=== PATIENT | male | born 1960 | race Caucasian/White ===

== ENCOUNTER 2016-12-12 16:56 | Emergency (ER) | payer MEDICARE, MEDICAID ==
[2016-12-12 17:11] VITALS: BP 134/86
--- NOTE | 2016-12-12 17:19 | UC ---
Skin Complaint HPI - History of Current Complaint Chief Complaint: UCSkin Time Seen by Provider: 12/12/16 17:11 Stated Complaint: SCRATCH ON HEAD Hx Obtained From: Family/Paint Formulator Onset/Duration: Sudden Onset - sometime today out on a group outing. Did not have a scratch on the head this morning, but seen this evening., Still Present Skin Exposure Onset/Duration: Days Ago - during the day. Timing: Constant Onset Severity: Mild Current Severity: Mild Location: Discrete - right side of the scalp. Character: Redness Aggravating: Nothing Alleviating: Nothing Associated Signs & Symptoms: Positive: Negative Related History: Trauma - unknown, none observed. - Allergy/Home Medications Allergies/Adverse Reactions: Allergies Allergy/AdvReac Type Severity Reaction Status Date / Time Clindamycin Allergy Severe Hives Verified 12/12/16 17:10 Erythromycin Allergy Severe Hives Verified 12/12/16 17:10 Adhesive Tape Allergy Unknown Verified 12/12/16 17:10 Reaction Details Review of Systems Skin: Other - abrasion on the right side of the head. All Other Systems Reviewed And Are Negative: Yes PMH/Surg Hx/FS Hx/Imm Hx Cardiovascular History Of: Reports: Cardiac Disorders - hx pericarditis - Surgical History Surgical History: Yes Surgery Procedure, Year, and Place: herniorrhaphy x2, dental extractions - Family History Known Family History: Positive: Unknown, Other - PT RESIDENT OF [facility], MENTALLY HANDICAPPED,UNABLE TO PROVIDE HX - Social History Occupation: Disabled Lives: Long-Term Alcohol Use: None Substance Use Type: None Smoking Status (MU): Never Smoked Tobacco Have You Smoked in the Last Year: No Physical Exam Triage Information Reviewed: Yes Completion Of Physical Exam Limited Due To: Patient is uncooperative with exam Vital Signs: Initial Vital Signs Temp 98.1 F 12/12/16 17:02 Pulse 97 12/12/16 17:02 Resp 16 12/12/16 17:02 BP 134/86 12/12/16 17:02 Pulse Ox 100 12/12/16 17:02 Vital Signs Reviewed: Yes Eyes: Positive: Conjunctiva Clear, Other: - right eye exotropia Neck exam: Normal Neck: Positive: Supple Respiratory Exam: Normal Cardiovascular Exam: Normal Musculoskeletal Exam: Normal Neurological: Positive: Alert, Other: - somewhat combative hitting himself. Psychological: Positive: Other: - non-verbal Skin: Positive: Other - abrasion over the right scalp. Abrasion on the right hand. Small forehead abrasion. Course/Dx - Differential Diagnoses - Skin Complaint Differential Diagnoses: Cellulitis, Lymphadenitis - Diagnoses Provider Diagnoses: Abrasion right scalp. Discharge - Discharge Plan Condition: Stable Disposition: HOME Patient Education Materials: Abrasion (ED)
== END 2016-12-12 17:45 | disposition home or self-care (01) ==
LOC: UCCORT 16:56
DX: S00.01XA Abrasion of scalp, initial encounter (principal); X58.XXXA Exposure to other specified factors, initial encounter; Y93.9 Activity, unspecified; Y92.9 Unspecified place or not applicable; Z88.1 Allergy status to other antibiotic agents
CPT/HCPCS: 99211; G0463

== ENCOUNTER 2017-01-07 13:10 | Emergency (ER) | payer MEDICARE, MEDICAID ==
[2017-01-07 15:35] VITALS: BP 147/80
--- NOTE | 2017-01-07 16:05 | UC ---
Hand/Wrist HPI - HPI Summary HPI Summary: Pt is cognitively impaired, nonverbal. Frequently "fist-bumps" other residents frequently, was doing so a lot this morning. Staff noticed that his knuckles were red, they are fine now. - History Of Current Complaint Chief Complaint: UC Stated Complaint: LEFT HAND INJURY Time Seen by Provider: 01/07/17 15:20 Hx Obtained From: Patient ?: No Onset/Duration: Gradual Onset, Lasting Hours Severity Initially: Mild Severity Currently: None Character Of Pain: Unable To Describe Alleviating: Nothing Associated Signs And Symptoms: Positive: Redness - Allergies/Home Medications Allergies/Adverse Reactions: Allergies Allergy/AdvReac Type Severity Reaction Status Date / Time Clindamycin Allergy Severe Hives Verified 01/07/17 15:21 Erythromycin Allergy Severe Hives Verified 01/07/17 15:21 Adhesive Tape Allergy Unknown Verified 01/07/17 15:21 Reaction Details PMH/Surg Hx/FS Hx/Imm Hx Cardiovascular History Of: Reports: Cardiac Disorders - hx pericarditis - Surgical History Surgical History: Yes Surgery Procedure, Year, and Place: herniorrhaphy x2, dental extractions - Family History Known Family History: Positive: Unknown, Other - PT RESIDENT OF PRISON, MENTALLY HANDICAPPED,UNABLE TO PROVIDE HX - Social History Occupation: Disabled Lives: Alf Alcohol Use: None Substance Use Type: None Smoking Status (MU): Never Smoked Tobacco Have You Smoked in the Last Year: No Review of Systems Constitutional: Negative Skin: Other - redness Eyes: Negative ENT: Negative Respiratory: Negative Cardiovascular: Negative Gastrointestinal: Negative Genitourinary: Negative Motor: Negative Neurovascular: Negative Musculoskeletal: Negative Neurological: Negative Psychological: Negative All Other Systems Reviewed And Are Negative: Yes Physical Exam Triage Information Reviewed: Yes Appearance: Well-Appearing, No Pain Distress, Well-Nourished Vital Signs: Initial Vital Signs Temp 98.5 F 01/07/17 15:26 Pulse 67 01/07/17 15:26 Resp 20 01/07/17 15:26 BP 147/80 01/07/17 15:26 Pulse Ox 98 01/07/17 15:26 Vital Signs Reviewed: Yes Eye Exam: Normal Eyes: Positive: Conjunctiva Clear ENT Exam: Normal ENT: Positive: Normal ENT inspection, Hearing grossly normal, Pharynx normal, TMs normal Dental Exam: Other - edentulous Neck exam: Normal Respiratory Exam: Normal Respiratory: Positive: Chest non-tender, Lungs clear, Normal breath sounds, No respiratory distress, No accessory muscle use Cardiovascular Exam: Normal Cardiovascular: Positive: RRR, No Murmur Musculoskeletal Exam: Normal, Other - no tenderness, using L hand fully Musculoskeletal: Positive: Strength Intact, ROM Intact Neurological Exam: Normal Psychological Exam: Normal Skin Exam: Normal Hand/Wrist Course/Dx - Differential Dx/Diagnosis Provider Diagnoses: Mild contusion to L hand Discharge - Discharge Plan Condition: Stable Disposition: HOME Patient Education Materials: Contusion in Adults (ED) Referrals: Mary Jennings MD [Primary Care Provider] - Additional Instructions: Boris's exam was normal here, x-ray snowed no injury. No change to normal care or activity level.
--- NOTE | 2017-01-07 16:06 | RAD ---
INDICATION: Left hand pain COMPARISON: None TECHNIQUE: AP and lateral views were obtained. FINDINGS: The bony structures, joint spaces, and soft tissues are normal for age. IMPRESSION: NEGATIVE EXAMINATION.
== END 2017-01-07 16:08 | disposition home or self-care (01) ==
LOC: UCCORT 13:10
DX: S60.222A Contusion of left hand, initial encounter (principal); W51.XXXA Accidental striking against or bumped into by another person, initial encounter; I31.9 Disease of pericardium, unspecified; Z88.1 Allergy status to other antibiotic agents; Z91.048 Other nonmedicinal substance allergy status; Z55.8 Other problems related to education and literacy
CPT/HCPCS: 99211; G0463

== ENCOUNTER 2017-02-24 10:59 | Emergency (ER) | payer MEDICARE, MEDICAID ==
[2017-02-24 12:05] VITALS: BP 141/87
--- NOTE | 2017-02-24 12:37 | UC ---
Head Injury HPI - HPI Summary HPI Summary: 56 yo Pt with hx MR, resident of a [facility] who is deaf and nonverbal, was in a transport van today, and per staff report pt saw the business administration program chair with a cup of coffee and wanted the cup of coffee and when he couldn't have it, pt banged his head inside the van, then outside the van on the van, and then on a metal pole as he was walking into the [facility]. This was witnessed and staff were with pt throughout the morning. Occurred approx 0930am. Pt was given one dose of APAP 650mg at 10:30am. No vomiting. No LOC. Pt is acting his usual self per staff with pt at this time, Antonia Comer. Per staff pt had preexisting abrasion on his right forehead. Pt is not on ASA or any anticoagulants. - History Of Current Complaint Chief Complaint: UCHeadInjury Stated Complaint: BANGED HEAD 3 TIMES Time Seen by Provider: 02/24/17 12:23 Hx Obtained From: Family/Director Vaccine - Antonia Comer;, Medical Records - Pt's consult sheet and "red book" Hx From Patient Unobtainable Due To: Other - level 5 caveat: Pt nonverbal, deaf , and MR Mechanism Of Injury: struck his head 3 times on van and metal pole as per HPI Onset/Duration: Sudden Onset, Lasting Hours, Resolved Severity Currently: Mild Severity Initially: Mild Pain Intensity: 0 Pain Scale Used: Adult Non Verbal Character: Other - unable to describe; level 5 caveat Aggravating Factor(s): Other - level 5 caveat Alleviating Factor(s): Other - level 5 caveat Associated Signs And Symptoms: Negative: LOC (Time In Secs./Mins/Hrs), LOC Duration Unknown, Confusion, Seizure, Epistaxis, Neck Pain, Vomiting - Risk Factors SDH Risk Factor: Male, Recent Trauma - Allergies/Home Medications Allergies/Adverse Reactions: Allergies Allergy/AdvReac Type Severity Reaction Status Date / Time Clindamycin Allergy Severe Hives Verified 02/24/17 12:06 Erythromycin Allergy Severe Hives Verified 02/24/17 12:06 Adhesive Tape Allergy Unknown Verified 02/24/17 12:06 Reaction Details PMH/Surg Hx/FS Hx/Imm Hx Previously Healthy: No - MR Cardiovascular History Of: Reports: Cardiac Disorders - hx pericarditis - Surgical History Surgical History: Yes Surgery Procedure, Year, and Place: Herniorrhaphies, Dental Extractions, Colonoscopy - Family History Known Family History: Positive: Unknown, Other - Level 5 caveat: MENTALLY HANDICAPPED,Deaf,UNABLE TO PROVIDE HX; - Social History Occupation: Disabled Lives: Snf Alcohol Use: None Substance Use Type: None Smoking Status (MU): Never Smoked Tobacco Have You Smoked in the Last Year: No - Immunization History Most Recent Influenza Vaccination: 09/07/16 Most Recent Tetanus Shot: 01/01/10 TD Most Recent Pneumonia Vaccination: 10/26/88 Review of Systems Constitutional: Other - level 5 caveat Skin: Other - abrasions forehead Eyes: Other - level 5 caeat ENT: Other - level 5 caveat Respiratory: Other - level 5 caveat Cardiovascular: Other - level 5 caveat Gastrointestinal: Other - level 5 caveat Genitourinary: Other - level 5 caveat Motor: Negative Neurovascular: Negative Musculoskeletal: Other: - level 5 caveat Neurological: Negative, Other - level 5 caveat Psychological: Negative All Other Systems Reviewed And Are Negative: Yes Physical Exam Triage Information Reviewed: Yes Appearance: Well-Appearing, No Pain Distress, Well-Nourished, Signs of Trauma - abrasions and swelling to mid forehead Vital Signs: Initial Vital Signs Temp 98.5 F 02/24/17 11:49 Pulse 82 02/24/17 11:49 Resp 18 02/24/17 11:49 BP 141/87 02/24/17 11:49 Pulse Ox 94 02/24/17 11:49 elevated BP noted Vital Signs Reviewed: Yes Eyes: Positive: Conjunctiva Clear, Other: - PERRL EOMI, No Camejo's signs, no step off of orbital rims, no indication of pain on palpation ENT: Positive: Pharynx normal, TMs normal - no hemotympanum, Other: - nonverbal. Negative: Hearing grossly normal Dental Exam: Other - edentulous, no sign of trauma Neck: Positive: Supple, Nontender, No Lymphadenopathy Respiratory: Positive: Chest non-tender, Lungs clear, Normal breath sounds, No respiratory distress Cardiovascular: Positive: RRR, No Murmur, Pulses Normal, Brisk Capillary Refill Abdomen Description: Positive: Nontender, Soft. Negative: Distended, Guarding Musculoskeletal: Positive: Strength Intact, ROM Intact Neurological: Positive: Alert, Muscle Tone Normal, Other: - Moves all extrem well, normal gait. Nonfocal Psychological: Positive: Other: - normal response to caregiver Skin: Positive: Other - abrasion mid forehead, pre-existing abrasion right forehead. Head Injury Course/Dx - Course Course Of Treatment: Non focal neuro exam, acting his usual self, no seizure activity, no LOC reported, no vomiting, no Camejo's signs or hemotympanum and pt is not on anticoagulants, so do not feel CT is indicated at this time. Have not diagnosed concussion. Advise q 4 hrs vital signs x 24 hrs and APAP 650mg q 4 hrs prn. - Differential Dx/Diagnosis Differential Diagnosis/HQI/PQRI: Concussion Without LOC, Contusion, Hematoma, Intracranial Bleed, Skull Fracture Provider Diagnoses: head injury with abrasions. elevated BP without dx of HTN Discharge - Discharge Plan Condition: Stable Disposition: HOME Patient Education Materials: Head Injury (ED) Referrals: Mary Jennings MD [Primary Care Provider] - Additional Instructions: Consult form was completed. Please follow those recommendations. His BP is elevated today 141/87 and needs follow up with Dr. Jennings within one month. Pt should be transported to the nearest emergency room if any new or worsening symptoms.
== END 2017-02-24 12:56 | disposition home or self-care (01) ==
LOC: UCCORT 10:59
DX: S00.81XA Abrasion of other part of head, initial encounter (principal); W22.8XXA Striking against or struck by other objects, initial encounter; Y93.9 Activity, unspecified; Y92.811 Bus as the place of occurrence of the external cause; R03.0 Elevated blood-pressure reading, without diagnosis of hypertension; F79 Unspecified intellectual disabilities; H91.90 Unspecified hearing loss, unspecified ear; Z88.1 Allergy status to other antibiotic agents
CPT/HCPCS: 99212; G0463

== ENCOUNTER 2017-03-22 08:28 | Emergency (ER) | payer MEDICARE, MEDICAID ==
[2017-03-22 08:42] VITALS: BP 138/78
--- NOTE | 2017-03-22 09:23 | UC ---
Head Injury HPI - HPI Summary HPI Summary: HEAD INJURY X 1 DAY SMASHED HIS HEAD ON THE BUS WINDOW THIS MORNING , BROKE THE WINDOW, MILD ABRASION ON THE SCALP NO LOC, HAS BEEN ACTING NORMAL - History Of Current Complaint Chief Complaint: UCHeadInjury Stated Complaint: HEAD INJURY Time Seen by Provider: 03/22/17 08:44 Hx Obtained From: Family/County Coroner Hx From Patient Unobtainable Due To: Other - MR Onset/Duration: Sudden Onset, Lasting Days - 1, Still Present Severity Currently: None Severity Initially: Mild Pain Intensity: 0 Pain Scale Used: Adult Non Verbal Associated Signs And Symptoms: Negative: LOC (Time In Secs./Mins/Hrs), LOC Duration Unknown, Confusion, Memory Loss, Seizure, Epistaxis, Dental Malocclusion, Neck Pain, Nausea, Vomiting - Allergies/Home Medications Allergies/Adverse Reactions: Allergies Allergy/AdvReac Type Severity Reaction Status Date / Time Clindamycin Allergy Severe Hives Verified 03/22/17 08:41 Erythromycin Allergy Severe Hives Verified 03/22/17 08:41 Adhesive Tape Allergy Unknown Verified 03/22/17 08:41 Reaction Details PMH/Surg Hx/FS Hx/Imm Hx Cardiovascular History Of: Reports: Cardiac Disorders - hx pericarditis - Surgical History Surgical History: Yes Surgery Procedure, Year, and Place: Herniorrhaphies, Dental Extractions, Colonoscopy - Family History Known Family History: Positive: Unknown, Other - Level 5 caveat: MENTALLY HANDICAPPED,Deaf,UNABLE TO PROVIDE HX; - Social History Alcohol Use: None Substance Use Type: None Smoking Status (MU): Never Smoked Tobacco Have You Smoked in the Last Year: No - Immunization History Most Recent Influenza Vaccination: 09/07/16 Most Recent Tetanus Shot: 01/01/10 TD Most Recent Pneumonia Vaccination: 10/26/88 Review of Systems Constitutional: Negative All Other Systems Reviewed And Are Negative: Yes Physical Exam Triage Information Reviewed: Yes Appearance: No Pain Distress, Well-Nourished Vital Signs: Initial Vital Signs Temp 97.8 F 03/22/17 08:34 Pulse 87 03/22/17 08:34 Resp 17 03/22/17 08:34 BP 138/78 03/22/17 08:34 Pulse Ox 98 03/22/17 08:34 Vital Signs Reviewed: Yes Eye Exam: Normal Eyes: Positive: Conjunctiva Clear ENT: Positive: Normal ENT inspection, Hearing grossly normal, Pharynx normal Neck: Positive: Supple, Nontender, No Lymphadenopathy Respiratory: Positive: Chest non-tender, Lungs clear, Normal breath sounds Cardiovascular: Positive: RRR, No Murmur, Pulses Normal Musculoskeletal Exam: Normal Skin: Positive: Other - MILD ABRASION TOP OF THE SCALP UC Physical Exam Vital Signs On Initial Exam: Initial Vitals Temp Pulse Resp BP Pulse Ox 97.8 F 87 17 138/78 98 03/22/17 08:34 03/22/17 08:34 03/22/17 08:34 03/22/17 08:34 03/22/17 08:34 - Neurological Exam Neurological: Sensory/Motor Intact, CN Intact II-III, Reflexes Intact, Normal Gait Head Injury Course/Dx - Differential Dx/Diagnosis Provider Diagnoses: CONTUSION HEAD. ABRASION SCALP Discharge - Discharge Plan Condition: Stable Disposition: HOME Patient Education Materials: Head Injury (ED) Referrals: Mary Jennings MD [Primary Care Provider] - If Needed
== END 2017-03-22 08:58 | disposition home or self-care (01) ==
LOC: UCCORT 08:28
DX: S00.03XA Contusion of scalp, initial encounter (principal); S00.01XA Abrasion of scalp, initial encounter; W22.8XXA Striking against or struck by other objects, initial encounter; Y93.89 Activity, other specified; Y92.811 Bus as the place of occurrence of the external cause; Z88.1 Allergy status to other antibiotic agents
CPT/HCPCS: 99212; G0463

== ENCOUNTER 2017-03-24 15:45 | Emergency (ER) | payer MEDICARE, MEDICAID ==
--- NOTE | 2017-03-24 16:47 | UC ---
Head Injury HPI - HPI Summary HPI Summary: The patient comes in today for: 1. Head injury: Onset: 2 days ago. Palliative/Provocative: He does not do well with change and he will act out when he does not get his way. Quality: Unable to determine the character Region: Head Severity: Unable to determine Time: Comes and goes. Associated symptoms: Event: He was in the bathroom at workshop and banking his head against the mirror. He has a history of hitting his head against things--part of his behavior. He has not done this in a long time. He will act out by hitting his head against the wall when he does not get his way. He has been hitting his head over the last few days. The life educator is not able to get me this history as she only has been working in the custodial for the last two days. However, the nurse who took his triage states that he was seen a couple days ago for the same thing. IN a way, his hitting his head is new as he has not done this for "a long time." However, it is also not new as he has done this in the past. He has a history of impulse control disorder. * - History Of Current Complaint Chief Complaint: UCHeadInjury Stated Complaint: HEAD INJURY Time Seen by Provider: 03/24/17 16:21 Hx Obtained From: Patient, Family/Patternmaker Plaster - Allergies/Home Medications Allergies/Adverse Reactions: Allergies Allergy/AdvReac Type Severity Reaction Status Date / Time Clindamycin Allergy Severe Hives Verified 03/24/17 16:15 Erythromycin Allergy Severe Hives Verified 03/24/17 16:15 Adhesive Tape Allergy Unknown Verified 03/24/17 16:15 Reaction Details PMH/Surg Hx/FS Hx/Imm Hx Previously Healthy: No - Moderate MR, Cerebral palsy, Seizures, hearing loss, Self-injurious behavio Endocrine History Of: Denies: Diabetes, Thyroid Disease, Hyperthyroidism, Hypothyroidism, Dyslipidemia Cardiovascular History Of: Reports: Cardiac Disorders - hx pericarditis Denies: Hypertension, Pacemaker/ICD, Myocardial Infarction, Congestive Heart Failure, Atrial Fibrillation, Deep Vein Thrombosis, Bleeding Disorders Respiratory History Of: Denies: COPD, Asthma, Bronchitis, Pneumonia, Pulmonary Embolism GI/ History Of: Denies: Gastroesophageal Reflux, Ulcer, Gastrointestinal Bleed, Gall Bladder Disease, Kidney Stones, Diverticulitis, Renal Disease, Urosepsis Neurological History Of: Reports: Seizures Psychological History Of: Denies: Anxiety, Depression, Bipolar Disorder, Schizophrenia, Post Traumatic Stress Disorder Cancer History Of: Denies: Lung Cancer, Colorectal Cancer, Breast Cancer, Prostate Cancer, Cervical Cancer Other History Of: Negative For: HIV, Hepatitis B, Hepatitis C, Anticoagulant Therapy - Surgical History Surgical History: Yes Surgery Procedure, Year, and Place: Herniorrhaphies, Dental Extractions, Colonoscopy - Family History Known Family History: Positive: Unknown - The patient is nonverbal. No fm hx in chart., Other - Level 5 caveat: MENTALLY HANDICAPPED,Deaf,UNABLE TO PROVIDE HX; - Social History Alcohol Use: None Substance Use Type: None Smoking Status (MU): Never Smoked Tobacco Have You Smoked in the Last Year: No - Immunization History Most Recent Influenza Vaccination: 09/07/16 Most Recent Tetanus Shot: 01/01/10 TD Most Recent Pneumonia Vaccination: 10/26/88 Review of Systems Constitutional: Negative Skin: Negative Eyes: Negative ENT: Negative Respiratory: Negative Cardiovascular: Negative Gastrointestinal: Negative Genitourinary: Negative All Other Systems Reviewed And Are Negative: Yes Physical Exam Triage Information Reviewed: Yes Completion Of Physical Exam Limited Due To: Altered Mental Status Appearance: Well-Appearing, No Pain Distress, Well-Nourished Vital Signs: Initial Vital Signs Temp 98.1 F 03/24/17 16:15 Pulse 90 03/24/17 16:15 Resp 20 03/24/17 16:15 Pulse Ox 97 03/24/17 16:15 Vital Signs Reviewed: Yes Eyes: Positive: Conjunctiva Clear. Negative: Discharge - Ears: TM not seen, but no canal erythema or edema or discharge. He would not open his mouth for me to evaluation. No swollen lips or swollen tongue. He is deaf. Neck: Positive: Supple, Nontender, No Lymphadenopathy, Other: - No masses Respiratory: Positive: Chest non-tender, Lungs clear, No respiratory distress, No accessory muscle use. Negative: Rhonchi, Wheezing Cardiovascular: Positive: RRR, No Murmur Abdomen Description: Positive: Nontender, No Organomegaly, Soft. Negative: Distended, Guarding Musculoskeletal: Positive: Strength Intact, ROM Intact, No Edema Neurological: Positive: Alert, Muscle Tone Normal Psychological: Positive: Age Appropriate Behavior, Consolable Skin: Positive: Other - 1 cm scab over the upper/posterior head.. Negative: rashes, breakdown Head Injury Course/Dx - Course Course Of Treatment: Patternmaker Plaster and [facility] home health were told that his behavior change may be caused from a medical condition and that we are not able to do even more basic testing (CBC, metabolic profile) or imaging (he will sit still) . To get more testing done than what we can do here, he would need to go to the ER and they agreed. The patient's health care proxy was called, but no answer and no way to leave message. - Differential Dx/Diagnosis Provider Diagnoses: Behavior change. - Physician Notification/Consults Discussed Patient Care With: Dr. Arrington Time Discussed With Above Provider: 17:33 Discharge - Discharge Plan Condition: Stable Disposition: [facility] Additional Instructions: Patient is going to ER at [place] via ambulance.
== END 2017-03-24 17:55 | disposition short-term general hospital (02) ==
LOC: UCCORT 15:45
DX: S09.90XA Unspecified injury of head, initial encounter (principal); W22.09XA Striking against other stationary object, initial encounter; Y93.9 Activity, unspecified; Y92.192 Bathroom in other specified residential institution as the place of occurrence of the external cause; F63.9 Impulse disorder, unspecified; Z88.1 Allergy status to other antibiotic agents; F71 Moderate intellectual disabilities; G80.9 Cerebral palsy, unspecified; H91.90 Unspecified hearing loss, unspecified ear
CPT/HCPCS: 99213; G0463

== ENCOUNTER 2017-07-05 10:11 | Emergency (ER) | payer MEDICARE, MEDICAID ==
--- NOTE | 2017-07-05 10:35 | UC ---
General HPI - HPI Summary HPI Summary: 56 yo male with MR/deafness and non verbal bumped into another client and fell on right side using right arm normal gait is unchanged no grimacing or acting in pain - History of Current Complaint Chief Complaint: UCGeneralIllness Stated Complaint: RIGHT HIP & ARM PAIN-FALL Time Seen by Provider: 07/05/17 10:23 Hx Obtained From: Patient Onset/Duration: Sudden Onset, Lasting Hours Timing: Constant Onset Severity: Mild Current Severity: None Pain Intensity: 0 - Allergy/Home Medications Allergies/Adverse Reactions: Allergies Allergy/AdvReac Type Severity Reaction Status Date / Time Clindamycin Allergy Severe Hives Verified 07/05/17 10:15 Erythromycin Allergy Severe Hives Verified 07/05/17 10:15 Adhesive Tape Allergy Unknown Verified 07/05/17 10:15 Reaction Details Home Medications: Home Medications Cyanocobalamin TAB* [Vitamin B12 TAB*] 1,000 mcg PO DAILY 07/05/17 [History Confirmed 07/05/17] Sodium Chloride TAB* 1 gm PO BID 07/05/17 [History Confirmed 07/05/17] PMH/Surg Hx/FS Hx/Imm Hx Previously Healthy: Yes - MR/deaf/behavioral issues Other History Of: Negative For: HIV, Hepatitis B, Hepatitis C, Anticoagulant Therapy - Surgical History Surgical History: Yes Surgery Procedure, Year, and Place: Herniorrhaphies, Dental Extractions, Colonoscopy - Family History Known Family History: Positive: Unknown - The patient is nonverbal. No fm hx in chart., Other - Level 5 caveat: MENTALLY HANDICAPPED,Deaf,UNABLE TO PROVIDE HX; - Social History Alcohol Use: None Substance Use Type: None Smoking Status (MU): Never Smoked Tobacco Have You Smoked in the Last Year: No - Immunization History Most Recent Influenza Vaccination: 09/07/16 Most Recent Tetanus Shot: 01/01/10 TD Most Recent Pneumonia Vaccination: 10/26/88 Review of Systems Constitutional: Negative Skin: Negative Eyes: Negative ENT: Negative Respiratory: Negative Cardiovascular: Negative Gastrointestinal: Negative Genitourinary: Negative Motor: Negative Neurovascular: Negative Musculoskeletal: Negative Neurological: Negative Psychological: Negative All Other Systems Reviewed And Are Negative: Yes Physical Exam Triage Information Reviewed: Yes Appearance: Well-Appearing, No Pain Distress, Well-Nourished Vital Signs: Initial Vital Signs Temp 98.0 F 07/05/17 10:16 Pulse 75 07/05/17 10:16 Resp 18 07/05/17 10:16 BP 150/96 07/05/17 10:16 Pulse Ox 100 07/05/17 10:16 Vital Signs Reviewed: Yes Eyes: Positive: Conjunctiva Clear ENT: Negative: Hearing grossly normal, Nasal congestion, Nasal drainage, Trismus , Muffled/hoarse voice Neck: Positive: Supple, Nontender Respiratory: Positive: Lungs clear, Normal breath sounds, No respiratory distress, No accessory muscle use Cardiovascular: Positive: RRR, No Murmur Musculoskeletal: Positive: Strength Intact, ROM Intact, No Edema Neurological: Positive: Alert Skin Exam: Normal Course/Dx - Differential Dx - Multi-Symptom Provider Diagnoses: fall. no indication of serious injury. mild contusions Discharge - Discharge Plan Condition: Stable Disposition: HOME Patient Education Materials: Contusion in Adults (ED) Referrals: Mary Jennings MD [Primary Care Provider] - If Needed Additional Instructions: recheck for any concerns
[2017-07-05 10:36] VITALS: BP 150/96
== END 2017-07-05 10:38 | disposition home or self-care (01) ==
LOC: UCCORT 10:11
DX: T14.8 Other injury of unspecified body region (principal); W19.XXXA Unspecified fall, initial encounter
CPT/HCPCS: 99212; G0463

== ENCOUNTER 2017-12-14 08:44 | Emergency (ER) | payer MEDICARE, MEDICAID ==
[2017-12-14 09:32] VITALS: BP 00/00
--- NOTE | 2017-12-14 09:50 | UC ---
General HPI - HPI Summary HPI Summary: Witnessed fall where he stumbled and he was caught and was lowered to his knees. No head trauma. he has been fine since and has been walking without limping or complaint. - History of Current Complaint Chief Complaint: UCGeneralIllness Stated Complaint: SP FALL,HEAD INJ Time Seen by Provider: 12/14/17 09:42 Hx Obtained From: Family/Auto Mechanic Apprentice Onset/Duration: Sudden Onset, Lasting Hours Pain Intensity: 0 Associated Signs & Symptoms: Positive: Other - no pain or limping. - Allergy/Home Medications Allergies/Adverse Reactions: Allergies Allergy/AdvReac Type Severity Reaction Status Date / Time Clindamycin Allergy Severe Hives Verified 12/14/17 09:32 Erythromycin Allergy Severe Hives Verified 12/14/17 09:32 Adhesive Tape Allergy Unknown Verified 12/14/17 09:32 Reaction Details PMH/Surg Hx/FS Hx/Imm Hx Previously Healthy: Yes Other History Of: Negative For: HIV, Hepatitis B, Hepatitis C, Anticoagulant Therapy - Surgical History Surgical History: Yes Surgery Procedure, Year, and Place: Herniorrhaphies, Dental Extractions, Colonoscopy - Family History Known Family History: Positive: Unknown - The patient is nonverbal. No fm hx in chart., Other - Level 5 caveat: MENTALLY HANDICAPPED,Deaf,UNABLE TO PROVIDE HX; - Social History Alcohol Use: None Substance Use Type: None Smoking Status (MU): Never Smoked Tobacco Have You Smoked in the Last Year: No - Immunization History Most Recent Influenza Vaccination: 09/07/16 Most Recent Tetanus Shot: 01/01/10 TD Most Recent Pneumonia Vaccination: 10/26/88 Review of Systems All Other Systems Reviewed And Are Negative: Yes Physical Exam Triage Information Reviewed: Yes Appearance: Well-Appearing, No Pain Distress, Well-Nourished Vital Signs: Initial Vital Signs Temp 98.3 F 12/14/17 09:25 Pulse 61 12/14/17 09:25 Resp 18 12/14/17 09:25 BP 00/00 12/14/17 09:25 Pulse Ox 96 12/14/17 09:25 Vital Signs Reviewed: Yes ENT: Positive: Normal ENT inspection Neck: Positive: Supple, Nontender, No Lymphadenopathy Respiratory: Positive: No accessory muscle use. Negative: Respiratory distress Cardiovascular: Positive: Brisk Capillary Refill Abdomen Description: Negative: Distended, Guarding Musculoskeletal: Positive: Strength Intact, ROM Intact, No Edema Neurological: Positive: Alert, Muscle Tone Normal. Negative: Fatigued Skin: Positive: Other - no bruising.. Negative: rashes Course/Dx - Differential Dx - Multi-Symptom Provider Diagnoses: fall. No apparant injury. Discharge - Discharge Plan Condition: Good Disposition: HOME Patient Education Materials: Fall Prevention (ED) Referrals: Bell Camarillo MD [Primary Care Provider] -
== END 2017-12-14 09:51 | disposition home or self-care (01) ==
LOC: UCCORT 08:44
DX: Z04.3 Encounter for examination and observation following other accident (principal); Z88.1 Allergy status to other antibiotic agents; Z91.048 Other nonmedicinal substance allergy status
CPT/HCPCS: 99211; G0463

== ENCOUNTER 2017-12-27 10:13 | Emergency (ER) | payer MEDICARE, MEDICAID | END 2017-12-27 13:28 | disposition left against medical advice (07) | LOC: UCCORT 10:13 | DX: S20.311A Abrasion of right front wall of thorax, initial encounter (principal); W19.XXXA Unspecified fall, initial encounter; Y93.9 Activity, unspecified; Y92.9 Unspecified place or not applicable; Z53.21 Procedure and treatment not carried out due to patient leaving prior to being seen by health care provider ==

== ENCOUNTER 2017-12-27 13:12 | Emergency (ER) | payer MEDICARE, MEDICAID ==
[2017-12-27 15:16] VITALS: BP 156/70
--- NOTE | 2017-12-27 15:36 | UC ---
Minor Trauma HPI - HPI Summary HPI Summary: Pt presents to with aid from skilled nursing. Pt had had a fall earlier today - lost balance as he shuffles feet. No strike head, no LOC. pt with wound to right ribs and right knee - pt here as required by center. Pt has been acting usual baseline since incident. No n/v/d No sob, cough. Pt has been eating and drinking No apparent pain. No analgesia given Pt's tdap 2009 Pt not on anticoagulation pt's medications reveiwed this visit - History of Current Complaint Chief Complaint: UCChestPain Stated Complaint: SP FALL-SCRATCH ON RT RIB AREA Time Seen by Provider: 12/27/17 15:31 Hx Obtained From: Family/Assembler Knife Hx From Patient Unobtainable Due To: Other - Pt with MR Onset/Duration: Sudden Onset Onset Of Pain: Post Accident Severity Initially: Mild Severity Currently: None Pain Intensity: 0 Mechanism Of Injury: Other - mechanical fall Aggravating Factor(s): Nothing Alleviating Factor(s): Nothing Associated Signs And Symptoms: Positive: Other: - abraison. Negative: Loss Of Consciousness, Ecchymosis, Swelling - Allergies/Home Medications Allergies/Adverse Reactions: Allergies Allergy/AdvReac Type Severity Reaction Status Date / Time MS Clindamycin [Clindamycin] Allergy Severe Hives Verified 12/27/17 14:59 MS Erythromycin Allergy Severe Hives Verified 12/27/17 14:59 [Erythromycin] Adhesive Tape Allergy Unknown Verified 12/27/17 14:59 Reaction Details PMH/Surg Hx/FS Hx/Imm Hx Previously Healthy: Yes Cardiovascular History: Hypertension Psychological History: Other Other Psychological History: MR Other History Of: Negative For: HIV, Hepatitis B, Hepatitis C, Anticoagulant Therapy - Surgical History Surgical History: Yes Surgery Procedure, Year, and Place: Herniorrhaphies, Dental Extractions, Colonoscopy - Family History Known Family History: Positive: Unknown - The patient is nonverbal. No fm hx in chart., Other - Level 5 caveat: MENTALLY HANDICAPPED,Deaf,UNABLE TO PROVIDE HX; - Social History Occupation: Disabled Lives: [employer] Alcohol Use: None Substance Use Type: None Smoking Status (MU): Never Smoked Tobacco Have You Smoked in the Last Year: No - Immunization History Most Recent Influenza Vaccination: 09/07/16 Most Recent Tetanus Shot: 01/01/10 TD Most Recent Pneumonia Vaccination: 10/26/88 Review of Systems Constitutional: Negative Skin: Other - abraison right knee, right rib Eyes: Negative ENT: Negative Respiratory: Negative Gastrointestinal: Other - no n/v Motor: Negative Neurovascular: Negative Musculoskeletal: Negative Neurological: Negative, Other - baseline per caregiver Psychological: Negative All Other Systems Reviewed And Are Negative: Yes Physical Exam Triage Information Reviewed: Yes Appearance: Well-Appearing, No Pain Distress, Well-Nourished, Other: - Pt non verbal cooperative walking around dept Vital Signs: Initial Vital Signs Temp 99.3 F 12/27/17 15:04 Pulse 85 12/27/17 15:04 Resp 18 12/27/17 15:04 BP 156/70 12/27/17 15:04 Pulse Ox 98 12/27/17 15:04 Vital Signs Reviewed: Yes Eye Exam: Normal Eyes: Positive: Conjunctiva Clear ENT Exam: Normal ENT: Positive: Normal ENT inspection, Other - NC/AT TM x2 clear - no hemotymp No septal hematoma b/l no blood oropharynx, no broken teeth Dental Exam: Normal Neck exam: Normal Neck: Positive: Supple, Nontender, No Lymphadenopathy Respiratory Exam: Normal Respiratory: Positive: Chest non-tender, Lungs clear, Normal breath sounds, No respiratory distress, No accessory muscle use, Other: - right midax/post ribs pt with 3cm superficial abraison no ecchymosis, no crepitus, no bleeding No discomfort with palp Cardiovascular Exam: Normal Cardiovascular: Positive: RRR, No Murmur, Pulses Normal Abdominal Exam: Normal Abdomen Description: Positive: Nontender, No Organomegaly, Soft, Other: - soft + BS no guarding, no rebound Bowel Sounds: Positive: Present Musculoskeletal Exam: Normal Musculoskeletal: Positive: Strength Intact, Other: - full AROM RLE without discomfort + ambulates without difficult Neurological: Positive: Alert, Muscle Tone Normal, Other: - baseline per caregiver cooperative non verbal Psychological: Positive: Normal Response To Family - per caregiver Skin: Positive: Other - see chest wall right bassam quarter size abraison with scab - does not appear acute no ecchymosis lle with bandage - did not unwrap per request of aide - pt chronically scratches wound - keeps chronically wrapped Minor Trauma Course/Dx - Course Course Of Treatment: pt with a mechanical fall - small non suturable abraison right ribs. VSS. no sob, + BS throughout. d/w caregiver -wound care to right knee - injury appears old. motrin/apap prn. s.s infection. forms for home complete - Differential Dx/Diagnosis Provider Diagnoses: abraison Discharge - Discharge Plan Condition: Stable Disposition: HOME Patient Education Materials: Abrasion (ED) Referrals: Bell Camarillo MD [Primary Care Provider] - Additional Instructions: - keep area clean and dry - okay to cover knee wound with thin layer of antibiotic ointment and bandage 2 times a day - okay to give tylenol or ibuprofen as needed - no need to continue head injury protocol - if he develops discomfort, changes in behavior, shortness of breath, or ANY concerns - take him to the emergency department for further evaluation
== END 2017-12-27 15:58 | disposition home or self-care (01) ==
LOC: UCCORT 13:12
DX: S20.311A Abrasion of right front wall of thorax, initial encounter (principal); W19.XXXA Unspecified fall, initial encounter; Y93.9 Activity, unspecified; Y92.9 Unspecified place or not applicable; H91.3 Deaf nonspeaking, not elsewhere classified; F79 Unspecified intellectual disabilities
CPT/HCPCS: 99211; G0463

== ENCOUNTER 2018-03-17 14:34 | Emergency (ER) | payer MEDICARE, MEDICAID ==
[2018-03-17 14:57] VITALS: BP 144/90
--- NOTE | 2018-04-10 11:07 | UC ---
Head Injury HPI - HPI Summary HPI Summary: Patient lives in a senior care-patient feel today and hasa small abrasion on his head seeking evaluation - History Of Current Complaint Chief Complaint: UCHeadInjury Stated Complaint: HEAD INJURY Time Seen by Provider: 03/17/18 15:19 Hx Obtained From: Patient, Family/Mud Analysis Well Logging Captain Hx From Patient Unobtainable Due To: Other - rn acute care reports patient is his usual self Mechanism Of Injury: fall fromstanding Onset/Duration: Sudden Onset Pain Intensity: 0 Pain Scale Used: 0-10 Numeric Aggravating Factor(s): Nothing Alleviating Factor(s): Nothing Associated Signs And Symptoms: Positive: Negative - Allergies/Home Medications Allergies/Adverse Reactions: Allergies Allergy/AdvReac Type Severity Reaction Status Date / Time Adhesive Tape Allergy Unknown Verified 03/20/18 16:44 Reaction Details clindamycin Allergy Hives Verified 03/20/18 16:44 erythromycin base Allergy Hives Verified 03/20/18 16:44 PMH/Surg Hx/FS Hx/Imm Hx Previously Healthy: No - development disabilities Neurological History: Seizures Psychological History: Anxiety Other History Of: Negative For: HIV, Hepatitis B, Hepatitis C, Anticoagulant Therapy - Surgical History Surgical History: Yes Surgery Procedure, Year, and Place: Herniorrhaphies, Dental Extractions, Colonoscopy - Family History Known Family History: Positive: Unknown - The patient is nonverbal. No fm hx in chart., Other - Level 5 caveat: MENTALLY HANDICAPPED,Deaf,UNABLE TO PROVIDE HX; - Social History Occupation: Disabled Lives: Assisted Living Alcohol Use: None Substance Use Type: None Smoking Status (MU): Never Smoked Tobacco Have You Smoked in the Last Year: No - Immunization History Most Recent Influenza Vaccination: 09/07/16 Most Recent Tetanus Shot: 01/01/10 TD Most Recent Pneumonia Vaccination: 10/26/88 Review of Systems Constitutional: Negative Skin: Other - abrasion on forehead Eyes: Negative ENT: Negative Respiratory: Negative Cardiovascular: Negative Gastrointestinal: Negative Genitourinary: Negative Motor: Negative Neurovascular: Negative Musculoskeletal: Negative Neurological: Negative Psychological: Negative Is Patient Immunocompromised?: No All Other Systems Reviewed And Are Negative: Yes Physical Exam Triage Information Reviewed: Yes Appearance: Well-Appearing - to his baseline, No Pain Distress, Well-Nourished Vital Signs: Initial Vital Signs Temp 98.2 F 04/27/18 14:44 Pulse 70 03/17/18 14:44 Resp 22 03/17/18 14:44 BP 144/90 03/17/18 14:44 Pulse Ox 100 03/17/18 14:44 Vital Signs Reviewed: Yes Eye Exam: Normal Eyes: Positive: Conjunctiva Clear ENT Exam: Normal ENT: Positive: Normal ENT inspection, Hearing grossly normal, TMs normal, Uvula midline. Negative: Nasal congestion, Trismus, Muffled voice, Hoarse voice, Sinus tenderness Dental Exam: Normal Neck exam: Normal Neck: Positive: Supple, Nontender Respiratory Exam: Normal Respiratory: Positive: Chest non-tender, Lungs clear, Normal breath sounds, No respiratory distress, No accessory muscle use Cardiovascular Exam: Normal Cardiovascular: Positive: RRR, No Murmur, Pulses Normal, Brisk Capillary Refill Musculoskeletal Exam: Normal Musculoskeletal: Positive: Strength Intact, ROM Intact, No Edema Neurological Exam: Normal Neurological: Positive: Alert, Muscle Tone Normal Psychological Exam: Normal, Other Psychological: Positive: Normal Response To Family - usual self Skin Exam: Other Skin: Positive: Other - abrasion on fh Head Injury Course/Dx - Course Course Of Treatment: d/c with caregiver, head injury observation and precautions , soap and water wash to abrasion, follow bp with pcp - Differential Dx/Diagnosis Provider Diagnoses: head injury, abrasion, elevated bp without dx of hypertension Discharge - Sign-Out/Discharge Documenting (check all that apply): Discharge/Admit/Transfer - Discharge Plan Condition: Stable Disposition: HOME Patient Education Materials: Head Injury (ED), Abrasion (ED), Hypertension (ED) Referrals: Bell Camarillo MD [Primary Care Provider] - 2 Weeks - Billing Disposition and Condition Condition: STABLE Disposition: HOME
== END 2018-03-17 15:56 | disposition home or self-care (01) ==
LOC: UCCORT 14:34
DX: S09.90XA Unspecified injury of head, initial encounter (principal); S00.81XA Abrasion of other part of head, initial encounter; W19.XXXA Unspecified fall, initial encounter; Y93.9 Activity, unspecified; Y92.198 Other place in other specified residential institution as the place of occurrence of the external cause; R03.0 Elevated blood-pressure reading, without diagnosis of hypertension; R62.50 Unspecified lack of expected normal physiological development in childhood; R56.9 Unspecified convulsions; F41.9 Anxiety disorder, unspecified; Z88.1 Allergy status to other antibiotic agents; Z91.048 Other nonmedicinal substance allergy status
CPT/HCPCS: 99212; G0463

== ENCOUNTER 2018-03-20 16:14 | Emergency (ER) | payer MEDICARE, MEDICAID ==
[2018-03-20 16:47] VITALS: BP 137/82
--- NOTE | 2018-03-20 17:05 | ED ---
Head Injury - HPI Summary HPI Summary: 57 yr old male with MR at baseline. He purposely was trying to hit his head today due to getting angry, and reopened an old wound on his forehead. no LOC. No vomiting. He is at his baseline per the senior case manager with him. TD is up to date. Patient on tegretol and phenobarb. - History Of Current Complaint Chief Complaint: UCHeadInjury Stated Complaint: HEAD INJURY Time Seen by Provider: 03/20/18 16:52 Pain Intensity: 0 - Allergies/Home Medications Allergies/Adverse Reactions: Allergies Allergy/AdvReac Type Severity Reaction Status Date / Time Adhesive Tape Allergy Unknown Verified 03/20/18 16:44 Reaction Details clindamycin Allergy Hives Verified 03/20/18 16:44 erythromycin base Allergy Hives Verified 03/20/18 16:44 PMH/Surg Hx/FS Hx/Imm Hx Endocrine/Hematology History: Denies: Hx Anticoagulant Therapy, Hx Diabetes, Hx Thyroid Disease Cardiovascular History: Denies: Hx Congestive Heart Failure, Hx Deep Vein Thrombosis, Hx Hypertension , Hx Myocardial Infarction, Hx Pacemaker/ICD Respiratory History: Denies: Hx Asthma, Hx Chronic Obstructive Pulmonary Disease (COPD), Hx Lung Cancer, Hx Pneumonia, Hx Pulmonary Embolism GI History: Denies: Hx Gall Bladder Disease, Hx Gastrointestinal Bleed, Hx Ulcer, Hx Urosepsis History: Denies: Hx Kidney Stones, Hx Renal Disease Neurological History: Reports: Hx Seizures Psychiatric History: Denies: Hx Anxiety, Hx Depression, Hx Schizophrenia, Hx Bipolar Disorder - Surgical History Surgery Procedure, Year, and Place: Herniorrhaphies, Dental Extractions, Colonoscopy Infectious Disease History: No Infectious Disease History: Reports: Hx of Known/Suspected MRSA Denies: Hx Clostridium Difficile, Hx Hepatitis, Hx Human Immunodeficiency Virus (HIV), Hx Shingles, Hx Tuberculosis, Hx Known/Suspected VRE, Hx Known/ Suspected VRSA, History Other Infectious Disease, Traveled Outside the [place] in Last 30 Days - Family History Known Family History: Positive: Unknown - The patient is nonverbal. No fm hx in chart., Other - Level 5 caveat: MENTALLY HANDICAPPED,Deaf,UNABLE TO PROVIDE HX; - Social History Occupation: Disabled Lives: Shelter Alcohol Use: None Substance Use Type: Reports: None Smoking Status (MU): Never Smoked Tobacco Have You Smoked in the Last Year: No Review of Systems Constitutional: Negative Neurological: Other - hit his forhead purposefully. Positive: Anxious All Other Systems Reviewed And Are Negative: Yes Physical Exam Triage Information Reviewed: Yes Vital Signs On Initial Exam: Initial Vitals Temp Pulse Resp BP Pulse Ox 98.7 F 87 24 137/82 98 03/20/18 16:40 03/20/18 16:40 03/20/18 16:40 03/20/18 16:40 03/20/18 16:40 Vital Signs Reviewed: Yes Appearance: Positive: No Pain Distress, Well-Nourished Skin: Positive: Other - the patient has a forehead laceration that is vertical. There is no active bleeding. Eyes: Positive: EOMI Neck: Positive: Supple, Nontender Respiratory/Lung Sounds: Positive: Other - normal effort Musculoskeletal: Positive: Strength/ROM Intact Neurological: Positive: Sensory/Motor Intact - at his baseline per the senior case manager, Alert, Oriented to Person Place, Time - at his baseline, CN Intact II- III, Other - pateint took his gauze dressing off forehead and stood up walked to he waste basket and threw it away. - Preeti Coma Scale Best Eye Response: 4 - Spontaneous - at baseln Best Motor Response: 6 - Obeys Commands - at baseline Best Verbal Response: 5 - Oriented - at baseline Coma Scale Total: 15 Diagnostics - Vital Signs Vital Signs Temp Pulse Resp BP Pulse Ox 03/20/18 16:40 98.7 F 87 24 137/82 98 - Laboratory Lab Statement: Any lab studies that have been ordered have been reviewed, and results considered in the medical decision making process. Head Injury Course/Dx Course Of Treatment: 57 yr old male with MR from [facility]. He has been upset today and hitting his head on purpose. He is on phenobard and tegretol. I recommend the senior case manager take patient to ER for further behavior evaluation and checking of his drug levels. His forehead laceration is old and has been reopended and this is not ammenable to primary closure given the length of time he has had the cut. local treatment with healing by [facility] is in order. No evidence of acute head injury. But recommend ER for behavior eval and drug levels and this was relayed to the senior case manager with the patient. - Diagnoses Provider Diagnoses: Head injury, Laceration Discharge - Sign-Out/Discharge Documenting (check all that apply): Discharge/Admit/Transfer - Discharge Plan Condition: Good Disposition: HOME Patient Education Materials: Head Injury (ED), Laceration Without Closure (ED) Referrals: Bell Camarillo MD [Primary Care Provider] - Additional Instructions: it is recommended you go to the ER for drug levels and for behavior evaluation due to patient agitation today and inflicting self injury. - Billing Disposition and Condition Condition: GOOD Disposition: HOME
== END 2018-03-20 17:16 | disposition home or self-care (01) ==
LOC: UCCORT 16:14
DX: S09.90XA Unspecified injury of head, initial encounter (principal); S01.81XA Laceration without foreign body of other part of head, initial encounter; Y33.XXXA Other specified events, undetermined intent, initial encounter; Y93.89 Activity, other specified; Y92.199 Unspecified place in other specified residential institution as the place of occurrence of the external cause; Z88.1 Allergy status to other antibiotic agents; Z91.048 Other nonmedicinal substance allergy status; F79 Unspecified intellectual disabilities; H91.90 Unspecified hearing loss, unspecified ear
CPT/HCPCS: 99212; G0463

== ENCOUNTER 2018-06-05 16:05 | Emergency (ER) | payer MEDICARE, MEDICAID ==
--- NOTE | 2018-06-05 17:11 | UC ---
Knee Pain HPI - HPI Summary HPI Summary: Pt is accompanied by [facility]-wayhome care associate. kennel helper states that pt was found today at ~1100 today sitting on floor and had fallen with no witness to fall. - History of Current Complaint Chief Complaint: UCLowerExtremity Stated Complaint: FELL/RT KNEE INJ Time Seen by Provider: 06/05/18 16:45 Hx Obtained From: Family/Golf Instructor Hx From Patient Unobtainable Due To: Other - pt has cognitive impairment and pt is deaf Onset/Duration: Sudden Onset Severity Initially: Mild Severity Currently: Mild Character: Unable to Describe Aggravating Factor(s): Nothing Associated Signs And Symptoms: Positive: Negative Able to Bear Weight: Yes - Risk Factors Septic Arthritis Risk Factor: Negative Gout Risk Factor: Male - Allergies/Home Medications Allergies/Adverse Reactions: Allergies Allergy/AdvReac Type Severity Reaction Status Date / Time Adhesive Tape Allergy Unknown Verified 06/05/18 16:43 Reaction Details clindamycin Allergy Hives Verified 06/05/18 16:43 erythromycin base Allergy Hives Verified 06/05/18 16:43 PMH/Surg Hx/FS Hx/Imm Hx Previously Healthy: Yes Psychological History: Other - cognitive delay Other Psychological History: cognitive delay Other History Of: Negative For: HIV, Hepatitis B, Hepatitis C, Anticoagulant Therapy - Surgical History Surgical History: Yes Surgery Procedure, Year, and Place: Herniorrhaphies, Dental Extractions, Colonoscopy - Family History Known Family History: Positive: Unknown - The patient is nonverbal. No fm hx in chart., Other - Level 5 caveat: MENTALLY HANDICAPPED,Deaf,UNABLE TO PROVIDE HX; - Social History Occupation: Disabled Lives: [employer] Alcohol Use: None Substance Use Type: None Smoking Status (MU): Never Smoked Tobacco Have You Smoked in the Last Year: No - Immunization History Most Recent Influenza Vaccination: 09/07/16 Most Recent Tetanus Shot: 01/01/10 TD Most Recent Pneumonia Vaccination: 10/26/88 Review of Systems Constitutional: Negative Skin: Negative - multiple self inflicted superficial wounds, on bilateral knees. 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", Other Eyes: Negative ENT: Negative Respiratory: Negative Cardiovascular: Negative Gastrointestinal: Negative Genitourinary: Negative Motor: Negative Neurovascular: Negative Musculoskeletal: Negative Neurological: Negative Psychological: Negative Is Patient Immunocompromised?: No All Other Systems Reviewed And Are Negative: Yes Physical Exam Triage Information Reviewed: Yes Appearance: Well-Appearing Vital Signs: Initial Vital Signs Temp 100.3 F 06/05/18 16:50 Pulse 97 06/05/18 16:50 Resp 22 06/05/18 16:50 Pulse Ox 99 06/05/18 16:50 Vital Signs Reviewed: Yes Eye Exam: Normal ENT Exam: Normal Respiratory: Positive: No respiratory distress Musculoskeletal Exam: Normal Musculoskeletal: Positive: ROM Intact Neurological Exam: Other Neurological: Positive: Other: - at baseline per caregiver Psychological Exam: Other Psychological: Positive: Other: - at baseline per caregiver Skin Exam: Other - multiple superficial scabs bilateral knees, Diagnostics - Radiology No standard instances Radiology Interpretation Completed By: Radiologist - IMPRESSION: NO ACUTE BONY FINDINGS Knee Pain Course/Dx - Differential Dx/Diagnosis Differential Diagnosis/HQI/PQRI: Contusion, Fracture (Closed), Sprain, Strain Provider Diagnoses: right knee contusion Discharge - Sign-Out/Discharge Documenting (check all that apply): Patient Departure - Discharge Plan Condition: Stable Disposition: HOME Patient Education Materials: Knee Pain (ED) Referrals: Bell Camarillo MD [Primary Care Provider] - If Needed - Billing Disposition and Condition Condition: STABLE Disposition: Home Attestation Statement User Type: Provider - I was available for consult. This patient was seen by the JAY. The patient was not presented to, seen by, or examined by me. -Luke
--- NOTE | 2018-06-05 17:49 | RAD ---
INDICATION: Right knee pain COMPARISON: None TECHNIQUE: AP and lateral views were obtained. FINDINGS: The bony structures, joint spaces, and soft tissues are normal for age. IMPRESSION: NO ACUTE BONY FINDINGS
== END 2018-06-05 18:03 | disposition home or self-care (01) ==
LOC: UCCORT 16:05
DX: S80.01XA Contusion of right knee, initial encounter (principal); G31.84 Mild cognitive impairment of uncertain or unknown etiology; W19.XXXA Unspecified fall, initial encounter; Y92.9 Unspecified place or not applicable; H91.3 Deaf nonspeaking, not elsewhere classified
CPT/HCPCS: 99211; G0463

== ENCOUNTER 2018-07-18 15:44 | Emergency (ER) | payer MEDICARE, MEDICAID ==
--- OUTSIDE RECORDS SUMMARY | 2018-07-18 16:09 | XMS REPORT ---
:1960 External Reference #:[id number] Author Organization [facility] 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 [employer] Unavailable Bell Camarillo MD Primary Care Physician Unavailable Payers Type Date Identification Numbers Payment Provider Subscriber Medicare Primary Policy Number: [id number] Medicare Boris Grubbs PayID: [id number] [address] [place] [address] Medicaid Policy Number: [id number] Medicaid Boris Grubbs PayID: [id number] [address] [place] [address] Problems Date Description Provider Status Onset: 03/30/2016 Anemia Samantha Ziegler DO Active Onset: 03/30/2016 Neutropenia Samantha Ziegler DO Active Onset: 08/25/2016 Iron deficiency Samantha Ziegler DO Active Onset: 09/29/2016 Hypo-osmolality and or hyponatremia Samantha Ziegler DO Active Onset: 12/02/2016 Generalized convulsive epilepsy Bell Camarillo MD Active Onset: 12/02/2016 Cerebral palsy Bell Camarillo MD Active Onset: 12/02/2016 Impulse control disorder Bell Camarillo MD Active Onset: 04/29/2017 Vitamin B deficiency Samantha Ziegler DO Active Onset: 01/19/2018 Hypothyroidism Bell Camarillo MD Active Onset: 01/19/2018 Unspecified open wound, unspecified Bell Camarillo MD Active lower leg, subs encntr Onset: 01/19/2018 Vitamin D deficiency Bell Camarillo MD Active Social History Type Date Description Comments Lives With Assisted Living Diet Healthy, Well Balanced Occupation works @[employer] ADL's/IADL's Dependent with bathing ADL's/IADL's Dependent with dressing ADL's/IADL's Dependent with feeding Cigarette Use Never Smoked Cigarettes ETOH Use Never used alcohol Daily Caffeine Does Not Consume Caffeine [employer] Name Both parents [employer] Name 1 brother Allergies, Adverse Reactions, Alerts Date Description Reaction Status Severity Comments 03/30/2016 Erythromycin active 03/30/2016 Clindamycin active 12/02/2016 adhesive tape active 03/24/2017 Erythromycin Pt does not know active 03/24/2017 Sulfamethoxazole Pt does not know active 03/24/2017 Trimethoprim Pt does not know active 03/24/2017 Adhesive itching active 03/24/2017 Azithromycin itching active Medications Medication Date Status Form Strength Qnty SIG Indications Ordering Provider Non-Stick 06/28 Active Pads 2"X3" 200un Apply to L97.211 Bell its sores on Rabia, lower legs 2-3x a day as needed. Mupirocin 06/07 Active Ointment 2% 66gm Apply To Bell Affected Rabia, Area 3 Times MD A Day To Open Wounds On Hands/Legs as Needed Until Healed Cover With Gauze Pad & Kerli Bactroban 01/26 Active Ointment 2% 60gm apply three Bell times a day Rabia, to open MD wound on hands and legs until healed as needed Levothyroxine 01/19 Active Tablets 50mcg 90tab 1 tab by Bell Sodium s mouth every Rabia, day Sodium Chloride 01/18 Active Tablets 1gm 90tab 1 tabl po Samantha s tid Boufal, DO Gauze Sponge 11/11 Active Pads 4"X4" 100un place on top Bell its of open Rabia, wounds of MD left leg, change daily Self Adherent 11/11 Active Misc 1unit wrap around Bell Wrap s left leg Rabia, after MD placing antibiotic ointment and gauze Polyethylene 09/18 Active Powder 3350NF 527un Mix 1 Capful Bell Glycol 335 its (17GM) In 8 Rabia, Oz Fluid & MD Drink Daily Reguloid 08/02 Active Powder 28.3% 540un 1 Bell its Tablespoonfu Rabia, l By Mouth MD Twice A Day Vaseline Pure 06/08 Active Gel 1Jar apply Bell generous Rabia, Whitepetroleum amount to Jelly both hands at night and put gloves on both hands Vitamin D3 05/12 Active Tablets 1000Unit 60tab Take 2 Bell s Tablets By Rabia, Mouth Daily Vitamin B-12 09/07 Active Tablets 1000mcg 30tab take 1 Samantha s tablet by Boufal, mouth every DO other day Glycolax Active Powder 17gm 3Mont 1 scoop by Bell hSupp mouth every Rabia, ly day with fluids Phenobarbital Active Tablets 32.4mg 2 by mouth Unknown /0000 every bid Oyster Shell Active Tablets 500-200mg 270ta 1 tab by Bell Calcium + D /0000 -Unit bs mouth three Rabia, times a day Thioridazine Active Tablets 50mg 1 by mouth Unknown HCL /0000 tid Buspirone HCL Active Tablets 10mg 1 tab by Unknown /0000 mouth tid Apap Active Tablets 325mg 2 tabs by Unknown /0000 mouth every 4 hours as needed Sudafed Active Tablets 30mg 2 tabs by Unknown /0000 mouth every 4 hours as needed nasal congestion Mylanta Active Suspension 1 tablespoon Unknown /0000 by mouth every 4 hours as needed Hydrocortisone Active Cream apply to Unknown /0000 irritated area tid, as needed Carbamazepine Active Tablets 200mg 3 PO q Am & Unknown /0000 hs 2 PO at 1500 Robitussin DM Active Syrup 100-10mg/ 2 teaspoons Unknown /0000 5ML by mouth every 4 hours as needed Ferrous Sulfate Active Tablets 325(65Fe) 90tab 1 by mouth Bell /0000 mg s every day MD Rabia Alendronate Active Tablets 70mg 4tabs Take 1 Bell Sodium /0000 Tablet By Rabia, Mouth Every MD Week On Tuesday With 8 Oz. Water *No Other Med Or Food For 30 Mins DO Not Lay Down For 30 Mins SM Triple 12/07 Hx Ointment 3.5-400-5 28.4u Apply To Bell Antibiotic 000 nits Affected Rabia, - Area Of Left 01/19 Leg Daily And Put Gauze On Wounds Keflex 11/11 Hx Capsules 500mg 28cap 1 tab by s mouth every Rabia, - 6 hours for 01/19 7 days for skin infection Triple 11/11 Hx Ointment 1% 1Tube discontinue Antibiotic ointment Rabia, Pain Relief - Maximum 01/19 Strength Reguloid 04/25 Hx Powder 28.3% 540un 1 tbsp by its mouth twice Rabia, a day Metamucil Free 03/30 Hx Powder 43% 1Bott 1 Tbsp mixed & le with 8 oz Rabia, - H20 bid 01/19 Reguloid 03/09 Hx Powder 28.3% 540gm 1 tbsp by mouth twice Rabia, a day Feso4 12/02 Hx Tablet 1 PO qd Rabia, Vaseline Pure 12/02 Hx Gel 1Jar apply generous Rabia, Whitepetroleum amount to Jelly both hands at night and put gloves on both hands Fiber Laxative Hx Powder 1tbsp 1bott 1 tbsp PO Unknown (Reguloid) /0000 le bid [place] Flavored - 03/09 Tegretol-XR Hx Tablets ER 200mg akes 2 tabs Unknown /0000 12HR po @ 3pm - 03/04 Peridex Hx Solution 0.12% rinse mouth Unknown /0000 twice a day - with 1 01/19 tablespoon Bactroban Hx Cream 2% 15gm apply three Bell / times a day Rabia, - to open 01/26 wound on hands and legs until healed as needed Iron Hx Tablets 325(65Fe) 1 by mouth Unknown /0000 mg every day - 08/25 Sodium Chloride Hx Tablets 1gm take one Unknown /0000 tablet by - mouth three 01/19 times a day /2018 Immunizations CPT Code Status Date Vaccine Lot # 16562 Given 09/07/2016 Influenza Virus Vaccine Split Virus Use For Individual 3Yr Older 61028 Given 01/01/2010 Tdap injection 31451 Given 10/26/1988 Pneumovax Injection Vital Signs Date Vital Result Comment 06/28/2018 BP Systolic 112 mmHg BP Diastolic 70 mmHg Body Temperature 97.1 F Heart Rate 60 /min Respiratory Rate 17 /min Height 65 inches 5'5" Weight 140.00 lb BMI (Body Mass Index) 23.3 kg/m2 BSA (Body Surface Area) 1.70 m2 [place] body weight in kilograms 62 O2 % BldC Oximetry 97 % 04/21/2018 BP Systolic 140 mmHg BP Diastolic 80 mmHg Body Temperature 98.2 F Heart Rate 82 /min Respiratory Rate 18 /min Height 65 inches 5'5" Weight 143.00 lb BMI (Body Mass Index) 23.8 kg/m2 BSA (Body Surface Area) 1.72 m2 [place] body weight in kilograms 62 O2 % BldC Oximetry 97 % 04/19/2018 BP Systolic 119 mmHg BP Diastolic 75 mmHg Body Temperature 97.3 F Heart Rate 97 /min Respiratory Rate 18 /min Height 65 inches 5'5" Weight 143.12 lb BMI (Body Mass Index) 23.8 kg/m2 BSA (Body Surface Area) 1.72 m2 [place] body weight in kilograms 62 O2 % BldC Oximetry 98 % On Room Air 03/22/2018 BP Systolic Sitting Right Arm 116 mmHg BP Diastolic Sitting Right Arm 71 mmHg Heart Rate 79 /min Respiratory Rate 16 /min Height 65 inches 5'5" Weight 144.00 lb BMI (Body Mass Index) 24.0 kg/m2 BSA (Body Surface Area) 1.72 m2 [place] body weight in kilograms 62 01/30/2018 BP Systolic 120 mmHg BP Diastolic 75 mmHg Body Temperature 96.2 F Heart Rate 60 /min Weight 147.00 lb O2 % BldC Oximetry 94 % 01/19/2018 BP Systolic Sitting Right Arm 151 mmHg BP Diastolic Sitting Right Arm 89 mmHg Heart Rate 72 /min Height 65 inches 5'5" Weight 146.00 lb BMI (Body Mass Index) 24.3 kg/m2 BSA (Body Surface Area) 1.73 m2 [place] body weight in kilograms 62 11/11/2017 BP Systolic Sitting Left Arm 116 mmHg BP Diastolic Sitting Left Arm 88 mmHg Body Temperature 96.7 F Heart Rate 64 /min Height 65 inches 5'5" Weight 149.00 lb BMI (Body Mass Index) 24.8 kg/m2 BSA (Body Surface Area) 1.75 m2 [place] body weight in kilograms 62 10/24/2017 BP Systolic 160 mmHg Manual BP Diastolic 90 mmHg Manual Body Temperature 96.7 F Heart Rate 68 /min Weight 150.00 lb O2 % BldC Oximetry 95 % 09/16/2017 BP Systolic 130 mmHg BP Diastolic 84 mmHg Heart Rate 87 /min Respiratory Rate 16 /min Weight 145.38 lb O2 % BldC Oximetry 98 % 07/19/2017 Body Temperature 97.2 F Weight 148.00 lb 06/08/2017 BP Systolic Sitting Right Arm 110 mmHg BP Diastolic Sitting Right Arm 76 mmHg Body Temperature 96.5 F Heart Rate 73 /min Respiratory Rate 20 /min Height 65 inches 5'5" Weight 140.00 lb BMI (Body Mass Index) 23.3 kg/m2 BSA (Body Surface Area) 1.70 m2 [place] body weight in kilograms 62 O2 % BldC Oximetry 97 % 04/29/2017 BP Systolic 158 mmHg BP Diastolic 80 mmHg Body Temperature 97.5 F Heart Rate 84 /min Weight 148.00 lb O2 % BldC Oximetry 96 % 03/30/2017 BP Systolic 136 mmHg BP Diastolic 76 mmHg Heart Rate 70 /min Height 65 inches 5'5" Weight 148.00 lb BMI (Body Mass Index) 24.6 kg/m2 BSA (Body Surface Area) 1.74 m2 [place] body weight in kilograms 62 03/04/2017 BP Systolic 120 mmHg BP Diastolic 74 mmHg Heart Rate 76 /min Height 65 inches 5'5" Weight 148.00 lb BMI (Body Mass Index) 24.6 kg/m2 BSA (Body Surface Area) 1.74 m2 [place] body weight in kilograms 62 01/26/2017 BP Systolic 151 mmHg BP Diastolic 94 mmHg Body Temperature 96.7 F Heart Rate 76 /min Weight 149.00 lb O2 % BldC Oximetry 98 % 12/03/2016 BP Systolic Sitting Right Arm 120 mmHg BP Diastolic Sitting Right Arm 68 mmHg Height 65 inches 5'5" Weight 151.12 lb BMI (Body Mass Index) 25.1 kg/m2 BSA (Body Surface Area) 1.76 m2 [place] body weight in kilograms 62 12/02/2016 Heart Rate 76 /min O2 % BldC Oximetry 97 % 11/08/2016 BP Systolic 165 mmHg BP Diastolic 100 mmHg Body Temperature 97.6 F Heart Rate 72 /min Respiratory Rate 20 /min Weight 151.50 lb O2 % BldC Oximetry 98 % 09/29/2016 BP Systolic 131 mmHg BP Diastolic 81 mmHg Body Temperature 96.9 F Heart Rate 75 /min Respiratory Rate 18 /min O2 % BldC Oximetry 98 % 08/25/2016 BP Systolic 113 mmHg BP Diastolic 77 mmHg Body Temperature 98.0 F Heart Rate 94 /min Respiratory Rate 20 /min Weight 149.00 lb O2 % BldC Oximetry 97 % 06/16/2016 BP Systolic 118 mmHg BP Diastolic 79 mmHg Body Temperature 97.2 F Heart Rate 66 /min Respiratory Rate 18 /min Weight 148.00 lb O2 % BldC Oximetry 97 % 04/13/2016 BP Systolic 127 mmHg BP Diastolic 97 mmHg Body Temperature 97.6 F Heart Rate 77 /min Respiratory Rate 16 /min Height 68 inches 5'8" Weight 151.00 lb BMI (Body Mass Index) 23.0 kg/m2 BSA (Body Surface Area) 1.81 m2 O2 % BldC Oximetry 99 % 03/30/2016 BP Systolic 126 mmHg BP Diastolic 83 mmHg Body Temperature 97.9 F Tympanic Heart Rate 82 /min Respiratory Rate 20 /min Height 66 inches 5'6" Weight 149.00 lb BMI (Body Mass Index) 24.0 kg/m2 BSA (Body Surface Area) 1.76 m2 O2 % BldC Oximetry 97 % 11/22/2007 Height 66 inches 5'6" Weight 162.00 lb Results Test Date Test Result H/L Range Note CBS W/Automated Diff 05/22/2018 White Blood Count 2.7 K/uL Low 3.4-10.5 1 Red Blood Count 4.07 M/uL Low 4.20-5.80 1 Hemoglobin 14.0 gm/dL 12.8-17.0 1 Hematocrit 38.4 % 38.0-48.0 1 Mean Cell Volume 94.3 fl 80.0-96.0 1 Mean Corpuscular HGB 34.4 pg High 27.0-33.0 1 Mean Corpuscular HGB Conc 36.5 g/dL High 31.7-36.0 1 Platelet Count 253 K/uL 155-360 1 Red Cell Distri Width SD 41.1 fl 36-51 1 Red Cell Distri Width %CV 12.0 % 11.6-15.8 1 Mean Platelet Volume 9.0 fL 6.6-10.6 1 Neut% 46.7 % 33.0-73.0 1 Lymph % 31.1 % 20.0-42.0 1 [place] % 17.8 % High 0.0-10.0 1 Eo% 3.7 % 0.0-6.6 1 Bas% 0.7 % 0.0-1.1 1 Neut# 1.26 K/uL Low 1.8-7.0 1 Lymph # 0.84 K/uL Low 1.0-4.0 1 [place] # 0.48 K/uL 0.0-0.8 1 Eos # 0.10 K/uL 0.0-0.5 1 Baso # 0.02 K/uL 0.0-0.1 1 Comprehensive Metabolic Panel 05/22/2018 Glucose 108 mg/dL High 74-106 1 BUN 13 mg/dL 7-18 1 Creatinine 0.6 mg/dL 0.6-1.3 1 Glom Filtration Rate, Estimate >60 mL/min >60 1 If >60 mL/min >60 1, 2 BUN/Creat 21.6 ratio 1 Sodium 128 mmol/L Low 136-145 1 Potassium 4.1 mmol/L 3.5-5.1 1 Chloride 94 mmol/L Low 98-107 1 Carbon Dioxide 25 mmol/L 21-32 1 Anion Gap 9 mEq/L 8-16 1 Calcium 8.3 mg/dL Low 8.5-10.1 1 Total Protein 7.6 g/dL 6.4-8.2 1 Albumin 3.9 g/dL 3.4-5.0 1 Globulin 3.7 g/dL 1.9-4.3 1 Alb/Glob 1.1 ratio 1 Bilirubin,Total 0.4 mg/dL 0.2-1.0 1 Sgot/Ast 21 U/L 15-37 1 SGPT/Alt 22 U/L 12-78 1 Alkaline Phosphatase 77 U/L 45-117 1 Iron-Tibc-%Sat 05/22/2018 Serum Iron 122 g/dL 65-175 1 Total Iron Binding Capacity 311 g/dL 250-450 1 Transferrin %Saturation 39 % 12-57 1 Laboratory test finding 05/22/2018 Ferritin 121 ng/mL 26-388 1 Vitamin B12 And Folate 05/22/2018 Vitamin B12 1139 pg/mL High 193-986 1 Folic Acid > 20.0 ng/mL High 3.1-17.5 1 Laboratory test finding 05/22/2018 Vitamin D,25-Hydroxy 41.7 ng/mL 30.0- 100.0 1, 3 Slide Review 05/22/2018 Slide Review (SEE NOTE) 1, 4 Laboratory test finding 05/22/2018 Path Review: <pending> 1 RBC Morphology Only 05/22/2018 Poikilocytosis 0-1+ 1 Anisocytosis 0-1+ 1 Macrocytosis 0-1+ 1 Elliptocytes 0-1+ 1 Xavi Cells 1+ 1 Comment . 1 Laboratory test finding 04/15/2018 Free T4 0.73 ng/dL Low 0.76-1.46 5 Thyroid Stim Hormone 0.54 uIU/mL 0.30-4.20 5 Vitamin D,25-Hydroxy 37.9 ng/mL 30.0-100.0 5, 6 LDL Cholesterol Profile 04/15/2018 Cholesterol 206 mg/dL High <200 5, 7 Triglycerides 85 mg/dL <150 5, 8 HDL Cholesterol 98 mg/dL >40 5, 9 LDL-Cholesterol 91 mg/dL < 100 5, 10 Comprehensive Metabolic Panel 04/15/2018 Glucose 87 mg/dL 74-106 5 BUN 11 mg/dL 7-18 5 Creatinine 0.6 mg/dL 0.6-1.3 5 Glom Filtration Rate, Estimate >60 mL/min >60 5 If >60 mL/min >60 5, 11 BUN/Creat 18.3 ratio 5 Sodium 130 mmol/L Low 136-145 5 Potassium 4.1 mmol/L 3.5-5.1 5 Chloride 94 mmol/L Low 98-107 5 Carbon Dioxide 28 mmol/L 21-32 5 Anion Gap 8 mEq/L 8-16 5 Calcium 8.4 mg/dL Low 8.5-10.1 5 Total Protein 7.8 g/dL 6.4-8.2 5 Albumin 4.0 g/dL 3.4-5.0 5 Globulin 3.8 g/dL 1.9-4.3 5 Alb/Glob 1.1 ratio 5 Bilirubin,Total 0.3 mg/dL 0.2-1.0 5 Sgot/Ast 22 U/L 15-37 5 SGPT/Alt 24 U/L 12-78 5 Alkaline Phosphatase 66 U/L 45-117 5 CBS W/Automated Diff 04/06/2018 White Blood Count 2.7 K/uL Low 3.4-10.5 12 Red Blood Count 4.18 M/uL Low 4.20-5.80 12 Hemoglobin 14.3 gm/dL 12.8-17.0 12 Hematocrit 40.1 % 38.0-48.0 12 Mean Cell Volume 95.9 fl 80.0-96.0 12 Mean Corpuscular HGB 34.2 pg High 27.0-33.0 12 Mean Corpuscular HGB Conc 35.7 g/dL 31.7-36.0 12 Platelet Count 250 K/uL 155-360 12 Red Cell Distri Width SD 43.4 fl 36-51 12 Red Cell Distri Width %CV 12.7 % 11.6-15.8 12 Mean Platelet Volume 9.6 fL 6.6-10.6 12 Neut% 48.8 % 33.0-73.0 12 Lymph % 32.7 % 20.0-42.0 12 [place] % 15.8 % High 0.0-10.0 12 Eo% 2.3 % 0.0-6.6 12 Bas% 0.4 % 0.0-1.1 12 Neut# 1.30 K/uL Low 1.8-7.0 12 Lymph # 0.87 K/uL Low 1.0-4.0 12 [place] # 0.42 K/uL 0.0-0.8 12 Eos # 0.06 K/uL 0.0-0.5 12 Baso # 0.01 K/uL 0.0-0.1 12 Comprehensive Metabolic Panel 04/06/2018 Glucose 74 mg/dL 74-106 12 BUN 12 mg/dL 7-18 12 Creatinine 0.7 mg/dL 0.6-1.3 12 Glom Filtration Rate, Estimate >60 mL/min >60 12 If >60 mL/min >60 12, 13 BUN/Creat 17.1 ratio 12 Sodium 128 mmol/L Low 136-145 12 Potassium 3.8 mmol/L 3.5-5.1 12 Chloride 93 mmol/L Low 98-107 12 Carbon Dioxide 27 mmol/L 21-32 12 Anion Gap 8 mEq/L 8-16 12 Calcium 8.5 mg/dL 8.5-10.1 12 Total Protein 7.6 g/dL 6.4-8.2 12 Albumin 4.0 g/dL 3.4-5.0 12 Globulin 3.6 g/dL 1.9-4.3 12 Alb/Glob 1.1 ratio 12 Bilirubin,Total 0.3 mg/dL 0.2-1.0 12 Sgot/Ast 20 U/L 15-37 12 SGPT/Alt 23 U/L 12-78 12 Alkaline Phosphatase 71 U/L 45-117 12 Iron-Tibc-%Sat 04/06/2018 Serum Iron 132 g/dL 65-175 12 Total Iron Binding Capacity 313 g/dL 250-450 12 Transferrin %Saturation 42 % 12-57 12 Laboratory test finding 04/06/2018 Ferritin 102 ng/mL 26-388 12 Vitamin B12 And Folate 04/06/2018 Vitamin B12 1243 pg/mL High 193-986 12 Folic Acid > 20.0 ng/mL High 3.1-17.5 12 Laboratory test 04/06/2018 Vitamin D,25-Hydroxy 37.2 ng/mL 30.0-100.0 12 , 14 finding Slide Review 04/06/2018 Slide Review (SEE NOTE) 12, 15 Path Review: 04/06/2018 Path Review: NI 12 Comp Metabolic 02/07/2018 Sodium 127 mmol/L Low 133-145 Panel Potassium 3.7 mmol/L 3.5-5.0 Chloride 91 mmol/L Low 101-111 Co2 Carbon Dioxide 29 mmol/L 22-32 Anion Gap 7 mmol/L 2-11 Glucose 150 mg/dL High 70-100 Blood Urea Nitrogen 12 mg/dL 6-24 Creatinine 0.84 mg/dL 0.67-1.17 BUN/Creatinine Ratio 14.3 8-20 Calcium 9.3 mg/dL 8.6-10.3 Total Protein 7.3 g/dL 6.4-8.9 Albumin 4.4 g/dL 3.2-5.2 Globulin 2.9 g/dL 2-4 Albumin/Globulin Ratio 1.5 1-3 Total Bilirubin 0.40 mg/dL 0.2-1.0 Alkaline Phosphatase 65 U/L 34-104 Alt 15 U/L 7-52 Ast 20 U/L 13-39 Egfr Non- 94.5 >60 Egfr 121.6 >60 16 Laboratory test finding 02/07/2018 Phenobarbital 10.6 g/mL Low 17-34 Carbamazepine 7.7 g/mL 4.0-12.0 CBC Auto Diff 02/07/2018 White Blood Count 2.4 10^3/uL Low 3.5-10.8 Red Blood Count 4.34 10^6/uL 4.0-5.4 Hemoglobin 14.4 g/dL 14.0-18.0 Hematocrit 42 % 42-52 Mean Corpuscular Volume 97 fL High 80-94 Mean Corpuscular Hemoglobin 33 pg High 27-31 Mean Corpuscular HGB Conc 34 g/dL 31-36 Red Cell Distribution Width 14 % 10.5-15 Platelet Count 264 10^3/uL 150-450 Mean Platelet Volume 7 um3 Low 7.4-10.4 Manual Differential 02/07/2018 Neutrophil % 52 % 38-83 Lymphocytes % 36 % 25-47 Monocytes % 7 % 0-7 Eosinophils % 3 % 0-6 Basophil % 2 % 0-2 Abs Neutrophils 1.2 10^3/uL Low 1.5-7.7 Abs Lymphocytes 0.9 10^3/uL Low 1.0-4.8 Abs Monocytes 0.2 10^3/uL 0-0.8 Abs Eosinophils 0.1 10^3/uL 0-0.6 Abs Basophils 0 10^3/uL 0-0.2 RBC Morphology Normal Normal Laboratory test finding 01/13/2018 Thyroid Stim Hormone 4.93 uIU/mL High 0.30-4.20 17 Free T4 0.65 ng/dL Low 0.76-1.46 17 Comprehensive Metabolic Panel 01/13/2018 Glucose 83 mg/dL 74-106 17 BUN 15 mg/dL 7-18 17 Creatinine 0.6 mg/dL 0.6-1.3 17 Glom Filtration Rate, Estimate >60 mL/min >60 17 If >60 mL/min >60 17, 18 BUN/Creat 25.0 ratio 17 Sodium 129 mmol/L Low 136-145 17 Potassium 4.0 mmol/L 3.5-5.1 17 Chloride 94 mmol/L Low 98-107 17 Carbon Dioxide 25 mmol/L 21-32 17 Anion Gap 10 mEq/L 8-16 17 Calcium 8.4 mg/dL Low 8.5-10.1 17 Total Protein 7.6 g/dL 6.4-8.2 17 Albumin 3.8 g/dL 3.4-5.0 17 Globulin 3.8 g/dL 1.9-4.3 17 Alb/Glob 1.0 ratio 17 Bilirubin,Total 0.3 mg/dL 0.2-1.0 17 Sgot/Ast 40 U/L High 15-37 17 SGPT/Alt 27 U/L 12-78 17 Alkaline Phosphatase 89 U/L 45-117 17 CBS W/Automated Diff 12/05/2017 White Blood Count 3.3 K/uL Low 3.4-10.5 19 Red Blood Count 4.03 M/uL Low 4.20-5.80 19 Hemoglobin 13.5 gm/dL 12.8-17.0 19 Hematocrit 38.1 % 38.0-48.0 19 Mean Cell Volume 94.5 fl 80.0-96.0 19 Mean Corpuscular HGB 33.5 pg High 27.0-33.0 19 Mean Corpuscular HGB Conc 35.4 g/dL 31.7-36.0 19 Platelet Count 277 K/uL 155-360 19 Red Cell Distri Width SD 41.8 fl 36-51 19 Red Cell Distri Width %CV 12.4 % 11.6-15.8 19 Mean Platelet Volume 10.0 fL 6.6-10.6 19 Neut% 44.9 % 33.0-73.0 19 Lymph % 39.1 % 20.0-42.0 19 [place] % 14.2 % High 0.0-10.0 19 Eo% 0.9 % 0.0-6.6 19 Bas% 0.9 % 0.0-1.1 19 Neut# 1.46 K/uL Low 1.8-7.0 19 Lymph # 1.27 K/uL 1.0-4.0 19 [place] # 0.46 K/uL 0.0-0.8 19 Eos # 0.03 K/uL 0.0-0.5 19 Baso # 0.03 K/uL 0.0-0.1 19 Comprehensive Metabolic Panel 12/05/2017 Glucose 80 mg/dL 74-106 19 BUN 17 mg/dL 7-18 19 Creatinine 0.7 mg/dL 0.6-1.3 19 Glom Filtration Rate, Estimate >60 mL/min >60 19 If >60 mL/min >60 19, 20 BUN/Creat 24.2 ratio 19 Sodium 132 mmol/L Low 136-145 19 Potassium 4.6 mmol/L 3.5-5.1 19 Chloride 96 mmol/L Low 98-107 19 Carbon Dioxide 31 mmol/L 21-32 19 Anion Gap 5 mEq/L Low 8-16 19 Calcium 8.5 mg/dL 8.5-10.1 19 Total Protein 7.7 g/dL 6.4-8.2 19 Albumin 3.7 g/dL 3.4-5.0 19 Globulin 4.0 g/dL 1.9-4.3 19 Alb/Glob 0.9 ratio 19 Bilirubin,Total 0.2 mg/dL 0.2-1.0 19 Sgot/Ast 23 U/L 15-37 19 SGPT/Alt 23 U/L 12-78 19 Alkaline Phosphatase 98 U/L 45-117 19 Iron-Tibc-%Sat 12/05/2017 Serum Iron 112 g/dL 65-175 19 Total Iron Binding Capacity 314 g/dL 250-450 19 Transferrin %Saturation 36 % 12-57 19 Laboratory test finding 12/05/2017 Ferritin 100 ng/mL 26-388 19 Vitamin B12 And Folate 12/05/2017 Vitamin B12 1392 pg/mL High 193-986 19 Folic Acid 14.6 ng/mL 3.1-17.5 19 Laboratory test 12/05/2017 Vitamin D,25-Hydroxy 49.3 ng/mL 30.0-100.0 19 , 21 finding Comprehensive 11/05/2017 Glucose 85 mg/dL 74-106 22 Metabolic Panel BUN 9 mg/dL 7-18 22 Creatinine 0.7 mg/dL 0.6-1.3 22 Glom Filtration Rate, Estimate >60 mL/min >60 22 If >60 mL/min >60 22, 23 BUN/Creat 12.8 ratio 22 Sodium 131 mmol/L Low 136-145 22 Potassium 4.1 mmol/L 3.5-5.1 22 Chloride 97 mmol/L Low 98-107 22 Carbon Dioxide 29 mmol/L 21-32 22 Anion Gap 5 mEq/L Low 8-16 22 Calcium 8.7 mg/dL 8.5-10.1 22 Total Protein 7.9 g/dL 6.4-8.2 22 Albumin 3.9 g/dL 3.4-5.0 22 Globulin 4.0 g/dL 1.9-4.3 22 Alb/Glob 1.0 ratio 22 Bilirubin,Total 0.4 mg/dL 0.2-1.0 22 Sgot/Ast 20 U/L 15-37 22 SGPT/Alt 24 U/L 12-78 22 Alkaline Phosphatase 100 U/L 45-117 22 CBS W/Automated Diff 11/05/2017 White Blood Count 4.1 K/uL 3.4-10.5 22 Red Blood Count 4.21 M/uL 4.20-5.80 22 Hemoglobin 13.9 gm/dL 12.8-17.0 22 Hematocrit 39.6 % 38.0-48.0 22 Mean Cell Volume 94.1 fl 80.0-96.0 22 Mean Corpuscular HGB 33.0 pg 27.0-33.0 22 Mean Corpuscular HGB Conc 35.1 g/dL 31.7-36.0 22 Platelet Count 265 K/uL 155-360 22 Red Cell Distri Width SD 42.1 fl 36-51 22 Red Cell Distri Width %CV 12.4 % 11.6-15.8 22 Mean Platelet Volume 9.3 fL 6.6-10.6 22 Neut% 64.3 % 33.0-73.0 22 Lymph % 17.6 % Low 20.0-42.0 22 [place] % 14.0 % High 0.0-10.0 22 Eo% 3.4 % 0.0-6.6 22 Bas% 0.7 % 0.0-1.1 22 Neut# 2.66 K/uL 1.8-7.0 22 Lymph # 0.73 K/uL Low 1.0-4.0 22 [place] # 0.58 K/uL 0.0-0.8 22 Eos # 0.14 K/uL 0.0-0.5 22 Baso # 0.03 K/uL 0.0-0.1 22 Laboratory test finding 11/05/2017 Thyroid Stim Hormone 4.72 uIU/mL High 0.30-4.20 22 Free T4 0.69 ng/dL Low 0.76-1.46 22 Vitamin D,25-Hydroxy 41.0 ng/mL 30.0-100.0 22, 24 Laboratory test 10/24/2017 Vitamin D,25-Hydroxy 47.8 ng/mL 30.0-100.0 25 , 26 finding Vitamin B12 And 10/24/2017 Vitamin B12 1416 pg/mL High 193-986 25 Folate Folic Acid 19.0 ng/mL High 3.1-17.5 25 Laboratory test finding 10/24/2017 Ferritin 98 ng/mL 26-388 25 Iron-Tibc-%Sat 10/24/2017 Serum Iron 80 g/dL 65-175 25 Total Iron Binding Capacity 351 g/dL 250-450 25 Transferrin %Saturation 23 % 12-57 25 Comprehensive Metabolic Panel 10/24/2017 Glucose 82 mg/dL 74-106 25 BUN 15 mg/dL 7-18 25 Creatinine 0.7 mg/dL 0.6-1.3 25 Glom Filtration Rate, Estimate >60 mL/min >60 25 If >60 mL/min >60 25, 27 BUN/Creat 21.4 ratio 25 Sodium 125 mmol/L Low 136-145 25 Potassium 3.9 mmol/L 3.5-5.1 25 Chloride 88 mmol/L Low 98-107 25 Carbon Dioxide 29 mmol/L 21-32 25 Anion Gap 8 mEq/L 8-16 25 Calcium 8.8 mg/dL 8.5-10.1 25 Total Protein 8.1 g/dL 6.4-8.2 25 Albumin 4.0 g/dL 3.4-5.0 25 Globulin 4.1 g/dL 1.9-4.3 25 Alb/Glob 1.0 ratio 25 Bilirubin,Total 0.4 mg/dL 0.2-1.0 25 Sgot/Ast 24 U/L 15-37 25 SGPT/Alt 26 U/L 12-78 25 Alkaline Phosphatase 94 U/L 45-117 25 CBS W/Automated Diff 10/24/2017 White Blood Count 6.4 K/uL 3.4-10.5 25 Red Blood Count 4.08 M/uL Low 4.20-5.80 25 Hemoglobin 13.5 gm/dL 12.8-17.0 25 Hematocrit 38.6 % 38.0-48.0 25 Mean Cell Volume 94.6 fl 80.0-96.0 25 Mean Corpuscular HGB 33.1 pg High 27.0-33.0 25 Mean Corpuscular HGB Conc 35.0 g/dL 31.7-36.0 25 Platelet Count 322 K/uL 155-360 25 Red Cell Distri Width SD 42.0 fl 36-51 25 Red Cell Distri Width %CV 12.4 % 11.6-15.8 25 Mean Platelet Volume 9.3 fL 6.6-10.6 25 Neut% 62.9 % 33.0-73.0 25 Lymph % 23.5 % 20.0-42.0 25 [place] % 11.4 % High 0.0-10.0 25 Eo% 1.9 % 0.0-6.6 25 Bas% 0.3 % 0.0-1.1 25 Neut# 4.01 K/uL 1.8-7.0 25 Lymph # 1.50 K/uL 1.0-4.0 25 [place] # 0.73 K/uL 0.0-0.8 25 Eos # 0.12 K/uL 0.0-0.5 25 Baso # 0.02 K/uL 0.0-0.1 25 CBS W/Automated Diff 09/10/2017 White Blood Count 3.2 K/uL Low 3.4-10.5 28 Red Blood Count 4.14 M/uL Low 4.20-5.80 28 Hemoglobin 13.8 gm/dL 12.8-17.0 28 Hematocrit 38.9 % 38.0-48.0 28 Mean Cell Volume 94.0 fl 80.0-96.0 28 Mean Corpuscular HGB 33.3 pg High 27.0-33.0 28 Mean Corpuscular HGB Conc 35.5 g/dL 31.7-36.0 28 Platelet Count 310 K/uL 150-400 28 Red Cell Distri Width SD 43.1 fl 36-51 28 Red Cell Distri Width %CV 12.8 % 11.6-15.8 28 Mean Platelet Volume 8.7 fL 6.6-10.6 28 Neut% 57.7 % 33.0-73.0 28 Lymph % 26.2 % 20.0-42.0 28 [place] % 12.1 % High 0.0-10.0 28 Eo% 3.4 % 0.0-6.6 28 Bas% 0.6 % 0.0-1.1 28 Neut# 1.85 K/uL 1.8-7.0 28 Lymph # 0.84 K/uL Low 1.0-4.0 28 [place] # 0.39 K/uL 0.0-0.8 28 Eos # 0.11 K/uL 0.0-0.5 28 Baso # 0.02 K/uL 0.0-0.1 28 Iron-Tibc-%Sat 09/10/2017 Serum Iron 113 g/dL 65-175 28 Total Iron Binding Capacity 334 g/dL 250-450 28 Transferrin %Saturation 34 % 12-57 28 Vitamin B12 And Folate 09/10/2017 Vitamin B12 1244 pg/mL High 193-986 28 Folic Acid 19.5 ng/mL High 3.1-17.5 28 Laboratory test finding 09/10/2017 Ferritin 90 ng/mL 26-388 28 Comprehensive Metabolic Panel 09/10/2017 Glucose 98 mg/dL 74-106 28 BUN 10 mg/dL 7-18 28 Creatinine 0.6 mg/dL 0.6-1.3 28 Glom Filtration Rate, Estimate >60 mL/min >60 28 If >60 mL/min >60 28, 29 BUN/Creat 16.6 ratio 28 Sodium 131 mmol/L Low 136-145 28 Potassium 4.1 mmol/L 3.5-5.1 28 Chloride 96 mmol/L Low 98-107 28 Carbon Dioxide 28 mmol/L 21-32 28 Anion Gap 7 mEq/L Low 8-16 28 Calcium 8.7 mg/dL 8.5-10.1 28 Total Protein 8.0 g/dL 6.4-8.2 28 Albumin 3.9 g/dL 3.4-5.0 28 Globulin 4.1 g/dL 1.9-4.3 28 Alb/Glob 1.0 ratio 28 Bilirubin,Total 0.3 mg/dL 0.2-1.0 28 Sgot/Ast 19 U/L 15-37 28 SGPT/Alt 22 U/L 12-78 28 Alkaline Phosphatase 96 U/L 45-117 28 Laboratory test 09/10/2017 Vitamin D,25-Hydroxy 41.1 ng/mL 30.0-100.0 28 , 30 finding Laboratory test 07/19/2017 Vitamin D,25-Hydroxy 43.3 ng/mL 30.0-100.0 31 , 32 finding CBS W/Automated Diff 07/19/2017 White Blood Count 3.4 K/uL 3.4-10.5 31 Red Blood Count 3.94 M/uL Low 4.20-5.80 31 Hemoglobin 13.1 gm/dL 12.8-17.0 31 Hematocrit 37.0 % Low 38.0-48.0 31 Mean Cell Volume 93.9 fl 80.0-96.0 31 Mean Corpuscular HGB 33.2 pg High 27.0-33.0 31 Mean Corpuscular HGB Conc 35.4 g/dL 31.7-36.0 31 Platelet Count 273 K/uL 150-400 31 Red Cell Distri Width SD 41.4 fl 36-51 31 Red Cell Distri Width %CV 12.4 % 11.6-15.8 31 Mean Platelet Volume 9.8 fL 6.6-10.6 31 Neut% 43.7 % 33.0-73.0 31 Lymph % 37.1 % 20.0-42.0 31 [place] % 16.5 % High 0.0-10.0 31 Eo% 2.4 % 0.0-6.6 31 Bas% 0.3 % 0.0-1.1 31 Neut# 1.49 K/uL Low 1.8-7.0 31 Lymph # 1.26 K/uL 1.0-4.0 31 [place] # 0.56 K/uL 0.0-0.8 31 Eos # 0.08 K/uL 0.0-0.5 31 Baso # 0.01 K/uL 0.0-0.1 31 Comprehensive Metabolic Panel 07/19/2017 Glucose 86 mg/dL 74-106 31 BUN 13 mg/dL 7-18 31 Creatinine 0.7 mg/dL 0.6-1.3 31 Glom Filtration Rate, Estimate >60 mL/min >60 31 If >60 mL/min >60 31, 33 BUN/Creat 18.5 ratio 31 Sodium 126 mmol/L Low 136-145 31 Potassium 4.2 mmol/L 3.5-5.1 31 Chloride 90 mmol/L Low 98-107 31 Carbon Dioxide 29 mmol/L 21-32 31 Anion Gap 7 mEq/L Low 8-16 31 Calcium 8.4 mg/dL Low 8.5-10.1 31 Total Protein 7.5 g/dL 6.4-8.2 31 Albumin 3.7 g/dL 3.4-5.0 31 Globulin 3.8 g/dL 1.9-4.3 31 Alb/Glob 1.0 ratio 31 Bilirubin,Total 0.3 mg/dL 0.2-1.0 31 Sgot/Ast 21 U/L 15-37 31 SGPT/Alt 22 U/L 12-78 31 Alkaline Phosphatase 81 U/L 45-117 31 Iron-Tibc-%Sat 07/19/2017 Serum Iron 82 g/dL 65-175 31 Total Iron Binding Capacity 321 g/dL 250-450 31 Transferrin %Saturation 26 % 12-57 31 Laboratory test finding 07/19/2017 Ferritin 95 ng/mL 26-388 31 Vitamin B12 And Folate 07/19/2017 Vitamin B12 940 pg/mL 193-986 31 Folic Acid 17.2 ng/mL 3.1-17.5 31 Comprehensive Metabolic Panel 04/22/2017 Glucose 53 mg/dL Low 74-106 34 BUN 10 mg/dL 7-18 34 Creatinine 0.7 mg/dL 0.6-1.3 34 Glom Filtration Rate, Estimate >60 mL/min >60 34 If >60 mL/min >60 34, 35 BUN/Creat 14.2 ratio 34 Sodium 130 mmol/L Low 136-145 34 Potassium 3.5 mmol/L 3.5-5.1 34 Chloride 94 mmol/L Low 98-107 34 Carbon Dioxide 28 mmol/L 21-32 34 Anion Gap 8 mEq/L 8-16 34 Calcium 8.4 mg/dL Low 8.5-10.1 34 Total Protein 7.9 g/dL 6.4-8.2 34 Albumin 4.0 g/dL 3.4-5.0 34 Globulin 3.9 g/dL 1.9-4.3 34 Alb/Glob 1.0 ratio 34 Bilirubin,Total 0.3 mg/dL 0.2-1.0 34 Sgot/Ast 25 U/L 15-37 34 SGPT/Alt 22 U/L 12-78 34 Alkaline Phosphatase 104 U/L 45-117 34 Iron-Tibc-%Sat 04/22/2017 Serum Iron 112 g/dL 65-175 34 Total Iron Binding Capacity 324 g/dL 250-450 34 Transferrin %Saturation 35 % 12-57 34 Laboratory test finding 04/22/2017 Ferritin 87 ng/mL 26-388 34 Vitamin B12 And Folate 04/22/2017 Vitamin B12 1518 pg/mL High 193-986 34 Folic Acid 24.7 ng/mL High 3.1-17.5 34 CBS W/Automated Diff 04/22/2017 White Blood Count 3.0 K/uL Low 3.4-10.5 34 Red Blood Count 4.23 M/uL 4.20-5.80 34 Hemoglobin 14.0 gm/dL 12.8-17.0 34 Hematocrit 40.2 % 38.0-48.0 34 Mean Cell Volume 95.0 fl 80.0-96.0 34 Mean Corpuscular HGB 33.1 pg High 27.0-33.0 34 Mean Corpuscular HGB Conc 34.8 g/dL 31.7-36.0 34 Platelet Count 323 K/uL 150-400 34 Red Cell Distri Width SD 43.0 fl 36-51 34 Red Cell Distri Width %CV 12.6 % 11.6-15.8 34 Mean Platelet Volume 9.7 fL 6.6-10.6 34 Neut% 49.5 % 33.0-73.0 34 Lymph % 31.2 % 20.0-42.0 34 [place] % 14.3 % High 0.0-10.0 34 Eo% 4.0 % 0.0-6.6 34 Bas% 1.0 % 0.0-1.1 34 Neut# 1.49 K/uL Low 1.8-7.0 34 Lymph # 0.94 K/uL Low 1.0-4.0 34 [place] # 0.43 K/uL 0.0-0.8 34 Eos # 0.12 K/uL 0.0-0.5 34 Baso # 0.03 K/uL 0.0-0.1 34 CBS W/Automated Diff 01/21/2017 White Blood Count 4.1 K/uL 3.4-10.5 34 Red Blood Count 4.02 M/uL Low 4.20-5.80 34 Hemoglobin 13.6 gm/dL 12.8-17.0 34 Hematocrit 38.0 % 38.0-48.0 34 Mean Cell Volume 94.5 fl 80.0-96.0 34 Mean Corpuscular HGB 33.8 pg High 27.0-33.0 34 Mean Corpuscular HGB Conc 35.8 g/dL 31.7-36.0 34 Platelet Count 264 K/uL 150-400 34 Red Cell Distri Width SD 42.5 fl 36-51 34 Red Cell Distri Width %CV 12.5 % 11.6-15.8 34 Mean Platelet Volume 9.1 fL 6.6-10.6 34 Neut% 53.5 % 33.0-73.0 34 Lymph % 31.7 % 20.0-42.0 34 [place] % 12.6 % High 0.0-10.0 34 Eo% 1.7 % 0.0-6.6 34 Bas% 0.5 % 0.0-1.1 34 Neut# 2.21 K/uL 1.8-7.0 34 Lymph # 1.31 K/uL 1.0-4.0 34 [place] # 0.52 K/uL 0.0-0.8 34 Eos # 0.07 K/uL 0.0-0.5 34 Baso # 0.02 K/uL 0.0-0.1 34 Comprehensive Metabolic Panel 01/21/2017 Glucose 117 mg/dL High 74-106 34 BUN 10 mg/dL 7-18 34 Creatinine 0.7 mg/dL 0.6-1.3 34 Glom Filtration Rate, Estimate >60 mL/min >60 34 If >60 mL/min >60 34, 36 BUN/Creat 14.2 ratio 34 Sodium 127 mmol/L Low 136-145 34 Potassium 4.5 mmol/L 3.5-5.1 34 Chloride 91 mmol/L Low 98-107 34 Carbon Dioxide 27 mmol/L 21-32 34 Anion Gap 9 mEq/L 8-16 34 Calcium 8.5 mg/dL 8.5-10.1 34 Total Protein 7.7 g/dL 6.4-8.2 34 Albumin 4.0 g/dL 3.4-5.0 34 Globulin 3.7 g/dL 1.9-4.3 34 Alb/Glob 1.1 ratio 34 Bilirubin,Total 0.3 mg/dL 0.2-1.0 34 Sgot/Ast 21 U/L 15-37 34 SGPT/Alt 23 U/L 12-78 34 Alkaline Phosphatase 85 U/L 45-117 34 Iron-Tibc-%Sat 01/21/2017 Serum Iron 79 g/dL 65-175 34 Total Iron Binding Capacity 333 g/dL 250-450 34 Transferrin %Saturation 24 % 12-57 34 Laboratory test finding 01/21/2017 Ferritin 82 ng/mL 26-388 34 Vitamin B12 And Folate 01/21/2017 Vitamin B12 1341 pg/mL High 193-986 34 Folic Acid 18.4 ng/mL High 3.1-17.5 34 Vitamin B12 And Folate 10/06/2016 Vitamin B12 820 pg/mL 193-986 34 Folic Acid 19.7 ng/mL High 3.1-17.5 34 Laboratory test finding 10/06/2016 Ferritin 48 ng/mL 26-388 34 Iron-Tibc-%Sat 10/06/2016 Serum Iron 86 g/dL 65-175 34 Total Iron Binding Capacity 350 g/dL 250-450 34 Transferrin %Saturation 25 % 12-57 34 Comprehensive Metabolic Panel 10/06/2016 Glucose 110 mg/dL High 74-106 34 BUN 12 mg/dL 7-18 34 Creatinine 0.7 mg/dL 0.6-1.3 34 Glom Filtration Rate, Estimate >60 mL/min >60 34 If >60 mL/min >60 34, 37 BUN/Creat 17.1 ratio 34 Sodium 128 mmol/L Low 136-145 34 Potassium 4.3 mmol/L 3.5-5.1 34 Chloride 94 mmol/L Low 98-107 34 Carbon Dioxide 26 mmol/L 21-32 34 Anion Gap 8 mEq/L 8-16 34 Calcium 8.0 mg/dL Low 8.5-10.1 34 Total Protein 7.3 g/dL 6.4-8.2 34 Albumin 3.7 g/dL 3.4-5.0 34 Globulin 3.6 g/dL 1.9-4.3 34 Alb/Glob 1.0 ratio 34 Bilirubin,Total 0.2 mg/dL 0.2-1.0 34 Sgot/Ast 21 U/L 15-37 34 SGPT/Alt 22 U/L 12-78 34 Alkaline Phosphatase 85 U/L 45-117 34 CBS W/Automated Diff 10/06/2016 White Blood Count 3.2 K/uL Low 3.4-10.5 34 Red Blood Count 3.77 M/uL Low 4.20-5.80 34 Hemoglobin 12.6 gm/dL Low 12.8-17.0 34 Hematocrit 35.9 % Low 38.0-48.0 34 Mean Cell Volume 95.2 fl 80.0-96.0 34 Mean Corpuscular HGB 33.4 pg High 27.0-33.0 34 Mean Corpuscular HGB Conc 35.1 g/dL 31.7-36.0 34 Platelet Count 257 K/uL 150-400 34 Red Cell Distri Width SD 43.7 fl 36-51 34 Red Cell Distri Width %CV 13.0 % 11.6-15.8 34 Mean Platelet Volume 10.3 fL 6.6-10.6 34 Neut% 55.2 % 33.0-73.0 34 Lymph % 29.4 % 17.0-56.0 34 [place] % 11.3 % High 0.0-10.0 34 Eo% 2.8 % 0.0-5.0 34 Bas% 1.3 % High 0.1-1.0 34 Neut# 1.77 K/uL Low 1.8-7.0 34 Lymph # 0.94 K/uL Low 1.8-7.0 34 [place] # 0.36 K/uL 0.0-0.8 34 Eos # 0.09 K/uL 0.0-0.5 34 Baso # 0.04 K/uL Low 0.1-0.2 34 Basic Metabolic Panel 09/29/2016 Glucose 157 mg/dL High 74-106 38 BUN 12 mg/dL 7-18 38 Creatinine 0.7 mg/dL 0.6-1.3 38 Glom Filtration Rate, Estimate >60 mL/min >60 38 If >60 mL/min >60 38, 39 BUN/Creat 17.1 ratio 38 Sodium 126 mmol/L Low 136-145 38 Potassium 3.8 mmol/L 3.5-5.1 38 Chloride 91 mmol/L Low 98-107 38 Carbon Dioxide 26 mmol/L 21-32 38 Anion Gap 9 mEq/L 8-16 38 Calcium 8.2 mg/dL Low 8.5-10.1 38 CBS W/Automated Diff 09/22/2016 White Blood Count 3.4 K/uL 3.4-10.5 40 Red Blood Count 3.97 M/uL Low 4.20-5.80 40 Hemoglobin 13.1 gm/dL 12.8-17.0 40 Hematocrit 37.7 % Low 38.0-48.0 40 Mean Cell Volume 95.0 fl 80.0-96.0 40 Mean Corpuscular HGB 33.0 pg 27.0-33.0 40 Mean Corpuscular HGB Conc 34.7 g/dL 31.7-36.0 40 Platelet Count 258 K/uL 150-400 40 Red Cell Distri Width SD 44.2 fl 36-51 40 Red Cell Distri Width %CV 13.0 % 11.6-15.8 40 Mean Platelet Volume 9.8 fL 6.6-10.6 40 Neut% 48.6 % 33.0-73.0 40 Lymph % 33.7 % 17.0-56.0 40 [place] % 14.8 % High 0.0-10.0 40 Eo% 2.3 % 0.0-5.0 40 Bas% 0.6 % 0.1-1.0 40 Neut# 1.67 K/uL Low 1.8-7.0 40 Lymph # 1.16 K/uL Low 1.8-7.0 40 [place] # 0.51 K/uL 0.0-0.8 40 Eos # 0.08 K/uL 0.0-0.5 40 Baso # 0.02 K/uL Low 0.1-0.2 40 Comprehensive Metabolic Panel 09/22/2016 Glucose 87 mg/dL 74-106 40 BUN 12 mg/dL 7-18 40 Creatinine 0.8 mg/dL 0.6-1.3 40 Glom Filtration Rate, Estimate >60 mL/min >60 40 If >60 mL/min >60 40, 41 BUN/Creat 15.0 ratio 40 Sodium 125 mmol/L Low 136-145 40 Potassium 3.9 mmol/L 3.5-5.1 40 Chloride 89 mmol/L Low 98-107 40 Carbon Dioxide 28 mmol/L 21-32 40 Anion Gap 8 mEq/L 8-16 40 Calcium 7.8 mg/dL Low 8.5-10.1 40 Total Protein 7.7 g/dL 6.4-8.2 40 Albumin 3.7 g/dL 3.4-5.0 40 Globulin 4.0 g/dL 1.9-4.3 40 Alb/Glob 0.9 ratio 40 Bilirubin,Total 0.3 mg/dL 0.2-1.0 40 Sgot/Ast 22 U/L 15-37 40 SGPT/Alt 19 U/L 12-78 40 Alkaline Phosphatase 93 U/L 45-117 40 Iron-Tibc-%Sat 09/22/2016 Serum Iron 102 g/dL 65-175 40 Total Iron Binding Capacity 351 g/dL 250-450 40 Transferrin %Saturation 29 % 12-57 40 Laboratory test finding 09/22/2016 Ferritin 57 ng/mL 26-388 40 Vitamin B12 And Folate 09/22/2016 Vitamin B12 623 pg/mL 193-986 40 Folic Acid 19.4 ng/mL High 3.1-17.5 40 CBC 08/24/2016 White Blood Count 5.5 K/uL 3.4-10.5 42 Red Blood Count 3.59 M/uL Low 4.20-5.80 42 Hemoglobin 11.9 gm/dL Low 12.8-17.0 42 Hematocrit 33.9 % Low 38.0-48.0 42 Mean Cell Volume 94.4 fl 80.0-96.0 42 Mean Corpuscular HGB 33.1 pg High 27.0-33.0 42 Mean Corpuscular HGB Conc 35.1 g/dL 31.7-36.0 42 Platelet Count 277 K/uL 150-400 42 Red Cell Distri Width %CV 13.0 % 11.6-15.8 42 Mean Platelet Volume 9.4 fL 6.6-10.6 42 Basic Metabolic Panel 08/24/2016 Glucose 88 mg/dL 74-106 42 BUN 6 mg/dL Low 7-18 42 Creatinine 0.5 mg/dL Low 0.6-1.3 42 Glom Filtration Rate, Estimate >60 mL/min >60 42 If >60 mL/min >60 42, 43 BUN/Creat 12.0 ratio 42 Sodium 130 mmol/L Low 136-145 42 Potassium 3.5 mmol/L 3.5-5.1 42 Chloride 96 mmol/L Low 98-107 42 Carbon Dioxide 25 mmol/L 21-32 42 Anion Gap 9 mEq/L 8-16 42 Calcium 8.0 mg/dL Low 8.5-10.1 42 Is Patient Fasting? Non-Fasting 42 CBC 08/23/2016 White Blood Count 4.6 K/uL 3.4-10.5 42 Red Blood Count 3.86 M/uL Low 4.20-5.80 42 Hemoglobin 12.7 gm/dL Low 12.8-17.0 42 Hematocrit 36.0 % Low 38.0-48.0 42 Mean Cell Volume 93.3 fl 80.0-96.0 42 Mean Corpuscular HGB 32.9 pg 27.0-33.0 42 Mean Corpuscular HGB Conc 35.3 g/dL 31.7-36.0 42 Platelet Count 277 K/uL 150-400 42 Red Cell Distri Width %CV 12.9 % 11.6-15.8 42 Mean Platelet Volume 9.1 fL 6.6-10.6 42 Basic Metabolic Panel 08/23/2016 Glucose 89 mg/dL 74-106 42 BUN 8 mg/dL 7-18 42 Creatinine 0.7 mg/dL 0.6-1.3 42 Glom Filtration Rate, Estimate >60 mL/min >60 42 If >60 mL/min >60 42, 44 BUN/Creat 11.4 ratio 42 Sodium 130 mmol/L Low 136-145 42 Potassium 3.6 mmol/L 3.5-5.1 42 Chloride 97 mmol/L Low 98-107 42 Carbon Dioxide 26 mmol/L 21-32 42 Anion Gap 7 mEq/L Low 8-16 42 Calcium 8.0 mg/dL Low 8.5-10.1 42 Is Patient Fasting? Non-Fasting 42 Ua RFX Microscopic & Cult If Inicated 08/23/2016 Urine Color YELLOW Yellow 42 Urine Clarity CLEAR Clear 42 Urine Glucose - Dipstick NEGATIVE mg/dL Negative 42 Urine Bilirubin - Dipstick NEGATIVE Negative 42 Urine Ketone NEGATIVE mg/dL Negative 42 Urine Specific [place] 1.010 1.010-1.030 42 Urine Blood NEGATIVE Negative 42 Urine PH 7.0 6.5-7.5 42 Urine Protein - Dipstick NEGATIVE mg/dL Negative 42 Urine Urobilinogen - Dipstick 0.2 E.U./dL 0.2-1.0 42 Urine Nitrite - Dipstick NEGATIVE Negative 42 Urine Leuk Esterase NEGATIVE Negative 42 Source: URINE, CLEAN CAT <SEE NOTE> 42, 45 Laboratory test 08/02/2016 Vitamin D,25-Hydroxy 38.7 ng/mL 30.0-100.0 46 , 47 finding Iron-Tibc-%Sat 08/02/2016 Serum Iron 47 g/dL Low 65-175 46 Total Iron Binding Capacity 303 g/dL 250-450 46 Transferrin %Saturation 16 % 12-57 46 Laboratory test finding 08/02/2016 Ferritin 84 ng/mL 26-388 46 CBC W/Automated Diff 08/02/2016 White Blood Count 4.7 K/uL 3.4-10.5 46 Red Blood Count 3.77 M/uL Low 4.20-5.80 46 Hemoglobin 12.2 gm/dL Low 12.8-17.0 46 Hematocrit 35.4 % Low 38.0-48.0 46 Mean Cell Volume 93.9 fl 80.0-96.0 46 Mean Corpuscular HGB 32.4 pg 27.0-33.0 46 Mean Corpuscular HGB Conc 34.5 g/dL 31.7-36.0 46 Platelet Count 278 K/uL 150-400 46 Red Cell Distri Width SD 43.7 fl 36-51 46 Red Cell Distri Width %CV 13.1 % 11.6-15.8 46 Mean Platelet Volume 9.9 fL 6.6-10.6 46 Neut% 47.8 % 33.0-73.0 46 Lymph % 25.4 % 17.0-56.0 46 [place] % 19.9 % High 0.0-10.0 46 Eo% 6.0 % High 0.0-5.0 46 Bas% 0.9 % 0.1-1.0 46 Neut# 2.24 K/uL 1.8-7.0 46 Lymph # 1.19 K/uL Low 1.8-7.0 46 [place] # 0.93 K/uL High 0.0-0.8 46 Eos # 0.28 K/uL 0.0-0.5 46 Baso # 0.04 K/uL Low 0.1-0.2 46 Comprehensive Metabolic Panel 08/02/2016 Glucose 76 mg/dL 74-106 46 BUN 12 mg/dL 7-18 46 Creatinine 0.6 mg/dL 0.6-1.3 46 Glom Filtration Rate, Estimate >60 mL/min >60 46 If >60 mL/min >60 46, 48 BUN/Creat 20.0 ratio 46 Sodium 126 mmol/L Low 136-145 46 Potassium 4.3 mmol/L 3.5-5.1 46 Chloride 92 mmol/L Low 98-107 46 Carbon Dioxide 28 mmol/L 21-32 46 Anion Gap 6 mEq/L Low 8-16 46 Calcium 8.0 mg/dL Low 8.5-10.1 46 Total Protein 7.2 g/dL 6.4-8.2 46 Albumin 3.6 g/dL 3.4-5.0 46 Globulin 3.6 g/dL 1.9-4.3 46 Alb/Glob 1.0 ratio 46 Bilirubin,Total 0.2 mg/dL 0.2-1.0 46 Sgot/Ast 19 U/L 15-37 46 SGPT/Alt 19 U/L 12-78 46 Alkaline Phosphatase 94 U/L 45-117 46 Vitamin B12 And Folate 08/02/2016 Vitamin B12 614 pg/mL 193-986 46 Folic Acid 18.8 ng/mL High 3.1-17.5 46 CBC W/Automated Diff 06/11/2016 White Blood Count 3.9 K/uL 3.4-10.5 Red Blood Count 3.72 M/uL Low 4.20-5.80 Hemoglobin 12.1 gm/dL Low 12.8-17.0 Hematocrit 34.5 % Low 38.0-48.0 Mean Cell Volume 92.7 fl 80.0-96.0 Mean Corpuscular HGB 32.5 pg 27.0-33.0 Mean Corpuscular HGB Conc 35.1 g/dL 31.7-36.0 Platelet Count 253 K/uL 150-400 Red Cell Distri Width SD 42.1 fl 36-51 Red Cell Distri Width %CV 12.8 % 11.6-15.8 Mean Platelet Volume 9.6 fL 6.6-10.6 Neut% 51.6 % 33.0-73.0 Lymph % 32.1 % 17.0-56.0 [place] % 11.2 % High 0.0-10.0 Eo% 4.3 % 0.0-5.0 Bas% 0.8 % 0.1-1.0 Neut# 2.02 K/uL 1.8-7.0 Lymph # 1.26 K/uL Low 1.8-7.0 [place] # 0.44 K/uL 0.0-0.8 Eos # 0.17 K/uL 0.0-0.5 Baso # 0.03 K/uL Low 0.1-0.2 Comprehensive Metabolic Panel 06/11/2016 Glucose 85 mg/dL 74-106 BUN 9 mg/dL 7-18 Creatinine 0.7 mg/dL 0.6-1.3 Glom Filtration Rate, Estimate >60 mL/min >60 If >60 mL/min >60 49 BUN/Creat 12.8 ratio Sodium 122 mmol/L Low 136-145 Potassium 3.9 mmol/L 3.5-5.1 Chloride 90 mmol/L Low 98-107 Carbon Dioxide 25 mmol/L 21-32 Anion Gap 7 mEq/L Low 8-16 Calcium 7.8 mg/dL Low 8.5-10.1 Total Protein 7.1 g/dL 6.4-8.2 Albumin 3.6 g/dL 3.4-5.0 Globulin 3.5 g/dL 1.9-4.3 Alb/Glob 1.0 ratio Bilirubin,Total 0.4 mg/dL 0.2-1.0 Sgot/Ast 19 U/L 15-37 SGPT/Alt 17 U/L 12-78 Alkaline Phosphatase 92 U/L 45-117 Vitamin B12 And Folate 06/11/2016 Vitamin B12 601 pg/mL 193-986 Folic Acid 18.0 ng/mL High 3.1-17.5 Laboratory test finding 06/11/2016 Vitamin D,25-Hydroxy 37.0 ng/mL 30.0- 100.0 50 Iron-Tibc-%Sat 06/11/2016 Serum Iron 119 g/dL 65-175 Total Iron Binding Capacity 303 g/dL 250-450 Transferrin %Saturation 39 % 12-57 Laboratory test finding 06/11/2016 Ferritin 67 ng/mL 26-388 Iron-Tibc-%Sat 04/06/2016 Serum Iron 81 g/dL 65-175 Total Iron Binding Capacity 360 g/dL 250-450 Transferrin %Saturation 23 % 12-57 CMP Panel (14 Test) 04/06/2016 Glucose 88 mg/dL 74-106 BUN 9 mg/dL 7-18 Creatinine 0.7 mg/dL 0.6-1.3 Glom Filtration Rate, Estimate >60 mL/min >60 If >60 mL/min >60 51 BUN/Creat 12.8 ratio Sodium 121 mmol/L Low 136-145 Potassium 4.1 mmol/L 3.5-5.1 Chloride 86 mmol/L Low 98-107 Carbon Dioxide 26 mmol/L 21-32 Anion Gap 9 mEq/L 8-16 Calcium 8.2 mg/dL Low 8.5-10.1 Total Protein 8.2 g/dL 6.4-8.2 Albumin 3.9 g/dL 3.4-5.0 Globulin 4.3 g/dL 1.9-4.3 Alb/Glob 0.9 ratio Bilirubin,Total 0.3 mg/dL 0.2-1.0 Sgot/Ast 21 U/L 15-37 SGPT/Alt 19 U/L 12-78 Alkaline Phosphatase 161 U/L High 45-117 Vitamin B12 And Folate Serum 04/06/2016 Vitamin B12 723 pg/mL 193-986 Folic Acid 19.0 ng/mL High 3.1-17.5 Laboratory test finding 04/06/2016 Ferritin 46 ng/mL 26-388 CBC W/Diff & PLT 04/06/2016 White Blood Count 4.4 K/uL 3.4-10.5 Red Blood Count 4.11 M/uL Low 4.20-5.80 Hemoglobin 13.3 gm/dL 12.8-17.0 Hematocrit 37.3 % Low 38.0-48.0 Mean Cell Volume 90.8 fl 80.0-96.0 Mean Corpuscular HGB 32.4 pg 27.0-33.0 Mean Corpuscular HGB Conc 35.7 g/dL 31.7-36.0 Platelet Count 340 K/uL 150-400 Red Cell Distri Width SD 41.5 fl 36-51 Red Cell Distri Width %CV 12.7 % 11.6-15.8 Mean Platelet Volume 8.8 fL 6.6-10.6 Neut% 52.9 % 33.0-73.0 Lymph % 27.6 % 17.0-56.0 [place] % 14.7 % High 0.0-10.0 Eo% 4.1 % 0.0-5.0 Bas% 0.7 % 0.1-1.0 Neut# 2.30 K/uL 1.8-7.0 Lymph # 1.20 K/uL Low 1.8-7.0 [place] # 0.64 K/uL 0.0-0.8 Eos # 0.18 K/uL 0.0-0.5 Baso # 0.03 K/uL Low 0.1-0.2 1 D64.9 E55.9 E61.1 E53.9 2 Note: Persistent reduction for 3 months or more in an eGFR <60 mL/min/1.73 m2 defines CKD. Patients with eGFR values >/=60 mL/min/1.73 m2 may also have CKD if evidence of persistent proteinuria is present. The original MDRD equation for estimated GFR is not valid for patients less than 18 years of age. Additional information may be found at www.kdoqi.org. 3 Vitamin D deficiency has been defined by the [place] [employer] and an Endocrine Society practice guideline as a level of serum 25-OH vitamin D less than 20 ng/mL (1,2). The Endocrine Society went on to further define vitamin D insufficiency as a level between 21 and 29 ng/mL (2). 1. IOM ([place] [employer]). 2010. Dietary reference intakes for calcium and D. [place]: The National Academies Press. 2. Stanton Alvarenga, Iram RICK et al. Evaluation, treatment, and prevention of vitamin D deficiency: an Endocrine Society clinical practice guideline. JCEM. 2010; 96(7):1911-30. Performed at: RN - [facility] [address] [id number] [employer]: Josie Browning MD, Phone: [phone] 4 Instrument flagged sample for slide review. Less than 10% Bands seen, no other immature WBC's seen. Platelet estimate=NORMAL 5 E03.9 E55.9 6 Vitamin D deficiency has been defined by the [place] [employer] and an Endocrine Society practice guideline as a level of serum 25-OH vitamin D less than 20 ng/mL (1,2). The Endocrine Society went on to further define vitamin D insufficiency as a level between 21 and 29 ng/mL (2). 1. IOM ([place] [employer]). 2010. Dietary reference intakes for calcium and D. [place]: The National Academies Press. 2. Thalia ISAACS, [place] AVILA, Iram RICK, et al. Evaluation, treatment, and prevention of vitamin D deficiency: an Endocrine Society clinical practice guideline. JCEM. 2010; 96(7):1911-30. Performed at: RN - [facility] [address] [id number] [employer]: Josie Browning MD, Phone: [phone] 7 Reference Guidelines*: Desirable: ........... < 200 mg/dL Borderline High: ..... 200-239 mg/dL High: ................ >=240 mg/dL * The National Cholesterol Education Program (NCEP) 8 Reference Guidelines*: Normal: ............. < 150 mg/dL Borderline High: .... 150-199 mg/dL High: ............... 200-499 mg/dL Very High: .......... > 500 mg/dL * Source: National Cholesterol Education Program (NCEP) 9 Reference Guidelines*: Low HDL: ..... < 40 mg/dL Normal: ..... 40-60 mg/dL Desirable: ... > 60 mg/dL *The National Cholesterol Education Program(NCEP) 10 Reference Guidelines*: Optimal:........... <100 mg/dL Near Optimal....... 100-129 mg/dL Borderline High.... 130-159 mg/dL High............... 160-189 mg/dL Very High.......... >=190 mg/dL * Source: National Cholesterol Education Program (NCEP) 11 Note: Persistent reduction for 3 months or more in an eGFR <60 mL/min/1.73 m2 defines CKD. Patients with eGFR values >/=60 mL/min/1.73 m2 may also have CKD if evidence of persistent proteinuria is present. The original MDRD equation for estimated GFR is not valid for patients less than 18 years of age. Additional information may be found at www.[email or web address]. 12 D64.9 E55.9 E61.1 E53.9 13 Note: Persistent reduction for 3 months or more in an eGFR <60 mL/min/1.73 m2 defines CKD. Patients with eGFR values >/=60 mL/min/1.73 m2 may also have CKD if evidence of persistent proteinuria is present. The original MDRD equation for estimated GFR is not valid for patients less than 18 years of age. Additional information may be found at www.[email or web address]. 14 Vitamin D deficiency has been defined by the [place] [employer] and an Endocrine Society practice guideline as a level of serum 25-OH vitamin D less than 20 ng/mL (1,2). The Endocrine Society went on to further define vitamin D insufficiency as a level between 21 and 29 ng/mL (2). 1. IOM ([place] [employer]). 2010. Dietary reference intakes for calcium and D. [place]: The National Academies Press. 2. Thalia MF, [place], Iram RICK, et al. Evaluation, treatment, and prevention of vitamin D deficiency: an Endocrine Society clinical practice guideline. JCEM. 2010; 96(7):1911-30. Performed at: RN - [facility] [address] [id number] [employer]: Josie Browning MD, Phone: [phone] 15 Instrument flagged sample for slide review. Less than 10% Bands seen, no other immature WBC's seen. RBC morphology essentially normal. Platelet estimate=NORMAL 16 Because ethnic data is not always readily available, this report includes an eGFR for both -Americans and non- Americans. The National Kidney Disease Education Program (NKDEP) does not endorse the use of the MDRD equation for patients that are not between the ages of 18 and 70, are , have extremes of body size, muscle mass, or nutritional status, or are non- or non-. According to the National Kidney Foundation, irrespective of diagnosis, the stage of the disease is based on the level of kidney function: Stage Description GFR(mL/min/1.73 m(2)) 1 Kidney damage with normal or decreased GFR 90 2 Kidney damage with mild decrease in GFR 60-89 3 Moderate decrease in GFR 30-59 4 Severe decrease in GFR 15-29 5 Kidney failure <15 (or dialysis) 17 G40.209 Z79.899 18 Note: Persistent reduction for 3 months or more in an eGFR <60 mL/min/1.73 m2 defines CKD. Patients with eGFR values >/=60 mL/min/1.73 m2 may also have CKD if evidence of persistent proteinuria is present. The original MDRD equation for estimated GFR is not valid for patients less than 18 years of age. Additional information may be found at www.[email or web address]. 19 D64.9 E55.9 E61.1 E53.9 20 Note: Persistent reduction for 3 months or more in an eGFR <60 mL/min/1.73 m2 defines CKD. Patients with eGFR values >/=60 mL/min/1.73 m2 may also have CKD if evidence of persistent proteinuria is present. The original MDRD equation for estimated GFR is not valid for patients less than 18 years of age. Additional information may be found at www.[email or web address]. 21 Vitamin D deficiency has been defined by the [place] [employer] and an Endocrine Society practice guideline as a level of serum 25-OH vitamin D less than 20 ng/mL (1,2). The Endocrine Society went on to further define vitamin D insufficiency as a level between 21 and 29 ng/mL (2). 1. IOM ([place] [employer]). 2010. Dietary reference intakes for calcium and D. [place]: The National Academies Press. 2. Stanton Alvarenga, Iram RCIK, et al. Evaluation, treatment, and prevention of vitamin D deficiency: an Endocrine Society clinical practice guideline. JCEM. 2010; 96(7):1911-30. Performed at: - [facility] [address] [id number] Sweet Pickle Maker: Josie Browning MD, Phone: [phone] 22 Y47.9 Z48.1 I26.9 23 Note: Persistent reduction for 3 months or more in an eGFR <60 mL/min/1.73 m2 defines CKD. Patients with eGFR values >/=60 mL/min/1.73 m2 may also have CKD if evidence of persistent proteinuria is present. The original MDRD equation for estimated GFR is not valid for patients less than 18 years of age. Additional information may be found at www.kdoqi.org. 24 Vitamin D deficiency has been defined by the [place] [employer] and an Endocrine Society practice guideline as a level of serum 25-OH vitamin D less than 20 ng/mL (1,2). The Endocrine Society went on to further define vitamin D insufficiency as a level between 21 and 29 ng/mL (2). 1. IOM ([place] [employer]). 2010. Dietary reference intakes for calcium and D. [place]: The National Academies Press. 2. Stanton Alvarenga, Iram RICK, et al. Evaluation, treatment, and prevention of vitamin D deficiency: an Endocrine Society clinical practice guideline. JCEM. 2010; 96(7):1911-30. Performed at: - [facility] [id number] Sweet Pickle Maker: Josie Browning MD, Phone: [phone] 25 D64.9,E55.9,E61.1,E53.9 26 Vitamin D deficiency has been defined by the [place] [employer] and an Endocrine Society practice guideline as a level of serum 25-OH vitamin D less than 20 ng/mL (1,2). The Endocrine Society went on to further define vitamin D insufficiency as a level between 21 and 29 ng/mL (2). 1. IOM ([place] [employer]). 2010. Dietary reference intakes for calcium and D. [place]: The National Academies Press. 2. Thalia ISAACS, Stanton AVILA, Iram RICK, et al. Evaluation, treatment, and prevention of vitamin D deficiency: an Endocrine Society clinical practice guideline. JCEM. 2010; 96(7):1911-30. Performed at: RN - [facility] [address] [id number] Sweet Pickle Maker: Josie Browning MD, Phone: [phone] Note: Persistent reduction for 3 months or more in an eGFR <60 mL/min/1.73 m2 defines CKD. Patients with eGFR values >/=60 mL/min/1.73 m2 may also have CKD if evidence of persistent proteinuria is present. The original MDRD equation for estimated GFR is not valid for patients less than 18 years of age. Additional information may be found at www.[email or web address]. 28 D64.9 29 Note: Persistent reduction for 3 months or more in an eGFR <60 mL/min/1.73 m2 defines CKD. Patients with eGFR values >/=60 mL/min/1.73 m2 may also have CKD if evidence of persistent proteinuria is present. The original MDRD equation for estimated GFR is not valid for patients less than 18 years of age. Additional information may be found at www.[email or web address]. 30 Vitamin D deficiency has been defined by the [place] [employer] and an Endocrine Society practice guideline as a level of serum 25-OH vitamin D less than 20 ng/mL (1,2). The Endocrine Society went on to further define vitamin D insufficiency as a level between 21 and 29 ng/mL (2). 1. IOM ([place] [employer]). 2010. Dietary reference intakes for calcium and D. [place]: The National Academies Press. 2. Stanton Alvarenga Bischoff-Ferrari HA, et al. Evaluation, treatment, and prevention of vitamin D deficiency: an Endocrine Society clinical practice guideline. JCEM. 2010; 96(7):1911-30. Performed at: RN - [facility] [address] [id number] Sweet Pickle Maker: Josie Browning MD, Phone: [phone] 31 D64.9 E55.9 G80.9 32 Vitamin D deficiency has been defined by the [place] [employer] [place] and an Endocrine Society practice guideline as a level of serum 25-OH vitamin D less than 20 ng/mL (1,2). The Endocrine Society went on to further define vitamin D insufficiency as a level between 21 and 29 ng/mL (2). 1. IOM ([place] [employer]). 2010. Dietary reference intakes for calcium and D. [place]: The National Academies Press. 2. Stanton Alvarenga Bischoff-Ferrari HA, et al. Evaluation, treatment, and prevention of vitamin D deficiency: an Endocrine Society clinical practice guideline. JCEM. 2010; 96(7):1911-30. Performed at: RN - [facility] [address] [id number] Sweet Pickle Maker: Josie Browning MD, Phone: [phone] 33 Note: Persistent reduction for 3 months or more in an eGFR <60 mL/min/1.73 m2 defines CKD. Patients with eGFR values >/=60 mL/min/1.73 m2 may also have CKD if evidence of persistent proteinuria is present. The original MDRD equation for estimated GFR is not valid for patients less than 18 years of age. Additional information may be found at www.[email or web address]. 34 D64.9 35 Note: Persistent reduction for 3 months or more in an eGFR <60 mL/min/1.73 m2 defines CKD. Patients with eGFR values >/=60 mL/min/1.73 m2 may also have CKD if evidence of persistent proteinuria is present. The original MDRD equation for estimated GFR is not valid for patients less than 18 years of age. Additional information may be found at www.[email or web address]. 36 Note: Persistent reduction for 3 months or more in an eGFR <60 mL/min/1.73 m2 defines CKD. Patients with eGFR values >/=60 mL/min/1.73 m2 may also have CKD if evidence of persistent proteinuria is present. The original MDRD equation for estimated GFR is not valid for patients less than 18 years of age. Additional information may be found at www.[email or web address]. 37 Note: Persistent reduction for 3 months or more in an eGFR <60 mL/min/1.73 m2 defines CKD. Patients with eGFR values >/=60 mL/min/1.73 m2 may also have CKD if evidence of persistent proteinuria is present. The original MDRD equation for estimated GFR is not valid for patients less than 18 years of age. Additional information may be found at www.[email or web address]. 38 D64.9 E61.1 39 Note: Persistent reduction for 3 months or more in an eGFR <60 mL/min/1.73 m2 defines CKD. Patients with eGFR values >/=60 mL/min/1.73 m2 may also have CKD if evidence of persistent proteinuria is present. The original MDRD equation for estimated GFR is not valid for patients less than 18 years of age. Additional information may be found at www.[email or web address]. 40 D64.9 41 Note: Persistent reduction for 3 months or more in an eGFR <60 mL/min/1.73 m2 defines CKD. Patients with eGFR values >/=60 mL/min/1.73 m2 may also have CKD if evidence of persistent proteinuria is present. The original MDRD equation for estimated GFR is not valid for patients less than 18 years of age. Additional information may be found at www.[email or web address]. 42 PNEUMONIA HYPONATREMIA 43 Note: Persistent reduction for 3 months or more in an eGFR <60 mL/min/1.73 m2 defines CKD. Patients with eGFR values >/=60 mL/min/1.73 m2 may also have CKD if evidence of persistent proteinuria is present. The original MDRD equation for estimated GFR is not valid for patients less than 18 years of age. Additional information may be found at www.[email or web address]. 44 Note: Persistent reduction for 3 months or more in an eGFR <60 mL/min/1.73 m2 defines CKD. Patients with eGFR values >/=60 mL/min/1.73 m2 may also have CKD if evidence of persistent proteinuria is present. The original MDRD equation for estimated GFR is not valid for patients less than 18 years of age. Additional information may be found at www.[email or web address]. 45 URINE, CLEAN CATCH 46 D64.9 D70.9 47 Vitamin D deficiency has been defined by the [place] [employer] [place] and an Endocrine Society practice guideline as a level of serum 25-OH vitamin D less than 20 ng/mL (1,2). The Endocrine Society went on to further define vitamin D insufficiency as a level between 21 and 29 ng/mL (2). 1. IOM ([place]). 2010. Dietary reference intakes for calcium and D. [place]: The National Academies Press. 2. Thalia ISAACS, Stanton AVILA, Iram RICK, et al. Evaluation, treatment, and prevention of vitamin D deficiency: an Endocrine Society clinical practice guideline. JCEM. 2010; 96(7):7651-30. Performed at: RN - [facility] [address] [id number] Sweet Pickle Maker: Josie Browning MD, Phone: [phone] 48 Note: Persistent reduction for 3 months or more in an eGFR <60 mL/min/1.73 m2 defines CKD. Patients with eGFR values >/=60 mL/min/1.73 m2 may also have CKD if evidence of persistent proteinuria is present. The original MDRD equation for estimated GFR is not valid for patients less than 18 years of age. Additional information may be found at www.[email or web address]. 49 Note: Persistent reduction for 3 months or more in an eGFR <60 mL/min/1.73 m2 defines CKD. Patients with eGFR values >/=60 mL/min/1.73 m2 may also have CKD if evidence of persistent proteinuria is present. The original MDRD equation for estimated GFR is not valid for patients less than 18 years of age. Additional information may be found at www.[email or web address]. 50 Vitamin D deficiency has been defined by the [place] and an Endocrine Society practice guideline as a level of serum 25-OH vitamin D less than 20 ng/mL (1,2). The Endocrine Society went on to further define vitamin D insufficiency as a level between 21 and 29 ng/mL (2). 1. IOM ([place]). 2010. Dietary reference intakes for calcium and D. [place]: The National Academies Press. 2. Thalia ISAACS, [place], Iram RICK, et al. Evaluation, treatment, and prevention of vitamin D deficiency: an Endocrine Society clinical practice guideline. JCEM. 2010; 96(7):1911-30. Performed at: RN - [facility] [address] [id number] Sweet Pickle Maker: Josie Browning MD, Phone: [phone] 51 Note: Persistent reduction for 3 months or more in an eGFR <60 mL/min/1.73 m2 defines CKD. Patients with eGFR values >/=60 mL/min/1.73 m2 may also have CKD if evidence of persistent proteinuria is present. The original MDRD equation for estimated GFR is not valid for patients less than 18 years of age. Additional information may be found at www.[email or web address]. Procedures Date CPT Code Description Status Comment 04/19/2018 34327 EKG-Tracing And Report Completed 06/09/2016 [id number] EKG Interpretation And Report Completed Only 11/21/2012 Colonoscopy Completed Document: 01/30/13 - Colonoscopy Procedure Encounters Type Date Location Provider CPT E/M Dx Office Visit 06/28/2018 Primary [facility] Office [facility] [address] L97.211 9:30a VIJAY De Leon L97.821 Office Visit 04/21/2018 3:20p [place] [address] E61.1 E87.1 E03.9 G80.9 F63.9 S81.809D W22.09xD Office Visit 04/19/2018 8:30a [place] [address] E61.1 E53.9 E55.9 E87.1 G80.9 Office Visit 03/22/2018 10:40a [place] [address] S01.81xD W22.09xD Office Visit 01/30/2018 8:35a [place] [address] D64.9 E61.1 E53.9 E55.9 E87.1 Office Visit 01/19/2018 3:20p [place] [address] E87.1 E03.9 E55.9 S81.809D X58.xxxD Office Visit 11/11/2017 3:20p [place] [address] S81.802A Office Visit 10/24/2017 3:00p [place] [address] D64.9 E87.1 Office Visit 07/19/2017 3:00p [place] [address] D64.9 E87.1 Office Visit 06/08/2017 1:00p [place] [address] E87.1 D64.9 E55.9 G80.9 R23.9 Office Visit 04/29/2017 2:30p [place] [address] E61.1 E53.9 D64.9 Office Visit 03/30/2017 2:40p [place] [address] S09.90xA Office Visit 03/04/2017 1:00p [place] [address] E87.1 G40.409 G80.9 D64.9 R23.9 Office Visit 01/26/2017 3:30p [place] [address] D64.9 E61.1 D70.9 E87.1 Office Visit 12/02/2016 2:40p [place] [address] D64.9 E87.1 G40.409 G80.9 F63.9 R23.9 Office Visit 11/08/2016 3:15p [place] [address] D64.9 E61.1 D70.9 Office Visit 09/29/2016 3:30p [place] [address] D64.9 E61.1 E87.1 Office Visit 08/25/2016 3:45p [place] [address] D64.9 E61.1 Office Visit 06/16/2016 2:20p [place] [address] D64.9 Office Visit 04/13/2016 3:40p [place] [address] D64.9 D70.9 Office Visit 03/30/2016 1:00p [place] [address] D64.9 D70.9 Plan of Care Future Appointment(s):08/03/2018 9:40 am - Bell Camarillo MD at Primary Care Tesiif5607/28/2018 8:30 am - Samantha Ziegler DO at Oncology Odqdqf9107/20/2018 8: 30 am - Oncology Nurse at Oncology Uyuddm5206/28/2018 - Maite Garduno, PAL97.211 Non-prs chronic ulcer of right calf limited to brkdwn skinNew Medication:Non-Stick 2" X3"Comments:15 x 30 mm sore to right lower leg. No evidence of infection.Change to a non-adherent pad with dressing changes.Encouraged staff to keep wounds open to the air 2x a day for a minimum of 30 minutes.Callfor enlarging wound, fever, significant redness surrounding area.Follow up:Follow-up as llqeboL84.821 Non-prs chr ulcer oth prt l low leg limited to brkdwn skinComments:2 small ulcerations to left lower leg.No evidence of infection.Continue dressings daily- change fromregular gauze to a non-adherent pad.Follow up:Follow-up as needed
[2018-07-18] MEDS ORDERED: Sulfamethox/Trimethoprim DS 800/160* TAB PO ONE (16:29)
--- NOTE | 2018-07-18 16:29 | UC ---
Skin Complaint HPI - HPI Summary HPI Summary: Etl Tester noted the area behind patient's right knee to be irritated today. She states that he did spend yesterday in a wheelchair at the [facility] and then was seated today at a desk all day. 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 She states that he does pick at things chronically so she had a dressing on the area but removed it for his exam here. - History of Current Complaint Chief Complaint: UCSkin Time Seen by Provider: 07/18/18 16:21 Stated Complaint: SKIN COMPLAINT Hx Obtained From: Family/Etl Tester Onset/Duration: Gradual Onset Timing: Constant Pain Intensity: 0 Aggravating Factor(s): Other - heat and being seated with the knee bent Alleviating Factor(s): Nothing Associated Signs & Symptoms: Positive: Rash. Negative: Fever - Allergy/Home Medications Allergies/Adverse Reactions: Allergies Allergy/AdvReac Type Severity Reaction Status Date / Time Adhesive Tape Allergy Unknown Verified 06/05/18 16:43 Reaction Details clindamycin Allergy Hives Verified 06/05/18 16:43 erythromycin base Allergy Hives Verified 06/05/18 16:43 Review of Systems Constitutional: Negative Skin: Rash - behind R knee Eyes: Negative ENT: Negative Respiratory: Negative Cardiovascular: Negative Gastrointestinal: Negative Genitourinary: Negative Motor: Negative Neurovascular: Negative Musculoskeletal: Negative Neurological: Negative Psychological: Negative Is Patient Immunocompromised?: No All Other Systems Reviewed And Are Negative: Yes - Comments Additional Review of Systems Comments: 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 day Lives: Nursing Home Alcohol Use: None Substance Use Type: None Smoking Status (MU): Never Smoked Tobacco Have You Smoked in the Last Year: No - Immunization History Most Recent Influenza Vaccination: 09/07/16 Most Recent Tetanus Shot: 01/01/10 TD Most Recent Pneumonia Vaccination: 10/26/88 Vaccination Up to Date: Yes Physical Exam Triage Information Reviewed: Yes Appearance: Well-Appearing Vital Signs: Initial Vital Signs Temp 99.7 F 07/18/18 16:11 Pulse 88 07/18/18 16:11 Resp 25 07/18/18 16:11 Pulse Ox 96 07/18/18 16:11 Vital Signs Reviewed: Yes Eyes: Positive: Conjunctiva Clear ENT: Positive: Pharynx normal, TMs normal. Negative: Nasal drainage Neck: Positive: Supple, Nontender Respiratory: Positive: Lungs clear, Normal breath sounds Cardiovascular: Positive: RRR, No Murmur Abdomen Description: Positive: Nontender, No Organomegaly, Soft Bowel Sounds: Positive: Present Musculoskeletal: Positive: ROM Intact, No Edema Neurological: Positive: Alert - per home care specialist at his baseline Psychological: Positive: Age Appropriate Behavior - per his baseline Skin Exam: Normal, Other - Area behind the right knee has mild erythema, weeping and warmth. There is no streaking or swelling in the joint is nontender. Patient demonstrates active range of motion without evidence of any discomfort and he walks with a normal steady gait. Course/Dx - Course Course Of Treatment: I think the breakdown in skin behind the patient's right knee is combination of having been seated in a wheelchair in hot weather at the [facility] yesterday followed by sitting in a chair all day today. The patient is nontoxic. If no concern for abscess. I'm going to treat him for skin infection. Going to use Bactroban topically and Bactrim by mouth. 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 - Diagnoses Provider Diagnoses: Skin abraded over back of right knee. Skin infection back of right knee Discharge - Sign-Out/Discharge Documenting (check all that apply): Patient Departure All imaging exams completed and their final reports reviewed: No Studies - Discharge Plan Condition: Stable Disposition: HOME Prescriptions: Mupirocin 2% OINT* [Bactroban 2 % Oint*] 1 applic TOPICAL BID 7 Days #1 tube Sulfamethox/Trimethoprim DS* [Bactrim DS 800/160 TAB*] 1 tab PO BID 7 Days #14 tab Patient Education Materials: Cellulitis (ED) Referrals: Bell Camarillo MD [Primary Care Provider] - 2 Days - Billing Disposition and Condition Condition: STABLE Disposition: Home
== END 2018-07-18 16:48 | disposition home or self-care (01) ==
LOC: UCCORT 15:44
DX: S80.211A Abrasion, right knee, initial encounter (principal); Z91.09 Other allergy status, other than to drugs and biological substances; Z88.1 Allergy status to other antibiotic agents; L08.9 Local infection of the skin and subcutaneous tissue, unspecified; X58.XXXA Exposure to other specified factors, initial encounter; Y92.9 Unspecified place or not applicable
CPT/HCPCS: 99212; A9270-GY; G0463

== ENCOUNTER 2018-09-22 16:27 | Emergency (ER) | payer MEDICARE, MEDICAID ==
--- OUTSIDE RECORDS SUMMARY | 2018-09-22 18:50 | XMS REPORT ---
:1960 External Reference #:[id number] Author Organization [facility] Address [address], [address] [place] [address] Phone [phone] Care Team Providers Name Role Phone Bell Camarillo MD Care Team Information Personal Banker Unavailable Bell Camarillo MD Primary Care Physician Unavailable Payers Type Date Identification Numbers Payment Provider Subscriber Medicare Primary Policy Number: [id number] Medicare Boris Grubbs PayID: [id number] [address] [place] [address] Medicaid Policy Number: [id number] Medicaid Boris Grubbs PayID: [id number] [address] [place] [address] Problems Date Description Provider Status Onset: 03/30/2016 [...] Vitamin D deficiency Bell Camarillo MD Active Onset: 08/03/2018 Repetitive self-excoriation Bell Camarillo MD Active Social History Type Date Description Comments Lives With Assisted Living Diet Healthy, Well Balanced Occupation works @[employer] ADL's/IADL's Dependent with bathing ADL's/IADL's Dependent with dressing ADL's/IADL's Dependent with feeding Cigarette Use Never Smoked Cigarettes ETOH Use Never used alcohol Daily Caffeine Does Not Consume Caffeine Brand Protection Manager Name Both parents Brand Protection Manager Name 1 brother Allergies, Adverse Reactions, Alerts Date Description Reaction Status Severity Comments 03/30/2016 Erythromycin active 03/30/2016 Clindamycin active 03/24/2017 Erythromycin Pt does not know active 03/24/2017 Sulfamethoxazole Pt does not know active 03/24/2017 Trimethoprim Pt does not know active 03/24/2017 Adhesive itching active 03/24/2017 Azithromycin itching active Medications Medication Date Status Form Strength Qnty SIG Indications Ordering Provider Levothyroxine 08/05 Active Tablets 75mcg 90tab 1 by mouth Rabia, s every day MD Bell Non-Stick 06/28 Active Pads 2"X3" 200un Apply to L97.211 Rabia its sores on MD Bell lower legs 2-3x a day as needed. Mupirocin 06/07 Active Ointment 2% 66uni Apply To Rabia ts Affected MD Bell Area 3 Times A Day To Open Wounds On Hands/Legs as Needed Until Healed Cover With Gauze Pad & Kerli Sodium Chloride 01/18 Active Tablets 1gm 90tab 1 tabl po Boufal, s tid Samantha, DO Gauze Sponge 11/11 Active Pads 4"X4" 100un place on top Rabia its of open MD Bell wounds of left leg, change daily Self Adherent 11/11 Active Misc 1unit wrap around Rabia, Wrap s left leg MD Bell after placing antibiotic ointment and gauze Reguloid 08/02 Active Powder 28.3% 540un 1 its Tablespoonfu MD Bell l By Mouth Twice A Day Vaseline Pure 06/08 Active Gel 1Jar apply Rabia, generous MD Bell Whitepetroleum amount to Jelly both hands at night and put gloves on both hands Vitamin D3 05/12 Active Tablets 1000Unit 60tab Take 2 Rabia, s Tablets By MD Bell Mouth Daily Vitamin B-12 09/07 Active Tablets 1000mcg 30tab take 1 Boufal, s tablet by Samantha, mouth every DO other day Glycolax Active Powder 17gm 3Mont 1 scoop by Rabia, hSupp mouth every MD Bell day with fluids Phenobarbital Active Tablets 32.4mg 2 by mouth Unknown every bid Oyster Shell Active Tablets 500-200mg 270ta 1 tab by Rabia, Calcium + D -Unit bs mouth three MD Bell times a day Thioridazine Active Tablets 50mg 1 by mouth Unknown HCL /0000 tid Buspirone HCL Active Tablets 15mg 1 tab by Unknown /0000 mouth tid Apap Active Tablets 325mg 2 tabs by Unknown /0000 mouth every 4 hours as needed Sudafed Active Tablets 30mg 2 tabs by Unknown /0000 mouth every 4 hours as needed nasal congestion Mylanta Active Suspension 1 tablespoon Unknown /0000 by mouth every 4 hours as needed Carbamazepine Active Tablets 200mg 3 PO q Am & Unknown /0000 hs 2 PO at 1500 Robitussin DM Active Syrup 100-10mg/ 2 teaspoons Unknown /0000 5ML by mouth every 4 hours as needed Ferrous Sulfate Active Tablets 325(65Fe) 90tab 1 by mouth Rabia , / mg s every day MD Bell Sertraline HCL Active Tablets 25mg 1 by mouth Unknown every day Alendronate Active Tablets 70mg 4tabs Take 1 Rabia, Sodium / Tablet By MD Bell Mouth Every Week On Tuesday With 8 Oz. Water *No Other Med Or Food For 30 Mins DO Not Lay Down For 30 Mins Bactroban 01/26 Hx Ointment 2% 60gm apply three Rabia, times a day MD Bell - to open 08/03 wound on hands and legs until healed as needed Levothyroxine 01/19 Hx Tablets 50mcg 90tab 1 tab by Rabia Sodium s mouth every MD Bell - day 08/05 SM Triple 12/07 Hx Ointment 3.5-400-5 28.4u Apply To Rabia, Antibiotic 000 nits Affected MD Bell - Area Of Left 01/19 Leg Daily And Put Gauze On Wounds Keflex 11/11 Hx Capsules 500mg 28cap 1 tab by Rabia, s mouth every MD Bell - 6 hours for 01/19 7 days for skin infection Triple 11/11 Hx Ointment 1% 1Tube discontinue Rabia, Antibiotic ointment MD Bell Pain Relief - Maximum 01/19 Strength Polyethylene 09/18 Hx Powder [id number] 527un Mix 1 Capful Rabia, Glycol 335 its (17GM) In 8 MD Bell - Oz Fluid & 08/03 Drink Daily Reguloid 04/25 Hx Powder 28.3% 540un 1 tbsp by Rabia, its mouth twice MD Bell a day Metamucil Free 03/30 Hx Powder 43% 1Bott 1 Tbsp mixed Rabia, & le with 8 oz MD Bell - H20 bid 01/19 Reguloid 03/09 Hx Powder 28.3% 540gm 1 tbsp by Rabia, mouth twice MD Bell a day Feso4 12/02 Hx Tablet 1 PO qd Rabia, MD Bell Vaseline Pure 12/02 Hx Gel 1Jar apply Rabia, generous MD Bell [employer]ep[employer] amount to Jelly both hands at night and put gloves on both hands Fiber Laxative Hx Powder 1tbsp 1bott 1 tbsp PO Unknown (Reguloid) / le bid [place] Flavored - 03/09 Tegretol-XR Hx Tablets ER 200mg akes 2 tabs Unknown / 12HR po @ 3pm - 03/04 Peridex Hx Solution 0.12% rinse mouth Unknown twice a day - with 1 01/19 tablespoon Bactroban Hx Cream 2% 15gm apply three Rabia, /0000 times a day MD Bell - to open 01/26 wound on hands and legs until healed as needed Hydrocortisone Hx Cream apply to Unknown /0000 irritated - area tid, as 08/03 needed Iron Hx Tablets 325(65Fe) 1 by mouth Unknown /0000 mg every day - 08/25 Sodium Chloride Hx Tablets 1gm take one Unknown /0000 tablet by - mouth three 01/19 times a day /2018 Immunizations CPT Code Status Date Vaccine Lot # [id number] Given 08/03/2018 Influenza Virus Vaccine, Quadrivalent, 36 Mos+, [id number] Given 09/07/2016 Influenza Virus Vaccine Split Virus Use For Individual 3Yr Older [id number] Given 01/01/2010 Tdap injection 25090 Given 10/26/1988 Pneumovax Injection Vital Signs Date Vital Result Comment 09/04/2018 BP Systolic 141 mmHg BP Diastolic 92 mmHg Body Temperature 96.9 F Heart Rate 79 /min Weight 144.38 lb O2 % BldC Oximetry 98 % Pain Level 0 08/03/2018 BP Systolic Sitting Right Arm 138 mmHg BP Diastolic Sitting Right Arm 80 mmHg Body Temperature 97.4 F Heart Rate 84 /min Respiratory Rate 20 /min Height 65 inches 5'5" Weight 142.00 lb BMI (Body Mass Index) 23.6 kg/m2 BSA (Body Surface Area) 1.71 m2 [place] body weight in kilograms 62 O2 % BldC Oximetry 97 % 07/19/2018 BP Systolic Sitting Left Arm 124 mmHg BP Diastolic Sitting Left Arm 60 mmHg Body Temperature 98.5 F Heart Rate 92 /min Respiratory Rate 18 /min Height 65 inches 5'5" Weight 142.00 lb BMI (Body Mass Index) 23.6 kg/m2 BSA (Body Surface Area) 1.71 m2 [place] body weight in kilograms 62 06/28/2018 BP Systolic 112 mmHg BP Diastolic 70 mmHg Body Temperature 97.1 F Heart Rate 60 /min Respiratory Rate 17 /min Height 65 inches 5'5" Weight 140.00 lb BMI (Body Mass Index) 23.3 kg/m2 BSA (Body Surface Area) 1.70 m2 [place] body weight in kilograms 62 O2 % BldC Oximetry 97 % 04/21/2018 BP Systolic 140 mmHg BP Diastolic 80 mmHg Body Temperature 98.2 F Heart Rate 82 /min Respiratory Rate 18 /min Height 65 inches 5'5" Weight 143.00 lb BMI (Body Mass Index) 23.8 kg/m2 BSA (Body Surface Area) 1.72 m2 [place] body weight in kilograms 62 O2 % BldC Oximetry 97 % 04/19/2018 BP Systolic 119 mmHg BP Diastolic 75 mmHg Body Temperature 97.3 F Heart Rate 97 /min Respiratory Rate 18 /min Height 65 inches 5'5" Weight 143.12 lb BMI (Body Mass Index) 23.8 kg/m2 BSA (Body Surface Area) 1.72 m2 [place] body weight in kilograms 62 O2 % BldC Oximetry 98 % On Room Air 03/22/2018 BP Systolic Sitting Right Arm 116 mmHg BP Diastolic Sitting Right Arm 71 mmHg Heart Rate 79 /min Respiratory Rate 16 /min Height 65 inches 5'5" Weight 144.00 lb BMI (Body Mass Index) 24.0 kg/m2 BSA (Body Surface Area) 1.72 m2 [place] body weight in kilograms 62 01/30/2018 BP [...] kg/m2 BSA (Body Surface Area) 1.73 m2 [place] body weight in kilograms 62 11/11/2017 BP Systolic Sitting Left Arm 116 mmHg BP Diastolic Sitting Left Arm 88 mmHg Body Temperature 96.7 F Heart Rate 64 /min Height 65 inches 5'5" Weight 149.00 lb BMI (Body Mass Index) 24.8 kg/m2 BSA (Body Surface Area) 1.75 m2 [place] body weight in kilograms 62 10/24/2017 BP [...] kg/m2 BSA (Body Surface Area) 1.70 m2 [place] body weight in kilograms 62 O2 % [...] kg/m2 BSA (Body Surface Area) 1.74 m2 [place] body weight in kilograms 62 03/04/2017 BP Systolic 120 mmHg BP Diastolic 74 mmHg Heart Rate 76 /min Height 65 inches 5'5" Weight 148.00 lb BMI (Body Mass Index) 24.6 kg/m2 BSA (Body Surface Area) 1.74 m2 [place] body weight in kilograms 62 01/26/2017 BP [...] kg/m2 BSA (Body Surface Area) 1.76 m2 [place] body weight in kilograms 62 12/02/2016 Heart [...] Test Date Test Result H/L Range Note Laboratory test finding 08/03/2018 Thyroid Stim 5.69 uIU/mL High 0.30- 4.20 1 Hormone Free T4 0.62 ng/dL Low 0.76-1.46 1 Thyroid Antibodies 08/03/2018 Thyroglobulin Antibody < 1.0 IU/mL 0.0-0.9 1, 2 Thyroid Peroxidase Antibodies 242 IU/mL High 0-34 1, 3 Laboratory test finding 07/20/2018 Thyroid Stim Hormone <pending> Free T4 <pending> CBS W/Automated Diff 07/20/2018 White Blood Count 4.5 K/uL 3.4-10.5 4 Red Blood Count 4.01 M/uL Low 4.20-5.80 4 Hemoglobin 13.5 gm/dL 12.8-17.0 4 Hematocrit 37.7 % Low 38.0-48.0 4 Mean Cell Volume 94.0 fl 80.0-96.0 4 Mean Corpuscular HGB 33.7 pg High 27.0-33.0 4 Mean Corpuscular HGB Conc 35.8 g/dL 31.7-36.0 4 Platelet Count 286 K/uL 155-360 4 Red Cell Distri Width SD 41.8 fl 36-51 4 Red Cell Distri Width %CV 12.4 % 11.6-15.8 4 Mean Platelet Volume 9.6 fL 6.6-10.6 4 Neut% 68.1 % 33.0-73.0 4 Lymph % 14.2 % Low 20.0-42.0 4 Greenlee % 13.3 % High 0.0-10.0 4 Eo% 4.0 % 0.0-6.6 4 Bas% 0.4 % 0.0-1.1 4 Neut# 3.06 K/uL 1.8-7.0 4 Lymph # 0.64 K/uL Low 1.0-4.0 4 Greenlee # 0.60 K/uL 0.0-0.8 4 Eos # 0.18 K/uL 0.0-0.5 4 Baso # 0.02 K/uL 0.0-0.1 4 Comprehensive Metabolic Panel 07/20/2018 Glucose 79 mg/dL 74-106 4 BUN 13 mg/dL 7-18 4 Creatinine 0.7 mg/dL 0.6-1.3 4 Glom Filtration Rate, Estimate >60 mL/min >60 4 If >60 mL/min >60 4, 5 BUN/Creat 18.5 ratio 4 Sodium 128 mmol/L Low 136-145 4 Potassium 4.2 mmol/L 3.5-5.1 4 Chloride 94 mmol/L Low 98-107 4 Carbon Dioxide 26 mmol/L 21-32 4 Anion Gap 8 mEq/L 8-16 4 Calcium 8.6 mg/dL 8.5-10.1 4 Total Protein 7.7 g/dL 6.4-8.2 4 Albumin 4.0 g/dL 3.4-5.0 4 Globulin 3.7 g/dL 1.9-4.3 4 Alb/Glob 1.1 ratio 4 Bilirubin,Total 0.3 mg/dL 0.2-1.0 4 Sgot/Ast 24 U/L 15-37 4 SGPT/Alt 25 U/L 12-78 4 Alkaline Phosphatase 83 U/L 45-117 4 Iron-Tibc-%Sat 07/20/2018 Serum Iron 93 g/dL 65-175 4 Total Iron Binding Capacity 325 g/dL 250-450 4 Transferrin %Saturation 29 % 12-57 4 Laboratory test finding 07/20/2018 Ferritin 108 ng/mL 26-388 4 Vitamin B12 And Folate 07/20/2018 Vitamin B12 827 pg/mL 193-986 4 Folic Acid > 20.0 ng/mL High 3.1-17.5 4 Laboratory test finding 07/20/2018 Vitamin D,25-Hydroxy 35.6 ng/mL 30.0- 100.0 4, 6 Thyroid Stim Hormone 0.18 uIU/mL Low 0.30-4.20 4 Free T4 0.64 ng/dL Low 0.76-1.46 4 RBC Morphology Only 05/22/2018 Poikilocytosis 0-1+ 7 Anisocytosis 0-1+ 7 Macrocytosis 0-1+ 7 Elliptocytes 0-1+ 7 [place] Cells 1+ 7 Comment . 7 Laboratory test 05/22/2018 Path Review: <pending> 7 finding Slide Review 05/22/2018 Slide Review (SEE NOTE) 7, 8 Laboratory test 05/22/2018 Vitamin 41.7 ng/mL 30.0-100.0 7, 9 finding D,25-Hydroxy Vitamin B12 And Folate 05/22/2018 Vitamin B12 1139 pg/mL High 193-986 7 Folic Acid > 20.0 ng/mL High 3.1-17.5 7 Laboratory test finding 05/22/2018 Ferritin 121 ng/mL 26-388 7 Iron-Tibc-%Sat 05/22/2018 Serum Iron 122 g/dL 65-175 7 Total Iron Binding Capacity 311 g/dL 250-450 7 Transferrin %Saturation 39 % 12-57 7 Comprehensive Metabolic Panel 05/22/2018 Glucose 108 mg/dL High 74-106 7 BUN 13 mg/dL 7-18 7 Creatinine 0.6 mg/dL 0.6-1.3 7 Glom Filtration Rate, Estimate >60 mL/min >60 7 If >60 mL/min >60 7, 10 BUN/Creat 21.6 ratio 7 Sodium 128 mmol/L Low 136-145 7 Potassium 4.1 mmol/L 3.5-5.1 7 Chloride 94 mmol/L Low 98-107 7 Carbon Dioxide 25 mmol/L 21-32 7 Anion Gap 9 mEq/L 8-16 7 Calcium 8.3 mg/dL Low 8.5-10.1 7 Total Protein 7.6 g/dL 6.4-8.2 7 Albumin 3.9 g/dL 3.4-5.0 7 Globulin 3.7 g/dL 1.9-4.3 7 Alb/Glob 1.1 ratio 7 Bilirubin,Total 0.4 mg/dL 0.2-1.0 7 Sgot/Ast 21 U/L 15-37 7 SGPT/Alt 22 U/L 12-78 7 Alkaline Phosphatase 77 U/L 45-117 7 CBS W/Automated Diff 05/22/2018 White Blood Count 2.7 K/uL Low 3.4-10.5 7 Red Blood Count 4.07 M/uL Low 4.20-5.80 7 Hemoglobin 14.0 gm/dL 12.8-17.0 7 Hematocrit 38.4 % 38.0-48.0 7 Mean Cell Volume 94.3 fl 80.0-96.0 7 Mean Corpuscular HGB 34.4 pg High 27.0-33.0 7 Mean Corpuscular HGB Conc 36.5 g/dL High 31.7-36.0 7 Platelet Count 253 K/uL 155-360 7 Red Cell Distri Width SD 41.1 fl 36-51 7 Red Cell Distri Width %CV 12.0 % 11.6-15.8 7 Mean Platelet Volume 9.0 fL 6.6-10.6 7 Neut% 46.7 % 33.0-73.0 7 Lymph % 31.1 % 20.0-42.0 7 Greenlee % 17.8 % High 0.0-10.0 7 Eo% 3.7 % 0.0-6.6 7 Bas% 0.7 % 0.0-1.1 7 Neut# 1.26 K/uL Low 1.8-7.0 7 Lymph # 0.84 K/uL Low 1.0-4.0 7 Greenlee # 0.48 K/uL 0.0-0.8 7 Eos # 0.10 K/uL 0.0-0.5 7 Baso # 0.02 K/uL 0.0-0.1 7 Comprehensive Metabolic Panel 04/15/2018 Glucose 87 mg/dL 74-106 11 BUN 11 mg/dL 7-18 11 Creatinine 0.6 mg/dL 0.6-1.3 11 Glom Filtration Rate, Estimate >60 mL/min >60 11 If >60 mL/min >60 11, 12 BUN/Creat 18.3 ratio 11 Sodium 130 mmol/L Low 136-145 11 Potassium 4.1 mmol/L 3.5-5.1 11 Chloride 94 mmol/L Low 98-107 11 Carbon Dioxide 28 mmol/L 21-32 11 Anion Gap 8 mEq/L 8-16 11 Calcium 8.4 mg/dL Low 8.5-10.1 11 Total Protein 7.8 g/dL 6.4-8.2 11 Albumin 4.0 g/dL 3.4-5.0 11 Globulin 3.8 g/dL 1.9-4.3 11 Alb/Glob 1.1 ratio 11 Bilirubin,Total 0.3 mg/dL 0.2-1.0 11 Sgot/Ast 22 U/L 15-37 11 SGPT/Alt 24 U/L 12-78 11 Alkaline Phosphatase 66 U/L 45-117 11 LDL Cholesterol Profile 04/15/2018 Cholesterol 206 mg/dL High <200 11, 13 Triglycerides 85 mg/dL <150 11, 14 HDL Cholesterol 98 mg/dL >40 11, 15 LDL-Cholesterol 91 mg/dL < 100 11, 16 Laboratory test finding 04/15/2018 Free T4 0.73 ng/dL Low 0.76-1.46 11 Thyroid Stim Hormone 0.54 uIU/mL 0.30-4.20 11 Vitamin D,25-Hydroxy 37.9 ng/mL 30.0-100.0 11, 17 Path Review: 04/06/2018 Path Review: NI 18 Slide Review 04/06/2018 Slide Review (SEE NOTE) 18, 19 Laboratory test 04/06/2018 Vitamin 37.2 ng/mL 30.0-100.0 18, 20 finding D,25-Hydroxy Vitamin B12 And 04/06/2018 Vitamin B12 1243 pg/mL High 193-986 18 Folate Folic Acid > 20.0 ng/mL High 3.1-17.5 18 Laboratory test finding 04/06/2018 Ferritin 102 ng/mL 26-388 18 Iron-Tibc-%Sat 04/06/2018 Serum Iron 132 g/dL 65-175 18 Total Iron Binding Capacity 313 g/dL 250-450 18 Transferrin %Saturation 42 % 12-57 18 Comprehensive Metabolic Panel 04/06/2018 Glucose 74 mg/dL 74-106 18 BUN 12 mg/dL 7-18 18 Creatinine 0.7 mg/dL 0.6-1.3 18 Glom Filtration Rate, Estimate >60 mL/min >60 18 If >60 mL/min >60 18, 21 BUN/Creat 17.1 ratio 18 Sodium 128 mmol/L Low 136-145 18 Potassium 3.8 mmol/L 3.5-5.1 18 Chloride 93 mmol/L Low 98-107 18 Carbon Dioxide 27 mmol/L 21-32 18 Anion Gap 8 mEq/L 8-16 18 Calcium 8.5 mg/dL 8.5-10.1 18 Total Protein 7.6 g/dL 6.4-8.2 18 Albumin 4.0 g/dL 3.4-5.0 18 Globulin 3.6 g/dL 1.9-4.3 18 Alb/Glob 1.1 ratio 18 Bilirubin,Total 0.3 mg/dL 0.2-1.0 18 Sgot/Ast 20 U/L 15-37 18 SGPT/Alt 23 U/L 12-78 18 Alkaline Phosphatase 71 U/L 45-117 18 CBS W/Automated Diff 04/06/2018 White Blood Count 2.7 K/uL Low 3.4-10.5 18 Red Blood Count 4.18 M/uL Low 4.20-5.80 18 Hemoglobin 14.3 gm/dL 12.8-17.0 18 Hematocrit 40.1 % 38.0-48.0 18 Mean Cell Volume 95.9 fl 80.0-96.0 18 Mean Corpuscular HGB 34.2 pg High 27.0-33.0 18 Mean Corpuscular HGB Conc 35.7 g/dL 31.7-36.0 18 Platelet Count 250 K/uL 155-360 18 Red Cell Distri Width SD 43.4 fl 36-51 18 Red Cell Distri Width %CV 12.7 % 11.6-15.8 18 Mean Platelet Volume 9.6 fL 6.6-10.6 18 Neut% 48.8 % 33.0-73.0 18 Lymph % 32.7 % 20.0-42.0 18 [place] % 15.8 % High 0.0-10.0 18 Eo% 2.3 % 0.0-6.6 18 Bas% 0.4 % 0.0-1.1 18 Neut# 1.30 K/uL Low 1.8-7.0 18 Lymph # 0.87 K/uL Low 1.0-4.0 18 Greenlee # 0.42 K/uL 0.0-0.8 18 Eos # 0.06 K/uL 0.0-0.5 18 Baso # 0.01 K/uL 0.0-0.1 18 Comp Metabolic Panel 02/07/2018 Sodium 127 mmol/L Low 133-145 Potassium 3.7 mmol/L 3.5-5.0 Chloride 91 mmol/L [...] Egfr Non- 94.5 >60 Egfr 121.6 >60 22 Laboratory test finding 02/07/2018 Phenobarbital 10.6 g/mL [...] Thyroid Stim Hormone 4.93 uIU/mL High 0.30-4.20 23 Free T4 0.65 ng/dL Low 0.76-1.46 23 Comprehensive Metabolic Panel 01/13/2018 Glucose 83 mg/dL 74-106 23 BUN 15 mg/dL 7-18 23 Creatinine 0.6 mg/dL 0.6-1.3 23 Glom Filtration Rate, Estimate >60 mL/min >60 23 If >60 mL/min >60 23, 24 BUN/Creat 25.0 ratio 23 Sodium 129 mmol/L Low 136-145 23 Potassium 4.0 mmol/L 3.5-5.1 23 Chloride 94 mmol/L Low 98-107 23 Carbon Dioxide 25 mmol/L 21-32 23 Anion Gap 10 mEq/L 8-16 23 Calcium 8.4 mg/dL Low 8.5-10.1 23 Total Protein 7.6 g/dL 6.4-8.2 23 Albumin 3.8 g/dL 3.4-5.0 23 Globulin 3.8 g/dL 1.9-4.3 23 Alb/Glob 1.0 ratio 23 Bilirubin,Total 0.3 mg/dL 0.2-1.0 23 Sgot/Ast 40 U/L High 15-37 23 SGPT/Alt 27 U/L 12-78 23 Alkaline Phosphatase 89 U/L 45-117 23 Laboratory test 12/05/2017 Vitamin D,25-Hydroxy 49.3 ng/mL 30.0-100.0 25 , 26 finding Vitamin B12 And 12/05/2017 Vitamin B12 1392 pg/mL High 193-986 25 Folate Folic Acid 14.6 ng/mL 3.1-17.5 25 Laboratory test finding 12/05/2017 Ferritin 100 ng/mL 26-388 25 Iron-Tibc-%Sat 12/05/2017 Serum Iron 112 g/dL 65-175 25 Total Iron Binding Capacity 314 g/dL 250-450 25 Transferrin %Saturation 36 % 12-57 25 Comprehensive Metabolic Panel 12/05/2017 Glucose 80 mg/dL 74-106 25 BUN 17 mg/dL 7-18 25 Creatinine 0.7 mg/dL 0.6-1.3 25 Glom Filtration Rate, Estimate >60 mL/min >60 25 If >60 mL/min >60 25, 27 BUN/Creat 24.2 ratio 25 Sodium 132 mmol/L Low 136-145 25 Potassium 4.6 mmol/L 3.5-5.1 25 Chloride 96 mmol/L Low 98-107 25 Carbon Dioxide 31 mmol/L 21-32 25 Anion Gap 5 mEq/L Low 8-16 25 Calcium 8.5 mg/dL 8.5-10.1 25 Total Protein 7.7 g/dL 6.4-8.2 25 Albumin 3.7 g/dL 3.4-5.0 25 Globulin 4.0 g/dL 1.9-4.3 25 Alb/Glob 0.9 ratio 25 Bilirubin,Total 0.2 mg/dL 0.2-1.0 25 Sgot/Ast 23 U/L 15-37 25 SGPT/Alt 23 U/L 12-78 25 Alkaline Phosphatase 98 U/L 45-117 25 CBS W/Automated Diff 12/05/2017 White Blood Count 3.3 K/uL Low 3.4-10.5 25 Red Blood Count 4.03 M/uL Low 4.20-5.80 25 Hemoglobin 13.5 gm/dL 12.8-17.0 25 Hematocrit 38.1 % 38.0-48.0 25 Mean Cell Volume 94.5 fl 80.0-96.0 25 Mean Corpuscular HGB 33.5 pg High 27.0-33.0 25 Mean Corpuscular HGB Conc 35.4 g/dL 31.7-36.0 25 Platelet Count 277 K/uL 155-360 25 Red Cell Distri Width SD 41.8 fl 36-51 25 Red Cell Distri Width %CV 12.4 % 11.6-15.8 25 Mean Platelet Volume 10.0 fL 6.6-10.6 25 Neut% 44.9 % 33.0-73.0 25 Lymph % 39.1 % 20.0-42.0 25 [place] % 14.2 % High 0.0-10.0 25 Eo% 0.9 % 0.0-6.6 25 Bas% 0.9 % 0.0-1.1 25 Neut# 1.46 K/uL Low 1.8-7.0 25 Lymph # 1.27 K/uL 1.0-4.0 25 [place]lee # 0.46 K/uL 0.0-0.8 25 Eos # 0.03 K/uL 0.0-0.5 25 Baso # 0.03 K/uL 0.0-0.1 25 Comprehensive Metabolic Panel 11/05/2017 Glucose 85 mg/dL 74-106 28 BUN 9 mg/dL 7-18 28 Creatinine 0.7 mg/dL 0.6-1.3 28 Glom Filtration Rate, Estimate >60 mL/min >60 28 If >60 mL/min >60 28, 29 BUN/Creat 12.8 ratio 28 Sodium 131 mmol/L Low 136-145 28 Potassium 4.1 mmol/L 3.5-5.1 28 Chloride 97 mmol/L Low 98-107 28 Carbon Dioxide 29 mmol/L 21-32 28 Anion Gap 5 mEq/L Low 8-16 28 Calcium 8.7 mg/dL 8.5-10.1 28 Total Protein 7.9 g/dL 6.4-8.2 28 Albumin 3.9 g/dL 3.4-5.0 28 Globulin 4.0 g/dL 1.9-4.3 28 Alb/Glob 1.0 ratio 28 Bilirubin,Total 0.4 mg/dL 0.2-1.0 28 Sgot/Ast 20 U/L 15-37 28 SGPT/Alt 24 U/L 12-78 28 Alkaline Phosphatase 100 U/L 45-117 28 CBS W/Automated Diff 11/05/2017 White Blood Count 4.1 K/uL 3.4-10.5 28 Red Blood Count 4.21 M/uL 4.20-5.80 28 Hemoglobin 13.9 gm/dL 12.8-17.0 28 Hematocrit 39.6 % 38.0-48.0 28 Mean Cell Volume 94.1 fl 80.0-96.0 28 Mean Corpuscular HGB 33.0 pg 27.0-33.0 28 Mean Corpuscular HGB Conc 35.1 g/dL 31.7-36.0 28 Platelet Count 265 K/uL 155-360 28 Red Cell Distri Width SD 42.1 fl 36-51 28 Red Cell Distri Width %CV 12.4 % 11.6-15.8 28 Mean Platelet Volume 9.3 fL 6.6-10.6 28 Neut% 64.3 % 33.0-73.0 28 Lymph % 17.6 % Low 20.0-42.0 28 [place] % 14.0 % High 0.0-10.0 28 Eo% 3.4 % 0.0-6.6 28 Bas% 0.7 % 0.0-1.1 28 Neut# 2.66 K/uL 1.8-7.0 28 Lymph # 0.73 K/uL Low 1.0-4.0 28 [place] # 0.58 K/uL 0.0-0.8 28 Eos # 0.14 K/uL 0.0-0.5 28 Baso # 0.03 K/uL 0.0-0.1 28 Laboratory test finding 11/05/2017 Thyroid Stim Hormone 4.72 uIU/mL High 0.30-4.20 28 Free T4 0.69 ng/dL Low 0.76-1.46 28 Vitamin D,25-Hydroxy 41.0 ng/mL 30.0-100.0 28, 30 CBS W/Automated Diff 10/24/2017 White Blood Count 6.4 K/uL 3.4-10.5 31 Red Blood Count 4.08 M/uL Low 4.20-5.80 31 Hemoglobin 13.5 gm/dL 12.8-17.0 31 Hematocrit 38.6 % 38.0-48.0 31 Mean Cell Volume 94.6 fl 80.0-96.0 31 Mean Corpuscular HGB 33.1 pg High 27.0-33.0 31 Mean Corpuscular HGB Conc 35.0 g/dL 31.7-36.0 31 Platelet Count 322 K/uL 155-360 31 Red Cell Distri Width SD 42.0 fl 36-51 31 Red Cell Distri Width %CV 12.4 % 11.6-15.8 31 Mean Platelet Volume 9.3 fL 6.6-10.6 31 Neut% 62.9 % 33.0-73.0 31 Lymph % 23.5 % 20.0-42.0 31 [place] % 11.4 % High 0.0-10.0 31 Eo% 1.9 % 0.0-6.6 31 Bas% 0.3 % 0.0-1.1 31 Neut# 4.01 K/uL 1.8-7.0 31 Lymph # 1.50 K/uL 1.0-4.0 31 [place] # 0.73 K/uL 0.0-0.8 31 Eos # 0.12 K/uL 0.0-0.5 31 Baso # 0.02 K/uL 0.0-0.1 31 Comprehensive Metabolic Panel 10/24/2017 Glucose 82 mg/dL 74-106 31 BUN 15 mg/dL 7-18 31 Creatinine 0.7 mg/dL 0.6-1.3 31 Glom Filtration Rate, Estimate >60 mL/min >60 31 If >60 mL/min >60 31, 32 BUN/Creat 21.4 ratio 31 Sodium 125 mmol/L Low 136-145 31 Potassium 3.9 mmol/L 3.5-5.1 31 Chloride 88 mmol/L Low 98-107 31 Carbon Dioxide 29 mmol/L 21-32 31 Anion Gap 8 mEq/L 8-16 31 Calcium 8.8 mg/dL 8.5-10.1 31 Total Protein 8.1 g/dL 6.4-8.2 31 Albumin 4.0 g/dL 3.4-5.0 31 Globulin 4.1 g/dL 1.9-4.3 31 Alb/Glob 1.0 ratio 31 Bilirubin,Total 0.4 mg/dL 0.2-1.0 31 Sgot/Ast 24 U/L 15-37 31 SGPT/Alt 26 U/L 12-78 31 Alkaline Phosphatase 94 U/L 45-117 31 Iron-Tibc-%Sat 10/24/2017 Serum Iron 80 g/dL 65-175 31 Total Iron Binding Capacity 351 g/dL 250-450 31 Transferrin %Saturation 23 % 12-57 31 Laboratory test finding 10/24/2017 Ferritin 98 ng/mL 26-388 31 Vitamin B12 And Folate 10/24/2017 Vitamin B12 1416 pg/mL High 193-986 31 Folic Acid 19.0 ng/mL High 3.1-17.5 31 Laboratory test 10/24/2017 Vitamin D,25-Hydroxy 47.8 ng/mL 30.0-100.0 31 , 33 finding Laboratory test 09/10/2017 Vitamin D,25-Hydroxy 41.1 ng/mL 30.0-100.0 34 , 35 finding Comprehensive 09/10/2017 Glucose 98 mg/dL 74-106 34 Metabolic Panel BUN 10 mg/dL 7-18 34 Creatinine 0.6 mg/dL 0.6-1.3 34 Glom Filtration Rate, Estimate >60 mL/min >60 34 If >60 mL/min >60 34, 36 BUN/Creat 16.6 ratio 34 Sodium 131 mmol/L Low 136-145 34 Potassium 4.1 mmol/L 3.5-5.1 34 Chloride 96 mmol/L Low 98-107 34 Carbon Dioxide 28 mmol/L 21-32 34 Anion Gap 7 mEq/L Low 8-16 34 Calcium 8.7 mg/dL 8.5-10.1 34 Total Protein 8.0 g/dL 6.4-8.2 34 Albumin 3.9 g/dL 3.4-5.0 34 Globulin 4.1 g/dL 1.9-4.3 34 Alb/Glob 1.0 ratio 34 Bilirubin,Total 0.3 mg/dL 0.2-1.0 34 Sgot/Ast 19 U/L 15-37 34 SGPT/Alt 22 U/L 12-78 34 Alkaline Phosphatase 96 U/L 45-117 34 Laboratory test finding 09/10/2017 Ferritin 90 ng/mL 26-388 34 Vitamin B12 And Folate 09/10/2017 Vitamin B12 1244 pg/mL High 193-986 34 Folic Acid 19.5 ng/mL High 3.1-17.5 34 Iron-Tibc-%Sat 09/10/2017 Serum Iron 113 g/dL 65-175 34 Total Iron Binding Capacity 334 g/dL 250-450 34 Transferrin %Saturation 34 % 12-57 34 CBS W/Automated Diff 09/10/2017 White Blood Count 3.2 K/uL Low 3.4-10.5 34 Red Blood Count 4.14 M/uL Low 4.20-5.80 34 Hemoglobin 13.8 gm/dL 12.8-17.0 34 Hematocrit 38.9 % 38.0-48.0 34 Mean Cell Volume 94.0 fl 80.0-96.0 34 Mean Corpuscular HGB 33.3 pg High 27.0-33.0 34 Mean Corpuscular HGB Conc 35.5 g/dL 31.7-36.0 34 Platelet Count 310 K/uL 150-400 34 Red Cell Distri Width SD 43.1 fl 36-51 34 Red Cell Distri Width %CV 12.8 % 11.6-15.8 34 Mean Platelet Volume 8.7 fL 6.6-10.6 34 Neut% 57.7 % 33.0-73.0 34 Lymph % 26.2 % 20.0-42.0 34 [place] % 12.1 % High 0.0-10.0 34 Eo% 3.4 % 0.0-6.6 34 Bas% 0.6 % 0.0-1.1 34 Neut# 1.85 K/uL 1.8-7.0 34 Lymph # 0.84 K/uL Low 1.0-4.0 34 Greenlee # 0.39 K/uL 0.0-0.8 34 Eos # 0.11 K/uL 0.0-0.5 34 Baso # 0.02 K/uL 0.0-0.1 34 Laboratory test 07/19/2017 Vitamin D,25-Hydroxy 43.3 ng/mL 30.0-100.0 37 , 38 finding Vitamin B12 And Folate 07/19/2017 Vitamin B12 940 pg/mL 193-986 37 Folic Acid 17.2 ng/mL 3.1-17.5 37 Laboratory test finding 07/19/2017 Ferritin 95 ng/mL 26-388 37 Iron-Tibc-%Sat 07/19/2017 Serum Iron 82 g/dL 65-175 37 Total Iron Binding Capacity 321 g/dL 250-450 37 Transferrin %Saturation 26 % 12-57 37 Comprehensive Metabolic Panel 07/19/2017 Glucose 86 mg/dL 74-106 37 BUN 13 mg/dL 7-18 37 Creatinine 0.7 mg/dL 0.6-1.3 37 Glom Filtration Rate, Estimate >60 mL/min >60 37 If >60 mL/min >60 37, 39 BUN/Creat 18.5 ratio 37 Sodium 126 mmol/L Low 136-145 37 Potassium 4.2 mmol/L 3.5-5.1 37 Chloride 90 mmol/L Low 98-107 37 Carbon Dioxide 29 mmol/L 21-32 37 Anion Gap 7 mEq/L Low 8-16 37 Calcium 8.4 mg/dL Low 8.5-10.1 37 Total Protein 7.5 g/dL 6.4-8.2 37 Albumin 3.7 g/dL 3.4-5.0 37 Globulin 3.8 g/dL 1.9-4.3 37 Alb/Glob 1.0 ratio 37 Bilirubin,Total 0.3 mg/dL 0.2-1.0 37 Sgot/Ast 21 U/L 15-37 37 SGPT/Alt 22 U/L 12-78 37 Alkaline Phosphatase 81 U/L 45-117 37 CBS W/Automated Diff 07/19/2017 White Blood Count 3.4 K/uL 3.4-10.5 37 Red Blood Count 3.94 M/uL Low 4.20-5.80 37 Hemoglobin 13.1 gm/dL 12.8-17.0 37 Hematocrit 37.0 % Low 38.0-48.0 37 Mean Cell Volume 93.9 fl 80.0-96.0 37 Mean Corpuscular HGB 33.2 pg High 27.0-33.0 37 Mean Corpuscular HGB Conc 35.4 g/dL 31.7-36.0 37 Platelet Count 273 K/uL 150-400 37 Red Cell Distri Width SD 41.4 fl 36-51 37 Red Cell Distri Width %CV 12.4 % 11.6-15.8 37 Mean Platelet Volume 9.8 fL 6.6-10.6 37 Neut% 43.7 % 33.0-73.0 37 Lymph % 37.1 % 20.0-42.0 37 [place] % 16.5 % High 0.0-10.0 37 Eo% 2.4 % 0.0-6.6 37 Bas% 0.3 % 0.0-1.1 37 Neut# 1.49 K/uL Low 1.8-7.0 37 Lymph # 1.26 K/uL 1.0-4.0 37 [place] # 0.56 K/uL 0.0-0.8 37 Eos # 0.08 K/uL 0.0-0.5 37 Baso # 0.01 K/uL 0.0-0.1 37 [facility] W/Automated Diff 04/22/2017 White Blood Count 3.0 K/uL Low 3.4-10.5 40 Red Blood Count 4.23 M/uL 4.20-5.80 40 Hemoglobin 14.0 gm/dL 12.8-17.0 40 Hematocrit 40.2 % 38.0-48.0 40 Mean Cell Volume 95.0 fl 80.0-96.0 40 Mean Corpuscular HGB 33.1 pg High 27.0-33.0 40 Mean Corpuscular HGB Conc 34.8 g/dL 31.7-36.0 40 Platelet Count 323 K/uL 150-400 40 Red Cell Distri Width SD 43.0 fl 36-51 40 Red Cell Distri Width %CV 12.6 % 11.6-15.8 40 Mean Platelet Volume 9.7 fL 6.6-10.6 40 Neut% 49.5 % 33.0-73.0 40 Lymph % 31.2 % 20.0-42.0 40 [place] % 14.3 % High 0.0-10.0 40 Eo% 4.0 % 0.0-6.6 40 Bas% 1.0 % 0.0-1.1 40 Neut# 1.49 K/uL Low 1.8-7.0 40 Lymph # 0.94 K/uL Low 1.0-4.0 40 [place]lee # 0.43 K/uL 0.0-0.8 40 Eos # 0.12 K/uL 0.0-0.5 40 Baso # 0.03 K/uL 0.0-0.1 40 Comprehensive Metabolic Panel 04/22/2017 Glucose 53 mg/dL Low 74-106 40 BUN 10 mg/dL 7-18 40 Creatinine 0.7 mg/dL 0.6-1.3 40 Glom Filtration Rate, Estimate >60 mL/min >60 40 If >60 mL/min >60 40, 41 BUN/Creat 14.2 ratio 40 Sodium 130 mmol/L Low 136-145 40 Potassium 3.5 mmol/L 3.5-5.1 40 Chloride 94 mmol/L Low 98-107 40 Carbon Dioxide 28 mmol/L 21-32 40 Anion Gap 8 mEq/L 8-16 40 Calcium 8.4 mg/dL Low 8.5-10.1 40 Total Protein 7.9 g/dL 6.4-8.2 40 Albumin 4.0 g/dL 3.4-5.0 40 Globulin 3.9 g/dL 1.9-4.3 40 Alb/Glob 1.0 ratio 40 Bilirubin,Total 0.3 mg/dL 0.2-1.0 40 Sgot/Ast 25 U/L 15-37 40 SGPT/Alt 22 U/L 12-78 40 Alkaline Phosphatase 104 U/L 45-117 40 Iron-Tibc-%Sat 04/22/2017 Serum Iron 112 g/dL 65-175 40 Total Iron Binding Capacity 324 g/dL 250-450 40 Transferrin %Saturation 35 % 12-57 40 Laboratory test finding 04/22/2017 Ferritin 87 ng/mL 26-388 40 Vitamin B12 And Folate 04/22/2017 Vitamin B12 1518 pg/mL High 193-986 40 Folic Acid 24.7 ng/mL High 3.1-17.5 40 Vitamin B12 And Folate 01/21/2017 Vitamin B12 1341 pg/mL High 193-986 40 Folic Acid 18.4 ng/mL High 3.1-17.5 40 Laboratory test finding 01/21/2017 Ferritin 82 ng/mL 26-388 40 Iron-Tibc-%Sat 01/21/2017 Serum Iron 79 g/dL 65-175 40 Total Iron Binding Capacity 333 g/dL 250-450 40 Transferrin %Saturation 24 % 12-57 40 Comprehensive Metabolic Panel 01/21/2017 Glucose 117 mg/dL High 74-106 40 BUN 10 mg/dL 7-18 40 Creatinine 0.7 mg/dL 0.6-1.3 40 Glom Filtration Rate, Estimate >60 mL/min >60 40 If >60 mL/min >60 40, 42 BUN/Creat 14.2 ratio 40 Sodium 127 mmol/L Low 136-145 40 Potassium 4.5 mmol/L 3.5-5.1 40 Chloride 91 mmol/L Low 98-107 40 Carbon Dioxide 27 mmol/L 21-32 40 Anion Gap 9 mEq/L 8-16 40 Calcium 8.5 mg/dL 8.5-10.1 40 Total Protein 7.7 g/dL 6.4-8.2 40 Albumin 4.0 g/dL 3.4-5.0 40 Globulin 3.7 g/dL 1.9-4.3 40 Alb/Glob 1.1 ratio 40 Bilirubin,Total 0.3 mg/dL 0.2-1.0 40 Sgot/Ast 21 U/L 15-37 40 SGPT/Alt 23 U/L 12-78 40 Alkaline Phosphatase 85 U/L 45-117 40 CBS W/Automated Diff 01/21/2017 White Blood Count 4.1 K/uL 3.4-10.5 40 Red Blood Count 4.02 M/uL Low 4.20-5.80 40 Hemoglobin 13.6 gm/dL 12.8-17.0 40 Hematocrit 38.0 % 38.0-48.0 40 Mean Cell Volume 94.5 fl 80.0-96.0 40 Mean Corpuscular HGB 33.8 pg High 27.0-33.0 40 Mean Corpuscular HGB Conc 35.8 g/dL 31.7-36.0 40 Platelet Count 264 K/uL 150-400 40 Red Cell Distri Width SD 42.5 fl 36-51 40 Red Cell Distri Width %CV 12.5 % 11.6-15.8 40 Mean Platelet Volume 9.1 fL 6.6-10.6 40 Neut% 53.5 % 33.0-73.0 40 Lymph % 31.7 % 20.0-42.0 40 [place] % 12.6 % High 0.0-10.0 40 Eo% 1.7 % 0.0-6.6 40 Bas% 0.5 % 0.0-1.1 40 Neut# 2.21 K/uL 1.8-7.0 40 Lymph # 1.31 K/uL 1.0-4.0 40 [place]lee # 0.52 K/uL 0.0-0.8 40 Eos # 0.07 K/uL 0.0-0.5 40 Baso # 0.02 K/uL 0.0-0.1 40 CBS W/Automated Diff 10/06/2016 White Blood Count 3.2 K/uL Low 3.4-10.5 40 Red Blood Count 3.77 M/uL Low 4.20-5.80 40 Hemoglobin 12.6 gm/dL Low 12.8-17.0 40 Hematocrit 35.9 % Low 38.0-48.0 40 Mean Cell Volume 95.2 fl 80.0-96.0 40 Mean Corpuscular HGB 33.4 pg High 27.0-33.0 40 Mean Corpuscular HGB Conc 35.1 g/dL 31.7-36.0 40 Platelet Count 257 K/uL 150-400 40 Red Cell Distri Width SD 43.7 fl 36-51 40 Red Cell Distri Width %CV 13.0 % 11.6-15.8 40 Mean Platelet Volume 10.3 fL 6.6-10.6 40 Neut% 55.2 % 33.0-73.0 40 Lymph % 29.4 % 17.0-56.0 40 [place]lee % 11.3 % High 0.0-10.0 40 Eo% 2.8 % 0.0-5.0 40 Bas% 1.3 % High 0.1-1.0 40 Neut# 1.77 K/uL Low 1.8-7.0 40 Lymph # 0.94 K/uL Low 1.8-7.0 40 Greenlee # 0.36 K/uL 0.0-0.8 40 Eos # 0.09 K/uL 0.0-0.5 40 Baso # 0.04 K/uL Low 0.1-0.2 40 Comprehensive Metabolic Panel 10/06/2016 Glucose 110 mg/dL High 74-106 40 BUN 12 mg/dL 7-18 40 Creatinine 0.7 mg/dL 0.6-1.3 40 Glom Filtration Rate, Estimate >60 mL/min >60 40 If >60 mL/min >60 40, 43 BUN/Creat 17.1 ratio 40 Sodium 128 mmol/L Low 136-145 40 Potassium 4.3 mmol/L 3.5-5.1 40 Chloride 94 mmol/L Low 98-107 40 Carbon Dioxide 26 mmol/L 21-32 40 Anion Gap 8 mEq/L 8-16 40 Calcium 8.0 mg/dL Low 8.5-10.1 40 Total Protein 7.3 g/dL 6.4-8.2 40 Albumin 3.7 g/dL 3.4-5.0 40 Globulin 3.6 g/dL 1.9-4.3 40 Alb/Glob 1.0 ratio 40 Bilirubin,Total 0.2 mg/dL 0.2-1.0 40 Sgot/Ast 21 U/L 15-37 40 SGPT/Alt 22 U/L 12-78 40 Alkaline Phosphatase 85 U/L 45-117 40 Iron-Tibc-%Sat 10/06/2016 Serum Iron 86 g/dL 65-175 40 Total Iron Binding Capacity 350 g/dL 250-450 40 Transferrin %Saturation 25 % 12-57 40 Laboratory test finding 10/06/2016 Ferritin 48 ng/mL 26-388 40 Vitamin B12 And Folate 10/06/2016 Vitamin B12 820 pg/mL 193-986 40 Folic Acid 19.7 ng/mL High 3.1-17.5 40 Basic Metabolic Panel 09/29/2016 Glucose 157 mg/dL High 74-106 44 BUN 12 mg/dL 7-18 44 Creatinine 0.7 mg/dL 0.6-1.3 44 Glom Filtration Rate, Estimate >60 mL/min >60 44 If >60 mL/min >60 44, 45 BUN/Creat 17.1 ratio 44 Sodium 126 mmol/L Low 136-145 44 Potassium 3.8 mmol/L 3.5-5.1 44 Chloride 91 mmol/L Low 98-107 44 Carbon Dioxide 26 mmol/L 21-32 44 Anion Gap 9 mEq/L 8-16 44 Calcium 8.2 mg/dL Low 8.5-10.1 44 Vitamin B12 And Folate 09/22/2016 Vitamin B12 623 pg/mL 193-986 46 Folic Acid 19.4 ng/mL High 3.1-17.5 46 Laboratory test finding 09/22/2016 Ferritin 57 ng/mL 26-388 46 Iron-Tibc-%Sat 09/22/2016 Serum Iron 102 g/dL 65-175 46 Total Iron Binding Capacity 351 g/dL 250-450 46 Transferrin %Saturation 29 % 12-57 46 Comprehensive Metabolic Panel 09/22/2016 Glucose 87 mg/dL 74-106 46 BUN 12 mg/dL 7-18 46 Creatinine 0.8 mg/dL 0.6-1.3 46 Glom Filtration Rate, Estimate >60 mL/min >60 46 If >60 mL/min >60 46, 47 BUN/Creat 15.0 ratio 46 Sodium 125 mmol/L Low 136-145 46 Potassium 3.9 mmol/L 3.5-5.1 46 Chloride 89 mmol/L Low 98-107 46 Carbon Dioxide 28 mmol/L 21-32 46 Anion Gap 8 mEq/L 8-16 46 Calcium 7.8 mg/dL Low 8.5-10.1 46 Total Protein 7.7 g/dL 6.4-8.2 46 Albumin 3.7 g/dL 3.4-5.0 46 Globulin 4.0 g/dL 1.9-4.3 46 Alb/Glob 0.9 ratio 46 Bilirubin,Total 0.3 mg/dL 0.2-1.0 46 Sgot/Ast 22 U/L 15-37 46 SGPT/Alt 19 U/L 12-78 46 Alkaline Phosphatase 93 U/L 45-117 46 CBS W/Automated Diff 09/22/2016 White Blood Count 3.4 K/uL 3.4-10.5 46 Red Blood Count 3.97 M/uL Low 4.20-5.80 46 Hemoglobin 13.1 gm/dL 12.8-17.0 46 Hematocrit 37.7 % Low 38.0-48.0 46 Mean Cell Volume 95.0 fl 80.0-96.0 46 Mean Corpuscular HGB 33.0 pg 27.0-33.0 46 Mean Corpuscular HGB Conc 34.7 g/dL 31.7-36.0 46 Platelet Count 258 K/uL 150-400 46 Red Cell Distri Width SD 44.2 fl 36-51 46 Red Cell Distri Width %CV 13.0 % 11.6-15.8 46 Mean Platelet Volume 9.8 fL 6.6-10.6 46 Neut% 48.6 % 33.0-73.0 46 Lymph % 33.7 % 17.0-56.0 46 [place] % 14.8 % High 0.0-10.0 46 Eo% 2.3 % 0.0-5.0 46 Bas% 0.6 % 0.1-1.0 46 Neut# 1.67 K/uL Low 1.8-7.0 46 Lymph # 1.16 K/uL Low 1.8-7.0 46 [place]lee # 0.51 K/uL 0.0-0.8 46 Eos # 0.08 K/uL 0.0-0.5 46 Baso # 0.02 K/uL Low 0.1-0.2 46 CBC 08/24/2016 White Blood Count 5.5 K/uL 3.4-10.5 48 Red Blood Count 3.59 M/uL Low 4.20-5.80 48 Hemoglobin 11.9 gm/dL Low 12.8-17.0 48 Hematocrit 33.9 % Low 38.0-48.0 48 Mean Cell Volume 94.4 fl 80.0-96.0 48 Mean Corpuscular HGB 33.1 pg High 27.0-33.0 48 Mean Corpuscular HGB Conc 35.1 g/dL 31.7-36.0 48 Platelet Count 277 K/uL 150-400 48 Red Cell Distri Width %CV 13.0 % 11.6-15.8 48 Mean Platelet Volume 9.4 fL 6.6-10.6 48 Basic Metabolic Panel 08/24/2016 Glucose 88 mg/dL 74-106 48 BUN 6 mg/dL Low 7-18 48 Creatinine 0.5 mg/dL Low 0.6-1.3 48 Glom Filtration Rate, Estimate >60 mL/min >60 48 If >60 mL/min >60 48, 49 BUN/Creat 12.0 ratio 48 Sodium 130 mmol/L Low 136-145 48 Potassium 3.5 mmol/L 3.5-5.1 48 Chloride 96 mmol/L Low 98-107 48 Carbon Dioxide 25 mmol/L 21-32 48 Anion Gap 9 mEq/L 8-16 48 Calcium 8.0 mg/dL Low 8.5-10.1 48 Is Patient Fasting? Non-Fasting 48 CBC 08/23/2016 White Blood Count 4.6 K/uL 3.4-10.5 48 Red Blood Count 3.86 M/uL Low 4.20-5.80 48 Hemoglobin 12.7 gm/dL Low 12.8-17.0 48 Hematocrit 36.0 % Low 38.0-48.0 48 Mean Cell Volume 93.3 fl 80.0-96.0 48 Mean Corpuscular HGB 32.9 pg 27.0-33.0 48 Mean Corpuscular HGB Conc 35.3 g/dL 31.7-36.0 48 Platelet Count 277 K/uL 150-400 48 Red Cell Distri Width %CV 12.9 % 11.6-15.8 48 Mean Platelet Volume 9.1 fL 6.6-10.6 48 Basic Metabolic Panel 08/23/2016 Glucose 89 mg/dL 74-106 48 BUN 8 mg/dL 7-18 48 Creatinine 0.7 mg/dL 0.6-1.3 48 Glom Filtration Rate, Estimate >60 mL/min >60 48 If >60 mL/min >60 48, 50 BUN/Creat 11.4 ratio 48 Sodium 130 mmol/L Low 136-145 48 Potassium 3.6 mmol/L 3.5-5.1 48 Chloride 97 mmol/L Low 98-107 48 Carbon Dioxide 26 mmol/L 21-32 48 Anion Gap 7 mEq/L Low 8-16 48 Calcium 8.0 mg/dL Low 8.5-10.1 48 Is Patient Fasting? Non-Fasting 48 Ua RFX Microscopic & Cult If Inicated 08/23/2016 Urine Color YELLOW Yellow 48 Urine Clarity CLEAR Clear 48 Urine Glucose - Dipstick NEGATIVE mg/dL Negative 48 Urine Bilirubin - Dipstick NEGATIVE Negative 48 Urine Ketone NEGATIVE mg/dL Negative 48 Urine Specific [place] 1.010 1.010-1.030 48 Urine Blood NEGATIVE Negative 48 Urine PH 7.0 6.5-7.5 48 Urine Protein - Dipstick NEGATIVE mg/dL Negative 48 Urine Urobilinogen - Dipstick 0.2 E.U./dL 0.2-1.0 48 Urine Nitrite - Dipstick NEGATIVE Negative 48 Urine Leuk Esterase NEGATIVE Negative 48 Source: URINE, CLEAN CAT <SEE NOTE> 48, 51 Laboratory test finding 08/02/2016 Ferritin 84 ng/mL 26-388 52 Iron-Tibc-%Sat 08/02/2016 Serum Iron 47 g/dL Low 65-175 52 Total Iron Binding Capacity 303 g/dL 250-450 52 Transferrin %Saturation 16 % 12-57 52 Laboratory test 08/02/2016 Vitamin D,25-Hydroxy 38.7 ng/mL 30.0-100.0 52 , 53 finding Vitamin B12 And Folate 08/02/2016 Vitamin B12 614 pg/mL 193-986 52 Folic Acid 18.8 ng/mL High 3.1-17.5 52 Comprehensive Metabolic Panel 08/02/2016 Glucose 76 mg/dL 74-106 52 BUN 12 mg/dL 7-18 52 Creatinine 0.6 mg/dL 0.6-1.3 52 Glom Filtration Rate, Estimate >60 mL/min >60 52 If >60 mL/min >60 52, 54 BUN/Creat 20.0 ratio 52 Sodium 126 mmol/L Low 136-145 52 Potassium 4.3 mmol/L 3.5-5.1 52 Chloride 92 mmol/L Low 98-107 52 Carbon Dioxide 28 mmol/L 21-32 52 Anion Gap 6 mEq/L Low 8-16 52 Calcium 8.0 mg/dL Low 8.5-10.1 52 Total Protein 7.2 g/dL 6.4-8.2 52 Albumin 3.6 g/dL 3.4-5.0 52 Globulin 3.6 g/dL 1.9-4.3 52 Alb/Glob 1.0 ratio 52 Bilirubin,Total 0.2 mg/dL 0.2-1.0 52 Sgot/Ast 19 U/L 15-37 52 SGPT/Alt 19 U/L 12-78 52 Alkaline Phosphatase 94 U/L 45-117 52 CBC W/Automated Diff 08/02/2016 White Blood Count 4.7 K/uL 3.4-10.5 52 Red Blood Count 3.77 M/uL Low 4.20-5.80 52 Hemoglobin 12.2 gm/dL Low 12.8-17.0 52 Hematocrit 35.4 % Low 38.0-48.0 52 Mean Cell Volume 93.9 fl 80.0-96.0 52 Mean Corpuscular HGB 32.4 pg 27.0-33.0 52 Mean Corpuscular HGB Conc 34.5 g/dL 31.7-36.0 52 Platelet Count 278 K/uL 150-400 52 Red Cell Distri Width SD 43.7 fl 36-51 52 Red Cell Distri Width %CV 13.1 % 11.6-15.8 52 Mean Platelet Volume 9.9 fL 6.6-10.6 52 Neut% 47.8 % 33.0-73.0 52 Lymph % 25.4 % 17.0-56.0 52 [place]lee % 19.9 % High 0.0-10.0 52 Eo% 6.0 % High 0.0-5.0 52 Bas% 0.9 % 0.1-1.0 52 Neut# 2.24 K/uL 1.8-7.0 52 Lymph # 1.19 K/uL Low 1.8-7.0 52 [place]lee # 0.93 K/uL High 0.0-0.8 52 Eos # 0.28 K/uL 0.0-0.5 52 Baso # 0.04 K/uL Low 0.1-0.2 52 Laboratory test finding 06/11/2016 Ferritin 67 ng/mL 26-388 Iron-Tibc-%Sat 06/11/2016 Serum Iron 119 g/dL 65-175 Total Iron Binding Capacity 303 g/dL 250-450 Transferrin %Saturation 39 % 12-57 Laboratory test finding 06/11/2016 Vitamin D,25-Hydroxy 37.0 ng/mL 30.0- 100.0 55 Vitamin B12 And Folate 06/11/2016 Vitamin B12 601 pg/mL 193-986 Folic Acid 18.0 ng/mL High 3.1-17.5 Comprehensive Metabolic Panel 06/11/2016 Glucose 85 mg/dL 74-106 BUN 9 mg/dL 7-18 Creatinine 0.7 mg/dL 0.6-1.3 Glom Filtration Rate, Estimate >60 mL/min >60 If >60 mL/min >60 56 BUN/Creat 12.8 ratio Sodium 122 mmol/L Low [...] U/L 12-78 Alkaline Phosphatase 92 U/L 45-117 CBC W/Automated Diff 06/11/2016 White Blood Count [...] % 33.0-73.0 Lymph % 32.1 % 17.0-56.0 Greenlee % 11.2 % High 0.0-10.0 Eo% 4.3 % 0.0-5.0 Bas% 0.8 % 0.1-1.0 Neut# 2.02 K/uL 1.8-7.0 Lymph # 1.26 K/uL Low 1.8-7.0 [place]lee # 0.44 K/uL 0.0-0.8 Eos # 0.17 K/uL 0.0-0.5 Baso # 0.03 K/uL Low 0.1-0.2 CBC W/Diff & PLT 04/06/2016 White Blood [...] % 33.0-73.0 Lymph % 27.6 % 17.0-56.0 Greenlee % 14.7 % High 0.0-10.0 Eo% 4.1 % 0.0-5.0 Bas% 0.7 % 0.1-1.0 Neut# 2.30 K/uL 1.8-7.0 Lymph # 1.20 K/uL Low 1.8-7.0 Greenlee # 0.64 K/uL 0.0-0.8 Eos # 0.18 K/uL 0.0-0.5 Baso # 0.03 K/uL Low 0.1-0.2 Laboratory test finding 04/06/2016 Ferritin 46 ng/mL 26-388 Vitamin B12 And Folate Serum 04/06/2016 Vitamin B12 723 pg/mL 193-986 Folic Acid 19.0 ng/mL High 3.1-17.5 CMP Panel (14 Test) 04/06/2016 Glucose 88 mg/dL 74-106 BUN 9 mg/dL 7-18 Creatinine 0.7 mg/dL 0.6-1.3 Glom Filtration Rate, Estimate >60 mL/min >60 If >60 mL/min >60 57 BUN/Creat 12.8 ratio Sodium 121 mmol/L Low [...] 12-78 Alkaline Phosphatase 161 U/L High 45-117 Iron-Tibc-%Sat 04/06/2016 Serum Iron 81 g/dL 65-175 Total Iron Binding Capacity 360 g/dL 250-450 Transferrin %Saturation 23 % 12-57 1 E03.9 2 Thyroglobulin Antibody measured by [employer] 3 Performed at: - [facility] [address] [id number] Director Presales: Josie Browning MD, Phone: [phone] E55.9 E61.1 D64.9 E53.9 5 Note: Persistent reduction for 3 months or more in an eGFR <60 mL/min/1.73 m2 defines CKD. Patients with eGFR values >/=60 mL/min/1.73 m2 may also have CKD if evidence of persistent proteinuria is present. The original MDRD equation for estimated GFR is not valid for patients less than 18 years of age. Additional information may be found at www.kdoqi.org. 6 Vitamin D deficiency has been defined by the [place] [employer] and an Endocrine Society practice guideline as a level of serum 25-OH vitamin D less than 20 ng/mL (1,2). The Endocrine Society went on to further define vitamin D insufficiency as a level between 21 and 29 ng/mL (2). 1. IOM ([place] [employer]). 2010. Dietary reference intakes for calcium and D. [place]: The National Academies Press. 2. Thalia MF, Stanton [place], Jimy-Rohan RICK, et al. Evaluation, treatment, and prevention of vitamin D deficiency: an Endocrine Society clinical practice guideline. JCEM. 2010; 96(7):1911-30. Performed at: - [facility] [address] [id number] Director Presales: Josie Browning MD, Phone: [phone] 7 D64.9 E55.9 E61.1 E53.9 8 Instrument flagged sample for slide review. Less than 10% Bands seen, no other immature WBC's seen. Platelet estimate=NORMAL 9 Vitamin D deficiency has been defined by the [place] [employer] and an Endocrine Society practice guideline as a level of serum 25-OH vitamin D less than 20 ng/mL (1,2). The Endocrine Society went on to further define vitamin D insufficiency as a level between 21 and 29 ng/mL (2). 1. IOM ([place] [employer]). 2010. Dietary reference intakes for calcium and D. [place]: The National Academies Press. 2. Thalia MF, Stanton AVILA, Iram RICK, et al. Evaluation, treatment, and prevention of vitamin D deficiency: an Endocrine Society clinical practice guideline. JCEM. 2010; 96(7):1911-30. Performed at: RN - [facility] [address] [id number] Director Presales: Josie Browning MD, Phone: [phone] Note: Persistent reduction for 3 months or more in an eGFR <60 mL/min/1.73 m2 defines CKD. Patients with eGFR values >/=60 mL/min/1.73 m2 may also have CKD if evidence of persistent proteinuria is present. The original MDRD equation for estimated GFR is not valid for patients less than 18 years of age. Additional information may be found at www.kdoqi.org. 11 E03.9 E55.9 12 Note: Persistent reduction for 3 months or more in an eGFR <60 mL/min/1.73 m2 defines CKD. Patients with eGFR values >/=60 mL/min/1.73 m2 may also have CKD if evidence of persistent proteinuria is present. The original MDRD equation for estimated GFR is not valid for patients less than 18 years of age. Additional information may be found at www.kdoqi.org. 13 Reference Guidelines*: Desirable: ........... < 200 mg/dL Borderline High: ..... 200-239 mg/dL High: ................ >=240 mg/dL * The National Cholesterol Education Program (NCEP) 14 Reference Guidelines*: Normal: ............. < 150 mg/dL Borderline High: .... 150-199 mg/dL High: ............... 200-499 mg/dL Very High: .......... > 500 mg/dL * Source: National Cholesterol Education Program (NCEP) 15 Reference Guidelines*: Low HDL: ..... < 40 mg/dL Normal: ..... 40-60 mg/dL Desirable: ... > 60 mg/dL *The National Cholesterol Education Program(NCEP) 16 Reference Guidelines*: Optimal:........... <100 mg/dL Near Optimal....... 100-129 mg/dL Borderline High.... 130-159 mg/dL High............... 160-189 mg/dL Very High.......... >=190 mg/dL * Source: National Cholesterol Education Program (NCEP) 17 Vitamin D deficiency has been defined by the [place] [employer] and an Endocrine Society practice guideline as a level of serum 25-OH vitamin D less than 20 ng/mL (1,2). The Endocrine Society went on to further define vitamin D insufficiency as a level between 21 and 29 ng/mL (2). 1. IOM ([place] [employer]). 2010. Dietary reference intakes for calcium and D. [place]: The National Academies Press. 2. Thalia MF, [place], Iram RICK, et al. Evaluation, treatment, and prevention of vitamin D deficiency: an Endocrine Society clinical practice guideline. JCEM. 2010; 96(7):1911-30. Performed at: RN - [facility] [address] [id number] Director Presales: Josie Browning MD, Phone: [phone] 18 D64.9 E55.9 E61.1 E53.9 19 Instrument flagged sample for slide review. Less than 10% Bands seen, no other immature WBC's seen. RBC morphology essentially normal. Platelet estimate=NORMAL 20 Vitamin D deficiency has been defined by the [place] [employer] and an Endocrine Society practice guideline as a level of serum 25-OH vitamin D less than 20 ng/mL (1,2). The Endocrine Society went on to further define vitamin D insufficiency as a level between 21 and 29 ng/mL (2). 1. IOM ([place] [employer]). 2010. Dietary reference intakes for calcium and D. [place]: The National Academies Press. 2. Thalia MF, Stanton AVILA, Iram RICK, et al. Evaluation, treatment, and prevention of vitamin D deficiency: an Endocrine Society clinical practice guideline. JCEM. 2010; 96(7):1911-30. Performed at: RN - [facility] [address] [id number] Director Presales: Josie Browning MD, Phone: [phone] 21 Note: Persistent reduction for 3 months or more in an eGFR <60 mL/min/1.73 m2 defines CKD. Patients with eGFR values >/=60 mL/min/1.73 m2 may also have CKD if evidence of persistent proteinuria is present. The original MDRD equation for estimated GFR is not valid for patients less than 18 years of age. Additional information may be found at www.kdoqi.org. 22 Because ethnic data is not always readily [...] 15-29 5 Kidney failure <15 (or dialysis) 23 G40.209 Z79.899 24 Note: Persistent reduction for 3 months or more in an eGFR <60 mL/min/1.73 m2 defines CKD. Patients with eGFR values >/=60 mL/min/1.73 m2 may also have CKD if evidence of persistent proteinuria is present. The original MDRD equation for estimated GFR is not valid for patients less than 18 years of age. Additional information may be found at [email or web address]. 25 D64.9 E55.9 E61.1 E53.9 26 Vitamin D deficiency has been defined by the [place] [employer] and an Endocrine Society practice guideline as a level of serum 25-OH vitamin D less than 20 ng/mL (1,2). The Endocrine Society went on to further define vitamin D insufficiency as a level between 21 and 29 ng/mL (2). 1. IOM ([place] [employer]). 2010. Dietary reference intakes for calcium and D. [place]: [employer]. 2. Thalia MF, Stanton [place], Iram RICK, et al. Evaluation, treatment, and prevention of vitamin D deficiency: an Endocrine Society clinical practice guideline. JCEM. 2010; 96(7):1911-30. Performed at: RN - [facility] [address] [id number] Director Presales: Josie Browning MD, Phone: [phone] Note: Persistent reduction for 3 months or more in an eGFR <60 mL/min/1.73 m2 defines CKD. Patients with eGFR values >/=60 mL/min/1.73 m2 may also have CKD if evidence of persistent proteinuria is present. The original MDRD equation for estimated GFR is not valid for patients less than 18 years of age. Additional information may be found at [email or web address]. 28 D64.9 E87.1 E55.9 29 Note: Persistent reduction for 3 months [...] D deficiency has been defined by the [place] [employer] and an Endocrine Society practice guideline as a level of serum 25-OH vitamin D less than 20 ng/mL (1,2). The Endocrine Society went on to further define vitamin D insufficiency as a level between 21 and 29 ng/mL (2). 1. IOM ([employer]). 2010. Dietary reference intakes for calcium and D. [place]: The [employer]. 2. Stanton Alvarenga, Iram RICK, et al. Evaluation, treatment, and prevention of vitamin D deficiency: an Endocrine Society clinical practice guideline. JCEM. 2010; 96(7):1911-30. Performed at: - [facility] [address] [id number] Director Presales: Josie Browning MD, Phone: [phone] 31 D64.9,E55.9,E61.1,E53.9 32 Note: Persistent reduction for 3 months or more in an eGFR <60 mL/min/1.73 m2 defines CKD. Patients with eGFR values >/=60 mL/min/1.73 m2 may also have CKD if evidence of persistent proteinuria is present. The original MDRD equation for estimated GFR is not valid for patients less than 18 years of age. Additional information may be found at [email or web address]. 33 Vitamin D deficiency has been defined by the [place] [employer] and an Endocrine Society practice guideline as a level of serum 25-OH vitamin D less than 20 ng/mL (1,2). The Endocrine Society went on to further define vitamin D insufficiency as a level between 21 and 29 ng/mL (2). 1. IOM ([employer]). 2010. Dietary reference intakes for calcium and D. [place]: The National Academies Press. 2. Thalia ISAACS, Stanton AVILA, Iram RICK, et al. Evaluation, treatment, and prevention of vitamin D deficiency: an Endocrine Society clinical practice guideline. JCEM. 2010; 96(7):1911-30. Performed at: - [facility] [address] [id number] Director Presales: Josie Browning MD, Phone: [phone] A85.9 35 Vitamin D deficiency has been defined by the [employer] and an Endocrine Society practice guideline as a level of serum 25-OH vitamin D less than 20 ng/mL (1,2). The Endocrine Society went on to further define vitamin D insufficiency as a level between 21 and 29 ng/mL (2). 1. IOM ([employer]). 2010. Dietary reference intakes for calcium and D. [place]: The National Academies Press. 2. Stanton Alvarenga, Iram RICK, et al. Evaluation, treatment, and prevention of vitamin D deficiency: an Endocrine Society clinical practice guideline. JCEM. 2010; 96(7):1911-. Performed at: [facility] [email or web address] [id number] Director Presales: Josie Browning MD, Phone: [phone] Note: Persistent reduction for 3 months or more in an eGFR <60 mL/min/1.73 m2 defines CKD. Patients with eGFR values >/=60 mL/min/1.73 m2 may also have CKD if evidence of persistent proteinuria is present. The original MDRD equation for estimated GFR is not valid for patients less than 18 years of age. Additional information may be found at [email or web address]. 37 D64.9 E55.9 G80.9 38 Vitamin D deficiency has been defined by the [employer] and an Endocrine Society practice guideline as a level of serum 25-OH vitamin D less than 20 ng/mL (1,2). The Endocrine Society went on to further define vitamin D insufficiency as a level between 21 and 29 ng/mL (2). 1. IOM ([employer]). 2010. Dietary reference intakes for calcium and D. [place]: The National Academies Press. 2. Thalia ISAACS, Stanton AVILA, Iram RICK, et al. Evaluation, treatment, and prevention of vitamin D deficiency: an Endocrine Society clinical practice guideline. JCEM. 2010; 96(7):1911-30. Performed at: [facility] [id number] Director Presales: Josie Browning MD, Phone: [phone] Note: Persistent reduction for 3 months [...] information may be found at [email or web address]. 42 Note: Persistent reduction for 3 months or more in an eGFR <60 mL/min/1.73 m2 defines CKD. Patients with eGFR values >/=60 mL/min/1.73 m2 may also have CKD if evidence of persistent proteinuria is present. The original MDRD equation for estimated GFR is not valid for patients less than 18 years of age. Additional information may be found at [email or web address]. 43 Note: Persistent reduction for 3 months or more in an eGFR <60 mL/min/1.73 m2 defines CKD. Patients with eGFR values >/=60 mL/min/1.73 m2 may also have CKD if evidence of persistent proteinuria is present. The original MDRD equation for estimated GFR is not valid for patients less than 18 years of age. Additional information may be found at [email or web address]. 44 D64.9 E61.1 45 Note: Persistent reduction for 3 months or more in an eGFR <60 mL/min/1.73 m2 defines CKD. Patients with eGFR values >/=60 mL/min/1.73 m2 may also have CKD if evidence of persistent proteinuria is present. The original MDRD equation for estimated GFR is not valid for patients less than 18 years of age. Additional information may be found at [email or web address]. 46 D64.9 47 Note: Persistent reduction for 3 months or more in an eGFR <60 mL/min/1.73 m2 defines CKD. Patients with eGFR values >/=60 mL/min/1.73 m2 may also have CKD if evidence of persistent proteinuria is present. The original MDRD equation for estimated GFR is not valid for patients less than 18 years of age. Additional information may be found at [email or web address]. 48 PNEUMONIA HYPONATREMIA 49 Note: Persistent reduction for 3 months or more in an eGFR <60 mL/min/1.73 m2 defines CKD. Patients with eGFR values >/=60 mL/min/1.73 m2 may also have CKD if evidence of persistent proteinuria is present. The original MDRD equation for estimated GFR is not valid for patients less than 18 years of age. Additional information may be found at [email or web address]. 50 Note: Persistent reduction for 3 months or more in an eGFR <60 mL/min/1.73 m2 defines CKD. Patients with eGFR values >/=60 mL/min/1.73 m2 may also have CKD if evidence of persistent proteinuria is present. The original MDRD equation for estimated GFR is not valid for patients less than 18 years of age. Additional information may be found at [email or web address]. 51 URINE, CLEAN CATCH 52 D64.9 D70.9 53 Vitamin D deficiency has been defined by the [employer] and an Endocrine Society practice guideline as a level of serum 25-OH vitamin D less than 20 ng/mL (1,2). The Endocrine Society went on to further define vitamin D insufficiency as a level between 21 and 29 ng/mL (2). 1. IOM ([employer]). 2010. Dietary reference intakes for calcium and D. [place]: The National Academies Press. 2. Thalia MF, Stanton AVILA, Iram RICK, et al. Evaluation, treatment, and prevention of vitamin D deficiency: an Endocrine Society clinical practice guideline. JCEM. 2010; 96(7):1911-30. Performed at: RN - [facility] [address] [id number] Director Presales: Josie Browning MD, Phone: [phone] Note: Persistent reduction for 3 months or more in an eGFR <60 mL/min/1.73 m2 defines CKD. Patients with eGFR values >/=60 mL/min/1.73 m2 may also have CKD if evidence of persistent proteinuria is present. The original MDRD equation for estimated GFR is not valid for patients less than 18 years of age. Additional information may be found at www.[email or web address]. 55 Vitamin D deficiency has been defined by the [employer] and an Endocrine Society practice guideline as a level of serum 25-OH vitamin D less than 20 ng/mL (1,2). The Endocrine Society went on to further define vitamin D insufficiency as a level between 21 and 29 ng/mL (2). 1. IOM ([employer]). 2010. Dietary reference intakes for calcium and D. [place]: The National Academies Press. 2. Thalia MF, Stanton [place], Iram RICK, et al. Evaluation, treatment, and prevention of vitamin D deficiency: an Endocrine Society clinical practice guideline. JCEM. 2010; 96(7):1911-30. Performed at: RN - [facility] [address] [id number] Director Presales: Josie Browning MD, Phone: [phone] 56 Note: Persistent reduction for 3 months or more in an eGFR <60 mL/min/1.73 m2 defines CKD. Patients with eGFR values >/=60 mL/min/1.73 m2 may also have CKD if evidence of persistent proteinuria is present. The original MDRD equation for estimated GFR is not valid for patients less than 18 years of age. Additional information may be found at [email or web address]. 57 Note: Persistent reduction for 3 months or [...] Date CPT Code Description Status Comment 04/19/2018 76249 EKG-Tracing And Report Completed 06/09/2016 77519 EKG Interpretation And Report Completed Only 11/21/2012 Colonoscopy Completed Document: 01/30/13 - Colonoscopy Procedure due in 2022 Encounters Type Date Location Provider CPT E/M Dx Office Visit 08/03/2018 9:40a Primary Care Office Bell Camarillo MD G0439 Z00.01 F42.4 D64.9 E03.9 G80.9 F63.9 Z23 Office Visit 07/19/2018 3:00p [place], [address] R21 CURRY EASTMAN F42.4 Office Visit 06/28/2018 9:30a Primary Care Office [place], [address] L97.211 PA L97.821 Office Visit 04/21/2018 3:20p [place] [address] E61.1 E87.1 E03.9 G80.9 F63.9 S81.809D W22.09xD Office Visit 04/19/2018 8:30a [place] [address] E61.1 E53.9 E55.9 E87.1 G80.9 Office Visit 03/22/2018 10:40a [place] [address] S01.81xD W22.09xD Office Visit 01/30/2018 8:35a [place] [address] D64.9 E61.1 E53.9 E55.9 E87.1 Office Visit 01/19/2018 3:20p [place] [address] E87.1 E03.9 E55.9 S81.809D X58.xxxD Office Visit 11/11/2017 3:20p [place] [address] S81.802A Office Visit 10/24/2017 3:00p Oncology Office Samantha Ziegler, [address] D64.9 DO E87.1 Office Visit 07/19/2017 3:00p [place] [address] D64.9 E87.1 Office Visit 06/08/2017 1:00p [place] [address] E87.1 D64.9 E55.9 G80.9 R23.9 Office Visit 04/29/2017 2:30p [place] [address] E61.1 E53.9 D64.9 Office Visit 03/30/2017 2:40p [place] [address] S09.90xA Office Visit 03/04/2017 1:00p [place] [address] E87.1 G40.409 G80.9 D64.9 R23.9 Office Visit 01/26/2017 3:30p [place] [address] D64.9 E61.1 D70.9 E87.1 Office Visit 12/02/2016 2:40p [place] [address] D64.9 E87.1 G40.409 G80.9 F63.9 R23.9 Office Visit 11/08/2016 3:15p [place] [address] D64.9 E61.1 D70.9 Office Visit 09/29/2016 3:30p [place] [address] D64.9 E61.1 E87.1 Office Visit 08/25/2016 3:45p [place] [address] D64.9 E61.1 Office Visit 06/16/2016 2:20p [place] [address] D64.9 Office Visit 04/13/2016 3:40p [place] [address] D64.9 D70.9 Office Visit 03/30/2016 1:00p [place] [address] D64.9 D70.9 Plan of Care Future Appointment(s):12/12/2018 3:00 pm - Samantha Ziegler DO at Oncology Hobcrl0212/05/2018 3:00 pm - Oncology Nurse at Oncology Uyfynb8011/06/2018 8:30 am - Child Support Investigator at Primary Care Epuzez9210/31/2018 3:00 pm - Bell Camarillo MD at Primary Care Office
--- NOTE | 2018-09-22 19:19 | UC ---
General HPI - HPI Summary HPI Summary: PT TRIPPED ON A CURB AND FELL ON BOTH HANDS PLUS GOT AN ABRASION TO HIS R KNEE. STAFF DENIES HEAD INJURY. HOUSE NURSE NOTIFIED AND SHE REQUEST PT BE EVALUATED. 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 Onset/Duration: Sudden Onset Pain Intensity: 2 - Allergy/Home Medications Allergies/Adverse Reactions: Allergies Allergy/AdvReac Type Severity Reaction Status Date / Time Adhesive Tape Allergy Unknown Verified 09/22/18 19:02 Reaction Details clindamycin Allergy Hives Verified 09/22/18 19:02 erythromycin base Allergy Hives Verified 09/22/18 19:02 Home Medications: Home Medications Levothyroxine TAB* [Synthroid TAB*] 75 mcg PO 0800 09/22/18 [History Confirmed 09/22/18] Psyllium Husk [Reguloid] 0.4 gm PO BID 09/22/18 [History Confirmed 09/22/18] Sertraline* [Zoloft*] 25 mg PO DAILY 09/22/18 [History Confirmed 09/22/18] Thioridazine TAB* [Mellaril*] 50 mg PO BID 09/22/18 [History Confirmed 09/22/18] carBAMazepine TAB(*) [TEGretol TAB(*)] 400 mg PO 1500 09/22/18 [History Confirmed 09/22/18] PMH/Surg Hx/FS Hx/Imm Hx - Additional Past Medical History Additional PMH: MR, CEREBRAL PALSY, SZ'S, DEAF. Other History Of: Negative For: HIV, Hepatitis B, Hepatitis C, Anticoagulant Therapy - Surgical History Surgical History: Yes Surgery Procedure, Year, and Place: Herniorrhaphies, Dental Extractions, Colonoscopy - Family History Known Family History: Positive: Unknown - The patient is nonverbal. No fm hx in chart., Other - Level 5 caveat: MENTALLY HANDICAPPED,Deaf,UNABLE TO PROVIDE HX; - Social History Occupation: Disabled Lives: [employer] Alcohol Use: None Substance Use Type: None Smoking Status (MU): Never Smoked Tobacco Have You Smoked in the Last Year: No - Immunization History Most Recent Influenza Vaccination: 09/07/16 Most Recent Tetanus Shot: 01/01/10 TD Most Recent Pneumonia Vaccination: 10/26/88 Vaccination Up to Date: Yes Review of Systems Skin: Other - ABRASION R KNEE Is Patient Immunocompromised?: No All Other Systems Reviewed And Are Negative: No - Comments Additional Review of Systems Comments: PT NON VERBAL/ HX MR Physical Exam Triage Information Reviewed: Yes Appearance: Well-Appearing Vital Signs: Initial Vital Signs Temp 99.2 F 09/22/18 18:54 Pulse 98 09/22/18 18:54 Resp 19 09/22/18 18:54 Pulse Ox 100 09/22/18 18:54 Vital Signs Reviewed: Yes Eyes: Positive: Conjunctiva Clear ENT: Negative: Nasal congestion, Nasal drainage Neck: Positive: Supple, Nontender, No Lymphadenopathy, Other: - C-SPINE NON TENDER Respiratory: Positive: Lungs clear, Normal breath sounds Cardiovascular: Positive: RRR, No Murmur Abdomen Description: Positive: Nontender, No Organomegaly, Soft Bowel Sounds: Positive: Present Musculoskeletal: Positive: Other: - HEAD IS ATRAUMATIC. BUE'S: SLIGHT SWELLING AND BRUISING DORSAL WRISTS NO OTHER DEFORMITY OR DISCOLRATION NOTED. NO OVERT TENDERNESS. BLE'S: MINOR ABRASION R KNEE. NO SWELLING OR BRUISING. NON TENDER TO PALAPTION. STEADY GAIT. Neurological: Positive: Alert - PER HIS BASELINE PER ASSISTANT PROSECUTING ATTORNEY Psychological: Positive: Age Appropriate Behavior - PER HIS BASELINE Skin Exam: Normal Course/Dx - Course Course Of Treatment: NO FX'S SEEN ON XRAY. - Differential Dx - Multi-Symptom Provider Diagnoses: BILATERAL WRIST STRAIN. ABRASION R KNEE Discharge - Sign-Out/Discharge Documenting (check all that apply): Patient Departure All imaging exams completed and their final reports reviewed: No - Discharge Plan Condition: Stable Disposition: HOME Patient Education Materials: Abrasion (ED), Wrist Injury (ED) Referrals: Bell Camarillo MD [Primary Care Provider] - 7 Days Additional Instructions: DIAGNOSIS: ABRASION R KNEE. STRAIN BOTH WRISTS. - Billing Disposition and Condition Condition: STABLE Disposition: Home
--- NOTE | 2018-09-23 08:49 | RAD ---
INDICATION: Bilateral wrist pain after a fall COMPARISON: None. TECHNIQUE: 2 views of each wrist. REPORT: Bilaterally the bones are adequately corticated and appropriately aligned. There is no radiographically apparent fracture or dislocation identified. Mild degenerative changes include narrowing of the radiocarpal joints with mild sclerotic change of the distal radius. There is narrowing and mild sclerotic change of the intercarpal and carpometacarpal joints. At the proximal pole of the left index finger metacarpal there is a well-circumscribed subcentimeter subchondral lucency. Overall the appearance is worse at the left wrist than the right. IMPRESSION: 1. No radiographically apparent fracture or dislocation in the bilateral wrists. 2. 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 If the patient's symptoms persist, follow-up imaging is recommended. R0
== END 2018-09-22 20:10 | disposition home or self-care (01) ==
LOC: UCCORT 16:27
DX: S63.502A Unspecified sprain of left wrist, initial encounter (principal); S66.911A Strain of unspecified muscle, fascia and tendon at wrist and hand level, right hand, initial encounter; S80.211A Abrasion, right knee, initial encounter; F79 Unspecified intellectual disabilities; G80.9 Cerebral palsy, unspecified; Z88.1 Allergy status to other antibiotic agents; Z91.048 Other nonmedicinal substance allergy status; W01.198A Fall on same level from slipping, tripping and stumbling with subsequent striking against other object, initial encounter; Y92.9 Unspecified place or not applicable
CPT/HCPCS: 99211; G0463

== ENCOUNTER 2018-10-20 16:13 | Emergency (ER) | payer MEDICARE, MEDICAID ==
--- OUTSIDE RECORDS SUMMARY | 2018-10-20 17:18 | XMS REPORT ---
:1960 External Reference #:[id number] Author Organization [facility] 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 Bell Camarillo MD Primary Care Physician Unavailable Payers Type Date Identification Numbers Payment Provider Subscriber Medicare Primary Policy Number: [id number] Medicare Boris Grubbs PayID: [id number] [address] [place] [address] Medicaid Policy Number: [id number] Medicaid Boris Grubbs PayID: [id number] [address] [place] [address] Problems Date Description Provider Status Onset: 03/30/2016 [...] Living Diet Healthy, Well Balanced Occupation works @[email or web address] ADL's/IADL's Dependent with bathing ADL's/IADL's Dependent with dressing ADL's/IADL's Dependent with feeding Cigarette Use Never Smoked Cigarettes ETOH Use Never used alcohol Daily Caffeine Does Not Consume Caffeine 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 brother Allergies, Adverse Reactions, Alerts Date Description Reaction Status Severity Comments 03/30/2016 Erythromycin active 03/30/2016 Clindamycin active 03/24/2017 Erythromycin Pt does not know active 03/24/2017 Sulfamethoxazole Pt does not know active 03/24/2017 Trimethoprim Pt does not know active 03/24/2017 Adhesive itching active 03/24/2017 Azithromycin itching active Medications Medication Date Status Form Strength Qnty SIG Indications Ordering Provider Vitamin D3 09/27 Active Tablets 2000Unit take one Rabia, Super Strength tablets by MD Bell mouth every day Apap 09/13 Active Tablets 325mg 240ta 2 tabs every Rabia, bs 6 hours as MD Bell needed Robitussin 09/13 Active Liquid 12.5-30mg 2 teaspoons Rabia, Nighttime Cough /2017 /10ML by mouth MD Bell DM every 4 hours as needed Robitussin Peak 09/13 Active Liquid 10-100mg/ 237ml 5ml by Rabia, Cold Cough+ 5ML mouth every MD Bell Chest 4 hours as Congestion DM needed Mylanta 09/13 Active Suspension 200-200-2 355ml 5 ml by Rabia 0mg/5ML mouth every MD Bell 4 hours as needed Levothyroxine 08/05 Active Tablets 75mcg 90tab 1 by mouth Rabia, Sodium s every day MD Bell Non-Stick 06/28 Active Pads 2"X3" 200un Apply to L97.211 Rabia, its sores on MD Bell lower legs 2-3x a day as needed. Mupirocin 06/07 Active Ointment 2% 66uni Apply To Rabia ts Affected MD Bell Area 3 Times A Day To Open Wounds On Hands/Legs as Needed Until Healed Cover With Gauze Pad & Kerli Sodium Chloride 01/18 Active Tablets 1gm 90tab 1 tabl po Boufal s tid Samantha, DO Gauze Sponge 11/11 Active Pads 4"X4" 100un place on top Rabia its of open MD Bell wounds of affected leg, change daily as needed Self Adherent 11/11 Active Misc 1unit wrap around Rabia, Wrap s leg after MD Bell placing antibiotic ointment and gauze as needed Reguloid 08/02 Active Powder 28.3% 540un 1 its Tablespoonfu MD Bell l By Mouth Twice A Day Vaseline Pure 06/08 Active Gel 1Jar apply Rabia, generous MD Bell Whitepetroleum amount to Jelly both hands at night and put gloves on both hands prn dry, cracking skin Vitamin B-12 09/07 Active Tablets 1000mcg 30tab take 1 Boufal, s tablet by etelvina Singh every DO Tuesday//Tuesday Glycolax Active Powder 17gm 3Mont 1 scoop by Rabia, / hSupp mouth butch Luu MD ly day with fluids Phenobarbital Active Tablets 32.4mg 2 by mouth Unknown /0000 every bid Oyster Shell Active Tablets 500-200mg 270ta 1 tab by Rabia Calcium + D / -Unit bs mouth three MD Bell times a day Thioridazine Active Tablets 50mg 1 by mouth Unknown HCL /0000 bid Buspirone HCL Active Tablets 15mg 1 tab by Unknown /0000 mouth tid Sudafed Active Tablets 30mg 180ta 1 tab by Rabia, /0000 bs mouth butch Luu MD 4 hours as needed nasal congestion Carbamazepine Active Tablets 200mg 3 PO q Am & Unknown /0000 hs 2 PO at 1500 Ferrous Sulfate Active Tablets 325(65Fe) 90tab 1 by mouth Rabia , / mg s every day MD Bell Sertraline HCL Active Tablets 25mg 1 by mouth Unknown /0000 every day Alendronate Active Tablets 70mg 4tabs Take 1 Rabia, Sodium Tablet By MD Bell Mouth Every Week On Tuesday With 8 Oz. Water *No Other Med Or Food For 30 Mins DO Not Lay Down For 30 Mins Bactroban 01/26 Hx Ointment 2% 60gm apply three Rabia, /2017 times a day MD Bell - to open 08/03 wound on hands and legs until healed as needed Levothyroxine 01/19 Hx Tablets 50mcg 90tab 1 tab by Rabia, Sodium s mouth every MD Bell - [...] Hx Ointment 1% 1Tube discontinue Rabia, Antibiotic With ointment MD Bell Pain Relief - Maximum 01/19 Strength Polyethylene 09/18 Hx Powder [id number] 527un Mix 1 Capful Rabia, Glycol 335 its (17GM) In 8 MD Bell - Oz Fluid & 08/03 Drink Daily Vitamin D3 05/12 Hx Tablets 1000Unit 60tab Take 2 Rabia, s Tablets By MD Bell - Mouth Daily 09/27 Reguloid 04/25 Hx Powder 28.3% 540un 1 [...] tbsp PO Unknown (Reguloid) /0000 le bid Logan Flavored - 03/09 Tegretol-XR Hx Tablets ER 200mg akes 2 tabs Unknown /0000 12HR po @ 3pm - 03/04 Peridex Hx Solution 0.12% rinse mouth Unknown /0000 twice a day - with 1 01/19 tablespoon /2017 Bactroban Hx Cream 2% 15gm apply three Rabia, / times a day MD Bell - to open 01/26 wound on hands and legs until healed as needed Apap Hx Tablets 325mg 120ta 2 tabs by Rabia, /0000 bs mouth every MD Bell - 4 hours as 09/13 needed Mylanta Hx Suspension 1 tablespoon Unknown /0000 by mouth - every 4 1024 hours needed Hydrocortisone Hx Cream apply to Unknown / irritated - area tid, as 08/03 needed Iron Hx Tablets 325(65Fe) 1 by mouth Unknown /0000 mg every day - 08/25 Sodium Chloride Hx Tablets 1gm take one tablet by - mouth three 01/19 times a day /2018 Robitussin DM Hx Syrup 100-10mg/ 2 teaspoons Unknown /0000 5ML by mouth - every 4 24 hours needed Immunizations CPT Code Status Date Vaccine Lot # [id number] Given 08/03/2018 Influenza Virus Vaccine, Quadrivalent, 36 Mos+, [id number] .[id number] 21177 Given 09/07/2016 Influenza Virus Vaccine Split Virus Use For Individual 3Yr Older [id number] Given 01/01/2010 Tdap injection 18194 Given 10/26/1988 Pneumovax Injection Vital Signs Date Vital Result Comment 09/27/2018 BP Systolic Sitting Left Arm 122 mmHg BP Diastolic Sitting Left Arm 64 mmHg Body Temperature 97.6 F Heart Rate 85 /min reg Respiratory Rate 24 /min Height 65 inches 5'5" Weight 147.00 lb BMI (Body Mass Index) 24.5 kg/m2 BSA (Body Surface Area) 1.74 m2 [place] body weight in kilograms 62 O2 % BldC Oximetry 95 % ra 09/04/2018 BP Systolic 141 mmHg BP Diastolic [...] kg/m2 BSA (Body Surface Area) 1.71 m2 [place] body weight in kilograms 62 O2 % BldC Oximetry 97 % 07/19/2018 BP Systolic Sitting Left Arm 124 mmHg BP Diastolic Sitting Left Arm 60 mmHg Body Temperature 98.5 F Heart Rate 92 /min Respiratory Rate 18 /min Height 65 inches 5'5" Weight 142.00 lb BMI (Body Mass Index) 23.6 kg/m2 BSA (Body Surface Area) 1.71 m2 [place] body weight in kilograms 62 06/28/2018 BP Systolic 112 mmHg BP Diastolic 70 mmHg Body Temperature 97.1 F Heart Rate 60 /min Respiratory Rate 17 /min Height 65 inches 5'5" Weight 140.00 lb BMI (Body Mass Index) 23.3 kg/m2 BSA (Body Surface Area) 1.70 m2 [place] body weight in kilograms 62 O2 % BldC Oximetry 97 % 04/21/2018 BP Systolic 140 mmHg BP Diastolic 80 mmHg Body Temperature 98.2 F Heart Rate 82 /min Respiratory Rate 18 /min Height 65 inches 5'5" Weight 143.00 lb BMI (Body Mass Index) 23.8 kg/m2 BSA (Body Surface Area) 1.72 m2 [place] body weight in kilograms 62 O2 % BldC Oximetry 97 % 04/19/2018 BP Systolic 119 mmHg BP Diastolic 75 mmHg Body Temperature 97.3 F Heart Rate 97 /min Respiratory Rate 18 /min Height 65 inches 5'5" Weight 143.12 lb BMI (Body Mass Index) 23.8 kg/m2 BSA (Body Surface Area) 1.72 m2 [place] body weight in kilograms 62 O2 % BldC Oximetry 98 % On Room Air 03/22/2018 BP Systolic Sitting Right Arm 116 mmHg BP Diastolic Sitting Right Arm 71 mmHg Heart Rate 79 /min Respiratory Rate 16 /min Height 65 inches 5'5" Weight 144.00 lb BMI (Body Mass Index) 24.0 kg/m2 BSA (Body Surface Area) 1.72 m2 [place] body weight in kilograms 62 01/30/2018 BP [...] kg/m2 BSA (Body Surface Area) 1.73 m2 [place] body weight in kilograms 62 11/11/2017 BP Systolic Sitting Left Arm 116 mmHg BP Diastolic Sitting Left Arm 88 mmHg Body Temperature 96.7 F Heart Rate 64 /min Height 65 inches 5'5" Weight 149.00 lb BMI (Body Mass Index) 24.8 kg/m2 BSA (Body Surface Area) 1.75 m2 [place] body weight in kilograms 62 10/24/2017 BP [...] kg/m2 BSA (Body Surface Area) 1.70 m2 [place] body weight in kilograms 62 O2 % [...] kg/m2 BSA (Body Surface Area) 1.74 m2 [place] body weight in kilograms 62 03/04/2017 BP Systolic 120 mmHg BP Diastolic 74 mmHg Heart Rate 76 /min Height 65 inches 5'5" Weight 148.00 lb BMI (Body Mass Index) 24.6 kg/m2 BSA (Body Surface Area) 1.74 m2 [place] body weight in kilograms 62 01/26/2017 BP [...] kg/m2 BSA (Body Surface Area) 1.76 m2 [place] body weight in kilograms 62 12/02/2016 Heart [...] Antibodies 242 IU/mL High 0-34 1, 3 Serum or plasma 08/03/2018 Serum or plasma 242 High 0-34 thyroperoxidase thyroperoxidase antibody assay (un antibody assay (units/volume) Eosinophil/leuk NFr Bld 07/20/2018 Eosinophil/leuk NFr Bld 4.0 0.0-6.6 Auto Auto Globulin Ser Calc-mCnc 07/20/2018 Globulin Ser Calc-mCnc 3.7 1.9-4.3 Lymphocytes/leuk NFr 07/20/2018 Lymphocytes/leuk NFr 14.2 Low 20.0-42.0 Bld Auto Bld Auto Monocytes/leuk NFr Bld 07/20/2018 Monocytes/leuk NFr Bld 13.3 High 0.0- 10.0 Auto Auto Neutrophils # Bld Auto 07/20/2018 Neutrophils # Bld Auto 3.06 1.8-7.0 Neutrophils/leuk NFr 07/20/2018 Neutrophils/leuk NFr 68.1 33.0-73.0 Bld Auto Bld Auto Potassium SerPl-sCnc 07/20/2018 Potassium SerPl-sCnc 4.2 3.5-5.1 RDW RBC Auto 07/20/2018 RDW RBC Auto 41.8 36-51 RDW RBC Auto-Rto 07/20/2018 RDW RBC Auto-Rto 12.4 11.6-15.8 Serum carbon dioxide 07/20/2018 Serum carbon dioxide 26 21-32 measurement measurement Serum or plasma 07/20/2018 Serum or plasma 35.6 30.0-100.0 25-hydroxyvitamin D 25-hydroxyvitamin D measurement (m measurement (mass/volume) Serum or plasma albumin 07/20/2018 Serum or plasma albumin 4.0 3.4-5.0 measurement measurement (mass/volume) (mass/volume) Serum or plasma 07/20/2018 Serum or plasma 83 45-117 alkaline phosphatase alkaline phosphatase measurement ( measurement (enzymatic activity/volume) Serum or plasma 07/20/2018 Serum or plasma 24 15-37 aspartate aspartate aminotransferase aminotransferase measure measurement (enzymatic activity/volume) Serum or plasma calcium 07/20/2018 Serum or plasma calcium 8.6 8.5-10.1 measurement measurement (mass/volume) (mass/volume) Serum or plasma 07/20/2018 Serum or plasma 0.7 0.6-1.3 creatinine measurement creatinine measurement (mass/volum (mass/volume) Serum or plasma glucose 07/20/2018 Serum or plasma glucose 79 74-106 measurement measurement (mass/volume) (mass/volume) Serum or plasma iron 07/20/2018 Serum or plasma iron 325 250-450 binding capacity binding capacity measurement measurement (mass/volume) Serum or plasma iron 07/20/2018 Serum or plasma iron 93 65-175 measurement measurement (mass/volume) (mass/volume) Serum or plasma iron 07/20/2018 Serum or plasma iron 29 12-57 saturation measurement saturation measurement (mass (mass fraction) Serum or plasma protein 07/20/2018 Serum or plasma protein 7.7 6.4-8.2 measurement measurement (mass/volume) (mass/volume) Serum or plasma total 07/20/2018 Serum or plasma total 0.3 0.2-1.0 bilirubin measurement bilirubin measurement (mass/ (mass/volume) Serum or plasma urea 07/20/2018 Serum or plasma urea 13 7-18 nitrogen measurement nitrogen measurement (mass/vo (mass/volume) Serum or plasma urea 07/20/2018 Serum or plasma urea 18.5 nitrogen/creatinine nitrogen/creatinine mass rati mass ratio Serum or plasma vitamin 07/20/2018 Serum or plasma vitamin 827 193-986 B12 measurement B12 measurement (mass/volu (mass/volume) Serum sodium 07/20/2018 Serum sodium 128 Low 136-145 measurement measurement Laboratory test finding 07/20/2018 Thyroid Stim Hormone [...] Lymph % 14.2 % Low 20.0-42.0 4 Cotton % 13.3 % High 0.0-10.0 4 Eo% 4.0 % 0.0-6.6 4 Bas% 0.4 % 0.0-1.1 4 Neut# 3.06 K/uL 1.8-7.0 4 Lymph # 0.64 K/uL Low 1.0-4.0 4 Cotton # 0.60 K/uL 0.0-0.8 4 Eos # [...] Free T4 0.64 ng/dL Low 0.76-1.46 4 Alt SerPl-cCnc 07/20/2018 Alt SerPl-cCnc 25 12-78 Albumin/Glob SerPl 07/20/2018 Albumin/Glob SerPl 1.1 Anion Gap SerPl-sCnc 07/20/2018 Anion Gap SerPl-sCnc 8 8-16 Automated blood 07/20/2018 Automated blood basophil 0.02 0.0-0.1 basophil count count (count/volume) (count/volume) Chloride SerPl-sCnc 07/20/2018 Chloride SerPl-sCnc 94 Low 98-107 Blood monocytes 07/20/2018 Blood monocytes 0.60 0.0-0.8 automated count automated count (number/volume) (number/volume) Blood leukocytes 07/20/2018 Blood leukocytes 4.5 3.4-10.5 automated count automated count (number/volume) (number/volume) Blood hemoglobin 07/20/2018 Blood hemoglobin 13.5 12.8-17.0 measurement measurement (mass/volume) (mass/volume) Blood erythrocytes 07/20/2018 Blood erythrocytes 4.01 Low 4.20-5.80 automated count automated count (number/volume) (number/volume) Basophils/leuk NFr Bld 07/20/2018 Basophils/leuk NFr Bld 0.4 0.0-1.1 Auto Auto Automated erythrocyte 07/20/2018 Automated erythrocyte 94.0 80.0-96.0 mean corpuscular volume mean corpuscular volume Automated erythrocyte 07/20/2018 Automated erythrocyte 35.8 31.7-36.0 mean corpuscular mean corpuscular hemoglobin hemoglobin concentration measurement (mass/volume) Automated erythrocyte 07/20/2018 Automated erythrocyte 33.7 High 27.0- 33.0 mean corpuscular mean corpuscular hemoglobin hemoglobin (mass per erythrocyte) Automated blood 07/20/2018 Automated blood platelet 9.6 6.6-10.6 platelet mean volume mean volume measurement measurement Automated blood 07/20/2018 Automated blood platelet 286 155-360 platelet count count Automated blood 07/20/2018 Automated blood 0.64 Low 1.0-4.0 lymphocyte count lymphocyte count (number/volume) (number/volume) Automated blood 07/20/2018 Automated blood 37.7 Low 38.0-48.0 hematocrit (volume hematocrit (volume fraction) fraction) Automated blood 07/20/2018 Automated blood 0.18 0.0-0.5 eosinophil count eosinophil count Unloinc 05/22/2018 Unloinc See Note 7 Unloinc . Blood la cells detection by 05/22/2018 Blood la cells detection by 1+ light microscopy light microscopy RBC Morphology Only 05/22/2018 Poikilocytosis 0-1+ 8 Anisocytosis 0-1+ 8 Macrocytosis 0-1+ 8 Elliptocytes 0-1+ 8 La Cells 1+ 8 Comment . 8 Laboratory test 05/22/2018 Path Review: <pending> 8 finding Slide Review 05/22/2018 Slide Review (SEE NOTE) 8, 9 Laboratory test 05/22/2018 Vitamin 41.7 ng/mL 30.0-100.0 8, 10 finding D,25-Hydroxy Vitamin B12 And Folate 05/22/2018 Vitamin B12 1139 pg/mL High 193-986 8 Folic Acid > 20.0 ng/mL High 3.1-17.5 8 Laboratory test finding 05/22/2018 Ferritin 121 ng/mL 26-388 8 Iron-Tibc-%Sat 05/22/2018 Serum Iron 122 g/dL 65-175 8 Total Iron Binding Capacity 311 g/dL 250-450 8 Transferrin %Saturation 39 % 12-57 8 Comprehensive Metabolic Panel 05/22/2018 Glucose 108 mg/dL High 74-106 8 BUN 13 mg/dL 7-18 8 Creatinine 0.6 mg/dL 0.6-1.3 8 Glom Filtration Rate, Estimate >60 mL/min >60 8 If >60 mL/min >60 8, 11 BUN/Creat 21.6 ratio 8 Sodium 128 mmol/L Low 136-145 8 Potassium 4.1 mmol/L 3.5-5.1 8 Chloride 94 mmol/L Low 98-107 8 Carbon Dioxide 25 mmol/L 21-32 8 Anion Gap 9 mEq/L 8-16 8 Calcium 8.3 mg/dL Low 8.5-10.1 8 Total Protein 7.6 g/dL 6.4-8.2 8 Albumin 3.9 g/dL 3.4-5.0 8 Globulin 3.7 g/dL 1.9-4.3 8 Alb/Glob 1.1 ratio 8 Bilirubin,Total 0.4 mg/dL 0.2-1.0 8 Sgot/Ast 21 U/L 15-37 8 SGPT/Alt 22 U/L 12-78 8 Alkaline Phosphatase 77 U/L 45-117 8 CBS W/Automated Diff 05/22/2018 White Blood Count 2.7 K/uL Low 3.4-10.5 8 Red Blood Count 4.07 M/uL Low 4.20-5.80 8 Hemoglobin 14.0 gm/dL 12.8-17.0 8 Hematocrit 38.4 % 38.0-48.0 8 Mean Cell Volume 94.3 fl 80.0-96.0 8 Mean Corpuscular HGB 34.4 pg High 27.0-33.0 8 Mean Corpuscular HGB Conc 36.5 g/dL High 31.7-36.0 8 Platelet Count 253 K/uL 155-360 8 Red Cell Distri Width SD 41.1 fl 36-51 8 Red Cell Distri Width %CV 12.0 % 11.6-15.8 8 Mean Platelet Volume 9.0 fL 6.6-10.6 8 Neut% 46.7 % 33.0-73.0 8 Lymph % 31.1 % 20.0-42.0 8 Cotton % 17.8 % High 0.0-10.0 8 Eo% 3.7 % 0.0-6.6 8 Bas% 0.7 % 0.0-1.1 8 Neut# 1.26 K/uL Low 1.8-7.0 8 Lymph # 0.84 K/uL Low 1.0-4.0 8 Cotton # 0.48 K/uL 0.0-0.8 8 Eos # 0.10 K/uL 0.0-0.5 8 Baso # 0.02 K/uL 0.0-0.1 8 Comprehensive Metabolic Panel 04/15/2018 Glucose 87 mg/dL 74-106 12 BUN 11 mg/dL 7-18 12 Creatinine 0.6 mg/dL 0.6-1.3 12 Glom Filtration Rate, Estimate >60 mL/min >60 12 If >60 mL/min >60 12, 13 BUN/Creat 18.3 ratio 12 Sodium 130 mmol/L Low 136-145 12 Potassium 4.1 mmol/L 3.5-5.1 12 Chloride 94 mmol/L Low 98-107 12 Carbon Dioxide 28 mmol/L 21-32 12 Anion Gap 8 mEq/L 8-16 12 Calcium 8.4 mg/dL Low 8.5-10.1 12 Total Protein 7.8 g/dL 6.4-8.2 12 Albumin 4.0 g/dL 3.4-5.0 12 Globulin 3.8 g/dL 1.9-4.3 12 Alb/Glob 1.1 ratio 12 Bilirubin,Total 0.3 mg/dL 0.2-1.0 12 Sgot/Ast 22 U/L 15-37 12 SGPT/Alt 24 U/L 12-78 12 Alkaline Phosphatase 66 U/L 45-117 12 LDL Cholesterol Profile 04/15/2018 Cholesterol 206 mg/dL High <200 12, 14 Triglycerides 85 mg/dL <150 12, 15 HDL Cholesterol 98 mg/dL >40 12, 16 LDL-Cholesterol 91 mg/dL < 100 12, 17 Laboratory test finding 04/15/2018 Free T4 0.73 ng/dL Low 0.76-1.46 12 Thyroid Stim Hormone 0.54 uIU/mL 0.30-4.20 12 Vitamin D,25-Hydroxy 37.9 ng/mL 30.0-100.0 12, 18 Path Review: 04/06/2018 Path Review: NI 19 Slide Review 04/06/2018 Slide Review (SEE NOTE) 19, 20 Laboratory test 04/06/2018 Vitamin 37.2 ng/mL 30.0-100.0 19, 21 finding D,25-Hydroxy Vitamin B12 And 04/06/2018 Vitamin B12 1243 pg/mL High 193-986 19 Folate Folic Acid > 20.0 ng/mL High 3.1-17.5 19 Laboratory test finding 04/06/2018 Ferritin 102 ng/mL 26-388 19 Iron-Tibc-%Sat 04/06/2018 Serum Iron 132 g/dL 65-175 19 Total Iron Binding Capacity 313 g/dL 250-450 19 Transferrin %Saturation 42 % 12-57 19 Comprehensive Metabolic Panel 04/06/2018 Glucose 74 mg/dL 74-106 19 BUN 12 mg/dL 7-18 19 Creatinine 0.7 mg/dL 0.6-1.3 19 Glom Filtration Rate, Estimate >60 mL/min >60 19 If >60 mL/min >60 19, 22 BUN/Creat 17.1 ratio 19 Sodium 128 mmol/L Low 136-145 19 Potassium 3.8 mmol/L 3.5-5.1 19 Chloride 93 mmol/L Low 98-107 19 Carbon Dioxide 27 mmol/L 21-32 19 Anion Gap 8 mEq/L 8-16 19 Calcium 8.5 mg/dL 8.5-10.1 19 Total Protein 7.6 g/dL 6.4-8.2 19 Albumin 4.0 g/dL 3.4-5.0 19 Globulin 3.6 g/dL 1.9-4.3 19 Alb/Glob 1.1 ratio 19 Bilirubin,Total 0.3 mg/dL 0.2-1.0 19 Sgot/Ast 20 U/L 15-37 19 SGPT/Alt 23 U/L 12-78 19 Alkaline Phosphatase 71 U/L 45-117 19 CBS W/Automated Diff 04/06/2018 White Blood Count 2.7 K/uL Low 3.4-10.5 19 Red Blood Count 4.18 M/uL Low 4.20-5.80 19 Hemoglobin 14.3 gm/dL 12.8-17.0 19 Hematocrit 40.1 % 38.0-48.0 19 Mean Cell Volume 95.9 fl 80.0-96.0 19 Mean Corpuscular HGB 34.2 pg High 27.0-33.0 19 Mean Corpuscular HGB Conc 35.7 g/dL 31.7-36.0 19 Platelet Count 250 K/uL 155-360 19 Red Cell Distri Width SD 43.4 fl 36-51 19 Red Cell Distri Width %CV 12.7 % 11.6-15.8 19 Mean Platelet Volume 9.6 fL 6.6-10.6 19 Neut% 48.8 % 33.0-73.0 19 Lymph % 32.7 % 20.0-42.0 19 Cotton % 15.8 % High 0.0-10.0 19 Eo% 2.3 % 0.0-6.6 19 Bas% 0.4 % 0.0-1.1 19 Neut# 1.30 K/uL Low 1.8-7.0 19 Lymph # 0.87 K/uL Low 1.0-4.0 19 Cotton # 0.42 K/uL 0.0-0.8 19 Eos # 0.06 K/uL 0.0-0.5 19 Baso # 0.01 K/uL 0.0-0.1 19 Manual Differential 02/07/2018 Neutrophil % 52 % 38-83 Lymphocytes % 36 % 25-47 Monocytes % 7 % 0-7 Eosinophils % 3 % 0-6 Basophil % 2 % 0-2 Abs Neutrophils 1.2 10^3/uL Low 1.5-7.7 Abs Lymphocytes 0.9 10^3/uL Low 1.0-4.8 Abs Monocytes 0.2 10^3/uL 0-0.8 Abs Eosinophils 0.1 10^3/uL 0-0.6 Abs Basophils 0 10^3/uL 0-0.2 RBC Morphology Normal Normal CBC Auto Diff 02/07/2018 White Blood Count [...] Mean Platelet Volume 7 um3 Low 7.4-10.4 Laboratory test finding 02/07/2018 Phenobarbital 10.6 g/mL Low 17-34 Carbamazepine 7.7 g/mL 4.0-12.0 Comp Metabolic Panel 02/07/2018 Sodium 127 mmol/L [...] Egfr Non- 94.5 >60 Egfr 121.6 >60 23 Laboratory test finding 01/13/2018 Thyroid Stim Hormone 4.93 uIU/mL High 0.30-4.20 24 Free T4 0.65 ng/dL Low 0.76-1.46 24 Comprehensive Metabolic Panel 01/13/2018 Glucose 83 mg/dL 74-106 24 BUN 15 mg/dL 7-18 24 Creatinine 0.6 mg/dL 0.6-1.3 24 Glom Filtration Rate, Estimate >60 mL/min >60 24 If >60 mL/min >60 24, 25 BUN/Creat 25.0 ratio 24 Sodium 129 mmol/L Low 136-145 24 Potassium 4.0 mmol/L 3.5-5.1 24 Chloride 94 mmol/L Low 98-107 24 Carbon Dioxide 25 mmol/L 21-32 24 Anion Gap 10 mEq/L 8-16 24 Calcium 8.4 mg/dL Low 8.5-10.1 24 Total Protein 7.6 g/dL 6.4-8.2 24 Albumin 3.8 g/dL 3.4-5.0 24 Globulin 3.8 g/dL 1.9-4.3 24 Alb/Glob 1.0 ratio 24 Bilirubin,Total 0.3 mg/dL 0.2-1.0 24 Sgot/Ast 40 U/L High 15-37 24 SGPT/Alt 27 U/L 12-78 24 Alkaline Phosphatase 89 U/L 45-117 24 CBS W/Automated Diff 12/05/2017 White Blood Count 3.3 K/uL Low 3.4-10.5 26 Red Blood Count 4.03 M/uL Low 4.20-5.80 26 Hemoglobin 13.5 gm/dL 12.8-17.0 26 Hematocrit 38.1 % 38.0-48.0 26 Mean Cell Volume 94.5 fl 80.0-96.0 26 Mean Corpuscular HGB 33.5 pg High 27.0-33.0 26 Mean Corpuscular HGB Conc 35.4 g/dL 31.7-36.0 26 Platelet Count 277 K/uL 155-360 26 Red Cell Distri Width SD 41.8 fl 36-51 26 Red Cell Distri Width %CV 12.4 % 11.6-15.8 26 Mean Platelet Volume 10.0 fL 6.6-10.6 26 Neut% 44.9 % 33.0-73.0 26 Lymph % 39.1 % 20.0-42.0 26 Cotton % 14.2 % High 0.0-10.0 26 Eo% 0.9 % 0.0-6.6 26 Bas% 0.9 % 0.0-1.1 26 Neut# 1.46 K/uL Low 1.8-7.0 26 Lymph # 1.27 K/uL 1.0-4.0 26 Cotton # 0.46 K/uL 0.0-0.8 26 Eos # 0.03 K/uL 0.0-0.5 26 Baso # 0.03 K/uL 0.0-0.1 26 Comprehensive Metabolic Panel 12/05/2017 Glucose 80 mg/dL 74-106 26 BUN 17 mg/dL 7-18 26 Creatinine 0.7 mg/dL 0.6-1.3 26 Glom Filtration Rate, Estimate >60 mL/min >60 26 If >60 mL/min >60 26, 27 BUN/Creat 24.2 ratio 26 Sodium 132 mmol/L Low 136-145 26 Potassium 4.6 mmol/L 3.5-5.1 26 Chloride 96 mmol/L Low 98-107 26 Carbon Dioxide 31 mmol/L 21-32 26 Anion Gap 5 mEq/L Low 8-16 26 Calcium 8.5 mg/dL 8.5-10.1 26 Total Protein 7.7 g/dL 6.4-8.2 26 Albumin 3.7 g/dL 3.4-5.0 26 Globulin 4.0 g/dL 1.9-4.3 26 Alb/Glob 0.9 ratio 26 Bilirubin,Total 0.2 mg/dL 0.2-1.0 26 Sgot/Ast 23 U/L 15-37 26 SGPT/Alt 23 U/L 12-78 26 Alkaline Phosphatase 98 U/L 45-117 26 Iron-Tibc-%Sat 12/05/2017 Serum Iron 112 g/dL 65-175 26 Total Iron Binding Capacity 314 g/dL 250-450 26 Transferrin %Saturation 36 % 12-57 26 Laboratory test finding 12/05/2017 Ferritin 100 ng/mL 26-388 26 Vitamin B12 And Folate 12/05/2017 Vitamin B12 1392 pg/mL High 193-986 26 Folic Acid 14.6 ng/mL 3.1-17.5 26 Laboratory test 12/05/2017 Vitamin D,25-Hydroxy 49.3 ng/mL 30.0-100.0 26 , 28 finding Laboratory test 11/05/2017 Thyroid Stim Hormone 4.72 uIU/mL High 0.30- 4.20 29 finding Free T4 0.69 ng/dL Low 0.76-1.46 29 Vitamin D,25-Hydroxy 41.0 ng/mL 30.0-100.0 29, 30 CBS W/Automated Diff 11/05/2017 White Blood Count 4.1 K/uL 3.4-10.5 29 Red Blood Count 4.21 M/uL 4.20-5.80 29 Hemoglobin 13.9 gm/dL 12.8-17.0 29 Hematocrit 39.6 % 38.0-48.0 29 Mean Cell Volume 94.1 fl 80.0-96.0 29 Mean Corpuscular HGB 33.0 pg 27.0-33.0 29 Mean Corpuscular HGB Conc 35.1 g/dL 31.7-36.0 29 Platelet Count 265 K/uL 155-360 29 Red Cell Distri Width SD 42.1 fl 36-51 29 Red Cell Distri Width %CV 12.4 % 11.6-15.8 29 Mean Platelet Volume 9.3 fL 6.6-10.6 29 Neut% 64.3 % 33.0-73.0 29 Lymph % 17.6 % Low 20.0-42.0 29 Cotton % 14.0 % High 0.0-10.0 29 Eo% 3.4 % 0.0-6.6 29 Bas% 0.7 % 0.0-1.1 29 Neut# 2.66 K/uL 1.8-7.0 29 Lymph # 0.73 K/uL Low 1.0-4.0 29 Cotton # 0.58 K/uL 0.0-0.8 29 Eos # 0.14 K/uL 0.0-0.5 29 Baso # 0.03 K/uL 0.0-0.1 29 Comprehensive Metabolic Panel 11/05/2017 Glucose 85 mg/dL 74-106 29 BUN 9 mg/dL 7-18 29 Creatinine 0.7 mg/dL 0.6-1.3 29 Glom Filtration Rate, Estimate >60 mL/min >60 29 If >60 mL/min >60 29, 31 BUN/Creat 12.8 ratio 29 Sodium 131 mmol/L Low 136-145 29 Potassium 4.1 mmol/L 3.5-5.1 29 Chloride 97 mmol/L Low 98-107 29 Carbon Dioxide 29 mmol/L 21-32 29 Anion Gap 5 mEq/L Low 8-16 29 Calcium 8.7 mg/dL 8.5-10.1 29 Total Protein 7.9 g/dL 6.4-8.2 29 Albumin 3.9 g/dL 3.4-5.0 29 Globulin 4.0 g/dL 1.9-4.3 29 Alb/Glob 1.0 ratio 29 Bilirubin,Total 0.4 mg/dL 0.2-1.0 29 Sgot/Ast 20 U/L 15-37 29 SGPT/Alt 24 U/L 12-78 29 Alkaline Phosphatase 100 U/L 45-117 29 CBS W/Automated Diff 10/24/2017 White Blood Count 6.4 K/uL 3.4-10.5 32 Red Blood Count 4.08 M/uL Low 4.20-5.80 32 Hemoglobin 13.5 gm/dL 12.8-17.0 32 Hematocrit 38.6 % 38.0-48.0 32 Mean Cell Volume 94.6 fl 80.0-96.0 32 Mean Corpuscular HGB 33.1 pg High 27.0-33.0 32 Mean Corpuscular HGB Conc 35.0 g/dL 31.7-36.0 32 Platelet Count 322 K/uL 155-360 32 Red Cell Distri Width SD 42.0 fl 36-51 32 Red Cell Distri Width %CV 12.4 % 11.6-15.8 32 Mean Platelet Volume 9.3 fL 6.6-10.6 32 Neut% 62.9 % 33.0-73.0 32 Lymph % 23.5 % 20.0-42.0 32 Cotton % 11.4 % High 0.0-10.0 32 Eo% 1.9 % 0.0-6.6 32 Bas% 0.3 % 0.0-1.1 32 Neut# 4.01 K/uL 1.8-7.0 32 Lymph # 1.50 K/uL 1.0-4.0 32 Cotton # 0.73 K/uL 0.0-0.8 32 Eos # 0.12 K/uL 0.0-0.5 32 Baso # 0.02 K/uL 0.0-0.1 32 Comprehensive Metabolic Panel 10/24/2017 Glucose 82 mg/dL 74-106 32 BUN 15 mg/dL 7-18 32 Creatinine 0.7 mg/dL 0.6-1.3 32 Glom Filtration Rate, Estimate >60 mL/min >60 32 If >60 mL/min >60 32, 33 BUN/Creat 21.4 ratio 32 Sodium 125 mmol/L Low 136-145 32 Potassium 3.9 mmol/L 3.5-5.1 32 Chloride 88 mmol/L Low 98-107 32 Carbon Dioxide 29 mmol/L 21-32 32 Anion Gap 8 mEq/L 8-16 32 Calcium 8.8 mg/dL 8.5-10.1 32 Total Protein 8.1 g/dL 6.4-8.2 32 Albumin 4.0 g/dL 3.4-5.0 32 Globulin 4.1 g/dL 1.9-4.3 32 Alb/Glob 1.0 ratio 32 Bilirubin,Total 0.4 mg/dL 0.2-1.0 32 Sgot/Ast 24 U/L 15-37 32 SGPT/Alt 26 U/L 12-78 32 Alkaline Phosphatase 94 U/L 45-117 32 Iron-Tibc-%Sat 10/24/2017 Serum Iron 80 g/dL 65-175 32 Total Iron Binding Capacity 351 g/dL 250-450 32 Transferrin %Saturation 23 % 12-57 32 Laboratory test finding 10/24/2017 Ferritin 98 ng/mL 26-388 32 Vitamin B12 And Folate 10/24/2017 Vitamin B12 1416 pg/mL High 193-986 32 Folic Acid 19.0 ng/mL High 3.1-17.5 32 Laboratory test 10/24/2017 Vitamin D,25-Hydroxy 47.8 ng/mL 30.0-100.0 32 , 34 finding Laboratory test 09/10/2017 Vitamin D,25-Hydroxy 41.1 ng/mL 30.0-100.0 35 , 36 finding Comprehensive 09/10/2017 Glucose 98 mg/dL 74-106 35 Metabolic Panel BUN 10 mg/dL 7-18 35 Creatinine 0.6 mg/dL 0.6-1.3 35 Glom Filtration Rate, Estimate >60 mL/min >60 35 If >60 mL/min >60 35, 37 BUN/Creat 16.6 ratio 35 Sodium 131 mmol/L Low 136-145 35 Potassium 4.1 mmol/L 3.5-5.1 35 Chloride 96 mmol/L Low 98-107 35 Carbon Dioxide 28 mmol/L 21-32 35 Anion Gap 7 mEq/L Low 8-16 35 Calcium 8.7 mg/dL 8.5-10.1 35 Total Protein 8.0 g/dL 6.4-8.2 35 Albumin 3.9 g/dL 3.4-5.0 35 Globulin 4.1 g/dL 1.9-4.3 35 Alb/Glob 1.0 ratio 35 Bilirubin,Total 0.3 mg/dL 0.2-1.0 35 Sgot/Ast 19 U/L 15-37 35 SGPT/Alt 22 U/L 12-78 35 Alkaline Phosphatase 96 U/L 45-117 35 Laboratory test finding 09/10/2017 Ferritin 90 ng/mL 26-388 35 Vitamin B12 And Folate 09/10/2017 Vitamin B12 1244 pg/mL High 193-986 35 Folic Acid 19.5 ng/mL High 3.1-17.5 35 Iron-Tibc-%Sat 09/10/2017 Serum Iron 113 g/dL 65-175 35 Total Iron Binding Capacity 334 g/dL 250-450 35 Transferrin %Saturation 34 % 12-57 35 CBS W/Automated Diff 09/10/2017 White Blood Count 3.2 K/uL Low 3.4-10.5 35 Red Blood Count 4.14 M/uL Low 4.20-5.80 35 Hemoglobin 13.8 gm/dL 12.8-17.0 35 Hematocrit 38.9 % 38.0-48.0 35 Mean Cell Volume 94.0 fl 80.0-96.0 35 Mean Corpuscular HGB 33.3 pg High 27.0-33.0 35 Mean Corpuscular HGB Conc 35.5 g/dL 31.7-36.0 35 Platelet Count 310 K/uL 150-400 35 Red Cell Distri Width SD 43.1 fl 36-51 35 Red Cell Distri Width %CV 12.8 % 11.6-15.8 35 Mean Platelet Volume 8.7 fL 6.6-10.6 35 Neut% 57.7 % 33.0-73.0 35 Lymph % 26.2 % 20.0-42.0 35 Cotton % 12.1 % High 0.0-10.0 35 Eo% 3.4 % 0.0-6.6 35 Bas% 0.6 % 0.0-1.1 35 Neut# 1.85 K/uL 1.8-7.0 35 Lymph # 0.84 K/uL Low 1.0-4.0 35 Cotton # 0.39 K/uL 0.0-0.8 35 Eos # 0.11 K/uL 0.0-0.5 35 Baso # 0.02 K/uL 0.0-0.1 35 Laboratory test 07/19/2017 Vitamin D,25-Hydroxy 43.3 ng/mL 30.0-100.0 38 , 39 finding Vitamin B12 And Folate 07/19/2017 Vitamin B12 940 pg/mL 193-986 38 Folic Acid 17.2 ng/mL 3.1-17.5 38 Laboratory test finding 07/19/2017 Ferritin 95 ng/mL 26-388 38 Iron-Tibc-%Sat 07/19/2017 Serum Iron 82 g/dL 65-175 38 Total Iron Binding Capacity 321 g/dL 250-450 38 Transferrin %Saturation 26 % 12-57 38 Comprehensive Metabolic Panel 07/19/2017 Glucose 86 mg/dL 74-106 38 BUN 13 mg/dL 7-18 38 Creatinine 0.7 mg/dL 0.6-1.3 38 Glom Filtration Rate, Estimate >60 mL/min >60 38 If >60 mL/min >60 38, 40 BUN/Creat 18.5 ratio 38 Sodium 126 mmol/L Low 136-145 38 Potassium 4.2 mmol/L 3.5-5.1 38 Chloride 90 mmol/L Low 98-107 38 Carbon Dioxide 29 mmol/L 21-32 38 Anion Gap 7 mEq/L Low 8-16 38 Calcium 8.4 mg/dL Low 8.5-10.1 38 Total Protein 7.5 g/dL 6.4-8.2 38 Albumin 3.7 g/dL 3.4-5.0 38 Globulin 3.8 g/dL 1.9-4.3 38 Alb/Glob 1.0 ratio 38 Bilirubin,Total 0.3 mg/dL 0.2-1.0 38 Sgot/Ast 21 U/L 15-37 38 SGPT/Alt 22 U/L 12-78 38 Alkaline Phosphatase 81 U/L 45-117 38 CBS W/Automated Diff 07/19/2017 White Blood Count 3.4 K/uL 3.4-10.5 38 Red Blood Count 3.94 M/uL Low 4.20-5.80 38 Hemoglobin 13.1 gm/dL 12.8-17.0 38 Hematocrit 37.0 % Low 38.0-48.0 38 Mean Cell Volume 93.9 fl 80.0-96.0 38 Mean Corpuscular HGB 33.2 pg High 27.0-33.0 38 Mean Corpuscular HGB Conc 35.4 g/dL 31.7-36.0 38 Platelet Count 273 K/uL 150-400 38 Red Cell Distri Width SD 41.4 fl 36-51 38 Red Cell Distri Width %CV 12.4 % 11.6-15.8 38 Mean Platelet Volume 9.8 fL 6.6-10.6 38 Neut% 43.7 % 33.0-73.0 38 Lymph % 37.1 % 20.0-42.0 38 Cotton % 16.5 % High 0.0-10.0 38 Eo% 2.4 % 0.0-6.6 38 Bas% 0.3 % 0.0-1.1 38 Neut# 1.49 K/uL Low 1.8-7.0 38 Lymph # 1.26 K/uL 1.0-4.0 38 Cotton # 0.56 K/uL 0.0-0.8 38 Eos # 0.08 K/uL 0.0-0.5 38 Baso # 0.01 K/uL 0.0-0.1 38 CBS W/Automated Diff 04/22/2017 White Blood Count 3.0 K/uL Low 3.4-10.5 41 Red Blood Count 4.23 M/uL 4.20-5.80 41 Hemoglobin 14.0 gm/dL 12.8-17.0 41 Hematocrit 40.2 % 38.0-48.0 41 Mean Cell Volume 95.0 fl 80.0-96.0 41 Mean Corpuscular HGB 33.1 pg High 27.0-33.0 41 Mean Corpuscular HGB Conc 34.8 g/dL 31.7-36.0 41 Platelet Count 323 K/uL 150-400 41 Red Cell Distri Width SD 43.0 fl 36-51 41 Red Cell Distri Width %CV 12.6 % 11.6-15.8 41 Mean Platelet Volume 9.7 fL 6.6-10.6 41 Neut% 49.5 % 33.0-73.0 41 Lymph % 31.2 % 20.0-42.0 41 Cotton % 14.3 % High 0.0-10.0 41 Eo% 4.0 % 0.0-6.6 41 Bas% 1.0 % 0.0-1.1 41 Neut# 1.49 K/uL Low 1.8-7.0 41 Lymph # 0.94 K/uL Low 1.0-4.0 41 Cotton # 0.43 K/uL 0.0-0.8 41 Eos # 0.12 K/uL 0.0-0.5 41 Baso # 0.03 K/uL 0.0-0.1 41 Comprehensive Metabolic Panel 04/22/2017 Glucose 53 mg/dL Low 74-106 41 BUN 10 mg/dL 7-18 41 Creatinine 0.7 mg/dL 0.6-1.3 41 Glom Filtration Rate, Estimate >60 mL/min >60 41 If >60 mL/min >60 41, 42 BUN/Creat 14.2 ratio 41 Sodium 130 mmol/L Low 136-145 41 Potassium 3.5 mmol/L 3.5-5.1 41 Chloride 94 mmol/L Low 98-107 41 Carbon Dioxide 28 mmol/L 21-32 41 Anion Gap 8 mEq/L 8-16 41 Calcium 8.4 mg/dL Low 8.5-10.1 41 Total Protein 7.9 g/dL 6.4-8.2 41 Albumin 4.0 g/dL 3.4-5.0 41 Globulin 3.9 g/dL 1.9-4.3 41 Alb/Glob 1.0 ratio 41 Bilirubin,Total 0.3 mg/dL 0.2-1.0 41 Sgot/Ast 25 U/L 15-37 41 SGPT/Alt 22 U/L 12-78 41 Alkaline Phosphatase 104 U/L 45-117 41 Iron-Tibc-%Sat 04/22/2017 Serum Iron 112 g/dL 65-175 41 Total Iron Binding Capacity 324 g/dL 250-450 41 Transferrin %Saturation 35 % 12-57 41 Laboratory test finding 04/22/2017 Ferritin 87 ng/mL 26-388 41 Vitamin B12 And Folate 04/22/2017 Vitamin B12 1518 pg/mL High 193-986 41 Folic Acid 24.7 ng/mL High 3.1-17.5 41 Vitamin B12 And Folate 01/21/2017 Vitamin B12 1341 pg/mL High 193-986 41 Folic Acid 18.4 ng/mL High 3.1-17.5 41 Laboratory test finding 01/21/2017 Ferritin 82 ng/mL 26-388 41 Iron-Tibc-%Sat 01/21/2017 Serum Iron 79 g/dL 65-175 41 Total Iron Binding Capacity 333 g/dL 250-450 41 Transferrin %Saturation 24 % 12-57 41 Comprehensive Metabolic Panel 01/21/2017 Glucose 117 mg/dL High 74-106 41 BUN 10 mg/dL 7-18 41 Creatinine 0.7 mg/dL 0.6-1.3 41 Glom Filtration Rate, Estimate >60 mL/min >60 41 If >60 mL/min >60 41, 43 BUN/Creat 14.2 ratio 41 Sodium 127 mmol/L Low 136-145 41 Potassium 4.5 mmol/L 3.5-5.1 41 Chloride 91 mmol/L Low 98-107 41 Carbon Dioxide 27 mmol/L 21-32 41 Anion Gap 9 mEq/L 8-16 41 Calcium 8.5 mg/dL 8.5-10.1 41 Total Protein 7.7 g/dL 6.4-8.2 41 Albumin 4.0 g/dL 3.4-5.0 41 Globulin 3.7 g/dL 1.9-4.3 41 Alb/Glob 1.1 ratio 41 Bilirubin,Total 0.3 mg/dL 0.2-1.0 41 Sgot/Ast 21 U/L 15-37 41 SGPT/Alt 23 U/L 12-78 41 Alkaline Phosphatase 85 U/L 45-117 41 [facility] W/Automated Diff 01/21/2017 White Blood Count 4.1 K/uL 3.4-10.5 41 Red Blood Count 4.02 M/uL Low 4.20-5.80 41 Hemoglobin 13.6 gm/dL 12.8-17.0 41 Hematocrit 38.0 % 38.0-48.0 41 Mean Cell Volume 94.5 fl 80.0-96.0 41 Mean Corpuscular HGB 33.8 pg High 27.0-33.0 41 Mean Corpuscular HGB Conc 35.8 g/dL 31.7-36.0 41 Platelet Count 264 K/uL 150-400 41 Red Cell Distri Width SD 42.5 fl 36-51 41 Red Cell Distri Width %CV 12.5 % 11.6-15.8 41 Mean Platelet Volume 9.1 fL 6.6-10.6 41 Neut% 53.5 % 33.0-73.0 41 Lymph % 31.7 % 20.0-42.0 41 Cotton % 12.6 % High 0.0-10.0 41 Eo% 1.7 % 0.0-6.6 41 Bas% 0.5 % 0.0-1.1 41 Neut# 2.21 K/uL 1.8-7.0 41 Lymph # 1.31 K/uL 1.0-4.0 41 Cotton # 0.52 K/uL 0.0-0.8 41 Eos # 0.07 K/uL 0.0-0.5 41 Baso # 0.02 K/uL 0.0-0.1 41 [facility] W/Automated Diff 10/06/2016 White Blood Count 3.2 K/uL Low 3.4-10.5 41 Red Blood Count 3.77 M/uL Low 4.20-5.80 41 Hemoglobin 12.6 gm/dL Low 12.8-17.0 41 Hematocrit 35.9 % Low 38.0-48.0 41 Mean Cell Volume 95.2 fl 80.0-96.0 41 Mean Corpuscular HGB 33.4 pg High 27.0-33.0 41 Mean Corpuscular HGB Conc 35.1 g/dL 31.7-36.0 41 Platelet Count 257 K/uL 150-400 41 Red Cell Distri Width SD 43.7 fl 36-51 41 Red Cell Distri Width %CV 13.0 % 11.6-15.8 41 Mean Platelet Volume 10.3 fL 6.6-10.6 41 Neut% 55.2 % 33.0-73.0 41 Lymph % 29.4 % 17.0-56.0 41 Cotton % 11.3 % High 0.0-10.0 41 Eo% 2.8 % 0.0-5.0 41 Bas% 1.3 % High 0.1-1.0 41 Neut# 1.77 K/uL Low 1.8-7.0 41 Lymph # 0.94 K/uL Low 1.8-7.0 41 Cotton # 0.36 K/uL 0.0-0.8 41 Eos # 0.09 K/uL 0.0-0.5 41 Baso # 0.04 K/uL Low 0.1-0.2 41 Comprehensive Metabolic Panel 10/06/2016 Glucose 110 mg/dL High 74-106 41 BUN 12 mg/dL 7-18 41 Creatinine 0.7 mg/dL 0.6-1.3 41 Glom Filtration Rate, Estimate >60 mL/min >60 41 If >60 mL/min >60 41, 44 BUN/Creat 17.1 ratio 41 Sodium 128 mmol/L Low 136-145 41 Potassium 4.3 mmol/L 3.5-5.1 41 Chloride 94 mmol/L Low 98-107 41 Carbon Dioxide 26 mmol/L 21-32 41 Anion Gap 8 mEq/L 8-16 41 Calcium 8.0 mg/dL Low 8.5-10.1 41 Total Protein 7.3 g/dL 6.4-8.2 41 Albumin 3.7 g/dL 3.4-5.0 41 Globulin 3.6 g/dL 1.9-4.3 41 Alb/Glob 1.0 ratio 41 Bilirubin,Total 0.2 mg/dL 0.2-1.0 41 Sgot/Ast 21 U/L 15-37 41 SGPT/Alt 22 U/L 12-78 41 Alkaline Phosphatase 85 U/L 45-117 41 Iron-Tibc-%Sat 10/06/2016 Serum Iron 86 g/dL 65-175 41 Total Iron Binding Capacity 350 g/dL 250-450 41 Transferrin %Saturation 25 % 12-57 41 Laboratory test finding 10/06/2016 Ferritin 48 ng/mL 26-388 41 Vitamin B12 And Folate 10/06/2016 Vitamin B12 820 pg/mL 193-986 41 Folic Acid 19.7 ng/mL High 3.1-17.5 41 Basic Metabolic Panel 09/29/2016 Glucose 157 mg/dL High 74-106 45 BUN 12 mg/dL 7-18 45 Creatinine 0.7 mg/dL 0.6-1.3 45 Glom Filtration Rate, Estimate >60 mL/min >60 45 If >60 mL/min >60 45, 46 BUN/Creat 17.1 ratio 45 Sodium 126 mmol/L Low 136-145 45 Potassium 3.8 mmol/L 3.5-5.1 45 Chloride 91 mmol/L Low 98-107 45 Carbon Dioxide 26 mmol/L 21-32 45 Anion Gap 9 mEq/L 8-16 45 Calcium 8.2 mg/dL Low 8.5-10.1 45 Vitamin B12 And Folate 09/22/2016 Vitamin B12 623 pg/mL 193-986 47 Folic Acid 19.4 ng/mL High 3.1-17.5 47 Laboratory test finding 09/22/2016 Ferritin 57 ng/mL 26-388 47 Iron-Tibc-%Sat 09/22/2016 Serum Iron 102 g/dL 65-175 47 Total Iron Binding Capacity 351 g/dL 250-450 47 Transferrin %Saturation 29 % 12-57 47 Comprehensive Metabolic Panel 09/22/2016 Glucose 87 mg/dL 74-106 47 BUN 12 mg/dL 7-18 47 Creatinine 0.8 mg/dL 0.6-1.3 47 Glom Filtration Rate, Estimate >60 mL/min >60 47 If >60 mL/min >60 47, 48 BUN/Creat 15.0 ratio 47 Sodium 125 mmol/L Low 136-145 47 Potassium 3.9 mmol/L 3.5-5.1 47 Chloride 89 mmol/L Low 98-107 47 Carbon Dioxide 28 mmol/L 21-32 47 Anion Gap 8 mEq/L 8-16 47 Calcium 7.8 mg/dL Low 8.5-10.1 47 Total Protein 7.7 g/dL 6.4-8.2 47 Albumin 3.7 g/dL 3.4-5.0 47 Globulin 4.0 g/dL 1.9-4.3 47 Alb/Glob 0.9 ratio 47 Bilirubin,Total 0.3 mg/dL 0.2-1.0 47 Sgot/Ast 22 U/L 15-37 47 SGPT/Alt 19 U/L 12-78 47 Alkaline Phosphatase 93 U/L 45-117 47 CBS W/Automated Diff 09/22/2016 White Blood Count 3.4 K/uL 3.4-10.5 47 Red Blood Count 3.97 M/uL Low 4.20-5.80 47 Hemoglobin 13.1 gm/dL 12.8-17.0 47 Hematocrit 37.7 % Low 38.0-48.0 47 Mean Cell Volume 95.0 fl 80.0-96.0 47 Mean Corpuscular HGB 33.0 pg 27.0-33.0 47 Mean Corpuscular HGB Conc 34.7 g/dL 31.7-36.0 47 Platelet Count 258 K/uL 150-400 47 Red Cell Distri Width SD 44.2 fl 36-51 47 Red Cell Distri Width %CV 13.0 % 11.6-15.8 47 Mean Platelet Volume 9.8 fL 6.6-10.6 47 Neut% 48.6 % 33.0-73.0 47 Lymph % 33.7 % 17.0-56.0 47 Cotton % 14.8 % High 0.0-10.0 47 Eo% 2.3 % 0.0-5.0 47 Bas% 0.6 % 0.1-1.0 47 Neut# 1.67 K/uL Low 1.8-7.0 47 Lymph # 1.16 K/uL Low 1.8-7.0 47 Cotton # 0.51 K/uL 0.0-0.8 47 Eos # 0.08 K/uL 0.0-0.5 47 Baso # 0.02 K/uL Low 0.1-0.2 47 CBC 08/24/2016 White Blood Count 5.5 K/uL 3.4-10.5 49 Red Blood Count 3.59 M/uL Low 4.20-5.80 49 Hemoglobin 11.9 gm/dL Low 12.8-17.0 49 Hematocrit 33.9 % Low 38.0-48.0 49 Mean Cell Volume 94.4 fl 80.0-96.0 49 Mean Corpuscular HGB 33.1 pg High 27.0-33.0 49 Mean Corpuscular HGB Conc 35.1 g/dL 31.7-36.0 49 Platelet Count 277 K/uL 150-400 49 Red Cell Distri Width %CV 13.0 % 11.6-15.8 49 Mean Platelet Volume 9.4 fL 6.6-10.6 49 Basic Metabolic Panel 08/24/2016 Glucose 88 mg/dL 74-106 49 BUN 6 mg/dL Low 7-18 49 Creatinine 0.5 mg/dL Low 0.6-1.3 49 Glom Filtration Rate, Estimate >60 mL/min >60 49 If >60 mL/min >60 49, 50 BUN/Creat 12.0 ratio 49 Sodium 130 mmol/L Low 136-145 49 Potassium 3.5 mmol/L 3.5-5.1 49 Chloride 96 mmol/L Low 98-107 49 Carbon Dioxide 25 mmol/L 21-32 49 Anion Gap 9 mEq/L 8-16 49 Calcium 8.0 mg/dL Low 8.5-10.1 49 Is Patient Fasting? Non-Fasting 49 CBC 08/23/2016 White Blood Count 4.6 K/uL 3.4-10.5 49 Red Blood Count 3.86 M/uL Low 4.20-5.80 49 Hemoglobin 12.7 gm/dL Low 12.8-17.0 49 Hematocrit 36.0 % Low 38.0-48.0 49 Mean Cell Volume 93.3 fl 80.0-96.0 49 Mean Corpuscular HGB 32.9 pg 27.0-33.0 49 Mean Corpuscular HGB Conc 35.3 g/dL 31.7-36.0 49 Platelet Count 277 K/uL 150-400 49 Red Cell Distri Width %CV 12.9 % 11.6-15.8 49 Mean Platelet Volume 9.1 fL 6.6-10.6 49 Basic Metabolic Panel 08/23/2016 Glucose 89 mg/dL 74-106 49 BUN 8 mg/dL 7-18 49 Creatinine 0.7 mg/dL 0.6-1.3 49 Glom Filtration Rate, Estimate >60 mL/min >60 49 If >60 mL/min >60 49, 51 BUN/Creat 11.4 ratio 49 Sodium 130 mmol/L Low 136-145 49 Potassium 3.6 mmol/L 3.5-5.1 49 Chloride 97 mmol/L Low 98-107 49 Carbon Dioxide 26 mmol/L 21-32 49 Anion Gap 7 mEq/L Low 8-16 49 Calcium 8.0 mg/dL Low 8.5-10.1 49 Is Patient Fasting? Non-Fasting 49 Ua RFX Microscopic & Cult If Inicated 08/23/2016 Urine Color YELLOW Yellow 49 Urine Clarity CLEAR Clear 49 Urine Glucose - Dipstick NEGATIVE mg/dL Negative 49 Urine Bilirubin - Dipstick NEGATIVE Negative 49 Urine Ketone NEGATIVE mg/dL Negative 49 Urine Specific Gap 1.010 1.010-1.030 49 Urine Blood NEGATIVE Negative 49 Urine PH 7.0 6.5-7.5 49 Urine Protein - Dipstick NEGATIVE mg/dL Negative 49 Urine Urobilinogen - Dipstick 0.2 E.U./dL 0.2-1.0 49 Urine Nitrite - Dipstick NEGATIVE Negative 49 Urine Leuk Esterase NEGATIVE Negative 49 Source: URINE, CLEAN CAT <SEE NOTE> 49, 52 Laboratory test finding 08/02/2016 Ferritin 84 ng/mL 26-388 53 Iron-Tibc-%Sat 08/02/2016 Serum Iron 47 g/dL Low 65-175 53 Total Iron Binding Capacity 303 g/dL 250-450 53 Transferrin %Saturation 16 % 12-57 53 CBC W/Automated Diff 08/02/2016 White Blood Count 4.7 K/uL 3.4-10.5 53 Red Blood Count 3.77 M/uL Low 4.20-5.80 53 Hemoglobin 12.2 gm/dL Low 12.8-17.0 53 Hematocrit 35.4 % Low 38.0-48.0 53 Mean Cell Volume 93.9 fl 80.0-96.0 53 Mean Corpuscular HGB 32.4 pg 27.0-33.0 53 Mean Corpuscular HGB Conc 34.5 g/dL 31.7-36.0 53 Platelet Count 278 K/uL 150-400 53 Red Cell Distri Width SD 43.7 fl 36-51 53 Red Cell Distri Width %CV 13.1 % 11.6-15.8 53 Mean Platelet Volume 9.9 fL 6.6-10.6 53 Neut% 47.8 % 33.0-73.0 53 Lymph % 25.4 % 17.0-56.0 53 Cotton % 19.9 % High 0.0-10.0 53 Eo% 6.0 % High 0.0-5.0 53 Bas% 0.9 % 0.1-1.0 53 Neut# 2.24 K/uL 1.8-7.0 53 Lymph # 1.19 K/uL Low 1.8-7.0 53 Cotton # 0.93 K/uL High 0.0-0.8 53 Eos # 0.28 K/uL 0.0-0.5 53 Baso # 0.04 K/uL Low 0.1-0.2 53 Comprehensive Metabolic Panel 08/02/2016 Glucose 76 mg/dL 74-106 53 BUN 12 mg/dL 7-18 53 Creatinine 0.6 mg/dL 0.6-1.3 53 Glom Filtration Rate, Estimate >60 mL/min >60 53 If >60 mL/min >60 53, 54 BUN/Creat 20.0 ratio 53 Sodium 126 mmol/L Low 136-145 53 Potassium 4.3 mmol/L 3.5-5.1 53 Chloride 92 mmol/L Low 98-107 53 Carbon Dioxide 28 mmol/L 21-32 53 Anion Gap 6 mEq/L Low 8-16 53 Calcium 8.0 mg/dL Low 8.5-10.1 53 Total Protein 7.2 g/dL 6.4-8.2 53 Albumin 3.6 g/dL 3.4-5.0 53 Globulin 3.6 g/dL 1.9-4.3 53 Alb/Glob 1.0 ratio 53 Bilirubin,Total 0.2 mg/dL 0.2-1.0 53 Sgot/Ast 19 U/L 15-37 53 SGPT/Alt 19 U/L 12-78 53 Alkaline Phosphatase 94 U/L 45-117 53 Vitamin B12 And Folate 08/02/2016 Vitamin B12 614 pg/mL 193-986 53 Folic Acid 18.8 ng/mL High 3.1-17.5 53 Laboratory test 08/02/2016 Vitamin D,25-Hydroxy 38.7 ng/mL 30.0-100.0 53 , 55 finding CBC W/Automated Diff 06/11/2016 White Blood Count [...] % 33.0-73.0 Lymph % 32.1 % 17.0-56.0 Cotton % 11.2 % High 0.0-10.0 Eo% 4.3 % 0.0-5.0 Bas% 0.8 % 0.1-1.0 Neut# 2.02 K/uL 1.8-7.0 Lymph # 1.26 K/uL Low 1.8-7.0 Cotton # 0.44 K/uL 0.0-0.8 Eos # 0.17 [...] 06/11/2016 Vitamin D,25-Hydroxy 37.0 ng/mL 30.0- 100.0 57 Iron-Tibc-%Sat 06/11/2016 Serum Iron 119 g/dL 65-175 [...] >60 mL/min >60 If >60 mL/min >60 58 BUN/Creat 12.8 ratio Sodium 121 mmol/L Low [...] % 33.0-73.0 Lymph % 27.6 % 17.0-56.0 Cotton % 14.7 % High 0.0-10.0 Eo% 4.1 % 0.0-5.0 Bas% 0.7 % 0.1-1.0 Neut# 2.30 K/uL 1.8-7.0 Lymph # 1.20 K/uL Low 1.8-7.0 Cotton # 0.64 K/uL 0.0-0.8 Eos # 0.18 K/uL 0.0-0.5 Baso # 0.03 K/uL Low 0.1-0.2 1 E03.9 2 Thyroglobulin Antibody measured by [employer] 3 Performed at: - [facility] [address] [id number] Customer Experience Manager: Josie Browning MD, Phone: [phone] E55.9 E61.1 D64.9 E53.9 5 Note: [...] D deficiency has been defined by the [employer] and an Endocrine Society practice guideline as a level of serum 25-OH vitamin D less than 20 ng/mL (1,2). The Endocrine Society went on to further define vitamin D insufficiency as a level between 21 and 29 ng/mL (2). 1. IOM ([employer]). 2010. Dietary reference intakes for calcium and D. [place]: The National Academies Press. 2. Stanton Alvarenga, Iram RICK, et al. Evaluation, treatment, and prevention of vitamin D deficiency: an Endocrine Society clinical practice guideline. JCEM. 2010; 96(7):1911-30. Performed at: - [facility] [address] [id number] Customer Experience Manager: Josie Browning MD, Phone: [phone] Instrument flagged sample for slide review. Less than 10% Bands seen, no other immature WBC's seen. Platelet estimate=Normal 8 D64.9 E55.9 E61.1 E53.9 9 Instrument flagged sample for slide review. Less than 10% Bands seen, no other immature WBC's seen. Platelet estimate=NORMAL 10 Vitamin D deficiency has been defined by the [employer] and an Endocrine Society practice guideline as a level of serum 25-OH vitamin D less than 20 ng/mL (1,2). The Endocrine Society went on to further define vitamin D insufficiency as a level between 21 and 29 ng/mL (2). 1. IOM ([employer]). 2010. Dietary reference intakes for calcium and D. [place]: The National Academies Press. 2. Thalia ISAACS, Stanton AVILA, Iram RICK, et al. Evaluation, treatment, and prevention of vitamin D deficiency: an Endocrine Society clinical practice guideline. JCEM. 2010; 96(7):1911-30. Performed at: - [facility] [address] [id number] Customer Experience Manager: Josie Browning MD, Phone: [phone] Note: Persistent reduction for 3 months or more in an eGFR <60 mL/min/1.73 m2 defines CKD. Patients with eGFR values >/=60 mL/min/1.73 m2 may also have CKD if evidence of persistent proteinuria is present. The original MDRD equation for estimated GFR is not valid for patients less than 18 years of age. Additional information may be found at www.kdoqi.org. 12 E03.9 E55.9 13 Note: Persistent reduction for 3 months or more in an eGFR <60 mL/min/1.73 m2 defines CKD. Patients with eGFR values >/=60 mL/min/1.73 m2 may also have CKD if evidence of persistent proteinuria is present. The original MDRD equation for estimated GFR is not valid for patients less than 18 years of age. Additional information may be found at [email or web address]. 14 Reference Guidelines*: Desirable: ........... < 200 mg/dL Borderline High: ..... 200-239 mg/dL High: ................ >=240 mg/dL * The National Cholesterol Education Program (NCEP) 15 Reference Guidelines*: Normal: ............. < 150 mg/dL Borderline High: .... 150-199 mg/dL High: ............... 200-499 mg/dL Very High: .......... > 500 mg/dL * Source: National Cholesterol Education Program (NCEP) 16 Reference Guidelines*: Low HDL: ..... < 40 mg/dL Normal: ..... 40-60 mg/dL Desirable: ... > 60 mg/dL *The National Cholesterol Education Program(NCEP) 17 Reference Guidelines*: Optimal:........... <100 mg/dL Near Optimal....... 100-129 mg/dL Borderline High.... 130-159 mg/dL High............... 160-189 mg/dL Very High.......... >=190 mg/dL * Source: National Cholesterol Education Program (NCEP) 18 Vitamin D deficiency has been defined by the [employer] and an Endocrine Society practice guideline as a level of serum 25-OH vitamin D less than 20 ng/mL (1,2). The Endocrine Society went on to further define vitamin D insufficiency as a level between 21 and 29 ng/mL (2). 1. IOM ([employer]). 2010. Dietary reference intakes for calcium and D. [place]: The National Academies Press. 2. Stanton Alvarenga, Iram RICK, et al. Evaluation, treatment, and prevention of vitamin D deficiency: an Endocrine Society clinical practice guideline. JCEM. 2010; 96(7):1911-30. Performed at: RN - [facility] [address] [id number] Customer Experience Manager: Josie Browning MD, Phone: [phone] 19 D64.9 E55.9 E61.1 E53.9 20 Instrument flagged sample for slide review. Less than 10% Bands seen, no other immature WBC's seen. RBC morphology essentially normal. Platelet estimate=NORMAL 21 Vitamin D deficiency has been defined by the [employer] and an Endocrine Society practice guideline as a level of serum 25-OH vitamin D less than 20 ng/mL (1,2). The Endocrine Society went on to further define vitamin D insufficiency as a level between 21 and 29 ng/mL (2). 1. IOM ([employer]). 2010. Dietary reference intakes for calcium and D. [place]: The National Academies Press. 2. Thalia ISAACS, Stanton AVILA, Iram RICK, et al. Evaluation, treatment, and prevention of vitamin D deficiency: an Endocrine Society clinical practice guideline. JCEM. 2010; 96(7):1911-30. Performed at: RN - [facility] [address] [id number] Customer Experience Manager: Josie Browning MD, Phone: [phone] 22 Note: Persistent reduction for 3 months or more in an eGFR <60 mL/min/1.73 m2 defines CKD. Patients with eGFR values >/=60 mL/min/1.73 m2 may also have CKD if evidence of persistent proteinuria is present. The original MDRD equation for estimated GFR is not valid for patients less than 18 years of age. Additional information may be found at [email or web address]. 23 Because ethnic data is not always readily [...] 15-29 5 Kidney failure <15 (or dialysis) 24 G40.209 Z79.899 25 Note: Persistent reduction for 3 months or more in an eGFR <60 mL/min/1.73 m2 defines CKD. Patients with eGFR values >/=60 mL/min/1.73 m2 may also have CKD if evidence of persistent proteinuria is present. The original MDRD equation for estimated GFR is not valid for patients less than 18 years of age. Additional information may be found at [email or web address]. 26 D64.9 E55.9 E61.1 E53.9 27 Note: Persistent reduction for 3 months or more in an eGFR <60 mL/min/1.73 m2 defines CKD. Patients with eGFR values >/=60 mL/min/1.73 m2 may also have CKD if evidence of persistent proteinuria is present. The original MDRD equation for estimated GFR is not valid for patients less than 18 years of age. Additional information may be found at [email or web address]. 28 Vitamin D deficiency has been defined by the [employer] and an Endocrine Society practice guideline as a level of serum 25-OH vitamin D less than 20 ng/mL (1,2). The Endocrine Society went on to further define vitamin D insufficiency as a level between 21 and 29 ng/mL (2). 1. IOM (Slater of Medicine). 2010. Dietary reference intakes for calcium and D. [place]: The National Academies Press. 2. Thalia MF, Stanton [place], Iram RICK, et al. Evaluation, treatment, and prevention of vitamin D deficiency: an Endocrine Society clinical practice guideline. JCEM. 2010; 96(7):1911-30. Performed at: RN - [facility] [address] [id number] Customer Experience Manager: Josie Browning MD, Phone: [phone] 29 D64.9 E87.1 E55.9 30 Vitamin D deficiency has been defined by the Slater of Medicine and an Endocrine Society practice guideline as a level of serum 25-OH vitamin D less than 20 ng/mL (1,2). The Endocrine Society went on to further define vitamin D insufficiency as a level between 21 and 29 ng/mL (2). 1. IOM (Slater of Medicine). 2010. Dietary reference intakes for calcium and D. [place]: The National Academies Press. 2. Thalia MF, [place], Iram RICK, et al. Evaluation, treatment, and prevention of vitamin D deficiency: an Endocrine Society clinical practice guideline. JCEM. 2010; 96(7):1911-30. Performed at: - [facility] [address] [id number] Customer Experience Manager: Josie Browning MD, Phone: [phone] Note: Persistent reduction for 3 months or more in an eGFR <60 mL/min/1.73 m2 defines CKD. Patients with eGFR values >/=60 mL/min/1.73 m2 may also have CKD if evidence of persistent proteinuria is present. The original MDRD equation for estimated GFR is not valid for patients less than 18 years of age. Additional information may be found at www.kdoqi.org. 32 D64.9,E55.9,E61.1,E53.9 33 Note: Persistent reduction for 3 months or more in an eGFR <60 mL/min/1.73 m2 defines CKD. Patients with eGFR values >/=60 mL/min/1.73 m2 may also have CKD if evidence of persistent proteinuria is present. The original MDRD equation for estimated GFR is not valid for patients less than 18 years of age. Additional information may be found at www.kdoqi.org. 34 Vitamin D deficiency has been defined by the Slater of Medicine and an Endocrine Society practice guideline as a level of serum 25-OH vitamin D less than 20 ng/mL (1,2). The Endocrine Society went on to further define vitamin D insufficiency as a level between 21 and 29 ng/mL (2). 1. IOM (Slater of Medicine). 2010. Dietary reference intakes for calcium and D. [place]: The National Academies Press. 2. [place] Alvarenga Bischoff-Ferrari HA, et al. Evaluation, treatment, and prevention of vitamin D deficiency: an Endocrine Society clinical practice guideline. JCEM. 2010; 96(7):1911-30. Performed at: - [facility] [address] [id number] Customer Experience Manager: Josie Browning MD, Phone: [phone] 35 D64.9 36 Vitamin D deficiency has been defined by the Slater of Medicine and an Endocrine Society practice guideline as a level of serum 25-OH vitamin D less than 20 ng/mL (1,2). The Endocrine Society went on to further define vitamin D insufficiency as a level between 21 and 29 ng/mL (2). 1. IOM (Slater of Medicine). 2010. Dietary reference intakes for calcium and D. [place]: The National [employer]in Press. 2. [place] Alvarenga, Iram RICK, et al. Evaluation, treatment, and prevention of vitamin D deficiency: an Endocrine Society clinical practice guideline. JCEM. 2010; 96(7):1911-30. Performed at: - [facility] [address] [id number] Customer Experience Manager: Josie Browning MD, Phone: [phone] Note: Persistent reduction for 3 months or more in an eGFR <60 mL/min/1.73 m2 defines CKD. Patients with eGFR values >/=60 mL/min/1.73 m2 may also have CKD if evidence of persistent proteinuria is present. The original MDRD equation for estimated GFR is not valid for patients less than 18 years of age. Additional information may be found at www.kdoqi.org. 38 D64.9 E55.9 G80.9 39 Vitamin D deficiency has been defined by the Slater of Medicine and an Endocrine Society practice guideline as a level of serum 25-OH vitamin D less than 20 ng/mL (1,2). The Endocrine Society went on to further define vitamin D insufficiency as a level between 21 and 29 ng/mL (2). 1. IOM (Slater of Medicine). 2010. Dietary reference intakes for calcium and D. [place]: The National Academies Press. 2. [place] Alvarenga, Iram RICK, et al. Evaluation, treatment, and prevention of vitamin D deficiency: an Endocrine Society clinical practice guideline. JCEM. 2010; 96(7):1911-30. Performed at: RN - [facility] [address] [id number] Customer Experience Manager: Josie Browning MD, Phone: [phone] Note: Persistent reduction for 3 months or more in an eGFR <60 mL/min/1.73 m2 defines CKD. Patients with eGFR values >/=60 mL/min/1.73 m2 may also have CKD if evidence of persistent proteinuria is present. The original MDRD equation for estimated GFR is not valid for patients less than 18 years of age. Additional information may be found at www.kdoqi.org. 41 D64.9 42 Note: Persistent reduction for 3 months [...] information may be found at www.kdoqi.org. 45 D64.9 E61.1 46 Note: Persistent reduction for 3 months or more in an eGFR <60 mL/min/1.73 m2 defines CKD. Patients with eGFR values >/=60 mL/min/1.73 m2 may also have CKD if evidence of persistent proteinuria is present. The original MDRD equation for estimated GFR is not valid for patients less than 18 years of age. Additional information may be found at www.kdoqi.org. 47 D64.9 48 Note: Persistent reduction for 3 months or more in an eGFR <60 mL/min/1.73 m2 defines CKD. Patients with eGFR values >/=60 mL/min/1.73 m2 may also have CKD if evidence of persistent proteinuria is present. The original MDRD equation for estimated GFR is not valid for patients less than 18 years of age. Additional information may be found at www.kdoqi.org. 49 PNEUMONIA HYPONATREMIA 50 Note: Persistent reduction for 3 months or more in an eGFR <60 mL/min/1.73 m2 defines CKD. Patients with eGFR values >/=60 mL/min/1.73 m2 may also have CKD if evidence of persistent proteinuria is present. The original MDRD equation for estimated GFR is not valid for patients less than 18 years of age. Additional information may be found at www.kdoqi.org. 51 Note: Persistent reduction for 3 months or more in an eGFR <60 mL/min/1.73 m2 defines CKD. Patients with eGFR values >/=60 mL/min/1.73 m2 may also have CKD if evidence of persistent proteinuria is present. The original MDRD equation for estimated GFR is not valid for patients less than 18 years of age. Additional information may be found at www.kdoqi.org. 52 URINE, CLEAN CATCH 53 D64.9 D70.9 54 Note: Persistent reduction for 3 months [...] D deficiency has been defined by the Slater of Medicine and an Endocrine Society practice guideline as a level of serum 25-OH vitamin D less than 20 ng/mL (1,2). The Endocrine Society went on to further define vitamin D insufficiency as a level between 21 and 29 ng/mL (2). 1. IOM (Slater of Medicine). 2010. Dietary reference intakes for calcium and D. [place]: The National Academies Press. 2. [place] Alvarenga, Iram RICK, et al. Evaluation, treatment, and prevention of vitamin D deficiency: an Endocrine Society clinical practice guideline. JCEM. 2010; 96(7):1911-30. Performed at: - [facility] [address] [id number] Customer Experience Manager: Josie Browning MD, Phone: [phone] Note: Persistent reduction for 3 months or more in an eGFR <60 mL/min/1.73 m2 defines CKD. Patients with eGFR values >/=60 mL/min/1.73 m2 may also have CKD if evidence of persistent proteinuria is present. The original MDRD equation for estimated GFR is not valid for patients less than 18 years of age. Additional information may be found at www.kdoqi.org. 57 Vitamin D deficiency has been defined by the Slater of Medicine and an Endocrine Society practice guideline as a level of serum 25-OH vitamin D less than 20 ng/mL (1,2). The Endocrine Society went on to further define vitamin D insufficiency as a level between 21 and 29 ng/mL (2). 1. IOM (Slater of Medicine). 2010. Dietary reference intakes for calcium and D. [place]: The National Academies Press. 2. [place] Alvarenga, Iram RICK, et al. Evaluation, treatment, and prevention of vitamin D deficiency: an Endocrine Society clinical practice guideline. JCEM. 2010; 96(7):1911-30. Performed at: - [facility] [id number] Customer Experience Manager: Josie Browning MD, Phone: [phone] Note: Persistent reduction for 3 months or [...] Date CPT Code Description Status Comment 04/19/2018 90749 EKG-Tracing And Report Completed 06/09/2016 97840 EKG Interpretation And Report Completed Only 11/21/2012 Colonoscopy Completed Document: 01/30/13 - Colonoscopy Procedure due in 2022 Encounters Type Date Location Provider CPT E/M Dx Office Visit 09/27/2018 Primary Care Office Maite Garduno [address] S63.509A 3:30p H., VIJAY S80.211A Office Visit 09/04/2018 3:00p [place] [address] E61.1 E53.9 E55.9 D64.9 E87.1 Office Visit 08/03/2018 9:40a Primary Care Office Bell Camarillo MD G0439 Z00.01 F42.4 D64.9 E03.9 G80.9 F63.9 Z23 Office Visit 07/19/2018 3:00p [place], [address] R21 HYDROMETEOROLOGIST-C, CNM F42.4 Office Visit 06/28/2018 9:30a Primary Care Office Maite Garduno, [address] L97.211 PA L97.821 Office Visit 04/21/2018 3:20p [place] [address] E61.1 E87.1 E03.9 G80.9 F63.9 S81.809D W22.09xD Office Visit 04/19/2018 8:30a [place] [address] E61.1 E53.9 E55.9 E87.1 G80.9 Office Visit 03/22/2018 10:40a [place] [address] S01.81xD W22.09xD Office Visit 01/30/2018 8:35a [place] [address] D64.9 E61.1 E53.9 E55.9 E87.1 Office Visit 01/19/2018 3:20p [place] [address] E87.1 E03.9 E55.9 S81.809D X58.xxxD Office Visit 11/11/2017 3:20p [place] [address] S81.802A Office Visit 10/24/2017 3:00p Oncology Office Samantha Ziegler, [address] D64.9 DO E87.1 Office Visit 07/19/2017 3:00p [place] [address] D64.9 E87.1 Office Visit 06/08/2017 1:00p [place] [address] E87.1 D64.9 E55.9 G80.9 R23.9 Office Visit 04/29/2017 2:30p [place] [address] E61.1 E53.9 D64.9 Office Visit 03/30/2017 2:40p [place] [address] S09.90xA Office Visit 03/04/2017 1:00p [place] [address] E87.1 G40.409 G80.9 D64.9 R23.9 Office Visit 01/26/2017 3:30p [place] [address] D64.9 E61.1 D70.9 E87.1 Office Visit 12/02/2016 2:40p [place] [address] D64.9 E87.1 G40.409 G80.9 F63.9 R23.9 Office Visit 11/08/2016 3:15p [place] [address] D64.9 E61.1 D70.9 Office Visit 09/29/2016 3:30p [place] [address] D64.9 E61.1 E87.1 Office Visit 08/25/2016 3:45p [place] [address] D64.9 E61.1 Office Visit 06/16/2016 2:20p [place] [address] D64.9 Office Visit 04/13/2016 3:40p [place] [address] D64.9 D70.9 Office Visit 03/30/2016 1:00p [place] [address] D64.9 D70.9 Plan of Care Future Appointment(s):12/12/2018 3:00 pm - Samantha Ziegler DO at Oncology Awad[place]9912/05/2018 3:00 pm - Oncology Nurse at Oncology [place]4411/06/2018 8:30 am - Mysql Database Administrator at Primary Care Qhvowe8410/31/2018 3:00 pm - Bell Camarillo MD at Primary Care Tqlwrp1409/27/2018 - Maite Garduno, PAS63.509A Unspecified sprain of unspecified wrist, initial encounterComments:FROM of wrists without evidence of pain.Call for any worsening sxS80.211A Abrasion, right knee, initial encounterComments:No evidence of infection.AllNew Medication:Vitamin D3 Super Strength 2000 UnitFollow up:Please give copy of recent labs from Dr Camarillo - this was printed to front
--- NOTE | 2018-10-20 17:52 | UC ---
General HPI - HPI Summary HPI Summary: hand profiler notes pt has spot on top of L foot x 1 month that he picks at. here tonight because area has become red. hand profiler notes pt hasn't had his diner and gets agitated when out of his routine like this. - History of Current Complaint Chief Complaint: LOANkin Stated Complaint: LEFT FOOT SKIN CONCERN Time Seen by Provider: 10/20/18 17:45 Hx Obtained From: Family/Suture Gauger Onset/Duration: Gradual Onset Timing: Constant Pain Intensity: 8 Associated Signs & Symptoms: Negative: Fever - Allergy/Home Medications Allergies/Adverse Reactions: Allergies Allergy/AdvReac Type Severity Reaction Status Date / Time Adhesive Tape Allergy Unknown Verified 09/22/18 19:02 Reaction Details clindamycin Allergy Hives Verified 09/22/18 19:02 erythromycin base Allergy Hives Verified 09/22/18 19:02 Home Medications: Home Medications diphenhydrAMINE HCl [Diphenhydramine HCl] 50 mg PO BEDTIME 10/20/18 [History Confirmed 10/20/18] PMH/Surg Hx/FS Hx/Imm Hx - Additional Past Medical History Additional PMH: MRSA, cellulitis, sz's, cognitive limitations/non verbal Other History Of: Negative For: HIV, Hepatitis B, Hepatitis C, Anticoagulant Therapy - Surgical History Surgical History: Yes Surgery Procedure, Year, and Place: Herniorrhaphies, Dental Extractions, Colonoscopy - Family History Known Family History: Positive: Unknown - The patient is nonverbal. No fm hx in chart., Other - Level 5 caveat: MENTALLY HANDICAPPED,Deaf,UNABLE TO PROVIDE HX; - Social History Occupation: Disabled Lives: Detention Alcohol Use: None Substance Use Type: None Smoking Status (MU): Never Smoked Tobacco Have You Smoked in the Last Year: No - Immunization History Most Recent Influenza Vaccination: 09/07/16 Most Recent Tetanus Shot: 01/01/10 TD Most Recent Pneumonia Vaccination: 10/26/88 Vaccination Up to Date: Yes Review of Systems All Other Systems Reviewed And Are Negative: No Constitutional: Negative: Fever Skin: Positive: Rash Is Patient Immunocompromised?: No - Comments Additional Review of Systems Comments: pt non verbal and hand profiler states she just came on Physical Exam Triage Information Reviewed: Yes Appearance: Well-Appearing Vital Signs: Initial Vital Signs Temp 98.6 F 10/20/18 17:25 Pulse 120 10/20/18 17:25 Resp 36 10/20/18 17:25 Pulse Ox 97 10/20/18 17:25 Vital Signs Reviewed: Yes Eyes: Positive: Conjunctiva Clear ENT: Positive: Normal ENT inspection Neck: Positive: Supple Respiratory: Positive: Lungs clear, Normal breath sounds Cardiovascular: Positive: RRR. Negative: Tachycardia Abdomen Description: Positive: Nontender, No Organomegaly, Soft Bowel Sounds: Positive: Present Musculoskeletal: Positive: ROM Intact Neurological: Positive: Alert Skin Exam: Normal Skin: Positive: Rashes - dorsal L foot with 2 superficial abrasions and mild surrounding erythema. no overt tenderness. moves foot and good capillary refill. Course/Dx - Diagnoses Provider Diagnosis: Cellulitis of foot, left Discharge - Sign-Out/Discharge Documenting (check all that apply): Patient Departure All imaging exams completed and their final reports reviewed: No Studies - Discharge Plan Condition: Stable Disposition: HOME Prescriptions: Sulfamethox/Trimethoprim DS* [Bactrim DS 800/160 TAB*] 1 tab PO BID 10 Days #20 tab Patient Education Materials: Cellulitis (DC) Referrals: Bell Camarillo MD [Primary Care Provider] - 3 Days Additional Instructions: continue prior care and medications - Billing Disposition and Condition Condition: STABLE Disposition: Home
[2018-10-20] MEDS ORDERED: Sulfamethox/Trimethoprim DS 800/160* TAB PO ONE ×2 (17:55→17:59)
== END 2018-10-20 18:13 | disposition home or self-care (01) ==
LOC: UCCORT 16:13
DX: L03.116 Cellulitis of left lower limb (principal); Z88.1 Allergy status to other antibiotic agents; Z86.14 Personal history of Methicillin resistant Staphylococcus aureus infection
CPT/HCPCS: 87070; 87205; 99212; A9270-GY; G0463

== ENCOUNTER 2019-03-14 15:00 | Emergency (ER) | payer MEDICARE, MEDICAID ==
--- NOTE | 2019-03-14 16:54 | ED ---
Lower Extremity - HPI Summary HPI Summary: 58 yr old male with MR, and deafness with limited ability to communicate according to the half-way cashier assistant with him. She states he does not use official sign language to communicate. The patient has a carlos on his left foot plantar surface, and has been expressing discomfort to the area. He has no clear history of trauma, FB etc. Unknown the length of time the lesion has been there. The patient is able to walk and bear weight as usual - History of Current Complaint Chief Complaint: UCLowerExtremity Stated Complaint: FOREIGN BODY LEFT FOOT Time Seen by Provider: 03/14/19 16:27 Pain Intensity: 0 - Allergies/Home Medications Allergies/Adverse Reactions: Allergies Allergy/AdvReac Type Severity Reaction Status Date / Time Adhesive Tape Allergy Unknown Verified 03/14/19 16:16 Reaction Details clindamycin Allergy Hives Verified 03/14/19 16:16 erythromycin base Allergy Hives Verified 03/14/19 16:16 PMH/Surg Hx/FS Hx/Imm Hx Endocrine/Hematology History: Denies: Hx Anticoagulant Therapy, Hx Diabetes, Hx Thyroid Disease Cardiovascular History: Denies: Hx Congestive Heart Failure, Hx Deep Vein Thrombosis, Hx Hypertension , Hx Myocardial Infarction, Hx Pacemaker/ICD Respiratory History: Denies: Hx Asthma, Hx Chronic Obstructive Pulmonary Disease (COPD), Hx Lung Cancer, Hx Pneumonia, Hx Pulmonary Embolism GI History: Denies: Hx Gall Bladder Disease, Hx Gastrointestinal Bleed, Hx Ulcer, Hx Urosepsis History: Denies: Hx Kidney Stones, Hx Renal Disease Neurological History: Reports: Hx Seizures Psychiatric History: Denies: Hx Anxiety, Hx Depression, Hx Schizophrenia, Hx Bipolar Disorder - Surgical History Surgery Procedure, Year, and Place: Herniorrhaphies, Dental Extractions, Colonoscopy Infectious Disease History: No Infectious Disease History: Reports: Hx of Known/Suspected MRSA - WOUND Denies: Hx Clostridium Difficile, Hx Hepatitis, Hx Human Immunodeficiency Virus (HIV), Hx Shingles, Hx Tuberculosis, Hx Known/Suspected VRE, Hx Known/ Suspected VRSA, History Other Infectious Disease, Traveled Outside the [place] in Last 30 Days - Family History Known Family History: Positive: Unknown - The patient is nonverbal. No fm hx in chart., Other - Level 5 caveat: MENTALLY HANDICAPPED,Deaf,UNABLE TO PROVIDE HX; - Social History Lives: Snf Alcohol Use: None Substance Use Type: Reports: None Smoking Status (MU): Never Smoked Tobacco Have You Smoked in the Last Year: No Review of Systems Constitutional: Negative Positive: Other - skin lesion left plantar surface. All Other Systems Reviewed And Are Negative: Yes Physical Exam Triage Information Reviewed: Yes Vital Signs On Initial Exam: Initial Vitals Temp Pulse Pulse Ox 98 F 93 98 03/14/19 16:16 03/14/19 16:16 03/14/19 16:16 Vital Signs Reviewed: Yes Appearance: Positive: Well-Appearing, No Pain Distress Head/Face: Positive: Normal Head/Face Inspection Eyes: Positive: EOMI ENT: Positive: Normal ENT inspection Neck: Positive: Nontender Respiratory/Lung Sounds: Positive: Clear to Auscultation, Breath Sounds Present Cardiovascular: Positive: RRR. Negative: Murmur, Rub Abdomen Description: Negative: Distended Musculoskeletal: Positive: Strength/ROM Intact, Other - left foot plantar surface with a dry, callus formed lesion with dark center. No obvious FB seen. Likley could be plantar wart. Neurological: Positive: Sensory/Motor Intact, Alert, Oriented to Person Place, Time - at baseline per cashier assistant with the patient, CN Intact II-III Psychiatric: Positive: Other - MR Diagnostics - Vital Signs Vital Signs Temp Pulse Pulse Ox 03/14/19 16:16 98 F 93 98 - Laboratory Lab Statement: Any lab studies that have been ordered have been reviewed, and results considered in the medical decision making process. - Radiology left foot Radiology Interpretation Completed By: Radiologist - FB left foot Lower Extremity Course/Dx - Course Course Of Treatment: 58 yr old male with FB left foot; and appears been there a while. WIll refer to podiatry/ gen surgery for follow up. Patient may require sedation as well for removal. - Diagnoses Provider Diagnoses: Foreign body in foot, left Discharge - Sign-Out/Discharge Documenting (check all that apply): Patient Departure All imaging exams completed and their final reports reviewed: Yes - Discharge Plan Condition: Good Disposition: HOME Patient Education Materials: Soft Tissue Foreign Body (ED) Referrals: Bell Camarillo MD [Primary Care Provider] - 2 Days Edson Sanchez DPM [Doctor of Podiatric Medicine] - 1 Day Additional Instructions: Be sure to follow up with the micro computer specialist for removal of the metalic foreign body in the foot. IF not able to get into foot doctor in the next 24 hours then go to the Emergency Room. You will likely require sedation to have the foreign object removed. - Billing Disposition and Condition Condition: GOOD Disposition: Home
== END 2019-03-14 17:58 | disposition home or self-care (01) ==
LOC: UCCORT 15:00
DX: S90.851A Superficial foreign body, right foot, initial encounter (principal); Z91.09 Other allergy status, other than to drugs and biological substances; Z88.1 Allergy status to other antibiotic agents; X58.XXXA Exposure to other specified factors, initial encounter; Y92.9 Unspecified place or not applicable
CPT/HCPCS: 99212; G0463

== ENCOUNTER 2019-04-08 10:48 | Emergency (ER) | payer MEDICARE, MEDICAID ==
[2019-04-08 11:38] VITALS: BP 139/87
--- NOTE | 2019-04-08 11:59 | UC ---
General HPI - HPI Summary HPI Summary: PER PIPELINES SUPERINTENDENT, PT TRIPPED OVER HIS OWN FEET AROUND 10AM. HE IMMEDIATELY GOT HIMSELF UP AND CARRIED ON WITH HIS ROUTINE. PIPELINES SUPERINTENDENT STATES HE DID NOT HIT HIS HEAD, HAS NO INJURIES AND IS ACTING FINE SINCE HIS FALL. PT HAS MR TRINO IS NON VERBAL. - History of Current Complaint Chief Complaint: UCGeneralIllness Stated Complaint: FELL ON LEFT SIDE - GENERAL CHECKOVER Time Seen by Provider: 04/08/19 11:45 Hx Obtained From: Family/Fire Lieutenant Marine Onset/Duration: Sudden Onset Pain Intensity: 0 - Allergy/Home Medications Allergies/Adverse Reactions: Allergies Allergy/AdvReac Type Severity Reaction Status Date / Time Adhesive Tape Allergy Unknown Verified 04/08/19 11:43 Reaction Details clindamycin Allergy Hives Verified 04/08/19 11:43 erythromycin base Allergy Hives Verified 04/08/19 11:43 Home Medications: Home Medications hydrOXYzine HCL TAB* [Atarax TAB 50 MG *] 50 mg PO BEDTIME 04/08/19 [History Confirmed 04/08/19] PMH/Surg Hx/FS Hx/Imm Hx - Additional Past Medical History Additional PMH: MR, Cerebral palsy, Sz's, MRSA, Anemia Other History Of: Negative For: HIV, Hepatitis B, Hepatitis C, Anticoagulant Therapy - Surgical History Surgical History: Yes Surgery Procedure, Year, and Place: Herniorrhaphies, Dental Extractions, Colonoscopy - Family History Known Family History: Positive: Unknown - The patient is nonverbal. No fm hx in chart., Other - Level 5 caveat: MENTALLY HANDICAPPED,Deaf,UNABLE TO PROVIDE HX; - Social History Occupation: Disabled Lives: Assisted Living Alcohol Use: None Substance Use Type: None Smoking Status (MU): Never Smoked Tobacco Have You Smoked in the Last Year: No - Immunization History Most Recent Influenza Vaccination: 09/07/16 Most Recent Tetanus Shot: 01/01/10 TD Most Recent Pneumonia Vaccination: 10/26/88 Vaccination Up to Date: Yes Review of Systems All Other Systems Reviewed And Are Negative: No Skin: Negative: Bruising Motor: Negative: Decreased ROM, Weakness - Comments Additional Review of Systems Comments: HX MR UNABLE TO OBTAIN ADDITIONAL ROS Physical Exam Triage Information Reviewed: Yes Appearance: Well-Appearing Vital Signs: Initial Vital Signs Temp 98.5 F 04/08/19 11:30 Pulse 89 04/08/19 11:30 Resp 18 04/08/19 11:30 BP 139/87 04/08/19 11:30 Pulse Ox 97 04/08/19 11:30 Vital Signs Reviewed: Yes Eyes: Positive: Conjunctiva Clear ENT: Positive: Pharynx normal, TMs normal. Negative: Nasal drainage Neck: Positive: Supple, Nontender, No Lymphadenopathy, Other: - C-spine non tender Respiratory: Positive: Chest non-tender, Lungs clear, No respiratory distress Cardiovascular: Positive: RRR Abdomen Description: Positive: Nontender Musculoskeletal: Positive: Other: - Back: non tender. Extremities without deformity or tenderness. Neurological: Positive: Alert - baseline(per home health caregiver) Psychological: Positive: Other: - Normal response to home health caregiver and appropriate behavior per baseline Skin Exam: Normal Course/Dx - Differential Dx - Multi-Symptom Differential Diagnoses: Other - no evidence of injury and no changes in pt's baseline behaviors per home health caregiver. - Diagnoses Provider Diagnosis: Normal exam Discharge - Sign-Out/Discharge Documenting (check all that apply): Patient Departure All imaging exams completed and their final reports reviewed: No Studies - Discharge Plan Condition: Stable Disposition: HOME Patient Education Materials: Fall Prevention (ED) Referrals: Bell Camarillo MD [Primary Care Provider] - If Needed Additional Instructions: RESUME ALL PRIOR MEDICATIONS, CARE AND ROUTINES - Billing Disposition and Condition Condition: STABLE Disposition: Home
== END 2019-04-08 12:06 | disposition home or self-care (01) ==
LOC: UCCORT 10:48
DX: Z04.3 Encounter for examination and observation following other accident (principal); G80.9 Cerebral palsy, unspecified; F79 Unspecified intellectual disabilities; Z88.1 Allergy status to other antibiotic agents; Z91.09 Other allergy status, other than to drugs and biological substances; W01.0XXA Fall on same level from slipping, tripping and stumbling without subsequent striking against object, initial encounter; Y92.9 Unspecified place or not applicable
CPT/HCPCS: 99211; G0463

== ENCOUNTER 2019-04-13 13:54 | Inpatient (IN) | payer MEDICARE, MEDICAID ==
[2019-04-13] MEDS ORDERED: Ondansetron INJ* 2 MG/ML VIAL IV PRN (16:56)
--- NOTE | 2019-04-13 18:55 | HP ---
ADMISSION HISTORY AND PHYSICAL: DATE OF ADMISSION: 04/13/19 PRIMARY CARE PROVIDER: Dr. Camarillo in [place], [place]. HEALTHCARE PROXY: None. HOUSE STAFF: Isac RICH, . SOURCE OF INFORMATION: History obtained from interview with the patient's internal recruiter Pan from [facility], review of [facility] records, and review of records from his home. CHIEF COMPLAINT: Ataxia, falling. HISTORY OF PRESENT ILLNESS: This is a 58-year-old man with past medical history of intellectual disability, CP, seizure disorder, autism, lives at [facility]. He is deaf and nonverbal, although does communicate with some picture charts, who over the past 3 weeks became progressively more ataxic, off balance, falling over more frequently up to several times per day. He frequently ambulates leaning forward; however, more frequently he has been falling forward necessitating a gait belt for assistance, which is atypical. He was brought to [facility] where he was evaluated in the emergency room and admitted by the overnight hospitalist. They obtained a CAT scan of his head, which did not indicate any abnormalities; however, he was unable to tolerate an MRI. Because they do not have access to neurological consultation, they requested transfer to our center after discussion with Dr. Velez from Neurology. This author accepted as a direct admission to the medicine team. On my evaluation, the patient is nonverbal and unable to communicate; however, not agitated, in no distress. PAST MEDICAL HISTORY: Includes epilepsy; deafness; autism; intellectual disability; CP; mumps; IVETT; eczema; impulse control disorder, hits his head when he is agitated; cataracts; osteopenia; anemia; history of pericarditis; and cellulitis. MEDICATIONS: Home medications taken from [facility] sheet include: 1. 100/10 p.r.n. 2. Acetaminophen 325 mg daily. 3. Antacid suspension Mylanta as needed. 4. Pseudoephedrine 30 mg every 4 hours p.r.n. 5. Mupirocin ointment p.r.n. 6. Triamcinolone p.r.n. 7. Thorazine 50 mg twice daily. 8. Vitamin B12 1000 mcg daily. 9. Vitamin D3 1000 units daily. 10. Valium 5 mg before any procedure. 11. Sertraline 50 mg daily. 12. Levothyroxine 88 mcg daily. 13. Oyster calcium daily. 14. Phenobarbital 32.4 mg tablets 2 tablets 2 times a day for 64.8 mg twice daily. 15. Polyethylene glycol daily. 16. Metamucil daily. 17. Sodium chloride 1 g 3 times daily. Of note, there is some confliction with the records received from emergency room of [facility], also indicate Tegretol 60 mg twice daily on his home medications along with buspirone; however, these clearly are not indicated on his medication list that came from his custodial. Additionally, TSH dose is different. ALLERGIES: No known drug allergies. REVIEW OF SYSTEMS: As per HPI. Otherwise, all other systems negative. PHYSICAL EXAMINATION GENERAL: Lying in the bed, rolling back and forth. VITAL SIGNS: Yet not recorded. HEART: He does allow me to listen to his heart, regular rate and rhythm. EXTREMITIES: Moving all extremities. He does not participate in the remainder of the exam. DIAGNOSTIC STUDIES/LAB DATA: Labs reviewed. White blood cell count is 2.7, hemoglobin 12.7, MCV of 92.6, platelets 254. INR 1.1. Glucose 82, BUN 14, creatinine 0.6, sodium was 128, potassium 3.9, chloride 94, bicarb 27, calcium 7.8. Albumin 3.6. Bilirubin 0.2, AST 26, ALT 26, alk phos 89. CK is 208, troponin I less than 0.1. His TSH was 5.4. Phenobarbital level was 11.8. His urine was benign. Review of data: CT of the head: No abnormalities. ASSESSMENT AND PLAN: A 58-year-old man with past medical history as outlined above including autism, cerebral palsy, intellectual disability, deaf and mutism , presenting from [facility] after being evaluated for worsening ataxia and falls. 1. Ataxia and falls. Ideally, an MRI of the brain would be optimal; however, inconceivable at this time unless deemed necessary under anesthesia, which I certainly do not think is the case at this time. Appreciate Neurology's assistance in this. It is unclear if he is weaker secondary to his recurrent illness. Laboratory data would not reflect this, although he is mildly hyponatremic, from a report from [facility] indicates that this is not grossly lower than his baseline on previous hospital visits here, which were in the low 130s. I think a period of monitoring, repeat labs in the morning, monitor for any occult infections would be ideal, if able to work with Physical Therapy for further evaluation of his gait. 2. Seizure disorder. Continue phenobarbital. I note that his level is low at [facility]. Additionally, there is a discrepancy whether he is on Keppra from the [facility] records and the records provided from the [facility]. I have to believe the primary source data from [facility], not restarting Keppra at this time. 3. Autism. He is generally oppositional to exam and noted. 4. Hyponatremia, on home sodium chloride. Continue. Repeat labs tomorrow if able. 5. Hypothyroidism. TSH elevated at [facility]. We will repeat tomorrow along with TSH and free T4, T3. 6. DVT prophylaxis: Enoxaparin. [id number]/[facility] #: [id number] XANDER
[2019-04-13 19:13] LABS: C Reactive Protein 2.25 mg/L (<8.01)
--- NOTE | 2019-04-13 20:18 | CONS ---
NEUROLOGY CONSULTATION NOTE: DATE OF CONSULT: 04/13/19 REFERRING PROVIDER: Dr. Boris Ferreira. LOCATION: He is an inpatient in room 437. CHIEF COMPLAINT: Repeated falls. HISTORY OF PRESENT ILLNESS: Boris Grubbs is a severely disabled 58-year-old man, transferred from [facility] Emergency Room for repeated falls. The patient is not able to give the history, so the history comes from the records as well as a brief conversation with the nurse practitioner at [facility]. He apparently has been falling repeatedly for at least a few weeks. On looking through old records in our EMR , he has had repeated falls for years resulting orthopedic injuries. However, apparently, it has become more and more problematic and he ended up crawling to the bathroom at his nursing home and they called 911 and brought him to the emergency room. In the emergency room at [facility], he had a CT scan of the brain interpreted as ventricles and sulci show atrophy consistent with advanced age, patchy low attenuation areas in the deep white matter consistent with minimal small vessel ischemic white matter disease. I have a disc, but need to go to Radiology to review the pictures. Other laboratory studies sent along with him include a CBC with a white blood cell count of 2.7, which is otherwise unremarkable. He had a chemistry profile notable for a sodium of 128 and otherwise unremarkable. There is no other history obtainable other than the records, which are transferred over. PAST MEDICAL HISTORY: Notable for: 1. Autism. 2. Cerebral palsy. 3. Epilepsy. 4. Impulse-control disorder. 5. Cataracts. 6. Osteoporosis. 7. Pericarditis. 8. Cellulitis. MEDICATIONS: At his nursing home consist of: 1. Thioridazine 50 mg p.o. b.i.d. 2. Sertraline 50 mg p.o. daily, which was decreased from 100 mg recently, according to the records. 3. Levothyroxine 88 mcg p.o. daily. 4. Cyanocobalamin 1000 mcg p.o. daily. 5. Phenobarbital 60 mg p.o. b.i.d. 6. Carbamazepine 600 mg p.o. b.i.d. 7. Buspirone 15 mg p.o. t.i.d. 8. Fosamax 70 mg p.o. q. week. 9. Vitamin D3. 10. Sodium chloride tablets 1 g p.o. t.i.d. 11. Several p.r.n. medicines. ALLERGIES: According to computer records, he is allergic to CLINDAMYCIN which caused hives and ERYTHROMYCIN BASE which also caused hives; also ADHESIVE TAPE. PHYSICAL EXAMINATION: On physical examination, he has a scaphoid-shaped skull with frontal bossing. He has large hands but small legs. He is lethargic. Skin is warm and dry. Head reveals old scars, but no evidence of fresh trauma. Neck is supple without meningismus. Heart tones are normal. There are no cervical bruits. Oral mucosa looks dry. I do not see any oral trauma. He has a small abrasion on his right knee cap. Neurological Exam: Pupils react weakly from about 2.5 down to 2 mm. Eyes are divergent and he does not fix gaze on the examiner. He is sleepy and opens his eyes intermittently to voice, but nods off again. He exhibits periodic breathing. I could see right optic disc and it looked sharp, but I could not see the left one. Facial musculature revealed decreased movement in general, but symmetrical movement. He did not vocalize at all. Muscle tone in the leg seems slightly increased, but not particularly spastic. Muscle bulk in the upper extremities was more pronounced. There was no spasticity in the arms either. He moved his arms restlessly and his legs restlessly, but otherwise I could not get him to participate in the motor exam. There was no myoclonus or asterixis. Reflexes are normal at knees and ankles. Plantar response were flexor bilaterally. DIAGNOSTIC STUDIES/LAB DATA: Includes the CT from [facility] reviewed above. A CBC notable for white blood cell count 2.7, hemoglobin 12.7, platelet count 254, 000. Chemistry profile from [facility] dated 04/13/19 notable for normal glucose, sodium 128, potassium 3.9, anion gap of 7. Calcium is low at 7.8 and albumin is within normal limits at 3.6. Liver enzymes and CPK are normal. T4 is within normal limits at 6.2, TSH is mildly elevated at 5.42. Urinalysis is unremarkable. Urine specific gravity is low at 1.010. IMPRESSION: Impression is that of progressive and repeated falls. He looks encephalopathic, but he received Haldol and benzodiazepines earlier in the day at [facility], according to the transfer records. He also exhibits some periodic breathing and reportedly may have obstructive sleep apnea. I do not see evidence of significant spasticities and his reflexes are intact, suggesting that it is not due to peripheral nervous system problem. PLAN: Recommend a broad lab work be obtained and therefore I have put the orders into EMR. I reviewed the images of the CT scan sent from [facility]. I would like to get over an oximetry as he may be having significant desaturations at night. At some point, we may try to get an MRI scan of the brain, but probably would need quite a bit of sedation and I do not anticipate doing it on Tuesday evening. I will follow him up tomorrow and see what his laboratory studies reveal. I will continue phenobarbital and carbamazepine for now. [id number]/[facility] #: [id number] XANDER
[2019-04-13] MEDS ORDERED: chlorproMAZINE TAB* 50 MG PO SCH (21:00)
[2019-04-13] MEDS: Enoxaparin(*) 40 MG/0.4 ML SYR SUBCUT SCH (21:40)
[2019-04-13] MEDS: PHENobarbital TAB(*) 30 MG PO SCH (23:18)
[2019-04-13] MEDS: carBAMazepine ER TAB(*) 200 MG PO SCH (23:18)
[2019-04-13] MEDS: Sodium Chloride TAB* 1 GM PO SCH (23:19)
[2019-04-13] MEDS: THIORIDAZINE 50 MG PO SCH (23:19)
[2019-04-14] MEDS ORDERED: LORazepam INJ* 2 MG/ML 1 ML VIAL ONE (04:22)
[2019-04-14] MEDS ORDERED: Lorazepam PYXIS KEY PRN (04:24)
[2019-04-14] MEDS ORDERED: LORazepam INJ* 2 MG/ML 1 ML VIAL IV PUSH ONE (04:25)
[2019-04-14 05:22] LABS: ABS Eosinophils 0.1 10^3/ul (0-0.6); ABS Lymphocytes 0.9 10^3/ul (1.0-4.8); ABS Monocytes 0.6 10^3/ul (0-0.8); ABS Neutrophils 4.1 10^3/ul (1.5-7.7); Eosinophil % 1.3 %; Hematocrit 41 % (42-52); Hemoglobin 14.1 g/dL (14.0-18.0); Lymphocyte % 15.1 %; Mean Corpuscular HGB Conc 34 g/dL (31-36); Mean Corpuscular Hemoglobin 33 pg (27-31); Mean Corpuscular Volume 97 fL (80-94); Mean Platelet Volume 6.6 fL (7.4-10.4); Platelet Count 295 10^3/uL (150-450); Red Blood Count 4.27 10^6 /uL (4.18-5.48); Red Cell Distribution Width 13 % (10.5-15); White Blood Count 5.7 10^3/uL (3.5-10.8)
[2019-04-14] MEDS: Levothyroxine TAB* 88 MCG TAB PO SCH (05:31)
[2019-04-14 05:51] LABS: BUN/Creatinine Ratio 14.5 (8-20); Calcium 8.7 mg/dL (8.6-10.3); EGFR African American 161.8 (>60); EGFR Non-African American 133.7 (>60); Potassium 3.5 mmol/L (3.5-5.0)
[2019-04-14 06:12] LABS: TSH (Thyroid Stimulating Horm) 3.38 mcIU/mL (0.34-5.60)
[2019-04-14 06:14] LABS: Free T3 2.6 pg/mL (2.5-3.9); Free T4 0.57 ng/dL (0.61-1.12)
[2019-04-14] MEDS: Polyethylene Glycol 3350* 17 GM PACKET PO SCH (09:53)
[2019-04-14] MEDS: Psyllium PAK PO SCH (09:53)
[2019-04-14] MEDS: PHENobarbital TAB(*) 30 MG PO SCH ×2 (09:55→19:38)
[2019-04-14] MEDS: THIORIDAZINE 50 MG PO SCH ×2 (09:55→19:40)
[2019-04-14] MEDS: Sertraline* 50 MG TAB PO SCH (09:57)
[2019-04-14] MEDS: Sodium Chloride TAB* 1 GM PO SCH ×3 (09:58→19:39)
[2019-04-14] MEDS: Cyanocobalamin TAB* 500 MCG PO SCH (09:58)
[2019-04-14] MEDS: carBAMazepine ER TAB(*) 200 MG PO SCH ×2 (09:59→19:37)
--- NOTE | 2019-04-14 14:35 | CONS ---
NEUROLOGY FOLLOWUP CONSULTATION: DATE OF FOLLOWUP: 04/14/19 LOCATION: He is an inpatient in [facility]. HOSPITALIST: Dr. Ferreira. CHIEF COMPLAINT: Falls. INTERVAL HISTORY: Since yesterday, Boris is now accompanied by one of the care providers at his [facility]. She has known him for 8 to 9 years. He has not had a seizures for at least 9 years. She notes that he has been falling due to leg weakness from her perspective. He is not more sleepy than he usually is and he eats well. He has not had any diarrhea or nausea or vomiting. She feels he is probably losing weight because his pants seem not to fit as well. She has not noticed any lethargy or change in behaviors. He is normally very active and walks up and down stairs to his bedroom. He just seems to have episodes where his legs gave out on him. MEDICATIONS: Reviewed and he is on: 1. Carbamazepine 600 mg p.o. b.i.d. 2. Vitamin B12 1000 mcg p.o. daily. 3. Lovenox 40 mg subcutaneous q.24 hours. 4. Levothyroxine 88 mcg p.o. daily. 5. Zofran 4 mg IV q.4 hours as needed for nausea and vomiting. 6. Phenobarbital 60 mg p.o. b.i.d. 7. MiraLAX 17 g per day. 8. Sertraline 75 mg p.o. daily. 9. Mellaril 50 mg p.o. b.i.d. PHYSICAL EXAM: On examination, he has been afebrile throughout his hospital stay. Blood pressure is running about 140/80 to 90, heart rate is running in the 80s and regular, respiratory rate is 16 and oxygen saturation is 96% on room air. Neurologically, he is alert. He is nonverbal. He makes occasional sounds, but no words. He moves his arms restlessly and vigorously. There is no spasticity in arms or legs. He is able to hold up both legs well. His arms are quite muscular and his legs are lessened so. There is no focal atrophy, however. He has normal reflexes at knees and trace at ankles. Plantar responses are flexor bilaterally. He fist pumps to communicate. He looks around the room with divergent gaze. DIAGNOSTIC STUDIES/LAB DATA: Laboratory data notable for a normal CBC other than a hematocrit of 41%. MCV is mildly elevated at 97. Sedimentation rate yesterday was 0. Chemistries are notable for sodium down to 125 this morning, glucose is 132, ionized calcium is low at 1.03. Liver enzymes are normal, but ammonia is elevated at 66. CRP from yesterday is normal at 2.25. Vitamin B12 is elevated at 956, free T4 is low at 0.57 and free T3 is normal at 2.6. Parathyroid hormone intact is elevated at 93.5, cortisol is within normal limits at 21.27. Pulse oximetry from overnight is notable for oxygen saturation less than 90%, 7.3% of the time. IMPRESSION AND PLAN: Impression is that of repeated falls of unclear etiology. He has a number of laboratory abnormalities including an elevated ammonia and low calcium. However, his liver enzymes are not elevated and so I am not sure if the ammonia is significant or not. 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 The history from a healthcare provider who knows him well is that he is falling and it seems his legs are weak, but she has not really described that he is encephalopathic. I put in for an MRI scan of his brain and cervical spine after the weekend. Also, an EEG has been ordered. There is no evidence he has had seizures for years, so I am going to cut back on his carbamazepine, which is likely causing his hyponatremia and possibly osteoporosis. His thyroid hormones are little bit low. I am going to check for antithyroid antibodies as well. He may need an Endocrine consult. I will check a creatinine kinase level. I will continue to follow him along. [id number]/[facility] #: [id number] [facility] CENTERMariann
--- NOTE | 2019-04-14 14:54 | PN ---
Subjective Date of Service: 04/14/19 Interval History: Agitated. No acute events overnight Objective Active Medications: Acetaminophen (Tylenol Tab*) 650 mg PO Q4H PRN PRN Reason: FEVER/PAIN Carbamazepine (Tegretol Xr Tab(*)) 400 mg PO BID [facility] Cyanocobalamin (Vitamin B12 Tab*) 1,000 mcg PO DAILY [facility] Last Admin: 04/14/19 09:58 Dose: 1,000 mcg Enoxaparin Sodium (Lovenox(*)) 40 mg SUBCUT Q24H [facility] Last Admin: 04/13/19 21:40 Dose: 40 mg Levothyroxine Sodium (Synthroid Tab*) 88 mcg PO DAILY@0600 [facility] Last Admin: 04/14/19 05:31 Dose: 88 mcg Miscellaneous (Ativan Pyxis Holliday) 1 ea N/A .PYXIS HOLLIDAY PRN PRN Reason: PER PROTOCOL Ondansetron HCl (Zofran Inj*) 4 mg IV Q4H PRN PRN Reason: NAUSEA/VOMITING Phenobarbital (Phenobarbital Tab(*)) 60 mg PO BID [facility] Last Admin: 04/14/19 09:55 Dose: 60 mg Polyethylene Glycol/Electrolytes (Miralax*) 17 gm PO DAILY [facility] Last Admin: 04/14/19 09:53 Dose: 17 gm Psyllium Hydrophilic Mucilloid (Metamucil Matheus*) 1 pkt PO DAILY [facility] Last Admin: 04/14/19 09:53 Dose: 1 pkt Sertraline HCl (Zoloft*) 75 mg PO DAILY [facility] Last Admin: 04/14/19 09:57 Dose: 75 mg Sodium Chloride (Sodium Chloride Tab*) 1 gm PO TID [facility] Last Admin: 04/14/19 09:58 Dose: 1 gm Thioridazine HCl (Mellaril*) 50 mg PO BID [facility] Last Admin: 04/14/19 09:55 Dose: 50 mg Vital Signs - 8 hr 04/14/19 04/14/19 04/14/19 07:54 08:00 09:55 Temperature 97.6 F Pulse Rate 76 Respiratory 18 18 16 Rate Blood Pressure 144/85 (mmHg) O2 Sat by Pulse 99 Oximetry 04/14/19 11:46 Temperature 97.5 F Pulse Rate 92 Respiratory 16 Rate Blood Pressure 138/90 (mmHg) O2 Sat by Pulse 96 Oximetry Oxygen Devices in Use Now: None Eyes: No Scleral Icterus Ears/Nose/Mouth/Throat: NL Teeth, Lips, Gums Respiratory: Symmetrical Chest Expansion and Respiratory Effort Cardiovascular: NL Sounds; No Murmurs; No JVD Abdominal: NL Sounds; No Tenderness; No Distention Neurological: - - does not talk at baseline. not responding to questions Result Diagrams: 04/14/19 05:06 04/14/19 05:06 Assess/Plan/Problems-Billing Assessment: - Patient Problems (1) Falls Current Visit: Yes Status: Acute Comment: Appreciate neuro input Workup in progress MRI when more stable (2) Hyponatremia Current Visit: Yes Status: Acute Code(s): E87.1 - HYPO-OSMOLALITY AND HYPONATREMIA SNOMED Code(s): 30192811 Comment: Likely from SIADH and on salt tabs However will check urine osm, serum osm urine sodium and serum uric acid to evaluate if urine osm is not too high, can add IVF to improve sodium (3) Encephalopathy Current Visit: Yes Status: Acute Code(s): G93.40 - ENCEPHALOPATHY, UNSPECIFIED SNOMED Code(s): 80606344 Comment: Increased ammonia Will give lactulose and recheck Can also be underlying urea cycle disorder in setting of CP and autism trigerred by stress.CK also elevated (4) Rhabdomyolysis Current Visit: Yes Status: Acute Code(s): M62.82 - RHABDOMYOLYSIS SNOMED Code(s): 665838549 Comment: Mild Will add min IVF after urine studies and monitor Na closely
[2019-04-14] MEDS ORDERED: Calcium Gluconate INJ* 1 GM in NS 0.9% 50 ML* 50 ML IVPB ONE (15:30)
[2019-04-14] MEDS: Lactulose* 15 ML UDC PO SCH ×2 (15:50→19:38)
[2019-04-14 16:02] LABS: Uric Acid 1.7 mg/dL (4.4-7.6)
[2019-04-14 16:25] LABS: Thyroid Peroxidase Antibodies 323.6 IU/mL (<9)
[2019-04-14 16:36] LABS: Thyroglobulin Antibody II 0.5 IU/mL (<4.0)
[2019-04-14 18:16] LABS: Urine Appearance Clear; Urine Bilirubin Negative (Negative); Urine Blood Negative (Negative); Urine Color Yellow; Urine Glucose Negative (Negative); Urine Ketones Negative (Negative); Urine Nitrite Negative (Negative); Urine Protein Negative (Negative); Urine Specific Gravity 1.011 (1.010-1.030); Urine Urobilinogen Negative (Negative)
[2019-04-14] MEDS: Enoxaparin(*) 40 MG/0.4 ML SYR SUBCUT SCH (19:36)
[2019-04-15 05:36] LABS: ABS Eosinophils 0.1 10^3/ul (0-0.6); ABS Lymphocytes 1.4 10^3/ul (1.0-4.8); ABS Monocytes 0.7 10^3/ul (0-0.8); ABS Neutrophils 3.2 10^3/ul (1.5-7.7); Eosinophil % 2.4 %; Hematocrit 41 % (42-52); Hemoglobin 13.8 g/dL (14.0-18.0); Lymphocyte % 25.6 %; Mean Corpuscular HGB Conc 34 g/dL (31-36); Mean Corpuscular Hemoglobin 33 pg (27-31); Mean Corpuscular Volume 97 fL (80-94); Mean Platelet Volume 6.8 fL (7.4-10.4); Platelet Count 274 10^3/uL (150-450); Red Blood Count 4.24 10^6 /uL (4.18-5.48); Red Cell Distribution Width 13 % (10.5-15); White Blood Count 5.4 10^3/uL (3.5-10.8)
[2019-04-15] MEDS: Levothyroxine TAB* 88 MCG TAB PO SCH (05:46)
[2019-04-15 05:53] LABS: BUN/Creatinine Ratio 17.2 (8-20); EGFR African American 174.7 (>60); EGFR Non-African American 144.4 (>60)
[2019-04-15] MEDS ORDERED: NS 0.9% 500 ML* 500 ML IV ONE (08:26)
[2019-04-15] MEDS: carBAMazepine ER TAB(*) 200 MG PO SCH ×2 (08:48→19:54)
[2019-04-15] MEDS: THIORIDAZINE 50 MG PO SCH ×2 (08:49→19:57)
[2019-04-15] MEDS: Sodium Chloride TAB* 1 GM PO SCH ×3 (08:49→19:57)
[2019-04-15] MEDS: Cyanocobalamin TAB* 500 MCG PO SCH (08:49)
[2019-04-15] MEDS: Polyethylene Glycol 3350* 17 GM PACKET PO SCH (08:49)
[2019-04-15] MEDS: Psyllium PAK PO SCH (08:49)
[2019-04-15] MEDS: PHENobarbital TAB(*) 30 MG PO SCH ×2 (08:50→19:57)
[2019-04-15] MEDS: Sertraline* 50 MG TAB PO SCH (08:50)
[2019-04-15] MEDS: Lactulose* 15 ML UDC PO SCH ×3 (09:37→19:55)
--- NOTE | 2019-04-15 11:07 | PN ---
Subjective Date of Service: 04/15/19 Length of Stay: 2 Days Interval History: Per the nursing notes he is more awake. He stood up by himself, alarm went off , walked to the bathroom with assistance. No falls. He remains non-verbal but not agitated. No other new issues overnight. Objective Active Medications: Acetaminophen (Tylenol Tab*) 650 mg PO Q4H PRN PRN Reason: FEVER/PAIN Carbamazepine (Tegretol Xr Tab(*)) 400 mg PO BID [facility] Last Admin: 04/15/19 08:48 Dose: 400 mg Cyanocobalamin (Vitamin B12 Tab*) 1,000 mcg PO DAILY [facility] Last Admin: 04/15/19 08:49 Dose: 1,000 mcg Enoxaparin Sodium (Lovenox(*)) 40 mg SUBCUT Q24H [facility] Last Admin: 04/14/19 19:36 Dose: 40 mg Sodium Chloride (Ns 0.9% 500 Ml*) 500 mls @ 100 mls/hr IV ONCE ONE Stop: 04/15/19 13:25 Last Admin: 04/15/19 10:13 Dose: 100 mls/hr Lactulose (Lactulose*) 15 ml PO TID [facility] Last Admin: 04/15/19 09:37 Dose: 15 ml Levothyroxine Sodium (Synthroid Tab*) 88 mcg PO DAILY@0600 [facility] Last Admin: 04/15/19 05:46 Dose: 88 mcg Miscellaneous (Ativan Pyxis Holliday) 1 ea N/A .PYXIS HOLLIDAY PRN PRN Reason: PER PROTOCOL Ondansetron HCl (Zofran Inj*) 4 mg IV Q4H PRN PRN Reason: NAUSEA/VOMITING Phenobarbital (Phenobarbital Tab(*)) 60 mg PO BID [facility] Last Admin: 04/15/19 08:50 Dose: 60 mg Polyethylene Glycol/Electrolytes (Miralax*) 17 gm PO DAILY [facility] Last Admin: 04/15/19 08:49 Dose: 17 gm Psyllium Hydrophilic Mucilloid (Metamucil Matheus*) 1 pkt PO DAILY [facility] Last Admin: 04/15/19 08:49 Dose: 1 pkt Sertraline HCl (Zoloft*) 75 mg PO DAILY [facility] Last Admin: 04/15/19 08:50 Dose: 75 mg Sodium Chloride (Sodium Chloride Tab*) 1 gm PO TID [facility] Last Admin: 04/15/19 08:49 Dose: 1 gm Thioridazine HCl (Mellaril*) 50 mg PO BID [facility] Last Admin: 04/15/19 08:49 Dose: 50 mg Vital Signs 04/14/19 04/14/19 04/14/19 11:46 19:22 19:38 Temperature 97.5 F 97.3 F Pulse Rate 92 80 Respiratory 16 18 16 Rate Blood Pressure 138/90 149/83 (mmHg) O2 Sat by Pulse 96 98 Oximetry 04/14/19 04/14/19 04/14/19 20:00 21:40 23:33 Temperature 97.8 F Pulse Rate 65 Respiratory 18 16 16 Rate Blood Pressure 124/80 (mmHg) O2 Sat by Pulse 99 Oximetry 04/15/19 04/15/19 04/15/19 03:22 06:40 08:49 Temperature 98.4 F 97.8 F Pulse Rate 67 77 Respiratory 12 18 16 Rate Blood Pressure 129/75 117/72 (mmHg) O2 Sat by Pulse 98 96 Oximetry 04/15/19 08:50 Temperature Pulse Rate Respiratory 16 Rate Blood Pressure (mmHg) O2 Sat by Pulse Oximetry Intake and Output Last 24 Hours 04/13/19 04/14/19 04/15/19 04/16/19 06:59 06:59 06:59 06:59 Intake Total 0 4260 Output Total 1600 Balance 0 2660 Weight 149 lb 3.2 oz Intake: Oral 0 4260 Output: Urine 1600 Other: Estimated Void Medium # Bowel Movements 1 Estimated Stool Amount Large # Voids 1 4 Oxygen Devices in Use Now: None Neurology Exam: General: Well nourished, well developed, and in no acute distress HEENT: Atraumtic, poor dentition, no teeth in place Neck: Supple Chest: Clear to auscultation bilaterally Cardiovascular: Regular rate and rhythm Abdomen: Soft, non-tender/non-distended Extremities: No clubbing Neurological Findings: Awake,non-verbal, deaf, not following. Looks around the room, moves arms and legs Speech: non-verbal Cranial Nerve: PERRL, divergent gaze with exotropia left eye, no obvious nystagmus, no ptosis, blinks, will not open mouth or stick out tongue, deaf, face grossly symmetricPERRL Motor: Moving all extremities antigravity Deep Tendon Reflex: 1+ at BC, P, W/D B bilaterally No tremors, no flapping movements. Gait: Not tested this am Result Diagrams: 04/15/19 05:25 04/15/19 05:25 Assessment/Plan Assessment: 58 year old with autism, CP, Deaf and Mute, with progressive weakness and falls. History of seizures as well but none reported in years. On Tegretol and Phenobarb. Falls have been ongoing for at least a month, unclear etiology: --Plan for MRI Brain and C-spine on Tuesday --CPK slightly elevated but improving, suspect traumatic from falls, continue to follow --Metabolic --Hyponatremia: likely related to Tegretol. In the process of slowly weaning down some, no seizures in years --Hypocalcemia: replace as necessary --Hyperamonemia: LFTs ok, unclear signficiance. Lactulose given --Endocrinologic: --Free T4 low with elevated Thyroid peroxidase Ab: recommend Endocrine consult at some point --H/O CP/Autism --Mute and Deaf: major impediments to assessing his symptoms. Static condition --H/O Seziures, on Tegretol and Phenobarb with no seizures reported for years --Hyponatremia and Osteoporosis likely secondary --Slow wean down on Tegretol, no plans to stop completely at this point. --Will check trough level in am --Continue Phenobarb --Will check trough level in am His falls are likely multifactorial in nature. Continue workup as above. PT for him, given his condition, will be very difficult. Continue full assist and bed alarm. I will be off tomorrow but will sign off to oncoming neurologist to follow.
[2019-04-15 14:27] LABS: Urine Potassium Concentration 15.3 mmol/L; Urine Sodium Concentration < 18 mmol/L
[2019-04-15] MEDS ORDERED: Calcium Gluconate INJ* 1 GM in NS 0.9% 50 ML* 50 ML IVPB ONE (16:15)
--- NOTE | 2019-04-15 16:27 | PN ---
Subjective Date of Service: 04/15/19 Interval History: More alert and walking today. Less agitated today Objective Active Medications: Acetaminophen (Tylenol Tab*) 650 mg PO Q4H PRN PRN Reason: FEVER/PAIN Carbamazepine (Tegretol Xr Tab(*)) 400 mg PO BID [facility] Last Admin: 04/15/19 08:48 Dose: 400 mg Cyanocobalamin (Vitamin B12 Tab*) 1,000 mcg PO DAILY [facility] Last Admin: 04/15/19 08:49 Dose: 1,000 mcg Enoxaparin Sodium (Lovenox(*)) 40 mg SUBCUT Q24H [facility] Last Admin: 04/14/19 19:36 Dose: 40 mg Calcium Gluconate 1 gm/ Sodium (Chloride) 60 mls @ 60 mls/hr IVPB ONCE ONE Stop: 04/15/19 17:14 Lactulose (Lactulose*) 30 ml PO TID [facility] Levothyroxine Sodium (Synthroid Tab*) 88 mcg PO DAILY@0600 [facility] Last Admin: 04/15/19 05:46 Dose: 88 mcg Miscellaneous (Ativan Pyxis Holliday) 1 ea N/A .PYXIS HOLLIDAY PRN PRN Reason: PER PROTOCOL Ondansetron HCl (Zofran Inj*) 4 mg IV Q4H PRN PRN Reason: NAUSEA/VOMITING Phenobarbital (Phenobarbital Tab(*)) 60 mg PO BID [facility] Last Admin: 04/15/19 08:50 Dose: 60 mg Polyethylene Glycol/Electrolytes (Miralax*) 17 gm PO DAILY [facility] Last Admin: 04/15/19 08:49 Dose: 17 gm Psyllium Hydrophilic Mucilloid (Metamucil Matheus*) 1 pkt PO DAILY [facility] Last Admin: 04/15/19 08:49 Dose: 1 pkt Sertraline HCl (Zoloft*) 75 mg PO DAILY [facility] Last Admin: 04/15/19 08:50 Dose: 75 mg Sodium Chloride (Sodium Chloride Tab*) 1 gm PO TID [facility] Last Admin: 04/15/19 15:11 Dose: 1 gm Thioridazine HCl (Mellaril*) 50 mg PO BID [facility] Last Admin: 04/15/19 08:49 Dose: 50 mg Vital Signs - 8 hr 04/15/19 04/15/19 04/15/19 08:49 08:50 12:17 Temperature 97.8 F 98.1 F Pulse Rate 77 83 Respiratory 16 16 18 Rate Blood Pressure 117/72 137/80 (mmHg) O2 Sat by Pulse 96 97 Oximetry 04/15/19 16:07 Temperature 97.9 F Pulse Rate 79 Respiratory 16 Rate Blood Pressure 147/90 (mmHg) O2 Sat by Pulse 97 Oximetry Oxygen Devices in Use Now: None Eyes: No Scleral Icterus Ears/Nose/Mouth/Throat: NL Teeth, Lips, Gums Neck: NL Appearance and Movements; NL JVP Respiratory: Symmetrical Chest Expansion and Respiratory Effort, Clear to Auscultation Cardiovascular: NL Sounds; No Murmurs; No JVD Abdominal: NL Sounds; No Tenderness; No Distention Extremities: No Edema Neurological: - - at baseline does not talk.calm Result Diagrams: 04/15/19 05:25 04/15/19 05:25 Assess/Plan/Problems-Billing Assessment: -- - Patient Problems (1) Falls Current Visit: Yes Status: Acute Comment: Appreciate neuro input Workup in progress MRI ordered for Tue multifactorial multiple electrolyte abn (2) Hyponatremia Current Visit: Yes Status: Acute Code(s): E87.1 - HYPO-OSMOLALITY AND HYPONATREMIA SNOMED Code(s): 02732410 Comment: Multifactorial On multiple psych meds including carbamazipine that can cause hyponatremia on salt tabs as outpatient, continued SIADH was considered urine osm reviewed,urine Na +K < that of NS and less risk of hyponatremia at present time with Ns.Will give 500 cc ns for ck elevation, mild rhabdo and recheck bmp at 3 pm poss psychogenic polydipsia also strict i/o tsh,cortisol ordered (3) Encephalopathy Current Visit: Yes Status: Acute Code(s): G93.40 - ENCEPHALOPATHY, UNSPECIFIED SNOMED Code(s): 39573416 Comment: Increased ammonia Started on lactulose Can also be underlying urea cycle disorder in setting of CP and autism trigerred by stress.CK also elevated Improved mental status continue lactulose and recheck Nh3 in am (4) Rhabdomyolysis Current Visit: Yes Status: Acute Code(s): M62.82 - RHABDOMYOLYSIS SNOMED Code(s): 344395145 Comment: Mild Improving Mild IVF 500cc (5) Hypocalcemia Current Visit: Yes Status: Acute Code(s): E83.51 - HYPOCALCEMIA SNOMED Code(s): 9839278 Comment: Replaced yesterday 1g today Status and Disposition: PT/OT
[2019-04-15 17:30] LABS: BUN/Creatinine Ratio 24.1 (8-20); Calcium 8.8 mg/dL (8.6-10.3); EGFR African American 174.7 (>60); EGFR Non-African American 144.4 (>60); Potassium 4.3 mmol/L (3.5-5.0)
[2019-04-15] MEDS: Enoxaparin(*) 40 MG/0.4 ML SYR SUBCUT SCH (19:54)
[2019-04-16] MEDS: Levothyroxine TAB* 88 MCG TAB PO SCH (05:18)
[2019-04-16 06:14] LABS: ABS Eosinophils 0.1 10^3/ul (0-0.6); ABS Lymphocytes 1.2 10^3/ul (1.0-4.8); ABS Monocytes 0.6 10^3/ul (0-0.8); ABS Neutrophils 2.3 10^3/ul (1.5-7.7); Eosinophil % 2.7 %; Hematocrit 39 % (42-52); Hemoglobin 13.3 g/dL (14.0-18.0); Lymphocyte % 28.5 %; Mean Corpuscular HGB Conc 34 g/dL (31-36); Mean Corpuscular Hemoglobin 33 pg (27-31); Mean Corpuscular Volume 96 fL (80-94); Mean Platelet Volume 6.6 fL (7.4-10.4); Platelet Count 291 10^3/uL (150-450); Red Blood Count 4.03 10^6 /uL (4.18-5.48); Red Cell Distribution Width 13 % (10.5-15); White Blood Count 4.3 10^3/uL (3.5-10.8)
[2019-04-16 06:31] LABS: BUN/Creatinine Ratio 18.5 (8-20); Calcium 8.8 mg/dL (8.6-10.3); EGFR African American 189.8 (>60); EGFR Non-African American 156.8 (>60); Potassium 3.7 mmol/L (3.5-5.0)
[2019-04-16 06:37] LABS: Carbamazepine 5.8 mcg/mL (4.0-12.0)
[2019-04-16] MEDS: Psyllium PAK PO SCH (07:31)
[2019-04-16] MEDS: Polyethylene Glycol 3350* 17 GM PACKET PO SCH (07:34)
[2019-04-16] MEDS: Sodium Chloride TAB* 1 GM PO SCH ×3 (07:38→20:36)
[2019-04-16] MEDS: Cyanocobalamin TAB* 500 MCG PO SCH (07:38)
[2019-04-16] MEDS: PHENobarbital TAB(*) 30 MG PO SCH ×2 (07:38→20:35)
[2019-04-16] MEDS: carBAMazepine ER TAB(*) 200 MG PO SCH ×2 (07:39→20:34)
[2019-04-16] MEDS: Sertraline* 50 MG TAB PO SCH (07:39)
[2019-04-16] MEDS: THIORIDAZINE 50 MG PO SCH ×2 (07:39→20:36)
[2019-04-16] MEDS: Lactulose* 15 ML UDC PO SCH ×3 (07:43→20:35)
--- NOTE | 2019-04-16 09:14 | PN ---
Subjective Date of Service: 04/16/19 Interval History: HD # 3 on 04/16 58 year old with autism, CP, deaf/mute, hx of seizure d/o, admitted with progressive weakness and falls, mild rhabdo and e-lyte abnormalities Overnight no acute events, VSS Labs:HypONa to 127 and HyperAmmonia This afternoon seen with caregiver, she reports he is at his baseline, coloring , interactive, some hand flapping, participates in minimal sign language ( bathroom, food, play)-discusse dplan of care with primary care md who relayed ot his sister Objective Active Medications: Acetaminophen (Tylenol Tab*) 650 mg PO Q4H PRN PRN Reason: FEVER/PAIN Carbamazepine (Tegretol Xr Tab(*)) 400 mg PO BID [facility] Last Admin: 04/16/19 07:39 Dose: 400 mg Cyanocobalamin (Vitamin B12 Tab*) 1,000 mcg PO DAILY [facility] Last Admin: 04/16/19 07:38 Dose: 1,000 mcg Enoxaparin Sodium (Lovenox(*)) 40 mg SUBCUT Q24H [facility] Last Admin: 04/15/19 19:54 Dose: 40 mg Lactulose (Lactulose*) 30 ml PO TID [facility] Last Admin: 04/16/19 07:43 Dose: 30 ml Levothyroxine Sodium (Synthroid Tab*) 88 mcg PO DAILY@0600 [facility] Last Admin: 04/16/19 05:18 Dose: 88 mcg Miscellaneous (Ativan Pyxis Holliday) 1 ea N/A .PYXIS HOLLIDAY PRN PRN Reason: PER PROTOCOL Ondansetron HCl (Zofran Inj*) 4 mg IV Q4H PRN PRN Reason: NAUSEA/VOMITING Phenobarbital (Phenobarbital Tab(*)) 60 mg PO BID [facility] Last Admin: 04/16/19 07:38 Dose: 60 mg Polyethylene Glycol/Electrolytes (Miralax*) 17 gm PO DAILY [facility] Last Admin: 04/16/19 07:34 Dose: 17 gm Psyllium Hydrophilic Mucilloid (Metamucil Matheus*) 1 pkt PO DAILY [facility] Last Admin: 04/16/19 07:31 Dose: 1 pkt Sertraline HCl (Zoloft*) 75 mg PO DAILY [facility] Last Admin: 04/16/19 07:39 Dose: 75 mg Sodium Chloride (Sodium Chloride Tab*) 1 gm PO TID [facility] Last Admin: 04/16/19 07:38 Dose: 1 gm Thioridazine HCl (Mellaril*) 50 mg PO BID [facility] Last Admin: 04/16/19 07:39 Dose: 50 mg Vital Signs - 8 hr 04/16/19 04/16/19 05:20 07:38 Temperature 97.4 F Pulse Rate 77 Respiratory 18 14 Rate Blood Pressure 121/65 (mmHg) O2 Sat by Pulse 95 Oximetry Oxygen Devices in Use Now: None Appearance: Adult male fair eye contact coloring in no acute distress Ears/Nose/Mouth/Throat: NL Teeth, Lips, Gums Neck: NL Appearance and Movements; NL JVP, Trachea Midline Respiratory: Symmetrical Chest Expansion and Respiratory Effort, Clear to Auscultation Cardiovascular: NL Sounds; No Murmurs; No JVD, RRR Abdominal: NL Sounds; No Tenderness; No Distention Lymphatic: No Cervical Adenopathy Extremities: No Edema Skin: No Rash or Ulcers Neurological: - - Spastic, minimal signing Result Diagrams: 04/16/19 06:08 04/16/19 06:08 Assess/Plan/Problems-Billing Assessment: 58 year old with autism, CP, deaf/mute, hx of seizure d/o, admitted with progressive weakness and falls, mild rhabdo and e-lyte abnormalities - Patient Problems (1) Falls Current Visit: Yes Status: Acute Comment: - Multifactorial Elyte disturbance - Plan for MRI Brain and C-spine on Tuesday, EEG - PT as he is able, improving on his own (2) Encephalopathy Current Visit: Yes Status: Acute Code(s): G93.40 - ENCEPHALOPATHY, UNSPECIFIED SNOMED Code(s): 72787771 Comment: - Multifactoria, mild rhabdo, falls, elyte distrubance - Ammonia increased, possibly 2/2 to underlying urea cycle d/o (3) Hypocalcemia Current Visit: Yes Status: Acute Code(s): E83.51 - HYPOCALCEMIA SNOMED Code(s): 7943146 Comment: - Replaced 04/14 (4) Hyponatremia Current Visit: Yes Status: Acute Code(s): E87.1 - HYPO-OSMOLALITY AND HYPONATREMIA SNOMED Code(s): 80650326 Comment: - Multifactorial - Hyponatremia: likely related to Tegretol - Thyroid abnormality as documented, TSH normal T4 slighlty low, high antiTPO, endocrine on non urgent basis (5) Rhabdomyolysis Current Visit: Yes Status: Acute Code(s): M62.82 - RHABDOMYOLYSIS SNOMED Code(s): 864837795 Comment: - Mild, Improving (6) Hyperammonemia Current Visit: Yes Status: Acute Code(s): E72.20 - DISORDER OF UREA CYCLE METABOLISM, UNSPECIFIED SNOMED Code(s): 9614997 Comment: - LFTS normal, CTM (7) DVT prophylaxis Current Visit: Yes Status: Acute Code(s): Z29.9 - ENCOUNTER FOR PROPHYLACTIC MEASURES, UNSPECIFIED SNOMED Code(s): 347533587 Comment: - Lovenox (8) Full code status Current Visit: Yes Status: Acute Code(s): Z78.9 - OTHER SPECIFIED HEALTH STATUS SNOMED Code(s): 885665651 Status and Disposition: PT/OT, inpatient, change in his ambulatory status may change housing
--- NOTE | 2019-04-16 12:46 | PN ---
Subjective Date of Service: 04/16/19 Length of Stay: 3 Days Neurology is following for gait abnormalities. Interval History: Review of the history: Mr. Boris Grubbs is a 58-year-old man who has history of Autism, developmental delay, mute, and deaf who [place] [facility] [place] weakness and falls. The patient has history of seizures but has not had seizures in years. He is taking Tegretol and phenobarb. Falls are not new and have been ongoing for over a month. He was found to have multiple metabolic derangement including hyponatremia, hypocalcemia, and hyperammonemia. He is scheduled to have an MRI brain and C-spine scheduled for Tuesday. B12 was checked and is 956. TSH: 3.38 but free T4 is low at 0.57. Thyroid peroxidase is elevated. The patient has not had any intracranial imaging. Today, the patient was able to walk with minimal assist to the bathroom. He can point to objects on the paper and communicate effectively. He pointed to me that he needs help going to the bathroom. Otherwise, he seems comfortable and is drawing on a piece of paper. Review of Systems: Unable to obtain due to patient's developmental disability. Objective Active Medications: Acetaminophen (Tylenol Tab*) 650 mg PO Q4H PRN PRN Reason: FEVER/PAIN Carbamazepine (Tegretol Xr Tab(*)) 400 mg PO BID [facility] Last Admin: 04/16/19 07:39 Dose: 400 mg Cyanocobalamin (Vitamin B12 Tab*) 1,000 mcg PO DAILY [facility] Last Admin: 04/16/19 07:38 Dose: 1,000 mcg Enoxaparin Sodium (Lovenox(*)) 40 mg SUBCUT Q24H [facility] Last Admin: 04/15/19 19:54 Dose: 40 mg Lactulose (Lactulose*) 30 ml PO TID [facility] Last Admin: 04/16/19 07:43 Dose: 30 ml Levothyroxine Sodium (Synthroid Tab*) 88 mcg PO DAILY@0600 [facility] Last Admin: 04/16/19 05:18 Dose: 88 mcg Miscellaneous (Ativan Pyxis Holliday) 1 ea N/A .PYXIS HOLLIDAY PRN PRN Reason: PER PROTOCOL Ondansetron HCl (Zofran Inj*) 4 mg IV Q4H PRN PRN Reason: NAUSEA/VOMITING Phenobarbital (Phenobarbital Tab(*)) 60 mg PO BID [facility] Last Admin: 04/16/19 07:38 Dose: 60 mg Polyethylene Glycol/Electrolytes (Miralax*) 17 gm PO DAILY [facility] Last Admin: 04/16/19 07:34 Dose: 17 gm Psyllium Hydrophilic Mucilloid (Metamucil Matheus*) 1 pkt PO DAILY [facility] Last Admin: 04/16/19 07:31 Dose: 1 pkt Sertraline HCl (Zoloft*) 75 mg PO DAILY [facility] Last Admin: 04/16/19 07:39 Dose: 75 mg Sodium Chloride (Sodium Chloride Tab*) 1 gm PO TID [facility] Last Admin: 04/16/19 07:38 Dose: 1 gm Thioridazine HCl (Mellaril*) 50 mg PO BID [facility] Last Admin: 04/16/19 07:39 Dose: 50 mg Vital Signs 04/15/19 04/15/19 04/15/19 16:07 19:57 20:00 Temperature 97.9 F Pulse Rate 79 Respiratory 16 18 18 Rate Blood Pressure 147/90 (mmHg) O2 Sat by Pulse 97 Oximetry 04/15/19 04/15/19 04/16/19 20:12 22:00 00:12 Temperature 97.8 F 98.1 F Pulse Rate 84 69 Respiratory 18 18 Rate Blood Pressure 161/109 117/61 (mmHg) O2 Sat by Pulse 100 95 Oximetry 04/16/19 04/16/19 04/16/19 05:20 07:38 07:55 Temperature 97.4 F 98.1 F Pulse Rate 77 73 Respiratory 18 14 17 Rate Blood Pressure 121/65 133/87 (mmHg) O2 Sat by Pulse 95 98 Oximetry 04/16/19 04/16/19 08:00 10:15 Temperature Pulse Rate Respiratory 16 16 Rate Blood Pressure (mmHg) O2 Sat by Pulse Oximetry Intake and Output Last 24 Hours 04/14/19 04/15/19 04/16/19 04/17/19 06:59 06:59 06:59 06:59 Intake Total 0 4260 730 1200 Output Total 1600 1400 Balance 0 2660 -670 1200 Weight 149 lb 3.2 oz Intake: Oral 0 4260 730 1200 Output: Urine 1600 1400 Other: Estimated Void Medium # Bowel Movements 1 Estimated Stool Amount Large # Voids 1 4 Oxygen Devices in Use Now: None Neurology Exam: General: Well nourished, well developed, mute and deaf man in no distress. HEENT: Normocephelic/atraumatic, sclera anicteric, mucous membranes moist Neck: Supple Chest: Clear to auscultation bilaterally Cardiovascular: Regular rate and rhythm without murmurs, rubs, gallops Abdomen: Soft, non-tender/non-distended Extremities: No clubbing, cyanosis, or edema Neurological Findings: Communicates by using a paper with objects to point to. He is deaf and mute. Cranial Nerve: PERRL, dysconjugate gaze. Motor: s/s throughout, proximal and distal extremities x4 tone/bulk normal Sensation: intact to LT/PP bilaterally upper and lower extremities Deep Tendon Reflex: 1+ symmetric in the upper/lower extremities, Babinski - down going Finger to nose, rapid alternating movements intact without tremor, no dysdiadochokinesia Gait: ataxic wide gait, requiring one person assist. Result Diagrams: 04/16/19 06:08 04/16/19 06:08 Assessment/Plan 1. Increase falls in a patient with developmental delay, CP/autism, deaf, and mute- The etiology is unknown. The metabolic disturbance may be contributing. Other possible causes include progression of his CP causing spasticity, anti-seizure medications induced chronic cerebellar atrophy/neuropathy, or cervical spine pathology. -Pending MRI brain and C spine without contrast - He will need to be slowly weaned off anti-seizure medications as an outpatient if an etiology for the falls is not discovered. - Neuro checks every 4 hours - Continue supportive care - I will continue to follow.
[2019-04-16] MEDS: Acetaminophen TAB* 325 MG PO PRN (16:21)
[2019-04-16] MEDS: Enoxaparin(*) 40 MG/0.4 ML SYR SUBCUT SCH (20:34)
[2019-04-17] MEDS: Levothyroxine TAB* 88 MCG TAB PO SCH (05:14)
[2019-04-17 05:52] LABS: BUN/Creatinine Ratio 21.2 (8-20); Calcium 8.6 mg/dL (8.6-10.3); EGFR African American 198.2 (>60); EGFR Non-African American 163.8 (>60); Potassium 3.8 mmol/L (3.5-5.0)
--- NOTE | 2019-04-17 07:35 | PN ---
Subjective Date of Service: 04/17/19 Interval History: HD # 4 on 04/17 58 year old with autism, CP, deaf/mute, hx of seizure d/o, admitted with progressive weakness and falls, mild rhabdo and e-lyte abnormalities Overnight no acute events, VSS Labs:HypONa to 128 and HyperAmmonia, Ca normal This morning pleasant, playing with blocks, does particpate in some signing Objective Active Medications: Acetaminophen (Tylenol Tab*) 650 mg PO Q4H PRN PRN Reason: FEVER/PAIN Last Admin: 04/16/19 16:21 Dose: 650 mg Carbamazepine (Tegretol Xr Tab(*)) 400 mg PO BID [facility] Last Admin: 04/16/19 20:34 Dose: 400 mg Cyanocobalamin (Vitamin B12 Tab*) 1,000 mcg PO DAILY [facility] Last Admin: 04/16/19 07:38 Dose: 1,000 mcg Enoxaparin Sodium (Lovenox(*)) 40 mg SUBCUT Q24H [facility] Last Admin: 04/16/19 20:34 Dose: 40 mg Lactulose (Lactulose*) 30 ml PO TID [facility] Last Admin: 04/16/19 20:35 Dose: 30 ml Levothyroxine Sodium (Synthroid Tab*) 88 mcg PO DAILY@0600 [facility] Last Admin: 04/17/19 05:14 Dose: 88 mcg Miscellaneous (Ativan Pyxis Holliday) 1 ea N/A .PYXIS HOLLIDAY PRN PRN Reason: PER PROTOCOL Ondansetron HCl (Zofran Inj*) 4 mg IV Q4H PRN PRN Reason: NAUSEA/VOMITING Phenobarbital (Phenobarbital Tab(*)) 60 mg PO BID [facility] Last Admin: 04/16/19 20:35 Dose: 60 mg Polyethylene Glycol/Electrolytes (Miralax*) 17 gm PO DAILY [facility] Last Admin: 04/16/19 07:34 Dose: 17 gm Psyllium Hydrophilic Mucilloid (Metamucil Matheus*) 1 pkt PO DAILY [facility] Last Admin: 04/16/19 07:31 Dose: 1 pkt Sertraline HCl (Zoloft*) 75 mg PO DAILY [facility] Last Admin: 04/16/19 07:39 Dose: 75 mg Sodium Chloride (Sodium Chloride Tab*) 1 gm PO TID [facility] Last Admin: 04/16/19 20:36 Dose: 1 gm Thioridazine HCl (Mellaril*) 50 mg PO BID [facility] Last Admin: 04/16/19 20:36 Dose: 50 mg Vital Signs - 8 hr 04/16/19 04/17/19 23:48 03:44 Temperature 97.6 F 97.8 F Pulse Rate 67 67 Respiratory 16 17 Rate Blood Pressure 137/73 141/73 (mmHg) O2 Sat by Pulse 99 96 Oximetry Oxygen Devices in Use Now: None Appearance: Non verbal pleasant man Eyes: No Scleral Icterus, PERRLA Respiratory: Symmetrical Chest Expansion and Respiratory Effort, Clear to Auscultation Cardiovascular: NL Sounds; No Murmurs; No JVD, RRR Abdominal: NL Sounds; No Tenderness; No Distention, No Hepatosplenomegaly Lymphatic: No Cervical Adenopathy, No Axillary Adenopathy Extremities: No Edema Skin: No Rash or Ulcers Neurological: - - Non verbal, deaf Result Diagrams: 04/16/19 06:08 04/17/19 05:26 Assess/Plan/Problems-Billing Assessment: 58 year old with autism, CP, deaf/mute, hx of seizure d/o, admitted with progressive weakness and falls, mild rhabdo and e-lyte abnormalities - Patient Problems (1) Falls Current Visit: Yes Status: Acute Comment: - Multifactorial Elyte disturbance , improving - Plan for MRI Brain and C-spine on Tuesday, EEG - PT as he is able, improving on his own (2) Encephalopathy Current Visit: Yes Status: Acute Code(s): G93.40 - ENCEPHALOPATHY, UNSPECIFIED SNOMED Code(s): 69790313 Comment: - Multifactoria, mild rhabdo, falls, elyte distrubance - Ammonia increased, possibly 2/2 to underlying urea cycle d/o (3) Hypocalcemia Current Visit: Yes Status: Acute Code(s): E83.51 - HYPOCALCEMIA SNOMED Code(s): 2895133 Comment: - Replaced 04/14 (4) Hyponatremia Current Visit: Yes Status: Acute Code(s): E87.1 - HYPO-OSMOLALITY AND HYPONATREMIA SNOMED Code(s): 67140964 Comment: - Multifactorial - Hyponatremia: likely related to Tegretol - Thyroid abnormality as documented, TSH normal T4 slighlty low, high antiTPO, endocrine on non urgent basis (5) Rhabdomyolysis Current Visit: Yes Status: Acute Code(s): M62.82 - RHABDOMYOLYSIS SNOMED Code(s): 051471298 Comment: - Mild, Improving, Traumatic in nature (6) Hyperammonemia Current Visit: Yes Status: Acute Code(s): E72.20 - DISORDER OF UREA CYCLE METABOLISM, UNSPECIFIED SNOMED Code(s): 1487198 Comment: - LFTS normal, CTM (7) DVT prophylaxis Current Visit: Yes Status: Acute Code(s): Z29.9 - ENCOUNTER FOR PROPHYLACTIC MEASURES, UNSPECIFIED SNOMED Code(s): 724831759 Comment: - Lovenox (8) Full code status Current Visit: Yes Status: Acute Code(s): Z78.9 - OTHER SPECIFIED HEALTH STATUS SNOMED Code(s): 711026012 Status and Disposition: PT/OT, inpatient, change in his ambulatory status may change housing
[2019-04-17] MEDS: carBAMazepine ER TAB(*) 200 MG PO SCH ×2 (07:47→22:20)
[2019-04-17] MEDS: PHENobarbital TAB(*) 30 MG PO SCH ×2 (07:48→22:20)
[2019-04-17] MEDS: Sertraline* 50 MG TAB PO SCH (07:48)
[2019-04-17] MEDS: THIORIDAZINE 50 MG PO SCH ×2 (07:49→22:21)
[2019-04-17] MEDS: Polyethylene Glycol 3350* 17 GM PACKET PO SCH (07:49)
[2019-04-17] MEDS: Cyanocobalamin TAB* 500 MCG PO SCH (07:49)
[2019-04-17] MEDS: Sodium Chloride TAB* 1 GM PO SCH ×3 (07:49→22:21)
[2019-04-17] MEDS: Psyllium PAK PO SCH (07:50)
[2019-04-17] MEDS: Lactulose* 15 ML UDC PO SCH ×3 (07:51→22:20)
[2019-04-17] MEDS ORDERED: LORazepam TAB(*) 0.5 MG PO ONE (09:34)
[2019-04-17] MEDS ORDERED: LORazepam TAB(*) 1 MG PO ONE ×3 (13:26→20:39)
[2019-04-17] MEDS: Enoxaparin(*) 40 MG/0.4 ML SYR SUBCUT SCH (19:35)
--- NOTE | 2019-04-17 20:31 | EEG ---
ELECTROENCEPHALOGRAPHY: DATE OF STUDY: 04/17/19 DATE READ: 04/17/19 ORDERED BY: Dr. Edson Velez. CLINICAL PROBLEM: Mr. Grubbs is a 58-year-old autistic man who is mute and deaf , who presented with falls. This EEG was ordered to evaluate for epileptiform abnormalities or electrographic seizures. MEDICATIONS: 1. Tegretol. 2. Vitamin B12. 3. Lactulose. 4. Phenobarbital. 5. MiraLAX. 6. Zoloft. 7. Sodium chloride. 8. Thioridazine. 9. Lovenox. 10. Synthroid. 11. Tylenol. 12. Ativan. 13. Zofran. DURATION: 9:37 to 10:06. REPORT: This is a limited EEG due to the patient's inability to rest causing significant diffuse muscle artifact throughout the recording. However, the background appeared to be symmetric with appropriate organization and reactivity throughout the recording. There was a well-defined posterior dominant rhythm of 9 Hz, which was seen symmetrically. There is a questionable area of diffuse 3-6 Hz theta and alpha polymorphic slowing rarely seen throughout the recording. There were no clear epileptiform discharges seen. Single electrode EKG showed a normal sinus rhythm with a rate of 75 beats per minute. CLINICAL IMPRESSION: This is an essentially limited normal awake EEG with diffuse continuous muscle artifact due to the inability for the patient to relax during the recording. Intermittent, occasional/rare polymorphic slowing of the background cannot be entirely excluded. This latter finding would suggest mild nonspecific diffuse encephalopathy. There was no clear evidence of epileptiform discharges or electrographic seizures. [id number]/[facility] #: [id number] [facility]
[2019-04-17] MEDS ORDERED: traZODone TAB* 50 MG TAB PO ONE (20:39)
[2019-04-18] MEDS: Levothyroxine TAB* 88 MCG TAB PO SCH (05:50)
[2019-04-18 05:57] LABS: BUN/Creatinine Ratio 18.2 (8-20); Calcium 8.7 mg/dL (8.6-10.3); EGFR African American 185.8 (>60); EGFR Non-African American 153.5 (>60); Potassium 3.8 mmol/L (3.5-5.0)
[2019-04-18] MEDS: Polyethylene Glycol 3350* 17 GM PACKET PO SCH (08:16)
[2019-04-18] MEDS: Psyllium PAK PO SCH (08:16)
[2019-04-18] MEDS: carBAMazepine ER TAB(*) 200 MG PO SCH ×2 (08:17→21:56)
[2019-04-18] MEDS: PHENobarbital TAB(*) 30 MG PO SCH ×2 (08:17→21:57)
[2019-04-18] MEDS: Sodium Chloride TAB* 1 GM PO SCH ×3 (08:17→21:56)
[2019-04-18] MEDS: Lactulose* 15 ML UDC PO SCH ×3 (08:17→21:56)
[2019-04-18] MEDS: Sertraline* 50 MG TAB PO SCH (08:18)
[2019-04-18] MEDS: Cyanocobalamin TAB* 500 MCG PO SCH (08:18)
[2019-04-18] MEDS: THIORIDAZINE 50 MG PO SCH ×2 (08:19→21:56)
--- NOTE | 2019-04-18 09:27 | PN ---
Subjective Date of Service: 04/18/19 Interval History: HD # 5 on 04/18 58 year old with autism, CP, deaf/mute, hx of seizure d/o, admitted with progressive weakness and falls, mild rhabdo and e-lyte abnormalities Overnight no acute events, VSS, had MRI done, atrophy out of proportion to age, also EEG done. Voiding freely eating baseline diet Labs:HypONa to 128 This morning pleasant, playing with blocks and coloring. Objective Active Medications: Acetaminophen (Tylenol Tab*) 650 mg PO Q4H PRN PRN Reason: FEVER/PAIN Last Admin: 04/16/19 16:21 Dose: 650 mg Carbamazepine (Tegretol Xr Tab(*)) 400 mg PO BID [facility] Last Admin: 04/18/19 08:17 Dose: 400 mg Cyanocobalamin (Vitamin B12 Tab*) 1,000 mcg PO DAILY [facility] Last Admin: 04/18/19 08:18 Dose: 1,000 mcg Enoxaparin Sodium (Lovenox(*)) 40 mg SUBCUT Q24H [facility] Last Admin: 04/17/19 19:35 Dose: 40 mg Lactulose (Lactulose*) 30 ml PO TID [facility] Last Admin: 04/18/19 08:17 Dose: 30 ml Levothyroxine Sodium (Synthroid Tab*) 88 mcg PO DAILY@0600 [facility] Last Admin: 04/18/19 05:50 Dose: 88 mcg Miscellaneous (Ativan Pyxis Holliday) 1 ea N/A .PYXIS HOLLIDAY PRN PRN Reason: PER PROTOCOL Ondansetron HCl (Zofran Inj*) 4 mg IV Q4H PRN PRN Reason: NAUSEA/VOMITING Phenobarbital (Phenobarbital Tab(*)) 60 mg PO BID [facility] Last Admin: 04/18/19 08:17 Dose: 60 mg Polyethylene Glycol/Electrolytes (Miralax*) 17 gm PO DAILY [facility] Last Admin: 04/18/19 08:16 Dose: 17 gm Psyllium Hydrophilic Mucilloid (Metamucil Matheus*) 1 pkt PO DAILY [facility] Last Admin: 04/18/19 08:16 Dose: 1 pkt Sertraline HCl (Zoloft*) 75 mg PO DAILY [facility] Last Admin: 04/18/19 08:18 Dose: 75 mg Sodium Chloride (Sodium Chloride Tab*) 1 gm PO TID [facility] Last Admin: 04/18/19 08:17 Dose: 1 gm Thioridazine HCl (Mellaril*) 50 mg PO BID [facility] Last Admin: 04/18/19 08:19 Dose: 50 mg Vital Signs - 8 hr 04/18/19 04/18/19 04/18/19 01:46 03:36 07:39 Temperature 97.7 F 97.6 F Pulse Rate 56 68 Respiratory 18 18 16 Rate Blood Pressure 142/87 155/97 (mmHg) O2 Sat by Pulse 97 100 Oximetry 04/18/19 04/18/19 07:56 08:17 Temperature 97.8 F Pulse Rate 62 Respiratory 19 20 Rate Blood Pressure 129/88 (mmHg) O2 Sat by Pulse 94 Oximetry Oxygen Devices in Use Now: None Appearance: Coloring, non verbal smiling, high fives to provider Eyes: PERRLA Ears/Nose/Mouth/Throat: NL Teeth, Lips, Gums Respiratory: Clear to Auscultation Cardiovascular: NL Sounds; No Murmurs; No JVD, RRR Abdominal: NL Sounds; No Tenderness; No Distention, No Hepatosplenomegaly Lymphatic: No Cervical Adenopathy Skin: No Rash or Ulcers Neurological: - - Non verbal Result Diagrams: 04/16/19 06:08 04/18/19 05:18 Assess/Plan/Problems-Billing Assessment: 58 year old with autism, CP, deaf/mute, hx of seizure d/o, admitted with progressive weakness and falls, mild rhabdo and e-lyte abnormalities - Patient Problems (1) Falls Current Visit: Yes Status: Acute Comment: - Multifactorial Elyte disturbance , improving - MRI brain normal, EEG largely unremarkable - PT as he is able, improving on his own (2) Encephalopathy Current Visit: Yes Status: Acute Code(s): G93.40 - ENCEPHALOPATHY, UNSPECIFIED SNOMED Code(s): 67614325 Comment: - Multifactoria, mild rhabdo, falls, elyte distrubance - Ammonia increased, possibly 2/2 to underlying urea cycle d/o - Appears to have fully resolved (3) Hypocalcemia Current Visit: Yes Status: Acute Code(s): E83.51 - HYPOCALCEMIA SNOMED Code(s): 3661553 Comment: - Replaced 04/14 (4) Hyponatremia Current Visit: Yes Status: Acute Code(s): E87.1 - HYPO-OSMOLALITY AND HYPONATREMIA SNOMED Code(s): 37062678 Comment: - Multifactorial - Hyponatremia: likely related to Tegretol - Thyroid abnormality as documented, TSH normal T4 slighlty low, high antiTPO, endocrine on non urgent basis , unlikely contributing to encephalopathy (5) Rhabdomyolysis Current Visit: Yes Status: Acute Code(s): M62.82 - RHABDOMYOLYSIS SNOMED Code(s): 261530264 Comment: - Mild, Improving, Traumatic in nature (6) Hyperammonemia Current Visit: Yes Status: Acute Code(s): E72.20 - DISORDER OF UREA CYCLE METABOLISM, UNSPECIFIED SNOMED Code(s): 2539975 Comment: - LFTS normal, CTM (7) DVT prophylaxis Current Visit: Yes Status: Acute Code(s): Z29.9 - ENCOUNTER FOR PROPHYLACTIC MEASURES, UNSPECIFIED SNOMED Code(s): 363623428 Comment: - Lovenox (8) Full code status Current Visit: Yes Status: Acute Code(s): Z78.9 - OTHER SPECIFIED HEALTH STATUS SNOMED Code(s): 038818605 Status and Disposition: PT/OT, inpatient, change in his ambulatory status may change housing
--- NOTE | 2019-04-18 10:59 | PN ---
Subjective Date of Service: 04/18/19 Length of Stay: 5 Days Neurology is following falls and gait imbalance. Interval History: The patient is resting comfortable. He finished his breakfast. He fed himself. He is still extremely ataxic when walking requiring 1-2 person assist. He was fist pumping me after I walked him. He seems very pleasant and cooperative. He is able to express when he needs to use the restroom. No incontinence has been reported. Reviewed the MRI brain without contrast- the study was limited due to motion artifact. There seems to be a moderate degree of brain atrophy and ventriculomegaly (proportional to the degree of atrophy). MRI C spine was not done. Objective Active Medications: Acetaminophen (Tylenol Tab*) 650 mg PO Q4H PRN PRN Reason: FEVER/PAIN Last Admin: 04/16/19 16:21 Dose: 650 mg Carbamazepine (Tegretol Xr Tab(*)) 400 mg PO BID [facility] Last Admin: 04/18/19 08:17 Dose: 400 mg Cyanocobalamin (Vitamin B12 Tab*) 1,000 mcg PO DAILY [facility] Last Admin: 04/18/19 08:18 Dose: 1,000 mcg Enoxaparin Sodium (Lovenox(*)) 40 mg SUBCUT Q24H [facility] Last Admin: 04/17/19 19:35 Dose: 40 mg Lactulose (Lactulose*) 30 ml PO TID [facility] Last Admin: 04/18/19 08:17 Dose: 30 ml Levothyroxine Sodium (Synthroid Tab*) 88 mcg PO DAILY@0600 [facility] Last Admin: 04/18/19 05:50 Dose: 88 mcg Miscellaneous (Ativan Pyxis Holliday) 1 ea N/A .PYXIS HOLLIDAY PRN PRN Reason: PER PROTOCOL Ondansetron HCl (Zofran Inj*) 4 mg IV Q4H PRN PRN Reason: NAUSEA/VOMITING Phenobarbital (Phenobarbital Tab(*)) 60 mg PO BID [facility] Last Admin: 04/18/19 08:17 Dose: 60 mg Polyethylene Glycol/Electrolytes (Miralax*) 17 gm PO DAILY [facility] Last Admin: 04/18/19 08:16 Dose: 17 gm Psyllium Hydrophilic Mucilloid (Metamucil Matheus*) 1 pkt PO DAILY [facility] Last Admin: 04/18/19 08:16 Dose: 1 pkt Sertraline HCl (Zoloft*) 75 mg PO DAILY [facility] Last Admin: 04/18/19 08:18 Dose: 75 mg Sodium Chloride (Sodium Chloride Tab*) 1 gm PO TID [facility] Last Admin: 04/18/19 08:17 Dose: 1 gm Thioridazine HCl (Mellaril*) 50 mg PO BID [facility] Last Admin: 04/18/19 08:19 Dose: 50 mg Vital Signs 04/18/19 04/18/19 04/18/19 07:39 07:56 08:17 Temperature 97.8 F Pulse Rate 62 Respiratory 16 19 20 Rate Blood Pressure 129/88 (mmHg) O2 Sat by Pulse 94 Oximetry 04/18/19 10:11 Temperature Pulse Rate Respiratory 16 Rate Blood Pressure (mmHg) O2 Sat by Pulse Oximetry Intake and Output Last 24 Hours 04/16/19 04/17/19 04/18/19 04/19/19 06:59 06:59 06:59 06:59 Intake Total 730 2620 3000 Output Total 1400 0 Balance -670 2620 3000 Weight 149 lb 3.2 oz Intake: Oral 730 2620 3000 Output: Urine 1400 0 Other: Estimated Void Large Large Date of Last Bowel 04/16/19 Movement # Bowel Movements 1 Estimated Stool Amount Large Medium # Voids 1 1 Oxygen Devices in Use Now: None Neurology Exam: General: Well nourished, well developed, mute and deaf man in no distress. HEENT: Normocephelic/atraumatic, sclera anicteric, mucous membranes moist Neck: Supple Chest: Clear to auscultation bilaterally Cardiovascular: Regular rate and rhythm without murmurs, rubs, gallops Abdomen: Soft, non-tender/non-distended Extremities: No clubbing, cyanosis, or edema Neurological Findings: Communicates by using a paper with objects to point to. He is deaf and mute. He signs simple commands. Cranial Nerve: PERRL, dysconjugate gaze. Motor: s/s throughout, proximal and distal extremities x4 tone/bulk normal Sensation: he withdrew to minimal stimuli. He also appeared to be ticklish at the bottom of his feet. Deep Tendon Reflex: 1+ symmetric in the upper/lower extremities, Babinski - down going Finger to nose, rapid alternating movements intact without tremor, no dysdiadochokinesia Gait: ataxic wide gait, requiring one person assist. Seems to be severely swaying towards the left side. Result Diagrams: 04/16/19 06:08 04/18/19 05:18 Assessment/Plan Assessment: 58 year old with autism, CP, deaf/mute, hx of seizure d/o, admitted with progressive weakness and falls, mild rhabdo and e-lyte abnormalities 1. Increase falls in a patient with developmental delay, CP/autism, deaf, mute, and reported seizures- The etiology is unknown. There is no intracranial abnormality to explain his symptoms. The next step is to rule out cervical cord disease such as spinal compression or transverse myelitis (less likely to be the cause as he has no evidence of hyperreflexia). If the MRI C spine is negative, then the differential diagnosis excludes a structural abnormality and would include other rare causes such as: immune mediated condition (e.g., Ervin encephalopathy) given the subacute onset and rapid progression concomitant with low Free T4 and elevated TPO antibody. Other possibilities include cerebellar ataxia and epilepsy with anti-MAHENDRA antibodies or channelopathy with [id number] gene mutation which can have clinic features of mutism and epilepsy associated with cerebellar ataxia. The symptoms have not improved after partially correcting his metabolic disturbance. The slightly elevated ammonia is asymptomatic as his cognition appears to be at his baseline and he has no myoclonus. Recommendations: - The treatment modality consists of physical therapy. - Defer management of his thyroid dysfunction to the primary team. - Neuro checks every 4 hours - Continue supportive care - I will continue to follow.
--- NOTE | 2019-04-18 11:33 | CONSULT ---
Consult Consult: [facility] Inpatient Consult Note Date of Consult: 04/17/19 Reason for Consult: hypothyroidism Reason for Admission: ataxia with falls ASSESSMENT: 58 yo M with moderate cerebral palsy and epilepsy, now admitted for inpatient evaluation of reversible causes of encephalopathy, found to have low T4/T3 with (+) TPO antibody in setting of normal TSH. 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 It does not appear to be directly related to hypothyroidism since the majority of reported patients are euthyroid, as in this case, although the patient is on levothyroxine 88mcg/day at baseline. MRI, EEG and labs have been performed to excluder neurological causes of delirium/encephalopathy. Given the findings of low Free T4 and low-normal free T3, a increased dose of levothyroxine supplement seems reasonable with goal TSH <2.5. HE is usually treated with corticosteroids and I would defer this decision to neurology after consideration of CSF evaluation. Note is also made of low Ca/iCa with borderline elevation in PTH on admission in setting of Fosamax for prevention of fracture. PLAN: - check vitamin D-25-OH this admission - increase levothyroxine to 100mcg daily - titrate to goal TSH 0.5-2.5 - recheck TSH, free T4 in 3-4 weeks SUBJECTIVE: History of Present Illness: 58 yo M with CP, distant epilepsys, mutism and deafness, now admitted for increased falls and lower extremity weakness. He had been in usual state of fair health until recently. Long-term caregivers report general functional decline in the past 1-2 months, with refusal to stand/walk. He has not had a seizure in many years. His thyroid and osteoporosis histories are not available at this time. Past Medical History: 1. Autism. 2. Cerebral palsy. 3. Epilepsy. 4. Impulse-control disorder. 5. Cataracts. 6. Osteoporosis. 7. Pericarditis. 8. Cellulitis. Medications Prior to Admission: Alendronate (NF) [Fosamax (NF)] 70 mg PO WEEKLY 10/13/12 [History Confirmed ] Calcium Carbonate/Vitamin D3 [Calcium 600-Vit D3 200 Tablet] 1 tab PO TID [History Confirmed 04/08/19] Cholecalciferol (Vitamin D3) [Vitamin D3] 2,000 unit PO 2000 11/05/14 [History Confirmed 04/08/19] PHENobarbital [Phenobarbital] 64.8 mg PO BID 11/05/14 [History Confirmed ] carBAMazepine TAB(*) [Tegretol TAB(*)] 600 mg PO 08,199911/05/14 [History Confirmed 04/08/19] Ferrous Sulfate TAB* 325 mg PO DAILY 04/22/16 [History Confirmed 04/08/19] Polyethylene Glycol 3350 [Glycolax] 1 pow PO DAILY 06/25/16 [History Confirmed 04/08/19] Cyanocobalamin TAB* [Vitamin B12 TAB*] 1,000 mcg PO EVERY OTHER DAY 07/05/17 [ History Confirmed 04/08/19] Sodium Chloride TAB* 1 gm PO TID 07/05/17 [History Confirmed 04/08/19] Thioridazine TAB* [Mellaril*] 50 mg PO BID 09/22/18 [History Confirmed 04/08/19] carBAMazepine TAB(*) [TEGretol TAB(*)] 200 mg PO 1500 09/22/18 [History Confirmed 04/08/19] Benztropine TAB* [Cogentin TAB*] 1 mg PO BID 12/18/18 [History Confirmed ] Levothyroxine TAB* [Synthroid TAB*] 88 mcg PO DAILY 12/18/18 [History Confirmed 04/08/19] Psyllium Seed [Natural Vegetable Powder] 1 tbsp PO BID 12/18/18 [History Confirmed 04/08/19] Sertraline* [Zoloft*] 50 mg PO DAILY 12/18/18 [History Confirmed 04/08/19] hydrOXYzine HCL TAB* [Atarax TAB 50 MG *] 50 mg PO BEDTIME 04/08/19 [History Confirmed 04/08/19] Inpatient Medications: Acetaminophen (Tylenol Tab*) 650 mg PO Q4H PRN PRN Reason: FEVER/PAIN Last Admin: 04/16/19 16:21 Dose: 650 mg Carbamazepine (Tegretol Xr Tab(*)) 400 mg PO BID [facility] Last Admin: 04/18/19 08:17 Dose: 400 mg Cyanocobalamin (Vitamin B12 Tab*) 1,000 mcg PO DAILY [facility] Last Admin: 04/18/19 08:18 Dose: 1,000 mcg Enoxaparin Sodium (Lovenox(*)) 40 mg SUBCUT Q24H [facility] Last Admin: 04/17/19 19:35 Dose: 40 mg Lactulose (Lactulose*) 30 ml PO TID [facility] Last Admin: 04/18/19 13:01 Dose: 30 ml Levothyroxine Sodium (Synthroid Tab*) 88 mcg PO DAILY@0600 [facility] Last Admin: 04/18/19 05:50 Dose: 88 mcg Miscellaneous (Ativan Pyxis Holliday) 1 ea N/A .PYXIS HOLLIDAY PRN PRN Reason: PER PROTOCOL Ondansetron HCl (Zofran Inj*) 4 mg IV Q4H PRN PRN Reason: NAUSEA/VOMITING Phenobarbital (Phenobarbital Tab(*)) 60 mg PO BID [facility] Last Admin: 04/18/19 08:17 Dose: 60 mg Polyethylene Glycol/Electrolytes (Miralax*) 17 gm PO DAILY [facility] Last Admin: 04/18/19 08:16 Dose: 17 gm Psyllium Hydrophilic Mucilloid (Metamucil Matheus*) 1 pkt PO DAILY [facility] Last Admin: 04/18/19 08:16 Dose: 1 pkt Sertraline HCl (Zoloft*) 75 mg PO DAILY [facility] Last Admin: 04/18/19 08:18 Dose: 75 mg Sodium Chloride (Sodium Chloride Tab*) 1 gm PO TID [facility] Last Admin: 04/18/19 13:01 Dose: 1 gm Thioridazine HCl (Mellaril*) 50 mg PO BID [facility] Last Admin: 04/18/19 08:19 Dose: 50 mg Allergies/Intolerances: adhesive tap, clinda, e-mycin Social History: Lives in a fci. Family History: Non-contributory. Review of Systems: Unable to obtain from patient. OBJECTIVE: Temp Pulse Resp BP Pulse Ox 98.2 F 76 20 111/58 98 04/18/19 11:30 04/18/19 11:30 04/18/19 11:30 04/18/19 11:30 04/18/19 11:30 General: alert, awake, no distress, sitting up in chair ENT: neck supple, no thyromegaly, no bruit is heard Chest: CTAB, no wheezing or crackles CV: RRR, no murmur Abdomen: soft, non-tender Extremities: no edema, distal pulses intact Skin: warm, dry, no rash Neuro: dyscoordination without spasticity or rigidity Labs: WBC 4.3 10^3/uL (3.5-10.8) 04/16/19 06:08 RBC 4.03 10^6 /uL (4.18-5.48) L 04/16/19 06:08 Hgb 13.3 g/dL (14.0-18.0) L 04/16/19 06:08 Hct 39 % (42-52) L 04/16/19 06:08 MCV 96 fL (80-94) H 04/16/19 06:08 MCH 33 pg (27-31) H 04/16/19 06:08 MCHC 34 g/dL (31-36) 04/16/19 06:08 RDW 13 % (10.5-15) 04/16/19 06:08 Plt Count 291 10^3/uL (150-450) 04/16/19 06:08 MPV 6.6 fL (7.4-10.4) L 04/16/19 06:08 Neut % (Auto) 54.8 % 04/16/19 06:08 Lymph % (Auto) 28.5 % 04/16/19 06:08 Posey % (Auto) 13.1 % 04/16/19 06:08 Eos % (Auto) 2.7 % 04/16/19 06:08 Baso % (Auto) 0.9 % 04/16/19 06:08 Absolute Neuts (auto) 2.3 10^3/ul (1.5-7.7) 04/16/19 06:08 Absolute Lymphs (auto) 1.2 10^3/ul (1.0-4.8) 04/16/19 06:08 Absolute Monos (auto) 0.6 10^3/ul (0-0.8) 04/16/19 06:08 Absolute Eos (auto) 0.1 10^3/ul (0-0.6) 04/16/19 06:08 Absolute Basos (auto) 0.0 10^3/ul (0-0.2) 04/16/19 06:08 Absolute Nucleated RBC 0.0 10^3/ul 04/16/19 06:08 Nucleated RBC % 0.0 04/16/19 06:08 ESR 0 mm/Hr (0-19) 04/13/19 18:47 Sodium 128 mmol/L (135-145) L 04/18/19 05:18 Potassium 3.8 mmol/L (3.5-5.0) 04/18/19 05:18 Chloride 95 mmol/L (101-111) L 04/18/19 05:18 Carbon Dioxide 29 mmol/L (22-32) 04/18/19 05:18 Anion Gap 4 mmol/L (2-11) 04/18/19 05:18 BUN 10 mg/dL (6-24) 04/18/19 05:18 Creatinine 0.55 mg/dL (0.67-1.17) L 04/18/19 05:18 Est GFR ( Amer) 185.8 (>60) 04/18/19 05:18 Est GFR (Non-Af Amer) 153.5 (>60) 04/18/19 05:18 BUN/Creatinine Ratio 18.2 (8-20) 04/18/19 05:18 Glucose 94 mg/dL (70-100) 04/18/19 05:18 Serum Osmolality 268 mOsm/kg (275-295) L 04/14/19 05:06 Uric Acid 1.7 mg/dL (4.4-7.6) L 04/14/19 05:06 Calcium 8.7 mg/dL (8.6-10.3) 04/18/19 05:18 Ionized Calcium 1.07 mmol/L (1.16-1.32) L 04/16/19 06:08 Ammonia 61 mcmol/L (16-53) H 04/17/19 05:26 Total Creatine Kinase 229 U/L (10-223) H 04/16/19 06:08 C-Reactive Protein 2.25 mg/L (<8.01) 04/13/19 18:47 Vitamin B12 956 pg/mL (180-914) H 04/13/19 18:47 TSH 3.38 mcIU/mL (0.34-5.60) 04/14/19 05:06 Free T4 0.57 ng/dL (0.61-1.12) L 04/14/19 05:06 Free T3 2.60 pg/mL (2.5-3.9) 04/14/19 05:06 PTH Intact 65.2 pg/mL (12-88) 04/15/19 19:28 Calcium (PTH Intact) 8.9 mg/dL (8.6-10.3) 04/15/19 19:28 Cortisol 15.04 mcg/dL 04/14/19 05:06 Urine Color Yellow 04/14/19 17:25 Urine Appearance Clear 04/14/19 17:25 Urine pH 7.0 (5-9) 04/14/19 17:25 Ur Specific [place] 1.011 (1.010-1.030) 04/14/19 17:25 Urine Protein Negative (Negative) 04/14/19 17:25 Urine Ketones Negative (Negative) 04/14/19 17:25 Urine Blood Negative (Negative) 04/14/19 17:25 Urine Nitrate Negative (Negative) 04/14/19 17:25 Urine Bilirubin Negative (Negative) 04/14/19 17:25 Urine Urobilinogen Negative (Negative) 04/14/19 17:25 Ur Leukocyte Esterase Negative (Negative) 04/14/19 17:25 Urine Osmolality 195 mOsm/kg (100-1150) 04/15/19 13:57 U Sodium Concentration < 18 mmol/L 04/15/19 13:57 Urine Potassium 15.3 mmol/L 04/15/19 13:57 Urine Glucose Negative (Negative) 04/14/19 17:25 Carbamazepine 5.8 mcg/mL (4.0-12.0) 04/16/19 06:08 Phenobarbital 10.4 mcg/mL (17-34) L 04/16/19 06:08 Anti-Nuclear Antibody 1.2 U H 04/13/19 18:47 Thyroglobulin Antibody 0.5 IU/mL (<4.0) 04/14/19 05:06 Thyroid Peroxidase Ab 323.60 IU/mL (<9) H 04/14/19 05:06
[2019-04-18] MEDS ORDERED: LORazepam TAB(*) 1 MG PO PRN (17:45)
[2019-04-18] MEDS ORDERED: diPHENhydraMINE PO* 25 MG PO PRN (17:46)
[2019-04-18] MEDS ORDERED: Haloperidol TAB* 2 MG PO PRN (17:46)
--- NOTE | 2019-04-18 17:53 | PN ---
Hospitalist Progress Note Date of Service: 04/18/19 Off Service Note: 58 yo M with moderate cerebral palsy and epilepsy, domicied in a alf in [place], now admitted for inpatient evaluation with progressive ataxia and falls x 1 month prior to admission, mild rhabdo on admission now cleared #Gait ataxia: Unable to find reversible cause at this point, corrected his e lytes and checked his med levels (normal) -MRI Brain EEG normal, awaiting MRI C Spine, will need sig PRN for agitation to do so -Possibly underlying neuromuscular d/o, cerbellar ataxia (some studies have been sent of) though these would be dx over a longer peroid of time,also possible side effects from meds, though these would be peeled off as outpt -Discussed all this with patients brother today, updated family for 30 mins Dispo: Can go back to his [facility] in [place] once C spine MRI is clear, his care coordinators in [place] are looking for a one story house, needs FU with Pradip as outpt
[2019-04-18] MEDS ORDERED: Lorazepam PYXIS KEY PRN (18:51)
[2019-04-18] MEDS ORDERED: LORazepam INJ* 2 MG/ML 1 ML VIAL IV PUSH ONE ×2 (18:51)
[2019-04-18] MEDS: Enoxaparin(*) 40 MG/0.4 ML SYR SUBCUT SCH (19:37)
[2019-04-19] MEDS: Levothyroxine TAB* 100 MCG TAB PO SCH (05:47)
[2019-04-19 06:52] LABS: Calcium 8.8 mg/dL (8.6-10.3); EGFR African American 207.4 (>60); EGFR Non-African American 171.4 (>60); Potassium 3.8 mmol/L (3.5-5.0)
[2019-04-19] MEDS: Acetaminophen TAB* 325 MG PO PRN ×2 (07:41→22:10)
[2019-04-19] MEDS: carBAMazepine ER TAB(*) 200 MG PO SCH (08:04)
[2019-04-19] MEDS: Sodium Chloride TAB* 1 GM PO SCH ×3 (08:05→22:10)
[2019-04-19] MEDS: THIORIDAZINE 50 MG PO SCH ×2 (08:05→22:10)
[2019-04-19] MEDS: Cyanocobalamin TAB* 500 MCG PO SCH (08:05)
[2019-04-19] MEDS: Lactulose* 15 ML UDC PO SCH ×3 (08:06→22:09)
[2019-04-19] MEDS: PHENobarbital TAB(*) 30 MG PO SCH ×2 (08:06→22:10)
[2019-04-19] MEDS: Psyllium PAK PO SCH (08:06)
[2019-04-19] MEDS: Sertraline* 50 MG TAB PO SCH (08:06)
[2019-04-19] MEDS: Polyethylene Glycol 3350* 17 GM PACKET PO SCH (08:06)
--- NOTE | 2019-04-19 15:03 | PN ---
Subjective Date of Service: 04/19/19 Length of Stay: 6 Days Neurology is following for falls and gait imbalance. Interval History: The patient is reported to be pleasant without any complaints or distress. He is sitting in a chair comfortable. He was coloring. He requested to use the bathroom today. No reported seizure. He is still requiring 1-2 person assist to ambulate. Reviewed Dr. Chavez's consultation. Appreciate recommendations. Objective Active Medications: Acetaminophen (Tylenol Tab*) 650 mg PO Q4H PRN PRN Reason: FEVER/PAIN Last Admin: 04/19/19 07:41 Dose: 650 mg Carbamazepine (Tegretol Xr Tab(*)) 400 mg PO BID [facility] Last Admin: 04/19/19 08:04 Dose: 400 mg Cyanocobalamin (Vitamin B12 Tab*) 1,000 mcg PO DAILY [facility] Last Admin: 04/19/19 08:05 Dose: 1,000 mcg Diphenhydramine HCl (Benadryl Po*) 25 mg PO ONCE PRN PRN Reason: AGITATION Enoxaparin Sodium (Lovenox(*)) 40 mg SUBCUT Q24H [facility] Last Admin: 04/18/19 19:37 Dose: 40 mg Haloperidol (Haldol Tab*) 2 mg PO ONCE PRN PRN Reason: AGITATION Lactulose (Lactulose*) 30 ml PO TID [facility] Last Admin: 04/19/19 13:18 Dose: 30 ml Levothyroxine Sodium (Synthroid Tab*) 100 mcg PO DAILY@0600 [facility] Last Admin: 04/19/19 05:47 Dose: 100 mcg Lorazepam (Ativan Tab(*)) 2 mg PO ONCE PRN PRN Reason: AGITATION Miscellaneous (Ativan Pyxis Holliday) 1 ea N/A .PYXIS HOLLIDAY PRN PRN Reason: PER PROTOCOL Ondansetron HCl (Zofran Inj*) 4 mg IV Q4H PRN PRN Reason: NAUSEA/VOMITING Phenobarbital (Phenobarbital Tab(*)) 60 mg PO BID [facility] Last Admin: 04/19/19 08:06 Dose: 60 mg Polyethylene Glycol/Electrolytes (Miralax*) 17 gm PO DAILY [facility] Last Admin: 04/19/19 08:06 Dose: 17 gm Psyllium Hydrophilic Mucilloid (Metamucil Matheus*) 1 pkt PO DAILY [facility] Last Admin: 04/19/19 08:06 Dose: 1 pkt Sertraline HCl (Zoloft*) 75 mg PO DAILY [facility] Last Admin: 04/19/19 08:06 Dose: 75 mg Sodium Chloride (Sodium Chloride Tab*) 1 gm PO TID [facility] Last Admin: 04/19/19 13:18 Dose: 1 gm Thioridazine HCl (Mellaril*) 50 mg PO BID [facility] Last Admin: 04/19/19 08:05 Dose: 50 mg Vital Signs 04/18/19 04/18/19 04/18/19 15:45 17:50 18:21 Temperature 97.4 F Pulse Rate 66 78 80 Respiratory 16 16 16 Rate Blood Pressure 114/69 135/82 128/67 (mmHg) O2 Sat by Pulse 97 95 98 Oximetry 04/18/19 04/18/19 04/18/19 18:51 19:19 19:36 Temperature 97.2 F Pulse Rate 75 Respiratory 16 16 16 Rate Blood Pressure 114/66 (mmHg) O2 Sat by Pulse 99 Oximetry 04/18/19 04/18/19 04/18/19 20:00 21:10 21:12 Temperature 97.4 F Pulse Rate 65 Respiratory 16 18 18 Rate Blood Pressure 123/88 (mmHg) O2 Sat by Pulse 99 Oximetry 04/18/19 04/18/19 04/18/19 21:55 21:57 23:00 Temperature 97.5 F 97.4 F Pulse Rate 64 57 Respiratory 20 20 14 Rate Blood Pressure 134/82 106/67 (mmHg) O2 Sat by Pulse 98 98 Oximetry 04/18/19 04/19/19 04/19/19 23:57 03:20 07:17 Temperature 97.5 F 97.6 F Pulse Rate 61 68 Respiratory 14 14 20 Rate Blood Pressure 148/87 135/89 (mmHg) O2 Sat by Pulse 98 100 Oximetry 04/19/19 04/19/19 04/19/19 08:00 08:06 10:06 Temperature Pulse Rate Respiratory 18 18 16 Rate Blood Pressure (mmHg) O2 Sat by Pulse Oximetry 04/19/19 11:04 Temperature Pulse Rate 72 Respiratory 18 Rate Blood Pressure 111/64 (mmHg) O2 Sat by Pulse 98 Oximetry Intake and Output Last 24 Hours 04/17/19 04/18/19 04/19/19 04/20/19 06:59 06:59 06:59 06:59 Intake Total 2620 3000 1035 890 Output Total 0 Balance 2620 3000 1035 890 Weight 149 lb 3.2 oz Intake: Oral 2620 3000 1035 890 Output: Urine 0 Other: Estimated Void Large Large Large Date of Last Bowel 04/16/19 Movement # Bowel Movements 1 Estimated Stool Amount Large Medium Large # Voids 1 1 1 Oxygen Devices in Use Now: None Neurology Exam: General: Well nourished, well developed, mute and deaf man in no distress. HEENT: Normocephelic/atraumatic, sclera anicteric, mucous membranes moist Neck: Supple Chest: Clear to auscultation bilaterally Cardiovascular: Regular rate and rhythm without murmurs, rubs, gallops Abdomen: Soft, non-tender/non-distended Extremities: No clubbing, cyanosis, or edema Neurological Findings: Communicates by using a paper with objects to point to. He is deaf and mute. He signs simple commands. Cranial Nerve: PERRL, dysconjugate gaze. Motor: s/s throughout, proximal and distal extremities x4 tone/bulk normal Sensation: he withdrew to minimal stimuli. He also appeared to be ticklish at the bottom of his feet. Deep Tendon Reflex: 1+ symmetric in the upper/lower extremities, Babinski - down going Finger to nose, rapid alternating movements intact without tremor, no dysdiadochokinesia Gait: ataxic wide gait, requiring one person assist. Less swaying but he has impulsive quick movements when ambulating. Result Diagrams: 04/16/19 06:08 04/19/19 06:27 Additional Lab and Data: MRI C spine- limited due to motion artifact. There is no evidence of spinal cord compression Assessment/Plan Assessment and recommendations: 58 year old with autism, CP, deaf/mute, hx of seizure d/o, admitted with progressive weakness and falls, mild rhabdo and electrolyte abnormalities. 1. Increase falls in a patient with developmental delay, CP/autism, deaf, mute, and reported seizures- The etiology is unknown. No structural abnormalities have been discovered. We suspect this is mostly immune mediated (Ervin encephalopathy) or channelopathy related ataxia (anti-MAHENDRA or [id number] gene mutation). Other possibilities would be progressive of his cerebral palsy causing gait abnormalities, but I would suspect he would be more spastic. -Last part of the workup would be a lumbar puncture to assess the CSF for elevated protein (seen in 80% of HE). If negative, no further workup is recommended. If positive, then we would start him on oral prednisone (60 mg daily) therapy and follow him as an outpatient to evaluate for a response. 2. Hyponatremia- most likely related to carbamazepine use. Ordered a carbamazepine epoxide level to check for toxicity. Reduced the dose to 300 mg twice daily. He has not had any seizures in years. Recommend slowly weaning him off this agent as an outpatient. I will continue to follow. He can hopefully be discharged tomorrow.
--- NOTE | 2019-04-19 16:45 | PN ---
Subjective Date of Service: 04/19/19 Interval History: HOSPITALIST PROGRESS NOTE Patient seen and examined at bedside. Care reviewed and d/w Annie Mary RN. Breanna Jordan RN translates sign language. He's happily sitting up in a chair coloring, and gets annoyed when we interrupt him. He was c/o headache earlier today, but resolved with Tylenol. I saw him walking with PT earlier and although he still has some ataxia, I'm told he's steadier. Family History: Unchanged from Admission Social History: Unchanged from Admission Past Medical History: Unchanged from Admission Objective Active Medications: Acetaminophen (Tylenol Tab*) 650 mg PO Q4H PRN PRN Reason: FEVER/PAIN Last Admin: 04/19/19 07:41 Dose: 650 mg Carbamazepine (Tegretol Xr Tab(*)) 300 mg PO BID [facility] Cyanocobalamin (Vitamin B12 Tab*) 1,000 mcg PO DAILY [facility] Last Admin: 04/19/19 08:05 Dose: 1,000 mcg Diphenhydramine HCl (Benadryl Po*) 25 mg PO ONCE PRN PRN Reason: AGITATION Enoxaparin Sodium (Lovenox(*)) 40 mg SUBCUT Q24H [facility] Last Admin: 04/18/19 19:37 Dose: 40 mg Haloperidol (Haldol Tab*) 2 mg PO ONCE PRN PRN Reason: AGITATION Lactulose (Lactulose*) 30 ml PO TID [facility] Last Admin: 04/19/19 13:18 Dose: 30 ml Levothyroxine Sodium (Synthroid Tab*) 100 mcg PO DAILY@0600 [facility] Last Admin: 04/19/19 05:47 Dose: 100 mcg Lorazepam (Ativan Tab(*)) 2 mg PO ONCE PRN PRN Reason: AGITATION Miscellaneous (Ativan Pyxis Mata) 1 ea N/A .PYXIS MATA PRN PRN Reason: PER PROTOCOL Ondansetron HCl (Zofran Inj*) 4 mg IV Q4H PRN PRN Reason: NAUSEA/VOMITING Phenobarbital (Phenobarbital Tab(*)) 60 mg PO BID [facility] Last Admin: 04/19/19 08:06 Dose: 60 mg Polyethylene Glycol/Electrolytes (Miralax*) 17 gm PO DAILY [facility] Last Admin: 04/19/19 08:06 Dose: 17 gm Psyllium Hydrophilic Mucilloid (Metamucil Matheus*) 1 pkt PO DAILY [facility] Last Admin: 04/19/19 08:06 Dose: 1 pkt Sertraline HCl (Zoloft*) 75 mg PO DAILY [facility] Last Admin: 04/19/19 08:06 Dose: 75 mg Sodium Chloride (Sodium Chloride Tab*) 1 gm PO TID [facility] Last Admin: 04/19/19 13:18 Dose: 1 gm Thioridazine HCl (Mellaril*) 50 mg PO BID [facility] Last Admin: 04/19/19 08:05 Dose: 50 mg Vital Signs - 8 hr 04/19/19 04/19/19 10:06 11:04 Pulse Rate 72 Respiratory 16 18 Rate Blood Pressure 111/64 (mmHg) O2 Sat by Pulse 98 Oximetry Oxygen Devices in Use Now: None Appearance: Middle aged gentleman sitting up in a chair in NAD. Ears/Nose/Mouth/Throat: Mucous Membranes Moist Neck: Trachea Midline Respiratory: Symmetrical Chest Expansion and Respiratory Effort, Clear to Auscultation Cardiovascular: RRR - Normal S1 and S2 Neurological: - - Alert and awake, non verbal, communicates with ASL and communication board Result Diagrams: 04/16/19 06:08 04/19/19 06:27 Additional Lab and Data: MRI C spine- limited due to motion artifact. There is no evidence of spinal cord compression Assess/Plan/Problems-Billing Assessment: Mr Grubbs is a 58 year old male with autism, cerebral palsy, deaf/mute, seizure disorder, admitted with progressive weakness and falls, mild rhabdomyolisis and electrolyte abnormalities; found to have ataxia of unclear etiology. - Patient Problems (1) Ataxia Comment: - Unclear etiology. - W/u so far negative. - Neuro input appreciated - as per Dr Rice's note "We suspect this is mostly immune mediated (Ervin encephalopathy) or channelopathy related ataxia (anti -MAHENDRA or [id number] gene mutation). Other possibilities would be progressive of his cerebral palsy causing gait abnormalities, but I would suspect he would be more spastic. Last part of the workup would be a lumbar puncture to assess the CSF for elevated protein (seen in 80% of HE). If negative, no further workup is recommended. If positive, then we would start him on oral prednisone (60 mg daily) therapy and follow him as an outpatient to evaluate for a response." - Called Dr Mott to make arrangements for lumbar puncture. (2) Hyponatremia Comment: - Likely related to Tegretol. (3) Hypothyroidism Comment: - Normal TSH with low T4/T3. - Endocrinology input appreciated - levothyroxine increased to 100mcg and repeat TFTs in 3-4 weeks. Goal TSH 0.5-2.5. (4) DVT prophylaxis Comment: - Lovenox (5) Full code status Status and Disposition: Inpatient.
[2019-04-19] MEDS ORDERED: Midazolam* 1 MG/ML 2 ML VIAL (2 MG) ONE (17:24)
[2019-04-19] MEDS: carBAMazepine ER TAB(*) 100 MG PO SCH (22:18)
[2019-04-20] MEDS: Levothyroxine TAB* 100 MCG TAB PO SCH (05:19)
[2019-04-20] MEDS: carBAMazepine ER TAB(*) 100 MG PO SCH (08:21)
[2019-04-20] MEDS: Cyanocobalamin TAB* 500 MCG PO SCH (08:22)
[2019-04-20] MEDS: Sodium Chloride TAB* 1 GM PO SCH ×2 (08:22→13:44)
[2019-04-20] MEDS: Sertraline* 50 MG TAB PO SCH (08:22)
[2019-04-20] MEDS: THIORIDAZINE 50 MG PO SCH (08:23)
[2019-04-20] MEDS: PHENobarbital TAB(*) 30 MG PO SCH (08:23)
[2019-04-20] MEDS ORDERED: Midazolam* 1 MG/ML 10 ML VIAL (10 MG) ONE (09:31)
[2019-04-20 09:48] VITALS: BP 133/81
[2019-04-20] MEDS: Psyllium PAK PO SCH (10:33)
[2019-04-20] MEDS: Lactulose* 15 ML UDC PO SCH ×2 (10:33→13:44)
[2019-04-20] MEDS: Polyethylene Glycol 3350* 17 GM PACKET PO SCH (10:33)
[2019-04-20 12:06] LABS: Body Fluid Source Cerebral Spinal
[2019-04-20 12:23] LABS: CSF Glucose 58 mg/dL (40-70)
[2019-04-20 12:54] LABS: Body Fluid Mono 60 %
[2019-04-20] MEDS ORDERED: predniSONE TAB* 50 MG PO ONE (13:20)
--- NOTE | 2019-04-20 14:37 | PN ---
Subjective Date of Service: 04/20/19 Length of Stay: 7 Days Neurology is following for frequent falls. Interval History: He tolerated the LP well. CSF protein is elevated at 86. CSF glucose: 58. WBC 2. Total cell count 5. He is pleasant and has been walking with a nurse around the petty. Family History: Unchanged from Admission Social History: Unchanged from Admission Past Medical History: Unchanged from Admission Objective Active Medications: Acetaminophen (Tylenol Tab*) 650 mg PO Q4H PRN PRN Reason: FEVER/PAIN Last Admin: 04/19/19 22:10 Dose: 650 mg Carbamazepine (Tegretol Xr Tab(*)) 300 mg PO BID [facility] Last Admin: 04/20/19 08:21 Dose: 300 mg Cyanocobalamin (Vitamin B12 Tab*) 1,000 mcg PO DAILY [facility] Last Admin: 04/20/19 08:22 Dose: 1,000 mcg Diphenhydramine HCl (Benadryl Po*) 25 mg PO ONCE PRN PRN Reason: AGITATION Haloperidol (Haldol Tab*) 2 mg PO ONCE PRN PRN Reason: AGITATION Lactulose (Lactulose*) 30 ml PO TID [facility] Last Admin: 04/20/19 13:44 Dose: 30 ml Levothyroxine Sodium (Synthroid Tab*) 100 mcg PO DAILY@0600 [facility] Last Admin: 04/20/19 05:19 Dose: 100 mcg Lorazepam (Ativan Tab(*)) 2 mg PO ONCE PRN PRN Reason: AGITATION Miscellaneous (Ativan Pyxis Holliday) 1 ea N/A .PYXIS HOLLIDAY PRN PRN Reason: PER PROTOCOL Ondansetron HCl (Zofran Inj*) 4 mg IV Q4H PRN PRN Reason: NAUSEA/VOMITING Phenobarbital (Phenobarbital Tab(*)) 60 mg PO BID [facility] Last Admin: 04/20/19 08:23 Dose: 60 mg Polyethylene Glycol/Electrolytes (Miralax*) 17 gm PO DAILY [facility] Last Admin: 04/20/19 10:33 Dose: 17 gm Psyllium Hydrophilic Mucilloid (Metamucil Matheus*) 1 pkt PO DAILY [facility] Last Admin: 04/20/19 10:33 Dose: 1 pkt Sertraline HCl (Zoloft*) 75 mg PO DAILY [facility] Last Admin: 04/20/19 08:22 Dose: 75 mg Sodium Chloride (Sodium Chloride Tab*) 1 gm PO TID [facility] Last Admin: 04/20/19 13:44 Dose: 1 gm Thioridazine HCl (Mellaril*) 50 mg PO BID [facility] Last Admin: 04/20/19 08:23 Dose: 50 mg Vital Signs 04/19/19 04/19/19 04/19/19 15:16 20:00 20:17 Temperature 98.2 F 97.7 F Pulse Rate 70 79 Respiratory 20 16 16 Rate Blood Pressure 134/71 130/71 (mmHg) O2 Sat by Pulse 98 99 Oximetry 04/19/19 04/20/19 04/20/19 22:10 00:16 01:43 Temperature 97.8 F Pulse Rate 66 Respiratory 16 14 14 Rate Blood Pressure 136/80 (mmHg) O2 Sat by Pulse 99 Oximetry 04/20/19 04/20/19 04/20/19 03:15 08:00 08:20 Temperature 97.5 F 97.0 F Pulse Rate 57 64 Respiratory 16 18 14 Rate Blood Pressure 132/81 133/81 (mmHg) O2 Sat by Pulse 97 97 Oximetry 04/20/19 08:23 Temperature Pulse Rate Respiratory 18 Rate Blood Pressure (mmHg) O2 Sat by Pulse Oximetry Intake and Output Last 24 Hours 04/18/19 04/19/19 04/20/19 04/21/19 06:59 06:59 06:59 06:59 Intake Total 3000 1035 1370 750 Balance 3000 1035 1370 750 Weight 149 lb 3.2 oz Intake: Oral 3000 1035 1370 750 Other: Estimated Void Large Large Medium Estimated Stool Amount Medium Large Large # Voids 1 1 Oxygen Devices in Use Now: None Neurology Exam: General: Well nourished, well developed, mute and deaf man in no distress. HEENT: Normocephelic/atraumatic, sclera anicteric, mucous membranes moist Neck: Supple Chest: Clear to auscultation bilaterally Cardiovascular: Regular rate and rhythm without murmurs, rubs, gallops Abdomen: Soft, non-tender/non-distended Extremities: No clubbing, cyanosis, or edema Neurological Findings: Communicates by using a paper with objects to point to. He is deaf and mute. He signs simple commands. Cranial Nerve: PERRL, dysconjugate gaze. Motor: s/s throughout, proximal and distal extremities x4 tone/bulk normal Sensation: he withdrew to minimal stimuli. He also appeared to be ticklish at the bottom of his feet. Deep Tendon Reflex: 1+ symmetric in the upper/lower extremities, Babinski - down going Finger to nose, rapid alternating movements intact without tremor, no dysdiadochokinesia Gait: ataxic wide gait, requiring one person assist. Less swaying but he has impulsive quick movements when ambulating. Result Diagrams: 04/16/19 06:08 04/19/19 06:27 Additional Lab and Data: MRI C spine- limited due to motion artifact. There is no evidence of spinal cord compression Assessment/Plan Assessment and recommendations: 58 year old with autism, CP, deaf/mute, hx of seizure d/o, admitted with progressive weakness and falls, mild rhabdo and electrolyte abnormalities. 1. 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 The clinical presentation may differ with each case and since he has baseline cognitive dysfunction and mutism, we may not entirely see the psychiatric manifestation which is typical for this diagnosis. Other differential diagnosis include channelopathy related ataxia (anti-MAHENDRA or [id number] gene mutation). I don't suspect a demyelinating neuropathy since he has reflexes, is not weak, and does not show any signs of neuropathy. -Start prednisone 50 mg daily. Follow-up with me in 2 weeks and then we can assess if we need to wean him off the prednisone (depending on his progression) . - Follow-up with endocrinology 2. Hyponatremia- most likely related to carbamazepine use. Ordered a carbamazepine epoxide level to check for toxicity. Reduced the dose to 300 mg twice daily. He has not had any seizures in years. Recommend slowly weaning him off this agent as an outpatient. He can be discharged home.
--- NOTE | 2019-04-21 19:31 | DS ---
CC: Dr. Bell Camarilol in [place], [place], phone number [phone]; neurologist Dr. Rice. DISCHARGE SUMMARY: DATE OF ADMISSION: 04/13/19 DATE OF DISCHARGE: 04/20/19 PRIMARY CARE PROVIDER: Dr. Bell Camarillo. DISCHARGE DIAGNOSES: 1. 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 2. Hyponatremia, likely related to carbamazepine use. SECONDARY DIAGNOSES: 1. Autism. 2. Cerebral palsy. 3. Deafness and mutism. 4. Seizure disorder. 5. Hypothyroidism. MEDICATION LIST: 1. Mellaril 50 mg p.o. b.i.d. 2. Sodium chloride tablet 1 g p.o. t.i.d. 3. Sertraline 50 mg p.o. daily. 4. Psyllium seed 1 table spoon p.o. b.i.d. 5. MiraLAX 1 packet p.o. daily. 6. Phenobarbital 64.8 mg p.o. b.i.d. 7. Ferrous sulphate 325 mg p.o. daily. 8. Vitamin B12 at 1000 mcg p.o. every other day. 9. Cholecalciferol 6000 units p.o. at bedtime. 10. Calcium plus vitamin D 1 tablet p.o. b.i.d. 11. Cogentin 1 mg p.o. b.i.d. 12. Alendronate 70 mg p.o. weekly. Medication change: 1. Carbamazepine was changed to 300 mg p.o. b.i.d. 2. Levothyroxine was increased to 100 mcg p.o. daily at 6 a.m. New medication: Prednisone 50 mg p.o. daily. HOSPITAL COURSE: Mr. Grubbs is a 58-year-old male with a past medical history as stated above that p resented to the emergency room with ataxia and frequent falls for the last few weeks, prior to admiss ion. For more details about her presentation, I refer you to the history and physical dictated by Dr Giulia Ferreira on 04/13/19. He was seen in consultation by Neurology, Dr. Velez, whose impression was that the patient has had progressive and repeated falls. He looked encephalopathic, but he had received Haldol and benzodiaze pines earlier in the day while at [facility] according to transfer records. He recommended wo rkup including MRI of the brain. The patient had an overnight oximetry that showed that his oxygen saturation was greater than 92% of the time and longest period with oxygen saturation less than 88 was 7 minutes. Due to patient's agitation arrangements had to be made, so he could have an MRI. He also had multiple laboratory tests done including ammonia level that was slightly elevated, but the significance was u nclear. MRI of the brain was performed on 04/17/19, and it showed no acute intracranial abnormality only brai n atrophy out of proportion to his age. He also had an EEG done. That was a limited normal awake EEG with diffuse continuous muscle artifact. Due to the inability for the patient to relax during the re cording. There was no clear evidence of epileptiform discharges or electrographic seizures. MRI of the cervical spine was markedly degraded study by patient's motion artifact, but there was no gross canal stenosis. The patient's TFTs were abnormal with a TSH of 3.38, but a free T4 of 0.57. He was seen in consultat ion by Endocrinology (Dr. Blair) and he recommended increasing the patient's levothyroxine to 100 mcg daily and titrate to a goal TSH of 0.5 to 2.5. He recommended checking TSH and free T4 in 3 to 4 week s. This will have to be done by his primary care provider and if he does not respond to medication c hanges as expected, then he can be referred for followup with Dr. Blair as outpatient. There was also concern for possible Ervin's encephalopathy, so Neurology (Dr. Rice) recommended lumbar puncture and this was performed on 04/20/19 with anesthesia support. The CSF showed only 2 WB Cs and CSF glucose of 58, but protein was elevated at 86. Dr. Rice felt that the patient's presenta tion with increased falls in patient with developmental delay, cerebral palsy, autism-mute, and repor onur seizures would be compatible with Ervin encephalopathy based on the subacute onset of gait ab normality, positive thyroid peroxidase antibody, and elevated protein in the CSF. The plan at this point is to start the patient on prednisone 50 mg daily and he will follow up with Mariann Rice in 2 weeks to determine for the first course. If he does not improve with steroids, he may need referral to a tertiary center as his differential includes channelopathy related ataxia (anti GA D or [id number] gene mutation). Dr. Rice's office will contact the patient's assisted to schedule the appointment in [address] Rice also felt that the patient's hyponatremia is most likely related to carbamazepine use. He ordered a carbamazepine epoxide level to check for toxicity and this is pending at the time of discha rge. He reduced the dose to 300 mg twice daily and the plan is to slowly continue to wean him of thi s agent as an outpatient. The patient had some improvement of his gait, but the ataxia is still present. Arrangements were made with his assisted to move him to a home that he would not need to go up stairs. The patient's brother Hollis Grubbs was called and updated about the patient diagnosis and plan of care and he is in agreement. The patient is medically stable for discharge to followup with Dr. Camarillo and Dr. Rice as outpatient . PHYSICAL EXAMINATION: Vital Signs: Temperature 97.0, heart rate is 64, respiratory rate is 18, oxyg en saturation 97% on room air, blood pressure is 153/81. General: The patient is a middle aged gentl eman sitting up in a chair, coloring with crayons and in no acute distress. CVS: Normal S1 and S2. Regular rate and rhythm. Chest: Breath sounds present bilaterally with no added sounds. Neuro: He is alert and awake. Communicates through sign language and paper with objects to point to. He has an ataxic wide gait requiring 1 person assist. DIET: Regular diet, mechanical ground texture. ACTIVITIES: As tolerated. DISPOSITION: [facility]. STATUS WHILE IN THE HOSPITAL: Inpatient. Please keep in mind this is a summarized version of this patient's prolonged hospital stay. If you n eed more information, please feel free to call me at or please obtain the full medical records. TIME SPENT: Approximately 45 minutes was spent to complete this discharge. [id number]/[facility] #: [id number]
== END 2019-04-20 16:12 | disposition home or self-care (01) | DRG 98 ==
LOC: MEDTELE 16:42
PROVIDERS: ADMIT Internal Medicine; ATTEND Internal Medicine
PROC: 4A00X4Z Measurement of Central Nervous Electrical Activity, External Approach (ICD-10-PCS; 2019-04-17)
PROC: 009U3ZX Drainage of Spinal Canal, Percutaneous Approach, Diagnostic (ICD-10-PCS; principal; 2019-04-20 09:00)
DX: G04.81 Other encephalitis and encephalomyelitis (principal); F84.0 Autistic disorder; E87.1 Hypo-osmolality and hyponatremia; M62.82 Rhabdomyolysis; E72.20 Disorder of urea cycle metabolism, unspecified; E06.3 Autoimmune thyroiditis; G40.909 Epilepsy, unspecified, not intractable, without status epilepticus; F79 Unspecified intellectual disabilities; H91.90 Unspecified hearing loss, unspecified ear; G47.33 Obstructive sleep apnea (adult) (pediatric); L30.9 Dermatitis, unspecified; F63.9 Impulse disorder, unspecified; H26.9 Unspecified cataract; M85.80 Other specified disorders of bone density and structure, unspecified site; E03.9 Hypothyroidism, unspecified; M81.0 Age-related osteoporosis without current pathological fracture; H91.3 Deaf nonspeaking, not elsewhere classified; G80.9 Cerebral palsy, unspecified; W19.XXXA Unspecified fall, initial encounter; E83.52 Hypercalcemia; R29.6 Repeated falls; T42.1X5A Adverse effect of iminostilbenes, initial encounter; Y92.9 Unspecified place or not applicable; Y92.009 Unspecified place in unspecified non-institutional (private) residence as the place of occurrence of the external cause
CPT/HCPCS: 36415; 62270; 70551; 72141; 80048; 80156; 80184; 80299; 81003; 82140; 82306; 82330; 82533; 82550; 82607; 82945; 83930; 83935; 83970; 84133; 84157; 84300; 84425; 84439; 84443; 84481; 84550; 85025; 85652; 86038; 86140; 86341; 86376; 86800; 89051; 94762; 95816; A9270-GY; G8978-GP-CK; G8979-GP-CI; J0610; J1650; J2060; J2250; J7512

== ENCOUNTER 2021-09-01 09:00 | Inpatient (IN) ==
[2021-09-01] MEDS ORDERED: LORazepam 2 mg VIAL 1 ml ONE (09:04)
[2021-09-01 09:42] LABS: ABS Lymphocytes 1.6 10^3/ul (1.0-4.8); ABS Monocytes 0.8 10^3/ul (0-0.8); ABS Neutrophils 4.7 10^3/ul (1.5-7.7); Eosinophil % 0.4 %; Hematocrit 36 % (42-52); Hemoglobin 12.6 g/dL (14.0-18.0); Lymphocyte % 23.1 %; Mean Corpuscular HGB Conc 35 g/dL (31-36); Mean Corpuscular Hemoglobin 33 pg (27-31); Mean Corpuscular Volume 94 fL (80-94); Mean Platelet Volume 8.2 fL (7.4-10.4); Nucleated Red Blood Cells % 0.1; Platelet Count 167 10^3/uL (150-450); Red Blood Count 3.86 10^6 /uL (4.18-5.48); Red Cell Distribution Width 14 % (10-15); White Blood Count 7.1 10^3/uL (3.5-10.8)
[2021-09-01 09:48] LABS: INR 1.39 (0.86-1.15)
[2021-09-01 09:58] LABS: Albumin 3.3 g/dL (3.2-5.2); Albumin/Globulin Ratio 1.2 (1-3); Calcium 7.6 mg/dL (8.6-10.3); Globulin 2.7 g/dL (2-4); Magnesium 2.3 mg/dL (1.9-2.7); Potassium 4.9 mmol/L (3.5-5.0); Total Bilirubin 0.6 mg/dL (0.2-1.0)
[2021-09-01] MEDS ORDERED: Lorazepam PYXIS KEY PRN (09:59)
[2021-09-01] MEDS ORDERED: LORazepam 2 mg VIAL 1 ml IV PUSH ONE (09:59)
[2021-09-01] MEDS ORDERED: NS 0.9% 1000 ml BAG 1,000 ML IV ONE ×2 (10:14→14:40)
[2021-09-01 10:15] LABS: Rapid COVID-19 Molecular Undetected (Undetected)
[2021-09-01] MEDS ORDERED: cefTRIAXone 1 gm/50 mL NS BAG 1 GM/50 ML BAG IV ONE (11:19)
[2021-09-01] MEDS ORDERED: DOXYcycline 100 MG in NS 0.9% 250 ml 250 ML IVPB ONE (11:19)
[2021-09-01] MEDS ORDERED: NS 0.9% 250 ml 250 ML ONE (12:11)
[2021-09-01] MEDS ORDERED: Levofloxacin 500 MG IVPREMIX 500 MG/100 ML BAG IV ONE (12:17)
[2021-09-01] MEDS: LaCOSAMide VIAL 100 MG in NS 0.9% 50 ML 50 ML IV SCH (13:40)
[2021-09-01] MEDS ORDERED: Piperacillin/Tazobac ADVAN 3.375 GM in NS 0.9% 100 ml BAG 100 ML IV ONE (14:35)
[2021-09-01] MEDS ORDERED: CALCIUM GLUCONATE 1GM/50ML NS 1 GM/50 ML BAG IV ONE (14:44)
[2021-09-01] MEDS ORDERED: Zosyn per Pharmacy NOTE FOLLOW UP SCH (15:00)
[2021-09-01] MEDS: Enoxaparin 40 MG/0.4 ML SYR SUBCUT SCH (15:17)
[2021-09-01] MEDS: Mometasone 220 MCG MDI INH SCH ×2 (19:06→19:21)
[2021-09-01 19:33] LABS: Calcium 7.9 mg/dL (8.6-10.3); Potassium 4.8 mmol/L (3.5-5.0)
[2021-09-01] MEDS: ZOSYN 3.375 GM Q8H per EXTENDED INFUSION IV SCH (19:56)
[2021-09-01] MEDS: Calcium/Vitamin D TAB 250/125 TAB PO SCH (21:14)
[2021-09-01] MEDS: THIORIDAZINE 50 MG PO SCH (21:16)
[2021-09-01] MEDS ORDERED: Calcium Gluconate 2 GM in NS 0.9% 100 ml BAG 100 ML IV ONE (21:53)
[2021-09-01] MEDS ORDERED: Calcium Gluconate 4 GM in NS 0.9% 250 ml 250 ML IVPB ONE (21:54)
[2021-09-02] MEDS: LaCOSAMide VIAL 100 MG in NS 0.9% 50 ML 50 ML IV SCH ×2 (01:42→13:09)
[2021-09-02] MEDS: ZOSYN 3.375 GM Q8H per EXTENDED INFUSION IV SCH ×3 (02:44→19:42)
[2021-09-02 08:52] LABS: ABS Lymphocytes 0.8 10^3/ul (1.0-4.8); ABS Monocytes 0.7 10^3/ul (0-0.8); ABS Neutrophils 5.2 10^3/ul (1.5-7.7); Eosinophil % 0.2 %; Hematocrit 37 % (42-52); Hemoglobin 12.8 g/dL (14.0-18.0); Lymphocyte % 11.3 %; Mean Corpuscular HGB Conc 35 g/dL (31-36); Mean Corpuscular Hemoglobin 32 pg (27-31); Mean Corpuscular Volume 93 fL (80-94); Nucleated Red Blood Cells % 0.1; Platelet Count 188 10^3/uL (150-450); Red Blood Count 3.97 10^6 /uL (4.18-5.48); Red Cell Distribution Width 14 % (10-15); White Blood Count 6.7 10^3/uL (3.5-10.8)
[2021-09-02 09:11] LABS: Calcium 8.9 mg/dL (8.6-10.3)
[2021-09-02] MEDS: Calcium/Vitamin D TAB 250/125 TAB PO SCH ×2 (11:17→21:34)
[2021-09-02] MEDS: THIORIDAZINE 50 MG PO SCH ×2 (11:23→21:33)
[2021-09-02] MEDS: Polyethylene Glycol 3350 17 GM PACKET PO SCH (12:03)
[2021-09-02] MEDS: Enoxaparin 40 MG/0.4 ML SYR SUBCUT SCH (14:16)
[2021-09-02] MEDS: Mometasone 220 MCG MDI INH SCH (19:24)
[2021-09-03] MEDS: LaCOSAMide VIAL 100 MG in NS 0.9% 50 ML 50 ML IV SCH (01:20)
[2021-09-03] MEDS: ZOSYN 3.375 GM Q8H per EXTENDED INFUSION IV SCH ×3 (03:18→21:33)
[2021-09-03] MEDS ORDERED: Midazolam 10 mg/10 ml VIAL 1 mg/ml 10 ml VIAL (10 mg) ONE (08:30)
[2021-09-03] MEDS ORDERED: Sodium Bicarbonate 8.4% SYR 50 ml SYRINGE ONE (08:30)
[2021-09-03] MEDS ORDERED: Atropine 0.1 MG/ML 10 ml SYR (1 mg) ONE (08:30)
[2021-09-03] MEDS ORDERED: Rocuronium 50 mg VIAL 10 mg/ml 5 ml VIAL (50 mg) ONE (08:30)
[2021-09-03] MEDS ORDERED: EPINEPHrine SYR 0.1MG/ML 10 ml SYRINGE ONE (08:30)
[2021-09-03] MEDS: Norepinephrine 16MCG/ML IVPRE 4,000 MCG/250 ML BAG IV SCH ×3 (08:40→22:21)
[2021-09-03] MEDS ORDERED: LINACLOTIDE 72 MCG PO SCH (09:00)
[2021-09-03] MEDS ORDERED: Midazolam 2 mg/2 ml VIAL 1 mg/ml 2 ml VIAL (2 mg) IV SLOW PU ONE (10:00)
[2021-09-03] MEDS: Propofol 10 mg/ml 100 ML BTL 100 ML IV SCH (10:00)
[2021-09-03 10:25] LABS: ABS Lymphocytes 0.7 10^3/ul (1.0-4.8); ABS Monocytes 0.8 10^3/ul (0-0.8); ABS Neutrophils 8.3 10^3/ul (1.5-7.7); Eosinophil % 0.3 %; Hematocrit 33 % (42-52); Hemoglobin 11.2 g/dL (14.0-18.0); Lymphocyte % 7.1 %; Mean Corpuscular HGB Conc 34 g/dL (31-36); Mean Corpuscular Hemoglobin 32 pg (27-31); Mean Corpuscular Volume 94 fL (80-94); Mean Platelet Volume 8.5 fL (7.4-10.4); Platelet Count 151 10^3/uL (150-450); Red Blood Count 3.47 10^6 /uL (4.18-5.48); Red Cell Distribution Width 14 % (10-15); White Blood Count 9.9 10^3/uL (3.5-10.8)
[2021-09-03 10:33] LABS: INR 1.81 (0.86-1.15)
[2021-09-03 10:43] LABS: ALT 166 U/L (7-52); AST 204 U/L (13-39); Albumin/Globulin Ratio 1.3 (1-3); Alkaline Phosphatase 93 U/L (35-149); Anion Gap 6 mmol/L (2-11); Blood Urea Nitrogen 28 mg/dL (6-24); CO2 Carbon Dioxide 21 mmol/L (22-32); Calcium 7.8 mg/dL (8.6-10.3); Chloride 100 mmol/L (101-111); Globulin 2.3 g/dL (2-4); Glucose 133 mg/dL (70-100); Phosphorus 4.6 mg/dL (2.5-5.0); Potassium 4.6 mmol/L (3.5-5.0); Sodium 127 mmol/L (135-145); Total Protein 5.3 g/dL (6.4-8.9)
[2021-09-03 10:53] LABS: Urine Appearance Cloudy; Urine Bilirubin Negative (Negative); Urine Blood Negative (Negative); Urine Color Yellow; Urine Glucose 1+(50 mg/dL) (Negative); Urine Ketones Negative (Negative); Urine Nitrite Negative (Negative); Urine Protein 3+(>=500 mg/dL) (Negative); Urine Specific Gravity 1.024 (1.002-1.030); Urine Urobilinogen Negative (Negative)
[2021-09-03 11:03] LABS: Troponin I 0.08 ng/mL (<0.03)
[2021-09-03 11:04] LABS: Urine Bacteria Absent (Absent); Urine Red Blood Cell 2+(6-10/hpf) (Absent); Urine Squamous Epithelial Cell Present (Absent); Urine White Blood Cell 2+(11-20/hpf) (Absent)
[2021-09-03] MEDS ORDERED: NOREPINEPHRINE IV ONE (11:39)
[2021-09-03] MEDS ORDERED: [UNRECOGNIZED DRUG - OTHER] IV ONE (11:39)
[2021-09-03 12:03] LABS: PCO2 Arterial 36 mmHg (35-45); PO2 Arterial 104 mmHg (80-100)
[2021-09-03] MEDS: Calcium/Vitamin D TAB 250/125 TAB PO SCH (12:31)
[2021-09-03 12:52] LABS: Thyroid Peroxidase Antibodies 64.24 IU/mL (<9)
[2021-09-03] MEDS ORDERED: PHENOBARBITAL 30 MG/7.5 ML NG TUBE SCH (13:00)
[2021-09-03] MEDS ORDERED: PHENOBARBITAL 30 MG/7.5 ML PO ONE (13:00)
[2021-09-03] MEDS ORDERED: PHENOBARBITAL 30 MG/7.5 ML NG TUBE ONE (13:00)
[2021-09-03] MEDS: Chlorhexidine MOUTHWASH 0.12% 15 ML UDC TOPICAL SCH ×3 (13:35→20:32)
[2021-09-03] MEDS: Enoxaparin 40 MG/0.4 ML SYR SUBCUT SCH (13:35)
[2021-09-03] MEDS: Pantoprazole VIAL 40 MG VIAL IV SCH (13:35)
[2021-09-03] MEDS ORDERED: PHENobarbital LIQ 30 MG/7.5 ML UDC ONE (13:43)
[2021-09-03] MEDS: THIORIDAZINE 50 MG PO SCH (13:54)
[2021-09-03] MEDS: Polyethylene Glycol 3350 17 GM PACKET PO SCH (13:54)
[2021-09-03] MEDS ORDERED: Perflutren Lipid Microsphere 3 ML VIAL ONE (16:29)
[2021-09-03] MEDS ORDERED: Enoxaparin 40 MG/0.4 ML SYR SUBCUT ONE (18:00)
[2021-09-03] MEDS ORDERED: PHENobarbital LIQ 30 MG/7.5 ML UDC PO SCH (21:00)
[2021-09-03] MEDS: THIORIDAZINE 50 MG NG TUBE SCH (22:37)
[2021-09-04] MEDS: Chlorhexidine MOUTHWASH 0.12% 15 ML UDC TOPICAL SCH ×6 (01:18→19:46)
[2021-09-04] MEDS: ZOSYN 3.375 GM Q8H per EXTENDED INFUSION IV SCH ×3 (03:50→19:42)
[2021-09-04] MEDS: Propofol 10 mg/ml 100 ML BTL 100 ML IV SCH ×3 (05:00→19:02)
[2021-09-04] MEDS: Levothyroxine 100 MCG/5 ML VIAL IV SCH (05:41)
[2021-09-04 05:58] LABS: ABS Eosinophils 0.1 10^3/ul (0-0.6); ABS Lymphocytes 0.9 10^3/ul (1.0-4.8); ABS Monocytes 0.9 10^3/ul (0-0.8); Eosinophil % 0.6 %; Hematocrit 35 % (42-52); Hemoglobin 11.9 g/dL (14.0-18.0); Lymphocyte % 8.2 %; Mean Corpuscular HGB Conc 34 g/dL (31-36); Mean Corpuscular Hemoglobin 32 pg (27-31); Mean Corpuscular Volume 95 fL (80-94); Mean Platelet Volume 8.5 fL (7.4-10.4); Nucleated Red Blood Cells % 0.1; Platelet Count 148 10^3/uL (150-450); Red Blood Count 3.69 10^6 /uL (4.18-5.48); Red Cell Distribution Width 13 % (10-15); White Blood Count 10.8 10^3/uL (3.5-10.8)
[2021-09-04] MEDS ORDERED: Enoxaparin 80 MG/0.8 ML SYR SUBCUT SCH ×2 (06:00→09:00)
[2021-09-04 06:27] LABS: ALT 213 U/L (7-52); AST 190 U/L (13-39); Albumin 2.9 g/dL (3.2-5.2); Albumin/Globulin Ratio 1.2 (1-3); Alkaline Phosphatase 93 U/L (35-149); Anion Gap 9 mmol/L (2-11); Blood Urea Nitrogen 28 mg/dL (6-24); CO2 Carbon Dioxide 21 mmol/L (22-32); Calcium 7.9 mg/dL (8.6-10.3); Chloride 99 mmol/L (101-111); Globulin 2.5 g/dL (2-4); Glucose 122 mg/dL (70-100); Magnesium 1.9 mg/dL (1.9-2.7); Phosphorus 3.9 mg/dL (2.5-5.0); Potassium 3.8 mmol/L (3.5-5.0); Sodium 129 mmol/L (135-145); Total Protein 5.4 g/dL (6.4-8.9)
[2021-09-04 06:35] LABS: Troponin I 0.06 ng/mL (<0.03)
[2021-09-04] MEDS: Polyethylene Glycol 3350 17 GM PACKET NG TUBE SCH (07:40)
[2021-09-04] MEDS: THIORIDAZINE 50 MG NG TUBE SCH ×2 (07:41→20:15)
[2021-09-04] MEDS ORDERED: PHENOBARBITAL 30 MG/7.5 ML NG TUBE SCH (09:00)
[2021-09-04 09:47] LABS: % Iron Saturation 12 % (15-55); Iron 27 ug/dL (50-212); Total Iron Binding Capacity 231 mcg/dL (250-450); Transferrin 165 mg/dL (203-362); Unsaturated Iron Binding < 216 ug/dL
[2021-09-04 09:55] LABS: Ferritin 788.2 ng/mL (24-336)
[2021-09-04] MEDS ORDERED: Heparin DRIP 25,000 UNITS BAG 25,000 UNITS/500 ML BAG ONE (10:48)
[2021-09-04] MEDS: Norepinephrine 16MCG/ML IVPRE 4,000 MCG/250 ML BAG IV SCH ×3 (11:00→23:20)
[2021-09-04] MEDS ORDERED: Heparin 5000 UNITS/ML 1 mL VIAL IV SCH ×2 (11:00→16:00)
[2021-09-04] MEDS: Pantoprazole VIAL 40 MG VIAL IV SCH (11:52)
[2021-09-04] MEDS ORDERED: Lactated Ringers 1000 ml BAG 500 ML IV ONE (12:33)
[2021-09-04] MEDS ORDERED: NS 0.9% 500 ml BAG 500 ML IV ONE (12:35)
[2021-09-04] MEDS ORDERED: Sodium Bicarbonate 8.4% SYR 50 ml SYRINGE IV ONE (12:44)
[2021-09-04] MEDS ORDERED: Iohexol 350 (CONTRAST) 500 ML MDV IV ONE (13:31)
[2021-09-04] MEDS ORDERED: Magnesium Sulfate IV 1GM/100ML 1 GM/100 ML BAG IV ONE (14:05)
[2021-09-04] MEDS: Heparin DRIP 25,000 UNITS BAG 25,000 UNITS/500 ML BAG IV SCH (15:58)
[2021-09-04] MEDS: PHENobarbital LIQ 30 MG/7.5 ML UDC NG TUBE SCH (20:15)
[2021-09-04 21:10] LABS: INR 1.83 (0.86-1.15)
[2021-09-04 21:47] LABS: Rapid COVID-19 Molecular Undetected (Undetected)
[2021-09-05] MEDS: Chlorhexidine MOUTHWASH 0.12% 15 ML UDC TOPICAL SCH ×7 (00:54→23:52)
[2021-09-05] MEDS: Propofol 10 mg/ml 100 ML BTL 100 ML IV SCH ×3 (02:48→19:49)
[2021-09-05] MEDS: Norepinephrine 16MCG/ML IVPRE 4,000 MCG/250 ML BAG IV SCH ×3 (02:49→19:47)
[2021-09-05] MEDS: ZOSYN 3.375 GM Q8H per EXTENDED INFUSION IV SCH ×3 (03:44→19:18)
[2021-09-05 05:30] LABS: ABS Eosinophils 0.1 10^3/ul (0-0.6); ABS Lymphocytes 1.4 10^3/ul (1.0-4.8); ABS Monocytes 0.7 10^3/ul (0-0.8); ABS Neutrophils 7.3 10^3/ul (1.5-7.7); Eosinophil % 0.9 %; Hematocrit 36 % (42-52); Hemoglobin 12.4 g/dL (14.0-18.0); Lymphocyte % 14.7 %; Mean Corpuscular HGB Conc 34 g/dL (31-36); Mean Corpuscular Hemoglobin 33 pg (27-31); Mean Corpuscular Volume 95 fL (80-94); Mean Platelet Volume 8.6 fL (7.4-10.4); Nucleated Red Blood Cells % 0.3; Platelet Count 168 10^3/uL (150-450); Red Blood Count 3.82 10^6 /uL (4.18-5.48); Red Cell Distribution Width 14 % (10-15); White Blood Count 9.4 10^3/uL (3.5-10.8)
[2021-09-05 05:47] LABS: Albumin 2.7 g/dL (3.2-5.2); Albumin/Globulin Ratio 1.1 (1-3); Calcium 7.5 mg/dL (8.6-10.3); Globulin 2.5 g/dL (2-4); Magnesium 2.2 mg/dL (1.9-2.7); Phosphorus 3.8 mg/dL (2.5-5.0); Potassium 3.9 mmol/L (3.5-5.0); Total Bilirubin 0.5 mg/dL (0.2-1.0); Total Protein 5.2 g/dL (6.4-8.9)
[2021-09-05] MEDS: Levothyroxine 100 MCG/5 ML VIAL IV SCH (06:04)
[2021-09-05] MEDS ORDERED: Lactated Ringers 500 ml BAG 500 ML IV ONE (08:44)
[2021-09-05] MEDS: Polyethylene Glycol 3350 17 GM PACKET NG TUBE SCH (09:03)
[2021-09-05] MEDS: PHENobarbital LIQ 30 MG/7.5 ML UDC NG TUBE SCH ×2 (09:10→21:30)
[2021-09-05] MEDS: THIORIDAZINE 50 MG NG TUBE SCH ×2 (09:11→21:31)
[2021-09-05] MEDS: Heparin DRIP 25,000 UNITS BAG 25,000 UNITS/500 ML BAG IV SCH (10:59)
[2021-09-05] MEDS: Pantoprazole VIAL 40 MG VIAL IV SCH (11:25)
[2021-09-06] MEDS: Chlorhexidine MOUTHWASH 0.12% 15 ML UDC TOPICAL SCH ×2 (03:53→08:23)
[2021-09-06] MEDS: ZOSYN 3.375 GM Q8H per EXTENDED INFUSION IV SCH (03:53)
[2021-09-06 04:25] LABS: ABS Eosinophils 0.1 10^3/ul (0-0.6); ABS Lymphocytes 1.2 10^3/ul (1.0-4.8); ABS Monocytes 0.7 10^3/ul (0-0.8); ABS Neutrophils 6.9 10^3/ul (1.5-7.7); Eosinophil % 0.7 %; Hematocrit 35 % (42-52); Lymphocyte % 13.8 %; Mean Corpuscular HGB Conc 34 g/dL (31-36); Mean Corpuscular Hemoglobin 33 pg (27-31); Mean Corpuscular Volume 95 fL (80-94); Mean Platelet Volume 8.6 fL (7.4-10.4); Nucleated Red Blood Cells % 0.4; Platelet Count 176 10^3/uL (150-450); Red Blood Count 3.69 10^6 /uL (4.18-5.48); Red Cell Distribution Width 14 % (10-15); White Blood Count 8.9 10^3/uL (3.5-10.8)
[2021-09-06 04:41] LABS: Albumin 2.7 g/dL (3.2-5.2); Albumin/Globulin Ratio 1.1 (1-3); Calcium 7.5 mg/dL (8.6-10.3); Globulin 2.4 g/dL (2-4); Magnesium 2.2 mg/dL (1.9-2.7); Phosphorus 3.6 mg/dL (2.5-5.0); Potassium 3.7 mmol/L (3.5-5.0); Total Bilirubin 0.6 mg/dL (0.2-1.0); Total Protein 5.1 g/dL (6.4-8.9)
[2021-09-06] MEDS: Propofol 10 mg/ml 100 ML BTL 100 ML IV SCH ×2 (05:17→09:50)
[2021-09-06] MEDS: Norepinephrine 16MCG/ML IVPRE 4,000 MCG/250 ML BAG IV SCH ×2 (06:09→09:51)
[2021-09-06] MEDS ORDERED: Lactated Ringers 1000 ml BAG 500 ML IV ONE (06:15)
[2021-09-06] MEDS: Levothyroxine 100 MCG/5 ML VIAL IV SCH (06:17)
[2021-09-06] MEDS: THIORIDAZINE 50 MG NG TUBE SCH (08:23)
[2021-09-06] MEDS: PHENobarbital LIQ 30 MG/7.5 ML UDC NG TUBE SCH (08:23)
[2021-09-06] MEDS: Polyethylene Glycol 3350 17 GM PACKET NG TUBE SCH (08:23)
[2021-09-06] MEDS ORDERED: Albumin Human 25% 12.5 GM/50 ML BTL IV ONE ×2 (09:13→09:18)
[2021-09-06] MEDS ORDERED: Albumin Human 25% 25 GM/100 ML BTL IV ONE (09:17)
[2021-09-06] MEDS: Heparin DRIP 25,000 UNITS BAG 25,000 UNITS/500 ML BAG IV SCH (09:31)
[2021-09-06 10:38] VITALS: BP 91/73
== END 2021-09-06 13:10 | disposition short-term general hospital (02) | DRG 871 ==
LOC: SUATTDRO → ED 09:00 → MED 13:30 → SUATTDRO 13:30 → MED 17:42 → ICU 09-03 09:15
PROVIDERS: ADMIT Internal Medicine; ATTEND Surgery Surgical Critical Care